=== PATIENT | male | born 1970 | race African-American/Black ===

== ENCOUNTER 2022-06-19 22:17 | Inpatient (IN) ==
[2022-06-19] MEDS ORDERED: LORazepam 1 MG/1 ML SYR ONE (22:18)
[2022-06-19] MEDS ORDERED: ALBUT/IPRATROP 3MG/0.5MG NEB 3 ML VIAL NEB STA (22:19)
[2022-06-19] MEDS ORDERED: ACETAMINOPHEN 500 MG TAB PO STA (22:19)
[2022-06-19] MEDS ORDERED: LORazepam 1 MG/1 ML SYR IV STA (22:19)
[2022-06-19] MEDS ORDERED: dexAMETHasone**PF** 10 MG/ML VIAL IV ONE (22:19)
[2022-06-19] MEDS ORDERED: SODIUM CHLORIDE 0.9% 1000ML 1,000 ML IV SCH (22:30)
[2022-06-19] MEDS ORDERED: PIPERACILLIN/TAZOBACTAM 4.5 GM/120 ML BAG IV ONE (23:23)
[2022-06-19 23:26] LABS: Appearance Urine Clear (Clear); Bacteria Urine Automated Negative (Negative); Bilirubin Urine Negative (Negative); Blood Urine 1+ (Negative); Color Urine Yellow; Glucose Urine UA Negative (Negative); Ketones Urine Negative (Negative); Leukocyte Esterase Urine Negative (Negative); Nitrite Urine Negative (Negative); Protein Urine 2+ (Negative); RBC Urine Automated 0-4 /hpf (0-4); Specific Gravity Urine 1.013 (1.000-1.030); Urobilinogen Urine Negative (Negative)
[2022-06-19 23:40] LABS: Albumin Level 4.7 gm/dl (3.4-5.0); BUN Creatinine Ratio 12.1 (10-20); Bilirubin Direct 0.2 mg/dl (0-0.2); Bilirubin,Total 0.6 mg/dl (0.2-1.0); Calcium 8.7 mg/dl (8.5-10.1); Creatinine Clr Calc Pharmacy 105.8 ml/min; Est GFR (African American) 111.1 ml/min; Est GFR (Non-African American) 95.9 ml/min; Magnesium 1.8 mg/dl (1.7-2.4); Potassium 3.3 mmol/L (3.5-5.1)
[2022-06-19 23:42] LABS: Troponin I High Sensitivity 99.2 pg/ml (0-20)
[2022-06-19] MEDS ORDERED: SODIUM CHLORIDE 0.9% 1000ML 1,000 ML IV ONE (23:42)
[2022-06-19 23:55] LABS: Hematocrit (blood only) 49.9 % (40.1-51.0); Hemoglobin 17.3 g/dl (14.0-18.0); Mean Corpuscular Hemoglobin 32.3 pg (25.0-34.0); Mean Corpuscular Hgb Conc 34.7 g/dL (32.0-36.0); Mean Corpuscular Volume 93.3 fL (80.0-100.0); Mean Platelet Volume 11.7 fL (9.4-12.4); Platelet Count 122 K/uL (130-400); RDW Coefficient of Variation 13.6 % (11.5-14.5); RDW Standard Deviation 46.6 fL (36.4-46.3); Red Blood Count 5.35 M/uL (4.63-6.08); White Blood Count 8.09 K/ul (4.8-10.8)
[2022-06-19 23:57] LABS: Basophils # (auto) 0.02 K/uL (0-0.2); Basophils % (auto) 0.2 %; Eosinophils # (auto) 0.06 K/uL (0-0.50); Eosinophils % (auto) 0.7 %; Immature Granulocytes # (auto) 0.04 K/uL (0.00-0.02); Immature Granulocytes % (auto) 0.5 %; Lymphocytes # (auto) 1.66 K/uL (1.2-3.4); Lymphocytes % (auto) 20.5 %; Monocytes # (auto) 0.83 K/uL (0.24-0.82); Monocytes % (auto) 10.3 %; Neutrophils # (auto) 5.48 K/uL (1.4-6.5); Neutrophils % (auto) 67.8 %; Platelet Estimate Normal (Normal)
[2022-06-20 00:01] LABS: Adenovirus PCR Not Detected (NotDetected); Bordetella parapertussis PCR Not Detected (NotDetected); Bordetella pertussis PCR Not Detected (NotDetected); Chlamydia pneumoniae PCR Not Detected (NotDetected); Coronavirus 229E PCR Not Detected (NotDetected); Coronavirus CoV-2 (COVID19)PCR Not Detected (NotDetected); Coronavirus HKU1 PCR Not Detected (NotDetected); Coronavirus NL63 PCR Not Detected (NotDetected); Coronavirus OC43PCR Not Detected (NotDetected); Human Metapneumovirus PCR Not Detected (NotDetected); Influenza A PCR Not Detected (NotDetected); Influenza B PCR Not Detected (NotDetected); Mycoplasma pneumoniae PCR Not Detected (NotDetected); Parainfluenza Virus 1 PCR Not Detected (NotDetected); Parainfluenza Virus 2 PCR Not Detected (NotDetected); Parainfluenza Virus 3 PCR Not Detected (NotDetected); Parainfluenza Virus 4 PCR Not Detected (NotDetected); Respiratory Syncytial VirusPCR Not Detected (NotDetected)
[2022-06-20 00:04] LABS: Rhinovirus/Enterovirus PCR DETECTED (NotDetected)
--- NOTE | 2022-06-20 00:19 | Emergency Department Note ---
History of Present Illness General Chief complaint: Respiratory Problems Stated complaint: RESPIRATORY PROBLEMS History of Present Illness This 51-year-old who smokes presents to the ER complaining of fever shortness of breath for the past few days who normally goes to [facility] Location: Generalized Quality: Hard to breathe Severity: Severe Duration: Past few days Timing: Started few days ago Context: Patient was concerned and came in Modifying factors: better with oxygen; worse with coughing Patient comes in yelling and screaming for oxygen from EMS. Patient complains of cough, congestion and shortness of breath with fever and chills. He does smoke. He denies history of COPD heart attack or stroke. There is no prior medical records to review for this patient in our system currently. I did ask for the records from [place] to be sent to our facility for review. Patient is adamant he has no prior cardiac disease despite the fact having a pacemaker. He denies any blood thinners. No COVID or flu vaccine. Home Medications Medication Instructions Recorded Confirmed Type albuterol sulfate 2.5 mg/3 mL 2.5 mg inhalation QID 06/20/22 06/20/22 History (0.083 %) solution for nebulization albuterol sulfate 2.5 mg/3 mL 2.5 mg inhalation QID 06/20/22 06/20/22 History (0.083 %) solution for nebulization alprazolam 2 mg tablet 2 mg PO QID PRN Anxiety 06/20/22 06/20/22 History alprazolam 2 mg tablet (Xanax) 2 mg PO QID PRN Anxiety 06/20/22 06/20/22 History dicyclomine 10 mg PO QID PRN Abdominal Pain 06/20/22 06/20/22 History dicyclomine 10 mg capsule 10 mg PO QID PRN .ABD PAIN 06/20/22 06/20/22 History divalproex 500 mg tablet,delayed 500 mg PO BID 06/20/22 06/20/22 History release divalproex 500 mg tablet,extended 500 mg PO AMHS 06/20/22 06/20/22 History release 24 hr escitalopram oxalate 20 mg tablet 20 mg PO QAM 06/20/22 06/20/22 History escitalopram oxalate 20 mg tablet 20 mg PO DAILY 06/20/22 06/20/22 History (Lexapro) furosemide 40 mg tablet (Lasix) 40 mg PO DAILYBD 06/20/22 06/20/22 History furosemide 80 mg tablet (Lasix) 80 mg PO BID 06/20/22 06/20/22 History furosemide 80 mg tablet (Lasix) 80 mg PO QAM 06/20/22 06/20/22 History gabapentin 600 mg PO HS 06/20/22 06/20/22 History gabapentin 300 mg capsule 600 mg PO HS 06/20/22 06/20/22 History isosorbide mononitrate 30 mg 30 mg PO DAILY 06/20/22 06/20/22 History tablet,extended release 24 hr isosorbide mononitrate 30 mg 30 mg PO QAM 06/20/22 06/20/22 History tablet,extended release 24 hr lisinopril 40 mg tablet 40 mg PO DAILY 06/20/22 06/20/22 History lisinopril 40 mg tablet 40 mg PO DAILY 06/20/22 06/20/22 History ondansetron 4 mg disintegrating 4 mg PO Q8H PRN Nausea 06/20/22 06/20/22 History tablet oxycodone-acetaminophen 10 mg-325 1 tab PO Q4H PRN Pain 06/20/22 06/20/22 History mg tablet (Percocet) oxycodone-acetaminophen 10 mg-325 1 tab PO Q4H PRN Pain, Severe 06/20/22 06/20/22 History mg tablet (Percocet) potassium chloride 20 mEq 40 meq PO BID 06/20/22 06/20/22 History tablet,extended release potassium chloride 20 mEq 40 meq PO BID 06/20/22 06/20/22 History tablet,extended release quetiapine 800 mg PO HS 06/20/22 06/20/22 History quetiapine 400 mg tablet 800 mg PO HS 06/20/22 06/20/22 History Allergies Allergy/AdvReac Type Severity Reaction Status Date / Time tramadol Allergy Hives Verified 06/20/22 02:12 amoxicillin AdvReac SOB Verified 06/20/22 02:12 Past Med/Surg History Medical History (Updated 06/20/22 @ 00:25 by Meron Vasques PA-C) Pacemaker Surgical History (Updated 06/20/22 @ 00:18 by Meron M Layo, PA-C) No pertinent past surgical history Social History Smoking Status: Current every day smoker Preferred Language: Irish Feels Safe at Home: Yes Review of Systems A total of 10 systems reviewed and were otherwise negative Physical Exam Vital Signs Vital Signs - 24 hr 06/19/22 22:22 06/19/22 22:22 06/19/22 23:31 Temperature 39.5 C H Temperature Source Oral Pulse Rate 132 H Pulse Rate [Apical] Respiratory Rate 32 H Respiratory Effort / Characteristics Accessory Muscle Use Labored Short of Breath Accessory Muscle Use Grunting Labored Short of Breath Respiratory Depth Shallow Respiratory Pattern Tachypnea Tachypnea Blood Pressure 191/121 H Blood Pressure [Right Arm] Blood Pressure Mean 144 Blood Pressure Mean [Right Arm] Pulse Oximetry 88 L 92 Oxygen Delivery Method Nasal Cannula Nasal Cannula Nasal Cannula Oxygen Flow Rate 5 5 6 Sepsis Recent Fever Within 48 Hours Yes Sepsis New/Unexplained Change in Mental Status No Sepsis Action Taken by Nursing Adv Provider Notified 06/19/22 23:31 06/19/22 23:45 06/20/22 00:00 Temperature Temperature Source Pulse Rate Pulse Rate [Apical] 102 H 97 H 97 H Respiratory Rate 26 H 26 H 26 H Respiratory Effort / Characteristics Spontaneous Short of Breath Non-Labored Spontaneous Non-Labored Respiratory Depth Normal Respiratory Pattern Blood Pressure Blood Pressure [Right Arm] 133/89 154/91 H Blood Pressure Mean Blood Pressure Mean [Right Arm] 103 112 Pulse Oximetry 92 96 94 Oxygen Delivery Method Nasal Cannula Nasal Cannula Nasal Cannula Oxygen Flow Rate 6 6 6 Sepsis Recent Fever Within 48 Hours Sepsis New/Unexplained Change in Mental Status Sepsis Action Taken by Nursing 06/20/22 00:30 06/20/22 01:00 06/20/22 01:15 Temperature Temperature Source Pulse Rate Pulse Rate [Apical] 98 H 103 H 95 H Respiratory Rate 24 28 H 24 Respiratory Effort / Characteristics Respiratory Depth Respiratory Pattern Blood Pressure Blood Pressure [Right Arm] 131/77 170/108 H 143/123 H Blood Pressure Mean Blood Pressure Mean [Right Arm] 95 128 129 Pulse Oximetry 94 92 95 Oxygen Delivery Method Nasal Cannula Nasal Cannula Oxymask Oxygen Flow Rate 6 6 10 Sepsis Recent Fever Within 48 Hours Sepsis New/Unexplained Change in Mental Status Sepsis Action Taken by Nursing 06/20/22 01:30 06/20/22 01:45 06/20/22 02:00 Temperature Temperature Source Pulse Rate Pulse Rate [Apical] 95 H 88 93 H Respiratory Rate 28 H 28 H 26 H Respiratory Effort / Characteristics Respiratory Depth Respiratory Pattern Blood Pressure Blood Pressure [Right Arm] 134/101 H 170/98 H 142/87 H Blood Pressure Mean Blood Pressure Mean [Right Arm] 112 122 105 Pulse Oximetry 93 93 95 Oxygen Delivery Method Oxymask Oxymask Oxymask Oxygen Flow Rate 10 10 10 Sepsis Recent Fever Within 48 Hours Sepsis New/Unexplained Change in Mental Status Sepsis Action Taken by Nursing 06/20/22 02:30 Temperature Temperature Source Pulse Rate Pulse Rate [Apical] 91 H Respiratory Rate 24 Respiratory Effort / Characteristics Respiratory Depth Respiratory Pattern Blood Pressure Blood Pressure [Right Arm] 144/100 H Blood Pressure Mean Blood Pressure Mean [Right Arm] 114 Pulse Oximetry 92 Oxygen Delivery Method Oxymask Oxygen Flow Rate 10 Sepsis Recent Fever Within 48 Hours Sepsis New/Unexplained Change in Mental Status Sepsis Action Taken by Nursing VITALS: Vitals are noted on the nurse's note and reviewed by myself. Vital signs febrile. GENERAL: Black male yelling and screaming at staff wanting a fan and oxygen, SKIN: The skin was without rashes, erythema, edema, or bruising. There is no tenting of the skin. Capillary reflex less than 2 seconds. HEAD: Normocephalic atraumatic. EARS: External auditory canals clear, tympanic membranes pearly rdz without erythema or effusion bilaterally. EYES: Pupils equal round and reactive to light and accommodation. Conjunctivae without injection, sclerae without icterus. Extraocular movements intact. NOSE: Patent, turbinates without inflammation or discharge. No sinus tenderness. MOUTH: Mucous membranes moist. Pharynx without erythema or exudate. Uvula midline. Airway patent. Tongue does not deviate. NECK: Supple without nuchal rigidity. No lymphadenopathy. No thyromegaly. Cervical spine is nontender. No JVD. HEART: Regular rate and rhythm LUNGS: Mild diffuse inspiratory and end expiratory wheezes, No retractions or accessory muscle use. ABDOMEN: Positive bowel sounds x 4. Normal tympanic percussion. Soft, nontender, without masses or organomegaly. Colindres sign negative. No guarding or rebound tenderness. No CVA tenderness MUSCULOSKELETAL: No muscle atrophy, erythema, or edema noted. NEURO: Patient was alert and oriented to person place and time. Normal sensation to light and sharp touch. No focal neurological deficits. Course Administered Medications Discontinued Medications Acetaminophen (Acetaminophen 500 Mg Tab) 1,000 mg PO NOW STA Stop: 06/19/22 22:20 Last Admin: 06/19/22 22:59 Dose: 1,000 mg Documented By: AN Albuterol (Albut/Ipratrop 3mg/0.5mg Neb 3 Ml Vial) 3 ml NEB NOW STA; Protocol Stop: 06/19/22 22:20 Last Admin: 06/19/22 22:59 Dose: 3 ml Documented By: AN Dexamethasone Sodium Phosphate (DexamethasonePf 10 Mg/Ml Vial) 10 mg IV NOW ONE Stop: 06/19/22 22:20 Last Admin: 06/19/22 22:59 Dose: 10 mg Documented By: AN Sodium Chloride (Nss 1000ml) 1,000 mls @ 999 mls/hr IV .Q1H1M ILIA Stop: 06/19/22 23:30 Last Infusion: 06/20/22 00:11 Dose: 0 mls/hr Documented By: Admin: 06/19/22 22:47 Dose: 999 mls/hr Documented By: AN Piperacillin Sod/Tazobactam Sod (Zosyn) 4.5 gm in 120 mls @ 240 mls/hr IV NOW ONE Stop: 06/19/22 23:52 Last Infusion: 06/20/22 00:30 Dose: 0 mls/hr Documented By: Admin: 06/19/22 23:43 Dose: 240 mls/hr Documented By: AN Sodium Chloride (Nss 1000ml) 1,000 mls @ 999 mls/hr IV .Q1H1M ONE Stop: 06/20/22 00:42 Last Admin: 06/20/22 01:08 Dose: Not Given Documented By: AN Ioversol (Optiray 320 500ml) 117 ml IV ONCE ONE Stop: 06/20/22 00:23 Last Admin: 06/20/22 00:22 Dose: 117 ml Documented By: MAURIZIO Lorazepam (Lorazepam 1 Mg/1 Ml Syr) Confirm Administered Dose 1 mg .ROUTE .STK- MED ONE Stop: 06/19/22 22:19 Last Admin: 06/19/22 22:47 Dose: Not Given Documented By: AN Lorazepam (Lorazepam 1 Mg/1 Ml Syr) 1 mg IV NOW STA; Protocol Stop: 06/19/22 22:20 Last Admin: 06/19/22 22:19 Dose: 1 mg Documented By: AN Medical Decision Making Medical Records Attestation: I reviewed the patient's medical records. Home Medications Current Medication List: was personally reviewed by me Laboratory Data Attestation: I reviewed the patient's lab results. Result diagrams: 06/19/22 22:45 06/19/22 22:45 Lab Results 06/19/22 06/19/22 06/19/22 Range/Units 22:45 22:45 22:45 WBC 8.09 (4.8-10.8) K/ul RBC 5.35 (4.63-6.08) M/uL Hgb 17.3 (14.0-18.0) g/dl Hct 49.9 (40.1-51.0) % MCV 93.3 (80.0-100.0) fL MCH 32.3 (25.0-34.0) pg MCHC 34.7 (32.0-36.0) g/dL RDW Std Deviation 46.6 H (36.4-46.3) fL RDW Coeff of Seven 13.6 (11.5-14.5) % Plt Count 122 L (130-400) K/uL MPV 11.7 (9.4-12.4) fL Immature Gran % (Auto) 0.5 % Neut % (Auto) 67.8 % Lymph % (Auto) 20.5 % [place] % (Auto) 10.3 % Eos % (Auto) 0.7 % Baso % (Auto) 0.2 % Neut # (Auto) 5.48 (1.4-6.5) K/uL Lymph # (Auto) 1.66 (1.2-3.4) K/uL [place] # (Auto) 0.83 H (0.24-0.82) K/uL Eos # (Auto) 0.06 (0-0.50) K/uL Baso # (Auto) 0.02 (0-0.2) K/uL Immature Gran # (Auto) 0.04 H (0.00-0.02) K/uL Platelet Estimate Normal (Normal) Sodium 139 (136-145) mmol/L Potassium 3.3 L (3.5-5.1) mmol/L Chloride 103 (98-107) mmol/L Carbon Dioxide 25 (21-32) mmol/L Anion Gap 11 (3-11) BUN 11 (6-23) mg/dl Creatinine 0.91 (0.6-1.4) mg/dl Est Cr Clr Drug Dosing 105.8 ml/min Est GFR ( Amer) 111.1 ml/min Est GFR (Non-Af Amer) 95.9 ml/min BUN/Creatinine Ratio 12.1 (10-20) Glucose 71 (70-99(Fasting)) mg/dl Lactate (0.4-2.0) mmol/L Calcium 8.7 (8.5-10.1) mg/dl Magnesium 1.8 (1.7-2.4) mg/dl Total Bilirubin 0.6 (0.2-1.0) mg/dl Direct Bilirubin 0.2 (0-0.2) mg/dl AST 42 H (13-39) U/L ALT 30 (7-52) U/L Alkaline Phosphatase 92 (34-104) U/L Troponin I High Sens 99.2 H* (0-20) pg/ml Total Protein 8.0 (6.0-8.3) gm/dl Albumin 4.7 (3.4-5.0) gm/dl Procalcitonin < 0.05 (0-0.5) ng/ml Urine Color Urine Appearance (Clear) Urine pH (4.5-7.5) Ur Specific [place] (1.000-1.030) Urine Protein (Negative) Urine Glucose (UA) (Negative) Urine Ketones (Negative) Urine Blood (Negative) Urine Nitrite (Negative) Urine Bilirubin (Negative) Urine Urobilinogen (Negative) Ur Leukocyte Esterase (Negative) Urine WBC (Auto) (0-5) /hpf Urine RBC (Auto) (0-4) /hpf U Hyaline Cast (Auto) (0-5) /lpf U Epithel Cells (Auto) (0-5) /lpf Urine Bacteria (Auto) (Negative) Adenovirus (PCR) (NotDetected) B. pertussis DNA (PCR) (NotDetected) B.parapertussis DNA PCR (NotDetected) C. pneumoniae DNA (PCR) (NotDetected) Coronavirus OC43 (PCR) (NotDetected) Coronavirus HKU1 (PCR) (NotDetected) Coronavirus 229E (PCR) (NotDetected) SARS-CoV-2 (PCR) (NotDetected) Coronavirus NL63 (PCR) (NotDetected) Human Metapneumovir PCR (NotDetected) Influenza Type A (PCR) (NotDetected) Influenza Type B (PCR) (NotDetected) M. pneumoniae (PCR) (NotDetected) Parainfluenza 1 (PCR) (NotDetected) Parainfluenza 2 (PCR) (NotDetected) Parainfluenza 3 (PCR) (NotDetected) Parainfluenza 4 (PCR) (NotDetected) RSV (PCR) (NotDetected) Entero/Rhino (PCR) (NotDetected) 06/19/22 06/19/22 06/19/22 Range/Units 22:45 22:59 23:15 WBC (4.8-10.8) K/ul RBC (4.63-6.08) M/uL Hgb (14.0-18.0) g/dl Hct (40.1-51.0) % MCV (80.0-100.0) fL MCH (25.0-34.0) pg MCHC (32.0-36.0) g/dL RDW Std Deviation (36.4-46.3) fL RDW Coeff of Seven (11.5-14.5) % Plt Count (130-400) K/uL MPV (9.4-12.4) fL Immature Gran % (Auto) % Neut % (Auto) % Lymph % (Auto) % [place] % (Auto) % Eos % (Auto) % Baso % (Auto) % Neut # (Auto) (1.4-6.5) K/uL Lymph # (Auto) (1.2-3.4) K/uL [place] # (Auto) (0.24-0.82) K/uL Eos # (Auto) (0-0.50) K/uL Baso # (Auto) (0-0.2) K/uL Immature Gran # (Auto) (0.00-0.02) K/uL Platelet Estimate (Normal) Sodium (136-145) mmol/L Potassium (3.5-5.1) mmol/L Chloride (98-107) mmol/L Carbon Dioxide (21-32) mmol/L Anion Gap (3-11) BUN (6-23) mg/dl Creatinine (0.6-1.4) mg/dl Est Cr Clr Drug Dosing ml/min Est GFR ( Amer) ml/min Est GFR (Non-Af Amer) ml/min BUN/Creatinine Ratio (10-20) Glucose (70-99(Fasting)) mg/dl Lactate 3.3 H* (0.4-2.0) mmol/L Calcium (8.5-10.1) mg/dl Magnesium (1.7-2.4) mg/dl Total Bilirubin (0.2-1.0) mg/dl Direct Bilirubin (0-0.2) mg/dl AST (13-39) U/L ALT (7-52) U/L Alkaline Phosphatase (34-104) U/L Troponin I High Sens (0-20) pg/ml Total Protein (6.0-8.3) gm/dl Albumin (3.4-5.0) gm/dl Procalcitonin (0-0.5) ng/ml Urine Color Yellow Urine Appearance Clear (Clear) Urine pH 6.0 (4.5-7.5) Ur Specific [place] 1.013 (1.000-1.030) Urine Protein 2+ H (Negative) Urine Glucose (UA) Negative (Negative) Urine Ketones Negative (Negative) Urine Blood 1+ H (Negative) Urine Nitrite Negative (Negative) Urine Bilirubin Negative (Negative) Urine Urobilinogen Negative (Negative) Ur Leukocyte Esterase Negative (Negative) Urine WBC (Auto) 1-5 (0-5) /hpf Urine RBC (Auto) 0-4 (0-4) /hpf U Hyaline Cast (Auto) 1-5 (0-5) /lpf U Epithel Cells (Auto) 5-10 H (0-5) /lpf Urine Bacteria (Auto) Negative (Negative) Adenovirus (PCR) Not Detected (NotDetected) B. pertussis DNA (PCR) Not Detected (NotDetected) B.parapertussis DNA PCR Not Detected (NotDetected) C. pneumoniae DNA (PCR) Not Detected (NotDetected) Coronavirus OC43 (PCR) Not Detected (NotDetected) Coronavirus HKU1 (PCR) Not Detected (NotDetected) Coronavirus 229E (PCR) Not Detected (NotDetected) SARS-CoV-2 (PCR) Not Detected (NotDetected) Coronavirus NL63 (PCR) Not Detected (NotDetected) Human Metapneumovir PCR Not Detected (NotDetected) Influenza Type A (PCR) Not Detected (NotDetected) Influenza Type B (PCR) Not Detected (NotDetected) M. pneumoniae (PCR) Not Detected (NotDetected) Parainfluenza 1 (PCR) Not Detected (NotDetected) Parainfluenza 2 (PCR) Not Detected (NotDetected) Parainfluenza 3 (PCR) Not Detected (NotDetected) Parainfluenza 4 (PCR) Not Detected (NotDetected) RSV (PCR) Not Detected (NotDetected) Entero/Rhino (PCR) DETECTED A* (NotDetected) 06/20/22 06/20/22 Range/Units 00:54 02:12 WBC (4.8-10.8) K/ul RBC (4.63-6.08) M/uL Hgb (14.0-18.0) g/dl Hct (40.1-51.0) % MCV (80.0-100.0) fL MCH (25.0-34.0) pg MCHC (32.0-36.0) g/dL RDW Std Deviation (36.4-46.3) fL RDW Coeff of Seven (11.5-14.5) % Plt Count (130-400) K/uL MPV (9.4-12.4) fL Immature Gran % (Auto) % Neut % (Auto) % Lymph % (Auto) % [place] % (Auto) % Eos % (Auto) % Baso % (Auto) % Neut # (Auto) (1.4-6.5) K/uL Lymph # (Auto) (1.2-3.4) K/uL [place] # (Auto) (0.24-0.82) K/uL Eos # (Auto) (0-0.50) K/uL Baso # (Auto) (0-0.2) K/uL Immature Gran # (Auto) (0.00-0.02) K/uL Platelet Estimate (Normal) Sodium (136-145) mmol/L Potassium (3.5-5.1) mmol/L Chloride (98-107) mmol/L Carbon Dioxide (21-32) mmol/L Anion Gap (3-11) BUN (6-23) mg/dl Creatinine (0.6-1.4) mg/dl Est Cr Clr Drug Dosing ml/min Est GFR ( Amer) ml/min Est GFR (Non-Af Amer) ml/min BUN/Creatinine Ratio (10-20) Glucose (70-99(Fasting)) mg/dl Lactate 1.3 (0.4-2.0) mmol/L Calcium (8.5-10.1) mg/dl Magnesium (1.7-2.4) mg/dl Total Bilirubin (0.2-1.0) mg/dl Direct Bilirubin (0-0.2) mg/dl AST (13-39) U/L ALT (7-52) U/L Alkaline Phosphatase (34-104) U/L Troponin I High Sens 114.9 H* (0-20) pg/ml Total Protein (6.0-8.3) gm/dl Albumin (3.4-5.0) gm/dl Procalcitonin (0-0.5) ng/ml Urine Color Urine Appearance (Clear) Urine pH (4.5-7.5) Ur Specific [place] (1.000-1.030) Urine Protein (Negative) Urine Glucose (UA) (Negative) Urine Ketones (Negative) Urine Blood (Negative) Urine Nitrite (Negative) Urine Bilirubin (Negative) Urine Urobilinogen (Negative) Ur Leukocyte Esterase (Negative) Urine WBC (Auto) (0-5) /hpf Urine RBC (Auto) (0-4) /hpf U Hyaline Cast (Auto) (0-5) /lpf U Epithel Cells (Auto) (0-5) /lpf Urine Bacteria (Auto) (Negative) Adenovirus (PCR) (NotDetected) B. pertussis DNA (PCR) (NotDetected) B.parapertussis DNA PCR (NotDetected) C. pneumoniae DNA (PCR) (NotDetected) Coronavirus OC43 (PCR) (NotDetected) Coronavirus HKU1 (PCR) (NotDetected) Coronavirus 229E (PCR) (NotDetected) SARS-CoV-2 (PCR) (NotDetected) Coronavirus NL63 (PCR) (NotDetected) Human Metapneumovir PCR (NotDetected) Influenza Type A (PCR) (NotDetected) Influenza Type B (PCR) (NotDetected) M. pneumoniae (PCR) (NotDetected) Parainfluenza 1 (PCR) (NotDetected) Parainfluenza 2 (PCR) (NotDetected) Parainfluenza 3 (PCR) (NotDetected) Parainfluenza 4 (PCR) (NotDetected) RSV (PCR) (NotDetected) Entero/Rhino (PCR) (NotDetected) Imaging Data Attestation: I personally reviewed and interpreted this imaging study as follows: MDM Narrative Prior records/ancillary studies reviewed. Triage Nursing notes reviewed. Additional history obtained from EMS. The patient's history was concerning for fever shortness of breath. Differential diagnosis: Etiologies such as sepsis, UTI, pneumonia, metabolic, electrolyte abnormalities, cardiac sources, intracerebral event, toxicologic, neurologic, as well as others were entertained. Physical examination: As above. Pertinent findings were shortness of breath. Vital signs reviewed and revealed febrile hypoxic. ER treatment provided: IV fluid resuscitation with Normal saline solution, 2000 mL bolus. Blood and urine cultures Antibiotics: Zosyn Nebulizer steroids Tylenol An order was placed for continuous cardiac monitoring. The monitor shows a rate of 60-1 50 with a sinus rhythm. On reassessment the patient vital signs improved. Diagnostics interpretation by me: ECG: Ordered for shortness of breath EKG: Poor baseline, T wave versions in the anterior lateral leads, occasional PV C, rate of 105. Impression sinus tachycardia with T wave inversions in the anterolateral leads poor baseline occasional PVC interpreted by myself I think arrhythmia is unlikely. EKG shows normal sinus rhythm with no interval abnormalities such as QT prolongation or WPW. There are no findings to suggest Brugada syndrome. Cardiac monitoring in the emergency department reveals no tachycardic or bradycardic dysrhythmia. Hypertrophic cardiomyopathy was considered but there are no clear historical elements pointing toward this. EKG is not suggestive. The QRS voltage is not extremely large and there are no suggestive Q waves. The labs revealed no worrisome leukocytosis, elevated lactic, normal p rocalcitonin, elevated troponin Positive bio fire Blood and urine cultures are pending. Imaging studies: CTA CHEST: There is fair opacification of the pulmonary arterial tree. No pulmonary arterial filling defect is seen. There is patchy multifocal consolidation throughout the lungs, correlate for concern of underlying infection. No effusion or pneumothorax. The heart is enlarged with reflux of contrast into the hepatic IVC suggesting an element of right heart failure. Radiologist: Kristian Vasques MD Chest x-ray concerning for multifocal pneumonia per my interpretation Consultation: A consultation was placed with the hospitalist. The case was discussed and diagnostics were reviewed. The patient was evaluated in the ER for further treatment. Exam and history seem consistent with sepsis from pneumonia. Medicine was consulted. Patient was reassessed multiple times. I did request further records from [place]. Patient no chest pain. Repeat EKG was reviewed. Repeat troponin was ordered. Patient was started on broad-spectrum antibiotics. He was medicated as above. He will be admitted. The chart was completed utilizing [employer] Speech voice recognition software. Grammatical errors, random word insertions, pronoun errors, and incomplete sentences are an occassional consequence of this system due to software limitations, ambient noise, and hardware issues. Any formal questions or concerns about the content, text, or information contained within the body of this dictation should be directly addressed to the physician assistant professor of psychology for clarification. Impression & Plan Sepsis, Pneumonia, Acute non-ST elevation myocardial infarction (NSTEMI) Discharge Plan Visit Data Chief Complaint: Respiratory Problems Stated Complaint: RESPIRATORY PROBLEMS ED Provider: Remington Peterson ED Midlevel Provider: Meron Vasques Discharge Problem: Sepsis, Pneumonia, Acute non-ST elevation myocardial infarction (NSTEMI) Patient Disposition: Being Evaluated by Hospitalist Condition: Fair Discharge Instructions Interventions: ED Discharge Assessment Last Done: 06/20/22 02:58 Forms Stand Alone Forms: My natue Prescriptions Prescriptions: No Action albuterol sulfate 2.5 mg /3 mL (0.083 %) Solution For Nebulization 2.5 mg INHALATION QID isosorbide mononitrate [Imdur] 30 mg Tablet Extended Release 24 Hr 30 mg PO QAM oxycodone-acetaminophen [Percocet] 10-325 mg Tablet 1 tab PO Q4H PRN (Reason: Pain) furosemide [Lasix] 80 mg Tablet 80 mg PO BID Rx Instructions: TAKE 1 TAB IN AM & 1 TAB BEFORE HS divalproex 500 mg Tablet Extended Release 24 Hr 500 mg PO AMHS gabapentin 300 mg Capsule 600 mg PO HS alprazolam [Xanax] 2 mg Tablet 2 mg PO QID PRN (Reason: Anxiety) lisinopril 40 mg Tablet 40 mg PO DAILY ondansetron 4 mg Tablet,Disintegrating 4 mg PO Q8H PRN (Reason: Nausea) dicyclomine [Bentyl] 10 mg Capsule 10 mg PO QID PRN (Reason: .ABD PAIN) escitalopram oxalate 20 mg Tablet 20 mg PO QAM quetiapine 400 mg Tablet 800 mg PO HS potassium chloride 20 mEq Tablet Extended Release 40 meq PO BID furosemide [Lasix] 40 mg Tablet 40 mg PO DAILYBD albuterol sulfate [Proventil] 2.5 mg /3 mL (0.083 %) Solution For Nebulization 2.5 mg INHALATION QID isosorbide mononitrate [Imdur] 30 mg Tablet Extended Release 24 Hr 30 mg PO DAILY divalproex 500 mg Tablet,Delayed Release (Dr/Ec) 500 mg PO BID oxycodone-acetaminophen [Percocet] 10-325 mg Tablet 1 tab PO Q4H PRN (Reason: Pain, Severe) furosemide [Lasix] 80 mg Tablet 80 mg PO QAM alprazolam 2 mg Tablet 2 mg PO QID PRN (Reason: Anxiety) lisinopril 40 mg Tablet 40 mg PO DAILY escitalopram oxalate [Lexapro] 20 mg Tablet 20 mg PO DAILY potassium chloride 20 mEq Tablet Extended Release 40 meq PO BID dicyclomine 10 mg PO QID PRN (Reason: Abdominal Pain) gabapentin 300 mg 600 mg PO HS quetiapine 400 mg 800 mg PO HS Referrals Referrals: PCP,NO [Primary Care Provider] - : Sepsis Qualifiers: Sepsis type: sepsis due to unspecified organism Sepsis acute organ dysfunction status: unspecified Qualified Code(s): A41.9 - Sepsis, unspecified organism
[2022-06-20] MEDS ORDERED: OPTIRAY 320 500ml IV ONE (00:22)
[2022-06-20] MEDS ORDERED: FUROSEMIDE 40 MG/4 ML VIAL IV ONE (02:47)
[2022-06-20] MEDS ORDERED: ACETAMINOPHEN 325 MG TAB PO PRN (03:41)
[2022-06-20] MEDS ORDERED: DICYCLOMINE HCL 10 MG CAP PO PRN (03:41)
[2022-06-20] MEDS ORDERED: ONDANSETRON 4 MG OD TAB PO PRN (03:41)
[2022-06-20] MEDS ORDERED: POLYETHYLENE (MIRALAX) 17 GM PACK PO PRN (03:41)
[2022-06-20] MEDS ORDERED: ALBUT/IPRATROP 3MG/0.5MG NEB 3 ML VIAL NEB PRN (03:41)
[2022-06-20] MEDS ORDERED: NITROGLYCERIN SL 0.4 MG/TAB TAB SL PRN (03:41)
[2022-06-20] MEDS ORDERED: FLUARIX QUADRIVALENT 0.5 ML SYR IM ONE (04:15)
[2022-06-20] MEDS: DOXYCYCLINE HYCLATE 100 MG in DEXTROSE 5% 100 ML IV SCH ×2 (04:47→16:33)
[2022-06-20 06:12] LABS: Hemoglobin 17.8 g/dl (14.0-18.0); Mean Corpuscular Hemoglobin 32.4 pg (25.0-34.0); Mean Corpuscular Hgb Conc 34.9 g/dL (32.0-36.0); Mean Corpuscular Volume 92.7 fL (80.0-100.0); Mean Platelet Volume 11.4 fL (9.4-12.4); Platelet Count 149 K/uL (130-400); RDW Coefficient of Variation 13.2 % (11.5-14.5); RDW Standard Deviation 45.1 fL (36.4-46.3); White Blood Count 11.13 K/ul (4.8-10.8)
--- NOTE | 2022-06-20 06:41 | History and Physical Report ---
DATE OF ADMISSION: 06/20/2022. CHIEF COMPLAINT: Shortness of breath. HISTORY OF PRESENT ILLNESS: A 51-year-old male with past medical history significant for chronic systolic CHF, status post cardiac defibrillator, nonischemic cardiomyopathy, obstructive sleep apnea on CPAP, hyperlipidemia, hypertension, cervicalgia, chronic back pain, schizophrenia, imbalance, ongoing tobacco abuse, anxiety about health, presents with shortness of breath. He was placed on OxyMask and sometimes have difficulty speaking with short of breath, had temp spike in the ER. His BioFire came back positive for entero-rhino virus PCR positive. Chest x-ray shows pneumonia. CTA chest, preliminary report no PE, but shows right heart volume overload. No obvious edema seen. The patient is having cough for the last 3 days and he was feeling short of breath and fever. Denies any chest pain, no headache, no blurred visions, no earache, no runny nose, no sore throat, no nausea, no abdominal pain. Normal bowel and bladder movements as well as pain medications and his anxiety medications. ALLERGIES: TRAMADOL, AMOXICILLIN. PAST MEDICAL HISTORY: As mentioned above. PAST SURGICAL HISTORY: Knee arthroscopy, pacemaker insertion, removal of BASHIR implant, replacement of pulse generator. MEDICATIONS: The patient is on albuterol nebulization q.i.d., alprazolam 2 mg p.o. q.i.d. p.r.n. for anxiety, lisinopril 10 mg p.o. q.i.d. for abdominal pain, divalproex 500 mg p.o. b.i.d., Lexapro 20 mg p.o. a.m., Lasix 80 mg in a.m. and 40 mg in p.m., gabapentin 600 mg p.o. at bedtime, Imdur 30 mg p.o. daily, lisinopril 40 mg p.o. daily, Zofran 4 mg p.o. q. 8 hours p.r.n., Percocet 10/325 mg 1 tablet p.o. q. 4 hours p.r.n., potassium chloride 40 mEq p.o. b.i.d., Seroquel 800 mg p.o. at bedtime. FAMILY HISTORY: Significant for father has alcoholism, daughter has heart disease; mother has heart disease. SOCIAL HISTORY: Currently smoking 4 cigarettes daily. As per records he smoked 1 pack a day. No alcohol use. No drug use. REVIEW OF SYSTEMS: As per HPI. Rest of the review of systems is negative. PHYSICAL EXAMINATION: GENERAL: The patient is of moderate build some moderate respiratory distress. VITAL SIGNS: Temperature T-max 39.5, pulse 91, respiratory rate 24, blood pressure 144/100, oxygen 92% on 10lt OxyMask. HEENT: Pupils equal, round, reactive to light. Oral mucosa moist. NECK: No JVD, no neck masses. CARDIOVASCULAR: S1 and S2 heard. Tachycardia. No murmurs. RESPIRATORY SYSTEM: Normal AP diameter. No accessory muscle use. Mild bibasilar crackles. Diminished breath sounds. ABDOMEN: Soft, bowel sounds present, nontender, no distention. CENTRAL NERVOUS SYSTEM: Alert, awake, and oriented. Speech is clear. No facial droop. Insight is okay. Obeys simple commands. EXTREMITIES: No edema, no erythema. LABORATORY DATA: WBC 8.9, hemoglobin 14.3, hematocrit 49.9, platelets 122. Sodium 139, potassium 3.3, chloride 103, CO2 25, BUN 11, creatinine 0.9, serum glucose 71. Lactate 1.3, calcium 8.7, magnesium 1.8, total bilirubin 0.6, direct bilirubin 0.2, AST 42, ALT 30, alkaline phosphatase 92. Troponin I high sensitivity 99. Procalcitonin less than 0.05. Urinalysis negative. BioFire positive for entero-Rhino PCR. IMAGING DATA: Chest x-ray shows infiltrates in right lower lobe. CTA chest, no PE, but multifocal pneumonia and possible right heart failure. ECG: Sinus tachycardia with frequent PVCs at a rate of 105, left atrial enlargement, poor quality data, QTc of 465. ASSESSMENT AND PLAN: This 51-year-old male with history of chronic systolic congestive heart failure, ongoing tobacco abuse, schizophrenia, sleep apnea, presents with shortness of breath. 1. Acute respiratory distress, most likely multifocal pneumonia, possible viral pneumonia. BioFire positive entero-rhino PCR. The patient is allergic to PENICILLINS and in the ER received steroid and Zosyn. The patient was also having acute congestive heart failure and chronic obstructive pulmonary disease exacerbation,.Will place him on Azactam and Doxycycline for now, iv streoids, nebs, iv lasix and monitor. 2. Acute on chronic systolic congestive heart failure, EF of 25-29% in echo 2019. IV lasix 40mg bid . Cardiac consult in a.m. Closely monitor. 3. Mild elevation of troponin, possible demand ischemia. Follow serial enzymes, echocardiogram, and cardiac consult in a.m. 4. Chronic obstructive pulmonary disease exacerbation, antibiotics as above, steroids, and nebulizers p.r.n. 5. History of obstructive sleep apnea on CPAP at bedtime. 6. History of schizophrenia, anxiety. Continue his home medication of divalproex, Seroquel and on alprazolam p.r.n. 7. Chronic back pain, on Percocet p.r.n. 8. Hypertension, on lisinopril, Imdur and Lasix We will monitor the blood pressure. 9. Mild thrombocytopenia. Platelets 122.Possibly from current illness. Will monitor. 10.. Deep venous thrombosis prophylaxis, Lovenox. Monitor the platelets. DISPOSITION: Closely monitor in tele floor. Level 1 full code. Job ID: [id number] MTDD
[2022-06-20 06:56] LABS: Basophils # (auto) 0.02 K/uL (0-0.2); Basophils % (auto) 0.2 %; Echinocytes 1+; Immature Granulocytes # (auto) 0.05 K/uL (0.00-0.02); Immature Granulocytes % (auto) 0.4 %; Lymphocytes % (auto) 5.4 %; Monocytes % (auto) 3.6 %; Neutrophils # (auto) 10.06 K/uL (1.4-6.5); Neutrophils % (auto) 90.4 %
[2022-06-20] MEDS ORDERED: ALBUT/IPRATROP 3MG/0.5MG NEB 3 ML VIAL NEB SCH (07:00)
[2022-06-20 07:05] LABS: Troponin I High Sensitivity 94.9 pg/ml (0-20)
[2022-06-20 07:27] LABS: Calcium 8.7 mg/dl (8.5-10.1); Creatinine Clr Calc Pharmacy 106.5 ml/min; Est GFR (African American) 114.7 ml/min; Magnesium 1.7 mg/dl (1.7-2.4); Potassium 3.1 mmol/L (3.5-5.1)
[2022-06-20] MEDS: lisinopril 40 MG TAB PO SCH (08:00)
[2022-06-20] MEDS: methylPREDNISolone 40 MG in SYRINGE 0 ML IV SCH ×2 (08:00→20:40)
[2022-06-20] MEDS: ENOXAPARIN INJ 40 MG/0.4 ML SYR SQ SCH (08:00)
[2022-06-20] MEDS: POTASSIUM CHLORIDE CRTAB 20 MEQ TABCR PO SCH ×2 (08:00→20:41)
[2022-06-20] MEDS: ESCITALOPRAM OXALATE 20 MG TAB PO SCH (08:01)
[2022-06-20] MEDS: ISOSORBIDE MONO EXTENDED REL 30 MG TABCR PO SCH (08:01)
[2022-06-20] MEDS: DIVALPROEX DELAY RELEASE 500 MG TAB PO SCH ×2 (08:01→20:42)
[2022-06-20] MEDS: AZTREONAM 2,000 MG in DEXTROSE 5% 100 ML IV SCH ×2 (08:05→16:32)
[2022-06-20] MEDS: MAGNESIUM OXIDE 400 MG TAB PO SCH (08:05)
[2022-06-20] MEDS: oxyCODONE/ACETAMINOPHEN 10-325 TAB PO PRN ×3 (08:05→20:37)
[2022-06-20] MEDS: FUROSEMIDE 40 MG/4 ML VIAL IV SCH ×2 (08:08→17:40)
--- NOTE | 2022-06-20 08:13 | XRay Report ---
XR chest 1V portable CLINICAL HISTORY: Sepsis TECHNIQUE: Single frontal radiograph of the chest was obtained. Comparison: None available at the time of this dictation. FINDINGS: Pacemaker defibrillator is seen. Cardiomegaly is noted. Multifocal airspace opacities are seen. Kerle y B lines are seen. No evidence of pleural effusion or pneumothorax. IMPRESSION: Multifocal airspace opacities may represent atelectasis, pneumonia, and/or aspiration. There is moder ate pulmonary edema. ACT 112: Negative or not required by law. Electronically signed by: Solitario Castro M.D. 06/20/2022 8:10 AM
--- NOTE | 2022-06-20 08:17 | CT Scan Report ---
CT angio chest PE protocol CLINICAL HISTORY: PE TECHNIQUE: Multidetector row helical CT of the chest was performed with angiographic protocol. Estrada l and sagittal reformations were obtained. Coronal and sagittal MIPS were obtained from the axial park a set and were submitted for review. Automated dose lowering techniques and/or adjustment according to patient size were utilized for this exam. CT DOSE: 428.46 mGy.cm Comparison: Comparison is made to chest radiograph 08/19/2021 FINDINGS: Lungs and pleura: Multifocal airspace opacities are seen. There is interlobular septal thickening. Heart and pericardium: There is reflux of contrast into the IVC which can be seen in heart failure. Vessels: No evidence of pulmonary embolism. Mediastinum and nitish: Subcentimeter lymph nodes are seen. Chest wall and lower neck: Unremarkable. Abdomen: Unremarkable. Bones: Degenerative changes in the thoracic spine. IMPRESSION: 1. No evidence of pulmonary embolism. 2. Pneumonia. 3. Pulmonary edema has history of heart failure. ACT 112: Negative or not required by law. Electronically signed by: Solitario Castro M.D. 06/20/2022 8:14 AM
--- NOTE | 2022-06-20 09:03 | Cardiology Consultation ---
Date of Consultation June 20, 2022 Assessment & Plan (1) CHF (congestive heart failure), NYHA class II: (2) HFrEF (heart failure with reduced ejection fraction): (3) COPD exacerbation: (4) Adenoviral bronchiolitis: (5) Schizophrenia: (6) Elevated troponin: Plan This is a patient with longstanding history of a nonischemic cardiomyopathy with chronic systolic heart failure, COPD from cigarette smoking, noncompliance and history of schizophrenia. The patient is feeling better now that he has received diuretics and started on DuoNeb treatments. I would continue current treatment. History of Present Illness Attending Physician: Hasmukh Landeros MD History of Present Illness This is a 51-year-old male patient with history of schizophrenia who lives alone in [facility]. [place] [facility] [place] there are numerous no-shows and cancellations of visits on the chart. He was last seen in the clinic by Dr. Quiroga in January of this year. Did not seem to be having any problems at that time. He has a nonischemic cardiomyopathy and a primary prevention ICD. He is treated for sleep apnea. Questionable as to his comp liance with medications and overall medical care. Last echocardiogram was in 1999 and at that time he had an estimated left ventricular ejection fraction of 25%. He has a long smoking history but states he stopped recently. He was admitted with progressive shortness of breath. He is tested positive for an enterovirus. Since receiving IV Lasix and DuoNeb treatments he is feeling better. Allergies Allergy/AdvReac Type Severity Reaction Status Date / Time tramadol Allergy Hives Verified 06/20/22 02:12 amoxicillin AdvReac SOB Verified 06/20/22 02:12 Home Medications Medication Instructions Recorded Confirmed Type albuterol sulfate 2.5 mg/3 mL 2.5 mg inhalation QID 06/20/22 06/20/22 History (0.083 %) solution for nebulization albuterol sulfate 2.5 mg/3 mL 2.5 mg inhalation QID 06/20/22 06/20/22 History (0.083 %) solution for nebulization alprazolam 2 mg tablet 2 mg PO QID PRN Anxiety 06/20/22 06/20/22 History alprazolam 2 mg tablet (Xanax) 2 mg PO QID PRN Anxiety 06/20/22 06/20/22 History dicyclomine 10 mg PO QID PRN Abdominal Pain 06/20/22 06/20/22 History dicyclomine 10 mg capsule 10 mg PO QID PRN .ABD PAIN 06/20/22 06/20/22 History divalproex 500 mg tablet,delayed 500 mg PO BID 06/20/22 06/20/22 History release divalproex 500 mg tablet,extended 500 mg PO AMHS 06/20/22 06/20/22 History release 24 hr escitalopram oxalate 20 mg tablet 20 mg PO QAM 06/20/22 06/20/22 History escitalopram oxalate 20 mg tablet 20 mg PO DAILY 06/20/22 06/20/22 History (Lexapro) furosemide 40 mg tablet (Lasix) 40 mg PO DAILYBD 06/20/22 06/20/22 History furosemide 80 mg tablet (Lasix) 80 mg PO BID 06/20/22 06/20/22 History furosemide 80 mg tablet (Lasix) 80 mg PO QAM 06/20/22 06/20/22 History gabapentin 600 mg PO HS 06/20/22 06/20/22 History gabapentin 300 mg capsule 600 mg PO HS 06/20/22 06/20/22 History isosorbide mononitrate 30 mg 30 mg PO DAILY 06/20/22 06/20/22 History tablet,extended release 24 hr isosorbide mononitrate 30 mg 30 mg PO QAM 06/20/22 06/20/22 History tablet,extended release 24 hr lisinopril 40 mg tablet 40 mg PO DAILY 06/20/22 06/20/22 History lisinopril 40 mg tablet 40 mg PO DAILY 06/20/22 06/20/22 History ondansetron 4 mg disintegrating 4 mg PO Q8H PRN Nausea 06/20/22 06/20/22 History tablet oxycodone-acetaminophen 10 mg-325 1 tab PO Q4H PRN Pain 06/20/22 06/20/22 History mg tablet (Percocet) oxycodone-acetaminophen 10 mg-325 1 tab PO Q4H PRN Pain, Severe 06/20/22 06/20/22 History mg tablet (Percocet) potassium chloride 20 mEq 40 meq PO BID 06/20/22 06/20/22 History tablet,extended release potassium chloride 20 mEq 40 meq PO BID 06/20/22 06/20/22 History tablet,extended release quetiapine 800 mg PO HS 06/20/22 06/20/22 History quetiapine 400 mg tablet 800 mg PO HS 06/20/22 06/20/22 History Patient History Medical History Pacemaker Surgical History No pertinent past surgical history Social History Smoking Status: Unknown if ever smoked Second Hand Exposure: No; Do You Dip or Chew Tobacco: No; Tobacco Cessation Education Requested by Patient: No Hx Alcohol Use: No Hx Substance Use: No Preferred Language: Gibraltarian Communication Ability: Effective Dx Board Operator Required: No Beliefs That Will Affect Care: None Current Living Situation: Alone Current Living Situation Comment: lives alone in apartment Other Information That Helps Us Care for You: No Feels Safe at Home: Yes Safety Concerns: Feels Safe At This Time Review of Systems Review of Systems: Review of Systems: See HPI for pertinent positives. All other 10 point review of systems are negative. Physical Exam Physical Exam: General: no acute distress and stated age Head: normocephalic, no masses, lesions, tenderness or abnormalities Eyes: conjunctiva are pink and non-injected, sclera clear Neck: supple, no adenopathy, no bruits, normal jugular venous pulse, no hepatojugular reflux Chest: normal shape and normal respiratory effort Lungs: Wheezing and rhonchi bilaterally. Cardiac Exam: - regular rate & rhythm, no murmurs gallops or rubs - normal S1, normal S2 Pulses: 2(+) throughout Abdomen: abdomen soft, non-tender, no abnormal masses and no hepatosplenomegaly Musculoskeletal: no gait disturbance, no joint inflammation, no deforming arthritis Extremities: no edema and no cyanosis Neuro: grossly normal exam Results & Data ([facility]) Vital Signs (Past 12 Hours) Vital Signs Temp Pulse Pulse Resp BP BP Pulse Ox 06/20/22 07:41 85 06/20/22 07:24 94 H 20 92 06/20/22 04:00 06/20/22 03:44 37.3 C 85 22 144/84 H 96 06/20/22 02:30 91 H 24 144/100 H 92 06/20/22 02:00 93 H 26 H 142/87 H 95 06/20/22 01:45 88 28 H 170/98 H 93 06/20/22 01:30 95 H 28 H 134/101 H 93 06/20/22 01:15 95 H 24 143/123 H 95 06/20/22 01:00 103 H 28 H 170/108 H 92 06/20/22 00:30 98 H 24 131/77 94 06/20/22 00:00 97 H 26 H 94 06/19/22 23:45 97 H 26 H 154/91 H 96 06/19/22 23:31 102 H 26 H 133/89 92 06/19/22 23:31 92 06/19/22 22:22 06/19/22 22:22 39.5 C H 132 H 32 H 191/121 H 88 L O2 Del Method O2 Flow Rate 06/20/22 07:41 06/20/22 07:24 Oxymask 10 06/20/22 04:00 Oxymask 10 06/20/22 03:44 Oxymask 10 06/20/22 02:30 Oxymask 10 06/20/22 02:00 Oxymask 10 06/20/22 01:45 Oxymask 10 06/20/22 01:30 Oxymask 10 06/20/22 01:15 Oxymask 10 06/20/22 01:00 Nasal Cannula 6 06/20/22 00:30 Nasal Cannula 6 06/20/22 00:00 Nasal Cannula 6 06/19/22 23:45 Nasal Cannula 6 06/19/22 23:31 Nasal Cannula 6 06/19/22 23:31 Nasal Cannula 6 06/19/22 22:22 Nasal Cannula 5 06/19/22 22:22 Nasal Cannula 5 Laboratory Results Laboratory Results - last 24 hr 06/19/22 06/19/22 06/19/22 22:45 22:45 22:45 WBC 8.09 RBC 5.35 Hgb 17.3 Hct 49.9 MCV 93.3 MCH 32.3 MCHC 34.7 RDW Std Deviation 46.6 H RDW Coeff of Esven 13.6 Plt Count 122 L MPV 11.7 Immature Gran % (Auto) 0.5 Neut % (Auto) 67.8 Lymph % (Auto) 20.5 [place] % (Auto) 10.3 Eos % (Auto) 0.7 Baso % (Auto) 0.2 Neut # (Auto) 5.48 Lymph # (Auto) 1.66 [place] # (Auto) 0.83 H Eos # (Auto) 0.06 Baso # (Auto) 0.02 Immature Gran # (Auto) 0.04 H Platelet Estimate Normal Echinocytes Sodium 139 Potassium 3.3 L Chloride 103 Carbon Dioxide 25 Anion Gap 11 BUN 11 Creatinine 0.91 Est Cr Clr Drug Dosing 105.8 Est GFR ( Amer) 111.1 Est GFR (Non-Af Amer) 95.9 BUN/Creatinine Ratio 12.1 Glucose 71 Lactate Calcium 8.7 Magnesium 1.8 Total Bilirubin 0.6 Direct Bilirubin 0.2 AST 42 H ALT 30 Alkaline Phosphatase 92 Troponin I High Sens 99.2 H* Total Protein 8.0 Albumin 4.7 Procalcitonin < 0.05 Urine Color Urine Appearance Urine pH Ur Specific [place] Urine Protein Urine Glucose (UA) Urine Ketones Urine Blood Urine Nitrite Urine Bilirubin Urine Urobilinogen Ur Leukocyte Esterase Urine WBC (Auto) Urine RBC (Auto) U Hyaline Cast (Auto) U Epithel Cells (Auto) Urine Bacteria (Auto) Adenovirus (PCR) B. pertussis DNA (PCR) B.parapertussis DNA PCR C. pneumoniae DNA (PCR) Coronavirus OC43 (PCR) Coronavirus HKU1 (PCR) Coronavirus 229E (PCR) SARS-CoV-2 (PCR) Coronavirus NL63 (PCR) Human Metapneumovir PCR Influenza Type A (PCR) Influenza Type B (PCR) M. pneumoniae (PCR) Parainfluenza 1 (PCR) Parainfluenza 2 (PCR) Parainfluenza 3 (PCR) Parainfluenza 4 (PCR) RSV (PCR) Entero/Rhino (PCR) 06/19/22 06/19/22 06/19/22 22:45 22:59 23:15 WBC RBC Hgb Hct MCV MCH MCHC RDW Std Deviation RDW Coeff of Seven Plt Count MPV Immature Gran % (Auto) Neut % (Auto) Lymph % (Auto) [place] % (Auto) Eos % (Auto) Baso % (Auto) Neut # (Auto) Lymph # (Auto) [place] # (Auto) Eos # (Auto) Baso # (Auto) Immature Gran # (Auto) Platelet Estimate Echinocytes Sodium Potassium Chloride Carbon Dioxide Anion Gap BUN Creatinine Est Cr Clr Drug Dosing Est GFR ( Amer) Est GFR (Non-Af Amer) BUN/Creatinine Ratio Glucose Lactate 3.3 H* Calcium Magnesium Total Bilirubin Direct Bilirubin AST ALT Alkaline Phosphatase Troponin I High Sens Total Protein Albumin Procalcitonin Urine Color Yellow Urine Appearance Clear Urine pH 6.0 Ur Specific [place] 1.013 Urine Protein 2+ H Urine Glucose (UA) Negative Urine Ketones Negative Urine Blood 1+ H Urine Nitrite Negative Urine Bilirubin Negative Urine Urobilinogen Negative Ur Leukocyte Esterase Negative Urine WBC (Auto) 1-5 Urine RBC (Auto) 0-4 U Hyaline Cast (Auto) 1-5 U Epithel Cells (Auto) 5-10 H Urine Bacteria (Auto) Negative Adenovirus (PCR) Not Detected B. pertussis DNA (PCR) Not Detected B.parapertussis DNA PCR Not Detected C. pneumoniae DNA (PCR) Not Detected Coronavirus OC43 (PCR) Not Detected Coronavirus HKU1 (PCR) Not Detected Coronavirus 229E (PCR) Not Detected SARS-CoV-2 (PCR) Not Detected Coronavirus NL63 (PCR) Not Detected Human Metapneumovir PCR Not Detected Influenza Type A (PCR) Not Detected Influenza Type B (PCR) Not Detected M. pneumoniae (PCR) Not Detected Parainfluenza 1 (PCR) Not Detected Parainfluenza 2 (PCR) Not Detected Parainfluenza 3 (PCR) Not Detected Parainfluenza 4 (PCR) Not Detected RSV (PCR) Not Detected Entero/Rhino (PCR) DETECTED A* 06/20/22 06/20/22 06/20/22 00:54 02:12 05:48 WBC 11.13 H RBC 5.50 Hgb 17.8 Hct 51.0 MCV 92.7 MCH 32.4 MCHC 34.9 RDW Std Deviation 45.1 RDW Coeff of Seven 13.2 Plt Count 149 MPV 11.4 Immature Gran % (Auto) 0.4 Neut % (Auto) 90.4 Lymph % (Auto) 5.4 [place] % (Auto) 3.6 Eos % (Auto) 0.0 Baso % (Auto) 0.2 Neut # (Auto) 10.06 H Lymph # (Auto) 0.60 L [place] # (Auto) 0.40 Eos # (Auto) 0.00 Baso # (Auto) 0.02 Immature Gran # (Auto) 0.05 H Platelet Estimate Echinocytes 1+ Sodium Potassium Chloride Carbon Dioxide Anion Gap BUN Creatinine Est Cr Clr Drug Dosing Est GFR ( Amer) Est GFR (Non-Af Amer) BUN/Creatinine Ratio Glucose Lactate 1.3 Calcium Magnesium Total Bilirubin Direct Bilirubin AST ALT Alkaline Phosphatase Troponin I High Sens 114.9 H* Total Protein Albumin Procalcitonin Urine Color Urine Appearance Urine pH Ur Specific [place] Urine Protein Urine Glucose (UA) Urine Ketones Urine Blood Urine Nitrite Urine Bilirubin Urine Urobilinogen Ur Leukocyte Esterase Urine WBC (Auto) Urine RBC (Auto) U Hyaline Cast (Auto) U Epithel Cells (Auto) Urine Bacteria (Auto) Adenovirus (PCR) B. pertussis DNA (PCR) B.parapertussis DNA PCR C. pneumoniae DNA (PCR) Coronavirus OC43 (PCR) Coronavirus HKU1 (PCR) Coronavirus 229E (PCR) SARS-CoV-2 (PCR) Coronavirus NL63 (PCR) Human Metapneumovir PCR Influenza Type A (PCR) Influenza Type B (PCR) M. pneumoniae (PCR) Parainfluenza 1 (PCR) Parainfluenza 2 (PCR) Parainfluenza 3 (PCR) Parainfluenza 4 (PCR) RSV (PCR) Entero/Rhino (PCR) 06/20/22 05:48 WBC RBC Hgb Hct MCV MCH MCHC RDW Std Deviation RDW Coeff of Seven Plt Count MPV Immature Gran % (Auto) Neut % (Auto) Lymph % (Auto) [place] % (Auto) Eos % (Auto) Baso % (Auto) Neut # (Auto) Lymph # (Auto) [place] # (Auto) Eos # (Auto) Baso # (Auto) Immature Gran # (Auto) Platelet Estimate Echinocytes Sodium 136 Potassium 3.1 L Chloride 98 Carbon Dioxide 23 Anion Gap 15 H BUN 12 Creatinine 0.86 Est Cr Clr Drug Dosing 106.5 Est GFR ( Amer) 114.7 Est GFR (Non-Af Amer) 99.0 BUN/Creatinine Ratio 14.0 Glucose 113 H Lactate Calcium 8.7 Magnesium 1.7 Total Bilirubin Direct Bilirubin AST ALT Alkaline Phosphatase Troponin I High Sens 94.9 H* D Total Protein Albumin Procalcitonin Urine Color Urine Appearance Urine pH Ur Specific [place] Urine Protein Urine Glucose (UA) Urine Ketones Urine Blood Urine Nitrite Urine Bilirubin Urine Urobilinogen Ur Leukocyte Esterase Urine WBC (Auto) Urine RBC (Auto) U Hyaline Cast (Auto) U Epithel Cells (Auto) Urine Bacteria (Auto) Adenovirus (PCR) B. pertussis DNA (PCR) B.parapertussis DNA PCR C. pneumoniae DNA (PCR) Coronavirus OC43 (PCR) Coronavirus HKU1 (PCR) Coronavirus 229E (PCR) SARS-CoV-2 (PCR) Coronavirus NL63 (PCR) Human Metapneumovir PCR Influenza Type A (PCR) Influenza Type B (PCR) M. pneumoniae (PCR) Parainfluenza 1 (PCR) Parainfluenza 2 (PCR) Parainfluenza 3 (PCR) Parainfluenza 4 (PCR) RSV (PCR) Entero/Rhino (PCR) Medications Administered Current Inpatient Medications Acetaminophen (Acetaminophen 325 Mg Tab) 650 mg PO Q4H PRN PRN Reason: Pain or Fever Stop: 07/20/22 03:40 Albuterol (Albut/Ipratrop 3mg/0.5mg Neb 3 Ml Vial) 3 ml NEB QIDR [facility]; Protocol Stop: 07/20/22 06:59 Last Admin: 06/20/22 07:22 Dose: 3 ml Albuterol (Albut/Ipratrop 3mg/0.5mg Neb 3 Ml Vial) 3 ml NEB Q4R PRN; Protocol PRN Reason: Shortness Of Breath Or Wheezing Stop: 07/20/22 03:40 Alprazolam (Alprazolam 0.5 Mg Tablet) 2 mg PO QID PRN PRN Reason: Anxiety Stop: 07/20/22 03:40 Last Admin: 06/20/22 09:46 Dose: 2 mg Dicyclomine HCl (Dicyclomine Hcl 10 Mg Cap) 10 mg PO QID PRN PRN Reason: ABDOMINAL PAIN Stop: 07/20/22 03:40 Divalproex Sodium (Divalproex Delay Release 500 Mg Tab) 500 mg PO BID [facility] Stop: 07/20/22 08:59 Last Admin: 06/20/22 08:01 Dose: 500 mg Enoxaparin Sodium (Enoxaparin Inj 40 Mg/0.4 Ml Syr) 40 mg SQ Q24H [facility] Stop: 07/20/22 08:59 Last Admin: 06/20/22 08:00 Dose: 40 mg Escitalopram Oxalate (Escitalopram Oxalate 20 Mg Tab) 20 mg PO QAM [facility] Stop: 07/20/22 08:59 Last Admin: 06/20/22 08:01 Dose: 20 mg Furosemide (Furosemide 40 Mg/4 Ml Vial) 40 mg IV [id number] [facility] Stop: 07/20/22 08:59 Last Admin: 06/20/22 08:08 Dose: 40 mg Gabapentin (Gabapentin 600 Mg Tab) 600 mg PO HS [facility] Stop: 07/20/22 20:59 Doxycycline Hyclate 100 mg/ (Dextrose) 110 mls @ 50 mls/hr IV Q12H [facility] Stop: 06/27/22 03:59 Last Infusion: 06/20/22 07:39 Dose: Infused Aztreonam 2,000 mg/ Dextrose 110 mls @ 100 mls/hr IV Q8H [facility]; Protocol Stop: 06/27/22 07:59 Last Infusion: 06/20/22 09:45 Dose: Infused Methylprednisolone 40 mg/ (Syringe) 0.64 mls @ 1.5 mls/min IV Q12H [facility] Stop: 07/20/22 08:59 Last Admin: 06/20/22 08:00 Dose: 1.5 mls/min Isosorbide Mononitrate (Isosorbide [place] Extended Rel 30 Mg Tabcr) 30 mg PO DAILY [facility] Stop: 07/20/22 08:59 Last Admin: 06/20/22 08:01 Dose: 30 mg Lisinopril (Lisinopril 40 Mg Tab) 40 mg PO DAILY [facility] Stop: 07/20/22 08:59 Last Admin: 06/20/22 08:00 Dose: 40 mg Magnesium Oxide (Magnesium Oxide 400 Mg Tab) 400 mg PO QAM [facility] Stop: 07/20/22 08:59 Last Admin: 06/20/22 08:05 Dose: 400 mg Nitroglycerin (Nitroglycerin Sl 0.4 Mg/Tab Tab) 0.4 mg SL UD PRN PRN Reason: Chest Pain Stop: 07/20/22 03:40 Ondansetron HCl (Ondansetron 4 Mg Od Tab) 4 mg PO Q8H PRN PRN Reason: Nausea Stop: 07/20/22 03:40 Oxycodone/Acetaminophen (Oxycodone/Acetaminophen 10-325 Tab) 1 tab PO Q4H PRN PRN Reason: Pain Stop: 07/04/22 03:40 Last Admin: 06/20/22 08:05 Dose: 1 tab Polyethylene Glycol (Polyethylene (Miralax) 17 Gm Pack) 17 gm PO DAILY PRN PRN Reason: Constipation Stop: 07/20/22 03:40 Potassium Chloride (Potassium Chloride Crtab 20 Meq Tabcr) 40 meq PO BID [facility] Stop: 07/20/22 08:59 Last Admin: 06/20/22 08:00 Dose: 40 meq Quetiapine Fumarate (Quetiapine Fumarate 200 Mg Tab) 800 mg PO HS [facility] Stop: 07/20/22 20:59
[2022-06-20] MEDS: ALPRAZolam 0.5 MG TABLET PO PRN ×2 (09:46→17:38)
--- NOTE | 2022-06-20 10:06 | Critical Care Consultation ---
Date of Consultation June 20, 2022 Assessment & Plan (1) Acute bronchiolitis due to other infectious organisms: Secondary to enterovirus. Percussive vest, hypertonic nebs BID, flutter and IS. Albuterol q6h prn. Breo and Incruse ordered. PFTs as outpatient when recovered. Transition to PO prednisone tomorrow and taper over 2 weeks. D/c home on Breo 200 when ready in the next 1-2 days and albuterol q6h prn. (2) Acute systolic CHF (congestive heart failure): Agree with lasix BID. Follow UOP. (3) Pneumonia: Procal negative. Empiric 5 day course of abx reasonable. (4) Hypoxia: Wean 02 to maintain sats 88-92%. Plan No further recs. Please call with questions. Thank you. History of Present Illness Reason for Consultation: COPD Attending Physician: Hasmukh Landeros MD History of Present Illness 51-year-old male with a past medical history of schizophrenia and CHF with an EF of 25 to 29% presenting to the hospital due to shortness of breath. He was started on Lasix 40 mg twice daily by the hospitalist service and also put on antibiotics and steroids for possible COPD. Pulmonary is consulted to help manage COPD. He had a CT of his chest yesterday which revealed mild emphysematous changes wi th patchy multifocal airspace opacities predominantly in the right upper lobe and right lower lobe. There is also interlobular septal thickening consistent with CHF. No pulmonary embolism was seen. Respiratory bio fire was positive for enterovirus. Lactate was elevated on hospital admission and now decreased to 1.3. CBC with no significant leukocytosis. No significant eosinophilia. Lymphopenia noted. Procalcitonin unremarkable. 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 Coughing and producing mucous. No blood. Denies fever. Former smoker. Allergies Allergy/AdvReac Type Severity Reaction Status Date / Time tramadol Allergy Hives Verified 06/20/22 02:12 amoxicillin AdvReac SOB Verified 06/20/22 02:12 Home Medications Medication Instructions Recorded Confirmed Type albuterol sulfate 2.5 mg/3 mL 2.5 mg inhalation QID 06/20/22 06/20/22 History (0.083 %) solution for nebulization albuterol sulfate 2.5 mg/3 mL 2.5 mg inhalation QID 06/20/22 06/20/22 History (0.083 %) solution for nebulization alprazolam 2 mg tablet 2 mg PO QID PRN Anxiety 06/20/22 06/20/22 History alprazolam 2 mg tablet (Xanax) 2 mg PO QID PRN Anxiety 06/20/22 06/20/22 History dicyclomine 10 mg PO QID PRN Abdominal Pain 06/20/22 06/20/22 History dicyclomine 10 mg capsule 10 mg PO QID PRN .ABD PAIN 06/20/22 06/20/22 History divalproex 500 mg tablet,delayed 500 mg PO BID 06/20/22 06/20/22 History release divalproex 500 mg tablet,extended 500 mg PO AMHS 06/20/22 06/20/22 History release 24 hr escitalopram oxalate 20 mg tablet 20 mg PO QAM 06/20/22 06/20/22 History escitalopram oxalate 20 mg tablet 20 mg PO DAILY 06/20/22 06/20/22 History (Lexapro) furosemide 40 mg tablet (Lasix) 40 mg PO DAILYBD 06/20/22 06/20/22 History furosemide 80 mg tablet (Lasix) 80 mg PO BID 06/20/22 06/20/22 History furosemide 80 mg tablet (Lasix) 80 mg PO QAM 06/20/22 06/20/22 History gabapentin 600 mg PO HS 06/20/22 06/20/22 History gabapentin 300 mg capsule 600 mg PO HS 06/20/22 06/20/22 History isosorbide mononitrate 30 mg 30 mg PO DAILY 06/20/22 06/20/22 History tablet,extended release 24 hr isosorbide mononitrate 30 mg 30 mg PO QAM 06/20/22 06/20/22 History tablet,extended release 24 hr lisinopril 40 mg tablet 40 mg PO DAILY 06/20/22 06/20/22 History lisinopril 40 mg tablet 40 mg PO DAILY 06/20/22 06/20/22 History ondansetron 4 mg disintegrating 4 mg PO Q8H PRN Nausea 06/20/22 06/20/22 History tablet oxycodone-acetaminophen 10 mg-325 1 tab PO Q4H PRN Pain 06/20/22 06/20/22 History mg tablet (Percocet) oxycodone-acetaminophen 10 mg-325 1 tab PO Q4H PRN Pain, Severe 06/20/22 06/20/22 History mg tablet (Percocet) potassium chloride 20 mEq 40 meq PO BID 06/20/22 06/20/22 History tablet,extended release potassium chloride 20 mEq 40 meq PO BID 06/20/22 06/20/22 History tablet,extended release quetiapine 800 mg PO HS 06/20/22 06/20/22 History quetiapine 400 mg tablet 800 mg PO HS 06/20/22 06/20/22 History Patient History Medical History (Updated 06/20/22 @ 10:29 by Jayce Cornelius MD) Acute bronchiolitis due to other infectious organisms Acute systolic CHF (congestive heart failure) Hypoxia Pacemaker Surgical History (Updated 06/20/22 @ 00:18 by Meron Vasques PA-C) No pertinent past surgical history Social History Smoking Status: Unknown if ever smoked Second Hand Exposure: No; Do You Dip or Chew Tobacco: No; Tobacco Cessation Education Requested by Patient: No Hx Alcohol Use: No Hx Substance Use: No Preferred Language: Yi Communication Ability: Effective Guardian Family Member Required: No Beliefs That Will Affect Care: None Current Living Situation: Alone Current Living Situation Comment: lives alone in apartment Other Information That Helps Us Care for You: No Feels Safe at Home: Yes Safety Concerns: Feels Safe At This Time Review of Systems Review of Systems: All systems reviewed & are unremarkable except as noted in HPI & below Physical Exam Constitutional: WD/WN, vitals as above ENMT: external ear and nose normal, oropharynx normal Respiratory: Prolonged phase of exhalation. Mild wheezing. No tachypnea. Cardiovascular: RRR, no murmur, no edema Skin: no rashes, warm and dry Neurologic: PERRL, EOMI, accommodation nl, no face palsy, no dysarthria Psychiatric: A+Ox3, euthymic affect Results & Data Results & Data ([facility]) Vital Signs (Past 12 Hours) Vital Signs Temp Pulse Pulse Resp BP BP Pulse Ox 06/20/22 07:41 85 06/20/22 07:24 94 H 20 92 06/20/22 04:00 06/20/22 03:44 37.3 C 85 22 144/84 H 96 06/20/22 02:30 91 H 24 144/100 H 92 06/20/22 02:00 93 H 26 H 142/87 H 95 06/20/22 01:45 88 28 H 170/98 H 93 06/20/22 01:30 95 H 28 H 134/101 H 93 06/20/22 01:15 95 H 24 143/123 H 95 06/20/22 01:00 103 H 28 H 170/108 H 92 06/20/22 00:30 98 H 24 131/77 94 06/20/22 00:00 97 H 26 H 94 06/19/22 23:45 97 H 26 H 154/91 H 96 06/19/22 23:31 102 H 26 H 133/89 92 06/19/22 23:31 92 06/19/22 22:22 06/19/22 22:22 39.5 C H 132 H 32 H 191/121 H 88 L O2 Del Method O2 Flow Rate 06/20/22 07:41 06/20/22 07:24 Oxymask 10 06/20/22 04:00 Oxymask 10 06/20/22 03:44 Oxymask 10 06/20/22 02:30 Oxymask 10 06/20/22 02:00 Oxymask 10 06/20/22 01:45 Oxymask 10 06/20/22 01:30 Oxymask 10 06/20/22 01:15 Oxymask 10 06/20/22 01:00 Nasal Cannula 6 06/20/22 00:30 Nasal Cannula 6 06/20/22 00:00 Nasal Cannula 6 06/19/22 23:45 Nasal Cannula 6 06/19/22 23:31 Nasal Cannula 6 06/19/22 23:31 Nasal Cannula 6 06/19/22 22:22 Nasal Cannula 5 06/19/22 22:22 Nasal Cannula 5 Coding Level of Care Code 88071 Inpt Consult Level 5 Diagnoses Acute bronchiolitis due to other infectious organisms J21.8 Acute systolic CHF (congestive heart failure) I50.21 Pneumonia J18.9 Hypoxia R09.02
[2022-06-20] MEDS ORDERED: POTASSIUM CHLORIDE CRTAB 20 MEQ TABCR PO STA (10:09)
--- NOTE | 2022-06-20 11:19 | Electrocardiogram Report ---
Test Reason : Blood Pressure : / mmHG Vent. Rate : 105 BPM Atrial Rate : 105 BPM P-R Int : 144 ms QRS Dur : 104 ms QT Int : 352 ms P-R-T Axes : 064 -06 085 degrees QTc Int : 465 ms Poor data quality, interpretation may be adversely affected Sinus tachycardia with frequent Premature ventricular complexes Left atrial enlargement Left ventricular hypertrophy with QRS widening and repolarization abnormality Abnormal ECG No previous ECGs available Confirmed by Isacc Caro ([id number]) on 06/20/2022 11:19:28 AM Referred By: REFERRED SELF Confirmed By:Isacc Caro
--- NOTE | 2022-06-20 11:20 | Electrocardiogram Report ---
Test Reason : Blood Pressure : / mmHG Vent. Rate : 096 BPM Atrial Rate : 096 BPM P-R Int : 138 ms QRS Dur : 108 ms QT Int : 364 ms P-R-T Axes : 022 -21 128 degrees QTc Int : 459 ms Normal sinus rhythm Left ventricular hypertrophy with QRS widening and repolarization abnormality Abnormal ECG When compared with ECG of 19-JUN-2022 22:29, Premature ventricular complexes are no longer Present Confirmed by Isacc Caro ([id number]) on 06/20/2022 11:20:12 AM Referred By: REFERRED SELF Confirmed By:Isacc Caro
[2022-06-20] MEDS: UMECLIDINIUM BROMIDE 62.5MCG/BLISTER 7 PUFFS/INHALER INH SCH (11:52)
[2022-06-20] MEDS: FLUTICASONE/VILANTEROL 200/25MCG 14 PUFFS/INHALER INH SCH (11:52)
[2022-06-20] MEDS: SODIUM CHLOR 7% 4 ML NEB NEB SCH (19:26)
[2022-06-20] MEDS: ALBUTEROL HFA 8 GM INHALER INH PRN (19:26)
--- NOTE | 2022-06-20 20:31 | XRay Report ---
XR chest 1V portable CLINICAL HISTORY: follow up, sepsis TECHNIQUE: Single frontal radiograph of the chest was obtained. Comparison: Comparison is made to chest radiograph 06/19/2022 FINDINGS: Pacemaker defibrillator is seen. Cardiomegaly is noted. Mild vascular prominence is seen. Previously noted airspace opacities have resolved. No evidence of pleural effusion or pneumothorax. IMPRESSION: Previously noted airspace opacities have essentially resolved and likely represented pulmonary alveol ar edema. Only mild edema is now seen. Stable cardiomegaly. ACT 112: Negative or not required by law. Electronically signed by: Solitario Castro M.D. 06/20/2022 8:30 PM
[2022-06-20] MEDS: QUEtiapine FUMARATE 200 MG TAB PO SCH (20:40)
[2022-06-20] MEDS: GABAPENTIN 600 MG TAB PO SCH (20:40)
[2022-06-20] MEDS: NICOTINE 21 MG/24 HR TDSY TD SCH (20:42)
[2022-06-20 23:24] LABS: A calco-baum cmplx NotReported Not Detected (NotDetected); Bact fragilis Not Reported Not Detected (NotDetected); C auris Not Reported Not Detected (NotDetected); Calbicans Not Reported Not Detected (NotDetected); Candida glabrata Not Reported Not Detected (NotDetected); Candida krusei Not Reported Not Detected (NotDetected); Cneoformans/gatti Not Reported Not Detected (NotDetected); Cparapsilosis Not Reported Not Detected (NotDetected); Ctropicalis Not Reported Not Detected (NotDetected); E cloacae compx Not Reported Not Detected (NotDetected); Efaecalis Not Reported Not Detected (NotDetected); Efaecium Not Reported Not Detected (NotDetected); Enterobacterales Not Reported Not Detected (NotDetected); Escherichia coli Not Reported Not Detected (NotDetected); H influenzae Not Reported Not Detected (NotDetected); K aerogenes Not Reported Not Detected (NotDetected); Koxytoca Not Reported Not Detected (NotDetected); Kpneumoniae grp Not Reported Not Detected (NotDetected); Lmonocyt Not Reported Not Detected (NotDetected); N meningitidis Not Reported Not Detected (NotDetected); P aeruginosa Not Reported Not Detected (NotDetected); Proteus spp Not Reported Not Detected (NotDetected); Salmonella spp Not Reported Not Detected (NotDetected); Smarcescens Not Reported Not Detected (NotDetected); Staph lugdunensis Not Reported Not Detected (NotDetected); Staph spp. Not Reported DETECTED (NotDetected); Staphaureus Not Reported Not Detected (NotDetected); Staphepi Not Reported DETECTED (NotDetected); Staphylococcus spp. DETECTED (NotDetected); Stenmaltophilia Not Reported Not Detected (NotDetected); Strep agal(GrpB) Not Reported Not Detected (NotDetected); Strep pneum Not Reported Not Detected (NotDetected); Strep pyog (GrpA) Not Reported Not Detected (NotDetected); Strep spp Not Reported Not Detected (NotDetected); mecAC Resistant Gene DETECTED (NotDetected)
[2022-06-21] LABS: Staphylococcus epidermidis DETECTED (NotDetected)
[2022-06-21] MEDS ORDERED: VANCOMYCIN CONSULT ACTIVE PRN (00:06)
[2022-06-21] MEDS: AZTREONAM 2,000 MG in DEXTROSE 5% 100 ML IV SCH ×4 (00:13→23:42)
[2022-06-21] MEDS ORDERED: VANCOMYCIN HCL 1,750 MG in SODIUM CHLORIDE 0.9% 500 ML IV ONE (00:30)
--- NOTE | 2022-06-21 02:06 | Pharmacy Report ---
Pharmacy PK ABX Note - Date of Service June 21, 2022 - Assessment and Plan Assessment 51 year old M receiving Vancomycin/Doxy/Azactam for treatment of GPC bacteremia. Pertinent microbiologic data includes: blood culture 1/2 growing GPC. Plan Vancomycin * Loading dose: 1750 mg IV x 1 * Maintenance dose: 1250 mg IV every 12 hours * Regimen is predicted to achieve target AUC/SAMI of 400-600 mg/L.hr Pharmacy will continue to follow and will adjust dose/frequency as necessary. Thank you. Pharmacy has transitioned to AUC monitoring for vancomycin. AUC/SAMI is the preferred PK/PD target and is associated with decreased risk of nephrotoxicity compared to traditional trough targets.
[2022-06-21] MEDS: oxyCODONE/ACETAMINOPHEN 10-325 TAB PO PRN ×4 (02:22→20:07)
[2022-06-21] MEDS: DOXYCYCLINE HYCLATE 100 MG in DEXTROSE 5% 100 ML IV SCH ×2 (03:51→17:00)
[2022-06-21] MEDS: ALBUTEROL HFA 8 GM INHALER INH PRN ×2 (05:31→11:48)
[2022-06-21] MEDS: SODIUM CHLOR 7% 4 ML NEB NEB SCH ×2 (07:27→19:35)
--- NOTE | 2022-06-21 07:39 | Hospitalist Progress Note ---
Date of Service June 21, 2022 Assessment & Plan (1) Acute respiratory failure: Plan: 51-year-old male with history of chronic systolic congestive heart failure, ongoing tobacco abuse, schizophrenia, sleep apnea, presents with shortness of breath. 1. Acute respiratory distress w/ hypoxia - most likely multifocal pneumonia, possible viral pneumonia. BioFire positive entero-rhino PCR. and acute on chronic CHF (systolic) The patient is allergic to PENICILLINS and in the ER received steroid and Zosyn. The patient was also having acute congestive heart failure and chronic obstructive pulmonary disease exacerbation On admission started on Azactam and Doxycycline, iv steroids, nebs, iv lasix and monitor. 06/20 pt was on 10 L suppl. O2 -> 6L 06/11 pt currently on RA vs 2L (oxygen requirement significantly improved from yesterday) 2. Acute on chronic systolic congestive heart failure, EF of 25-29% in echo 2019. Current echo - LV is moderately dilated. There is moderate concentric LVH. LV systolic function is severely reduced. EF 20-25%. RV size is normal. Aortic valve sclerosis moderate, without significant aortic valvular stenosis. There is mild to moderate mitral regurg. Significant tricuspid regurg is absent. Mild pulmonary hypertension. IV lasix 40mg bid . Cardiology consulted Continue to closely monitor 3. Mild elevation of troponin, possible demand ischemia. Follow serial enzymes, echocardiogram, and cardiac consult, as above. 4. Chronic obstructive pulmonary disease exacerbation, antibiotics as above, steroids, and nebulizers p.r.n. Pulmonary medicine consulted - we will switch from IV methylprednisolone to p.o. prednisone Started on Breo + Incruse, plan to Dc on Breo 200 and albuterol q6h prn. ? bacteremia gram posit., likely contaminant - vanco emp. started. repeat blood cultx 5. History of obstructive sleep apnea on CPAP at bedtime. 6. History of schizophrenia, anxiety. Continue his home medication of divalproex, Seroquel and on alprazolam p.r.n. 7. Chronic back pain, on Percocet p.r.n. 8. Hypertension, on lisinopril, Imdur and Lasix We will monitor the blood pressure. 9. Mild thrombocytopenia. Platelets 122.Possibly from current illness. Now improved to 159. DVT prophylaxis, Lovenox. Monitor the platelets. DISPOSITION: Closely monitor in tele floor. Code: full code. Admission and Anticipated Discharge Date Admission Date: June 20, 2022 Subjective Pt seen in follow up of acute resp. failure. Yesterday pt was on 10L of O2 decreased to 6L. At home pt does not use any suppl. O2. He also says that sometimes he does not take Lasix for several days so he does not have to go to the bathroom. Patient is currently sitting up in bed, in no acute distress, on room air. Pt is talking on his phone, significant other on the phone updated at the bedside (over the phone). Patient overall feels better. He is mainly concerned about his moving to [facility]. No fevers chills chest pains, palpitations, abdominal pain, nausea or vomiting. Cardiology and pulm. medicine consulted. Review of Systems Review of Systems: All systems reviewed & are unremarkable except as noted in Subjective Physical Exam Physical Exam: GENERAL: WD/WN in NAD, on RA HEENT: Pupils equal, round, reactive to light. Oral mucosa moist. NECK: No JVD, no neck masses. CARDIOVASCULAR: S1 and S2 heard. RRR. No murmurs. RESPIRATORY: Normal AP diameter. No accessory muscle use. +bibasilar crackles. +Diminished breath sounds. ABDOMEN: Soft, bowel sounds present, nontender, no distention. NEURO: Alert, awake, and oriented. Speech is clear. No facial droop. Moves extremities. EXTREMITIES: No edema, no erythema. Results & Data Results & Data ([facility]) Vital Signs (Past 12 Hours) Vital Signs Temp Pulse Pulse Resp BP Pulse Ox O2 Del Method 06/21/22 07:27 18 100 Nasal Cannula 06/21/22 05:31 81 18 100 Nasal Cannula 06/21/22 00:00 97 H 06/21/22 02:23 37.1 C 90 148/74 H 94 Nasal Cannula 06/20/22 23:04 36.9 C 84 18 126/67 94 High Flow Nasal Cannula 06/20/22 20:50 87 19 94 06/20/22 20:00 Nasal Cannula O2 Flow Rate 06/21/22 07:27 2 06/21/22 05:31 4 06/21/22 00:00 06/21/22 02:23 5 06/20/22 23:04 4 06/20/22 20:50 2 06/20/22 20:00 4 Laboratory Results 06/21/22 06/21/22 06/21/22 Range/Units 10:10 07:59 07:59 WBC 16.96 H (4.8-10.8) K/ul RBC 5.64 (4.63-6.08) M/uL Hgb 18.0 (14.0-18.0) g/dl Hct 50.7 (40.1-51.0) % MCV 89.9 (80.0-100.0) fL MCH 31.9 (25.0-34.0) pg MCHC 35.5 (32.0-36.0) g/dL RDW Std Deviation 45.1 (36.4-46.3) fL RDW Coeff of Seven 13.5 (11.5-14.5) % Plt Count 159 (130-400) K/uL MPV 11.8 (9.4-12.4) fL Sodium 138 (136-145) mmol/L Potassium 4.2 D (3.5-5.1) mmol/L Chloride 105 (98-107) mmol/L Carbon Dioxide 26 (21-32) mmol/L Anion Gap 7 (3-11) BUN 30 H (6-23) mg/dl Creatinine 0.93 (0.6-1.4) mg/dl Est Cr Clr Drug Dosing 97.9 ml/min Est GFR ( Amer) 108.2 ml/min Est GFR (Non-Af Amer) 93.4 ml/min BUN/Creatinine Ratio 32.3 H (10-20) Glucose 132 H (70-99(Fasting)) mg/dl Calcium 8.8 (8.5-10.1) mg/dl Phosphorus 2.6 (2.5-4.9) mg/dl Magnesium 2.1 (1.7-2.4) mg/dl Troponin I High Sens (0-20) pg/ml Procalcitonin Pending Staphylococcus sp PCR (NotDetected) mecA/C-Methicil Resis Gene (NotDetected) Staph epidermidis (PCR) (NotDetected) Bld Cult ID Panel PCR (NotDetected) 06/20/22 06/20/22 06/19/22 Range/Units 17:23 11:17 22:45 WBC (4.8-10.8) K/ul RBC (4.63-6.08) M/uL Hgb (14.0-18.0) g/dl Hct (40.1-51.0) % MCV (80.0-100.0) fL MCH (25.0-34.0) pg MCHC (32.0-36.0) g/dL RDW Std Deviation (36.4-46.3) fL RDW Coeff of Seven (11.5-14.5) % Plt Count (130-400) K/uL MPV (9.4-12.4) fL Sodium (136-145) mmol/L Potassium (3.5-5.1) mmol/L Chloride (98-107) mmol/L Carbon Dioxide (21-32) mmol/L Anion Gap (3-11) BUN (6-23) mg/dl Creatinine (0.6-1.4) mg/dl Est Cr Clr Drug Dosing ml/min Est GFR ( Amer) ml/min Est GFR (Non-Af Amer) ml/min BUN/Creatinine Ratio (10-20) Glucose (70-99(Fasting)) mg/dl Calcium (8.5-10.1) mg/dl Phosphorus (2.5-4.9) mg/dl Magnesium (1.7-2.4) mg/dl Troponin I High Sens 73.4 H* D 89.6 H* (0-20) pg/ml Procalcitonin Staphylococcus sp PCR DETECTED A (NotDetected) mecA/C-Methicil Resis Gene DETECTED A (NotDetected) Staph epidermidis (PCR) DETECTED A (NotDetected) Bld Cult ID Panel PCR See PCR Comment (NotDetected) Medications Administered Current Inpatient Medications Acetaminophen (Acetaminophen 325 Mg Tab) 650 mg PO Q4H PRN PRN Reason: Pain or Fever Stop: 07/20/22 03:40 Albuterol (Albuterol Hfa 8 Gm Inhaler) 2 puffs INH Q6H PRN; Protocol PRN Reason: Wheezing Stop: 07/20/22 10:29 Last Admin: 06/21/22 05:31 Dose: 2 puffs Alprazolam (Alprazolam 0.5 Mg Tablet) 2 mg PO QID PRN PRN Reason: Anxiety Stop: 07/20/22 03:40 Last Admin: 06/20/22 17:38 Dose: 0.5 mg Dicyclomine HCl (Dicyclomine Hcl 10 Mg Cap) 10 mg PO QID PRN PRN Reason: ABDOMINAL PAIN Stop: 07/20/22 03:40 Divalproex Sodium (Divalproex Delay Release 500 Mg Tab) 500 mg PO BID [facility] Stop: 07/20/22 08:59 Last Admin: 06/20/22 20:42 Dose: 500 mg Enoxaparin Sodium (Enoxaparin Inj 40 Mg/0.4 Ml Syr) 40 mg SQ Q24H [facility] Stop: 07/20/22 08:59 Last Admin: 06/20/22 08:00 Dose: 40 mg Escitalopram Oxalate (Escitalopram Oxalate 20 Mg Tab) 20 mg PO QAM [facility] Stop: 07/20/22 08:59 Last Admin: 06/20/22 08:01 Dose: 20 mg Fluticasone/Vilanterol (Fluticasone/Vilanterol 200/25mcg 14 Puffs/Inhaler) 1 puffs INH DAILY [facility] Stop: 07/20/22 10:29 Last Admin: 06/20/22 11:52 Dose: 1 puffs Furosemide (Furosemide 40 Mg/4 Ml Vial) 40 mg IV [id number] [facility] Stop: 07/20/22 08:59 Last Admin: 06/20/22 17:40 Dose: 40 mg Gabapentin (Gabapentin 600 Mg Tab) 600 mg PO HS [facility] Stop: 07/20/22 20:59 Last Admin: 06/20/22 20:40 Dose: 600 mg Doxycycline Hyclate 100 mg/ (Dextrose) 110 mls @ 50 mls/hr IV Q12H [facility] Stop: 06/27/22 03:59 Last Infusion: 06/21/22 06:07 Dose: Infused Aztreonam 2,000 mg/ Dextrose 110 mls @ 100 mls/hr IV Q8H [facility]; Protocol Stop: 06/27/22 07:59 Last Infusion: 06/21/22 02:23 Dose: Infused Methylprednisolone 40 mg/ (Syringe) 0.64 mls @ 1.5 mls/min IV Q12H [facility] Stop: 07/20/22 08:59 Last Admin: 06/20/22 20:40 Dose: 1.5 mls/min Vancomycin HCl 1,250 mg/ (Sodium Chloride) 275 mls @ 200 mls/hr IV Q12H [facility]; Protocol Stop: 07/05/22 09:59 Isosorbide Mononitrate (Isosorbide [place] Extended Rel 30 Mg Tabcr) 30 mg PO DAILY [facility] Stop: 07/20/22 08:59 Last Admin: 06/20/22 08:01 Dose: 30 mg Lisinopril (Lisinopril 40 Mg Tab) 40 mg PO DAILY [facility] Stop: 07/20/22 08:59 Last Admin: 06/20/22 08:00 Dose: 40 mg Magnesium Oxide (Magnesium Oxide 400 Mg Tab) 400 mg PO QAM [facility] Stop: 07/20/22 08:59 Last Admin: 06/20/22 08:05 Dose: 400 mg Miscellaneous (Remove Nicoderm Patch) 1 each N/A DAILY@0859 [facility] Stop: 07/21/22 08:58 Miscellaneous Information (Vancomycin Consult Active) 1 each N/A UD PRN PRN Reason: Consult Stop: 07/21/22 00:05 Nicotine (Nicotine 21 Mg/24 Hr Tdsy) 21 mg TD DAILY [facility] Stop: 07/20/22 19:29 Last Admin: 06/20/22 20:42 Dose: 21 mg Nitroglycerin (Nitroglycerin Sl 0.4 Mg/Tab Tab) 0.4 mg SL UD PRN PRN Reason: Chest Pain Stop: 07/20/22 03:40 Ondansetron HCl (Ondansetron 4 Mg Od Tab) 4 mg PO Q8H PRN PRN Reason: Nausea Stop: 07/20/22 03:40 Oxycodone/Acetaminophen (Oxycodone/Acetaminophen 10-325 Tab) 1 tab PO Q4H PRN PRN Reason: Pain Stop: 07/04/22 03:40 Last Admin: 06/21/22 07:14 Dose: 1 tab Polyethylene Glycol (Polyethylene (Miralax) 17 Gm Pack) 17 gm PO DAILY PRN PRN Reason: Constipation Stop: 07/20/22 03:40 Potassium Chloride (Potassium Chloride Crtab 20 Meq Tabcr) 40 meq PO BID [facility] Stop: 07/20/22 08:59 Last Admin: 06/20/22 20:41 Dose: 40 meq Quetiapine Fumarate (Quetiapine Fumarate 200 Mg Tab) 800 mg PO HS [facility] Stop: 07/20/22 20:59 Last Admin: 06/20/22 20:40 Dose: 200 mg Sodium Chloride (Sodium Chlor 7% 4 Ml Neb) 4 ml NEB BIDR [facility] Stop: 07/20/22 18:59 Last Admin: 06/21/22 07:27 Dose: 4 ml Umeclidinium Boyd (Umeclidinium Boyd 62.5mcg/Blister 7 Puffs/Inhaler) 1 puffs INH DAILY [facility] Stop: 07/20/22 10:29 Last Admin: 06/20/22 11:52 Dose: 1 puffs
[2022-06-21] MEDS: ISOSORBIDE MONO EXTENDED REL 30 MG TABCR PO SCH (08:29)
[2022-06-21] MEDS: UMECLIDINIUM BROMIDE 62.5MCG/BLISTER 7 PUFFS/INHALER INH SCH (08:29)
[2022-06-21] MEDS: FLUTICASONE/VILANTEROL 200/25MCG 14 PUFFS/INHALER INH SCH (08:29)
[2022-06-21] MEDS: lisinopril 40 MG TAB PO SCH (08:29)
[2022-06-21] MEDS: methylPREDNISolone 40 MG in SYRINGE 0 ML IV SCH (08:30)
[2022-06-21] MEDS: DIVALPROEX DELAY RELEASE 500 MG TAB PO SCH ×2 (08:30→21:58)
[2022-06-21] MEDS: MAGNESIUM OXIDE 400 MG TAB PO SCH (08:30)
[2022-06-21] MEDS: POTASSIUM CHLORIDE CRTAB 20 MEQ TABCR PO SCH ×2 (08:30→21:58)
[2022-06-21] MEDS: ESCITALOPRAM OXALATE 20 MG TAB PO SCH (08:30)
[2022-06-21] MEDS: FUROSEMIDE 40 MG/4 ML VIAL IV SCH ×2 (08:31→17:28)
[2022-06-21] MEDS: ENOXAPARIN INJ 40 MG/0.4 ML SYR SQ SCH (08:31)
[2022-06-21 08:32] LABS: Hematocrit (blood only) 50.7 % (40.1-51.0); Mean Corpuscular Hemoglobin 31.9 pg (25.0-34.0); Mean Corpuscular Hgb Conc 35.5 g/dL (32.0-36.0); Mean Corpuscular Volume 89.9 fL (80.0-100.0); Mean Platelet Volume 11.8 fL (9.4-12.4); Platelet Count 159 K/uL (130-400); RDW Coefficient of Variation 13.5 % (11.5-14.5); RDW Standard Deviation 45.1 fL (36.4-46.3); Red Blood Count 5.64 M/uL (4.63-6.08); White Blood Count 16.96 K/ul (4.8-10.8)
[2022-06-21] MEDS: NICOTINE 21 MG/24 HR TDSY TD SCH (08:39)
[2022-06-21 09:01] LABS: BUN Creatinine Ratio 32.3 (10-20); Calcium 8.8 mg/dl (8.5-10.1); Creatinine Clr Calc Pharmacy 97.9 ml/min; Est GFR (African American) 108.2 ml/min; Est GFR (Non-African American) 93.4 ml/min; Magnesium 2.1 mg/dl (1.7-2.4); Phosphorus 2.6 mg/dl (2.5-4.9); Potassium 4.2 mmol/L (3.5-5.1)
[2022-06-21] MEDS: VANCOMYCIN HCL 1,250 MG in SODIUM CHLORIDE 0.9% 250 ML IV SCH ×2 (09:51→22:04)
--- NOTE | 2022-06-21 10:24 | Cardiology Progress Note ---
Date of Service June 21, 2022 Assessment & Plan (1) HFrEF (heart failure with reduced ejection fraction): (2) Frequent PVCs: (3) Cardiac defibrillator in place: (4) Schizophrenia: Plan Patient describes himself as having bipolar disorder and schizophrenia. Per his request, I spoke to his significant other's mother on the phone and updated her with regards to the patient's progress. It appears that in addition to her presentation with acute heart failure with reduced ejection fraction, he has been found to have a viral respiratory illness. 1 / 2 blood cultures has yielded gram-positive cocci in clusters. Per review of chart patient has a longstanding history of nonischemic cardiomyopathy. He had initially established with Dr. Quiroga at [facility] in 2013 and per that initial note then had already been evaluated at [place] with cardiac catheterization , yielding diagnosis of non-ischemic CM. Patient has a history of biventricular pacemaker AICD ([employer]), most recent generator change in 2019. Per review of most recent interrogation, the coronary sinus (left ventricular) lead is deactivated, and patient rarely paces from the atrium or ventricle. Patient has a longstanding history of frequent PVCs. Zio patch monitor performed in 2019 revealed PVC burden of 40% at that time. Patient has an apparent history of nonadherence. Per most recent outpatient cardiology note is to be on metoprolol, but this had fallen off his medication list over the last few months. In an effort to avoid risks of potential wheezing, we will reinitiate metoprolol at a low dose. Agree with ongoing diuretic therapy, furosemide 40 mg twice daily. Agree with Lovenox 40 mg subcutaneously for DVT prophylaxis. Admission and Anticipated Discharge Date Admission Date: June 20, 2022 Subjective The patient is seen in cardiology follow-up. Currently he is on room air, and is in no acute distress. He remains on droplet Precautions due to diagnosis of adenovirus. Telemetry reveals sinus rhythm in the 90s with frequent PVCs including frequent PVCs in a pattern of ventricular trigeminy. The patient's chest x-ray has improved significantly compared to presentation, with initial presentation consistent with pulmonary edema, much improved clinically and radiographically. Physical Exam Constitutional: no acute distress Respiratory: no respiratory distress Auscultation: + crackles and + rales (Minimal rales bilaterally at the bases); no wheezes Gastrointestinal (Abdomen): normal bowel sounds, soft, nontender, no hepatosplenomegaly Neurologic: PERRL, EOMI, accommodation nl, no face palsy, no dysarthria Results & Data ([facility]) Vital Signs (Past 12 Hours) Vital Signs Temp Pulse Pulse Resp BP Pulse Ox O2 Del Method 06/21/22 08:00 Nasal Cannula 06/21/22 08:10 37.1 C 93 H 20 150/71 H 92 Nasal Cannula 06/21/22 07:00 87 06/21/22 07:27 18 100 Nasal Cannula 06/21/22 05:31 81 18 100 Nasal Cannula 06/21/22 00:00 97 H 06/21/22 02:23 37.1 C 90 148/74 H 94 Nasal Cannula 06/20/22 23:04 36.9 C 84 18 126/67 94 High Flow Nasal Cannula O2 Flow Rate 06/21/22 08:00 2 06/21/22 08:10 06/21/22 07:00 06/21/22 07:27 2 06/21/22 05:31 4 06/21/22 00:00 06/21/22 02:23 5 06/20/22 23:04 4 Laboratory Results Cardiac Enzymes 06/20/22 06/20/22 Range/Units 11:17 17:23 Troponin I High Sens 89.6 H* 73.4 H* D (0-20) pg/ml CBC 06/21/22 Range/Units 07:59 WBC 16.96 H (4.8-10.8) K/ul RBC 5.64 (4.63-6.08) M/uL Hgb 18.0 (14.0-18.0) g/dl Hct 50.7 (40.1-51.0) % Plt Count 159 (130-400) K/uL Comprehensive Metabolic Panel 06/21/22 Range/Units 07:59 Sodium 138 (136-145) mmol/L Potassium 4.2 D (3.5-5.1) mmol/L Chloride 105 (98-107) mmol/L Carbon Dioxide 26 (21-32) mmol/L BUN 30 H (6-23) mg/dl Creatinine 0.93 (0.6-1.4) mg/dl Glucose 132 H (70-99(Fasting)) mg/dl Calcium 8.8 (8.5-10.1) mg/dl Intake and Output 06/20/22 06/21/22 06/21/22 22:59 06:59 14:59 Intake Total 670 / 2095 1205 / 2095 110 / 110 Output Total 400 / 700 300 / 700 200 / 200 Balance 270 / 1395 905 / 1395 -90 / -90 Intake: IV 220 / 1195 755 / 1195 110 / 110 Aztreonam 2,000 mg In Dextrose 110 / 330 110 / 330 110 / 110 5% 100 ml @ 100 mls/hr IV Q8H [facility] Rx#:[id number] Doxycycline Hyclate 100 mg In 110 / 330 110 / 330 Dextrose 5% 100 ml @ 50 mls/hr IV Q12H [facility] Rx#:[id number] Vancomycin HCl 1,750 mg In 535 / 535 Sodium Chloride 0.9% 500 ml @ 200 mls/hr IV 0030 [facility] Rx#: [id number] Oral 450 / 900 450 / 900 Output: Urine 400 / 700 300 / 700 200 / 200 Other: Weight 85.7 kg Weight Measurement Method Built in [facility] Diagnostic Findings EKG performed 06/19/2022 interpreted independently: Sinus rhythm at 96 bpm with LVH.
[2022-06-21] MEDS: METOPROLOL SUCC 25MG EXT REL TAB PO SCH (12:11)
[2022-06-21] MEDS: ALPRAZolam 0.5 MG TABLET PO PRN ×2 (12:11→21:57)
[2022-06-21] MEDS: guaiFENesin 600 MG TABCR PO SCH ×2 (15:40→22:04)
[2022-06-21] MEDS: GABAPENTIN 600 MG TAB PO SCH (21:58)
[2022-06-21] MEDS: QUEtiapine FUMARATE 200 MG TAB PO SCH (21:59)
[2022-06-22] MEDS: DOXYCYCLINE HYCLATE 100 MG in DEXTROSE 5% 100 ML IV SCH ×2 (04:33→14:57)
[2022-06-22] MEDS: SODIUM CHLOR 7% 4 ML NEB NEB SCH ×2 (07:07→19:36)
[2022-06-22] MEDS: POTASSIUM CHLORIDE CRTAB 20 MEQ TABCR PO SCH ×2 (08:15→20:45)
[2022-06-22] MEDS: oxyCODONE/ACETAMINOPHEN 10-325 TAB PO PRN ×4 (08:15→20:43)
[2022-06-22] MEDS: ISOSORBIDE MONO EXTENDED REL 30 MG TABCR PO SCH (08:16)
[2022-06-22] MEDS: DIVALPROEX DELAY RELEASE 500 MG TAB PO SCH ×2 (08:16→20:46)
[2022-06-22] MEDS: METOPROLOL SUCC 25MG EXT REL TAB PO SCH (08:16)
[2022-06-22] MEDS: guaiFENesin 600 MG TABCR PO SCH ×2 (08:16→20:46)
[2022-06-22] MEDS: MAGNESIUM OXIDE 400 MG TAB PO SCH (08:17)
[2022-06-22] MEDS: FUROSEMIDE 40 MG/4 ML VIAL IV SCH ×2 (08:17→16:11)
[2022-06-22] MEDS: UMECLIDINIUM BROMIDE 62.5MCG/BLISTER 7 PUFFS/INHALER INH SCH (08:17)
[2022-06-22] MEDS: lisinopril 40 MG TAB PO SCH (08:18)
[2022-06-22] MEDS: ESCITALOPRAM OXALATE 20 MG TAB PO SCH (08:18)
[2022-06-22] MEDS: ENOXAPARIN INJ 40 MG/0.4 ML SYR SQ SCH (08:18)
[2022-06-22] MEDS: FLUTICASONE/VILANTEROL 200/25MCG 14 PUFFS/INHALER INH SCH (08:18)
[2022-06-22] MEDS: NICOTINE 21 MG/24 HR TDSY TD SCH (08:19)
[2022-06-22] MEDS: AZTREONAM 2,000 MG in DEXTROSE 5% 100 ML IV SCH ×2 (08:19→14:57)
[2022-06-22 08:50] LABS: Hematocrit (blood only) 49.5 % (40.1-51.0); Hemoglobin 17.2 g/dl (14.0-18.0); Mean Corpuscular Hemoglobin 32.1 pg (25.0-34.0); Mean Corpuscular Hgb Conc 34.7 g/dL (32.0-36.0); Mean Corpuscular Volume 92.4 fL (80.0-100.0); Mean Platelet Volume 11.1 fL (9.4-12.4); Platelet Count 172 K/uL (130-400); RDW Coefficient of Variation 13.7 % (11.5-14.5); RDW Standard Deviation 46.7 fL (36.4-46.3); Red Blood Count 5.36 M/uL (4.63-6.08); White Blood Count 17.61 K/ul (4.8-10.8)
[2022-06-22 09:22] LABS: BUN Creatinine Ratio 33.3 (10-20); Calcium 8.4 mg/dl (8.5-10.1); Creatinine Clr Calc Pharmacy 96.2 ml/min; Est GFR (African American) 104.2 ml/min; Est GFR (Non-African American) 89.9 ml/min; Magnesium 1.9 mg/dl (1.7-2.4); Potassium 4.1 mmol/L (3.5-5.1)
[2022-06-22] MEDS: predniSONE 20 MG TAB PO SCH (09:42)
[2022-06-22] MEDS: VANCOMYCIN HCL 1,250 MG in SODIUM CHLORIDE 0.9% 250 ML IV SCH (09:42)
--- NOTE | 2022-06-22 10:26 | Cardiology Progress Note ---
Date of Service June 22, 2022 Assessment & Plan (1) HFrEF (heart failure with reduced ejection fraction): (2) Frequent PVCs: (3) Cardiac defibrillator in place: (4) Schizophrenia: Plan Patient describes himself as having bipolar disorder and schizophrenia. Per his request, I spoke to his significant other's mother on the phone and updated her with regards to the patient's progress. It appears that in addition to her presentation with acute heart failure with reduced ejection fraction, he has been found to have a viral respiratory illness, panel positive for rhinovirus / enterovirus. 1 / 2 blood cultures with coag negative staph. Per review of chart patient has a longstanding history of nonischemic cardiomyopathy. He had initially established with Dr. Quiroga at [facility] [place] in 2013 and per that initial note then had already been evaluated at [facility] with cardiac catheterization , yielding diagnosis of non-ischemic CM. Patient has a history of biventricular pacemaker AICD ([employer]), most recent generator change in 2019. Per review of most recent interrogation, the coronary sinus (left ventricular) lead is deactivated, and patient rarely paces from the atrium or ventricle. Patient has a longstanding history of frequent PVCs. Zio patch monitor p erformed in 2020 revealed PVC burden of 40% at that time. Patient has an apparent history of nonadherence. Continue metoprolol succinate 25 mg daily, Imdur 30 mg daily, lisinopril 40 mg daily, furosemide 40 mg IV BID. De-escalate anabiotics. Differ to hospitalist team. Report of AICD remote interrogation reviewed in outpatient chart dated 04/22/22. Normal function at that time. A paced < 1%, V paced < 1%. Battery longevity 6-6.6 years. Agree with Lovenox 40 mg subcutaneously for DVT prophylaxis. Admission and Anticipated Discharge Date Admission Date: June 20, 2022 Subjective Patient seen in cardiology follow up. Pulse oximetry 100% on room air. Pt complains of SOB when he coughs. Review of Systems Review of Systems: All systems reviewed & are unremarkable except as noted in HPI & below Physical Exam Constitutional: no acute distress Respiratory: no respiratory distress Auscultation: + crackles and + rales (Minimal rales bilaterally at the bases); no wheezes Cardiovascular: Rate/Rhythm: regular rate Heart Sounds: normal S1 and normal S2; no murmur Extremities: no edema Gastrointestinal (Abdomen): normal bowel sounds, soft, nontender, no hepatosplenomegaly Neurologic: PERRL, EOMI, accommodation nl, no face palsy, no dysarthria Results & Data ([facility]) Vital Signs (Past 12 Hours) Vital Signs Temp Pulse Pulse Resp BP BP Pulse Ox 06/22/22 07:34 37.0 C 63 19 119/62 100 06/22/22 07:07 80 18 98 06/22/22 04:00 74 16 06/21/22 22:55 85 21 93 06/21/22 22:53 36.7 C 84 20 123/48 L 93 O2 Del Method FiO2 06/22/22 07:34 Room Air 06/22/22 07:07 Room Air 06/22/22 04:00 Room Air 06/21/22 22:55 21 06/21/22 22:53 CPAP Laboratory Results CBC 06/22/22 Range/Units 08:35 WBC 17.61 H (4.8-10.8) K/ul RBC 5.36 (4.63-6.08) M/uL Hgb 17.2 (14.0-18.0) g/dl Hct 49.5 (40.1-51.0) % Plt Count 172 (130-400) K/uL Comprehensive Metabolic Panel 06/22/22 Range/Units 08:35 Sodium 142 (136-145) mmol/L Potassium 4.1 (3.5-5.1) mmol/L Chloride 109 H (98-107) mmol/L Carbon Dioxide 27 (21-32) mmol/L BUN 32 H (6-23) mg/dl Creatinine 0.96 (0.6-1.4) mg/dl Glucose 115 H (70-99(Fasting)) mg/dl Calcium 8.4 L (8.5-10.1) mg/dl Intake and Output 06/21/22 06/22/22 06/22/22 22:59 06:59 14:59 Intake Total 700 / 1470 385 / 1470 220 / 220 Output Total 775 / 975 Balance -75 / 495 385 / 495 220 / 220 Intake: IV 220 / 990 385 / 990 220 / 220 Aztreonam 2,000 mg In Dextrose 110 / 330 110 / 330 110 / 110 5% 100 ml @ 100 mls/hr IV Q8H [facility] Rx#:[id number] Doxycycline Hyclate 100 mg In 110 / 110 110 / 110 Dextrose 5% 100 ml @ 50 mls/hr IV Q12H [facility] Rx#:[id number] Vancomycin HCl 1,250 mg In 275 / 550 Sodium Chloride 0.9% 250 ml @ 200 mls/hr IV Q12H [facility] Rx#: [id number] Oral 480 / 480 Output: Urine 775 / 975 Other: Weight 88.5 kg Weight Measurement Method Built in [facility]
[2022-06-22] MEDS: ALPRAZolam 0.5 MG TABLET PO PRN ×2 (10:57→20:43)
--- NOTE | 2022-06-22 11:54 | Communication Note ---
Date of Service: June 22, 2022 Per pt's request, I called his spouse, Berenice, . Updated provided.
--- NOTE | 2022-06-22 14:20 | XRay Report ---
XR chest 1V portable CLINICAL HISTORY: follow up COMPARISON STUDY: Chest CT and chest radiograph June 20, 2022. FINDINGS: Left subclavian pacer/AICD is in place. Cardiomegaly is unchanged. No pneumothorax or pleur al effusion is identified. There is no consolidation to suggest pneumonia. Interstitial thickening putnam s slightly improved. IMPRESSION: Cardiomegaly. Mild improvement in pulmonary edema. ACT 112: Negative or not required by law. Electronically signed by: Brain Garcia M.D. 06/22/2022 2:18 PM
[2022-06-22] MEDS: ALBUTEROL HFA 8 GM INHALER INH PRN (15:28)
[2022-06-22] MEDS ORDERED: COUGH DROP (SUGAR FREE) LOZ 24 LOZ/1 BOX BUCCAL ONE (16:17)
--- NOTE | 2022-06-22 17:04 | Hospitalist Progress Note ---
Date of Service June 22, 2022 Assessment & Plan (1) Acute respiratory failure: Plan: 51-year-old male with history of chronic systolic congestive heart failure, ongoing tobacco abuse, schizophrenia, sleep apnea, presents with shortness of breath. 1. Acute respiratory distress w/ hypoxia - most likely multifocal pneumonia, possible viral pneumonia. BioFire positive entero-rhino PCR. and acute on chronic CHF (systolic) The patient is allergic to PENICILLINS and in the ER received steroid and Zosyn. The patient was also having acute congestive heart failure and chronic obstructive pulmonary disease exacerbation On admission started on Azactam and Doxycycline, iv steroids, nebs, iv lasix and monitor. 06/20 pt was on 10 L suppl. O2 -> 6L 06/21 pt currently on RA vs 2L (oxygen requirement significantly improved from yesterday) 06/22 remains on RA 2. Acute on chronic systolic congestive heart failure, EF of 25-29% in echo 2019. Current echo - LV is moderately dilated. There is moderate concentric LVH. LV systolic function is severely reduced. EF 20-25%. RV size is normal. Aortic valve sclerosis moderate, without significant aortic valvular stenosis. There is mild to moderate mitral regurg. Significant tricuspid regurg is absent. Mild pulmonary hypertension. IV lasix 40mg bid . Cardiology consulted Continue to closely monitor 3. Mild elevation of troponin, possible demand ischemia. Follow serial enzymes, echocardiogram, and cardiac consult, as above. 4. Chronic obstructive pulmonary disease exacerbation, antibiotics as above, steroids, and nebulizers p.r.n. Pulmonary medicine consulted - switched from IV methylprednisolone to p.o. prednisone- continue and taper down on DC Started on Breo + Incruse, plan to Dc on Breo 200 and albuterol q6h prn. ? bacteremia gram posit., likely contaminant - vanco emp. started. repeat blood cultx repeated and so far nega, - DC vanco and follow up final cultx 5. History of obstructive sleep apnea on CPAP at bedtime. 6. History of schizophrenia, anxiety. Continue his home medication of divalproex, Seroquel and on alprazolam p.r.n. 7. Chronic back pain, on Percocet p.r.n. 8. Hypertension, on lisinopril, Imdur and Lasix We will monitor the blood pressure. 9. Mild thrombocytopenia. Platelets 122.Possibly from current illness. Now improved to 159. DVT prophylaxis, Lovenox. Monitor the platelets. DISPOSITION: Closely monitor in tele floor. Code: full code. Admission and Anticipated Discharge Date Admission Date: June 20, 2022 Subjective Pt seen in follow up of acute resp. failure. Currently on RA Pt reports he does not take Lasix for several days so he does not have to go to the bathroom. Patient is currently sitting up in bed, in no acute distress, on room air. Patient overall feels better but feels short of breath when coughing. No fevers chills chest pains, palpitations, abdominal pain, nausea or vomiting. Cardiology and pulm. medicine consulted. Review of Systems Review of Systems: All systems reviewed & are unremarkable except as noted in Subjective Physical Exam Physical Exam: GENERAL: WD/WN in NAD, on RA HEENT: Pupils equal, round, reactive to light. Oral mucosa moist. NECK: No JVD, no neck masses. CARDIOVASCULAR: S1 and S2 heard. RRR. No murmurs. RESPIRATORY: Normal AP diameter. No accessory muscle use. +bibasilar crackles. +Diminished breath sounds. ABDOMEN: Soft, bowel sounds present, nontender, no distention. NEURO: Alert, awake, and oriented. Speech is clear. No facial droop. Moves extremities. EXTREMITIES: No edema, no erythema. Results & Data Results & Data ([facility]) Vital Signs (Past 12 Hours) Vital Signs Temp Pulse Pulse Resp BP BP Pulse Ox 06/22/22 15:28 80 16 98 06/22/22 15:21 37.1 C 94 H 22 122/80 96 06/22/22 11:35 36.7 C 72 19 123/71 06/22/22 11:30 06/22/22 10:31 82 06/22/22 07:34 37.0 C 63 19 119/62 100 06/22/22 07:07 80 18 98 O2 Del Method 06/22/22 15:28 Room Air 06/22/22 15:21 Room Air 06/22/22 11:35 Room Air 06/22/22 11:30 Room Air 06/22/22 10:31 06/22/22 07:34 Room Air 06/22/22 07:07 Room Air Laboratory Results 06/22/22 06/22/22 Range/Units 08:35 08:35 WBC 17.61 H (4.8-10.8) K/ul RBC 5.36 (4.63-6.08) M/uL Hgb 17.2 (14.0-18.0) g/dl Hct 49.5 (40.1-51.0) % MCV 92.4 (80.0-100.0) fL MCH 32.1 (25.0-34.0) pg MCHC 34.7 (32.0-36.0) g/dL RDW Std Deviation 46.7 H (36.4-46.3) fL RDW Coeff of Seven 13.7 (11.5-14.5) % Plt Count 172 (130-400) K/uL MPV 11.1 (9.4-12.4) fL Sodium 142 (136-145) mmol/L Potassium 4.1 (3.5-5.1) mmol/L Chloride 109 H (98-107) mmol/L Carbon Dioxide 27 (21-32) mmol/L Anion Gap 6 (3-11) BUN 32 H (6-23) mg/dl Creatinine 0.96 (0.6-1.4) mg/dl Est Cr Clr Drug Dosing 96.2 ml/min Est GFR ( Amer) 104.2 ml/min Est GFR (Non-Af Amer) 89.9 ml/min BUN/Creatinine Ratio 33.3 H (10-20) Glucose 115 H (70-99(Fasting)) mg/dl Calcium 8.4 L (8.5-10.1) mg/dl Phosphorus 3.0 (2.5-4.9) mg/dl Magnesium 1.9 (1.7-2.4) mg/dl Medications Administered Current Inpatient Medications Acetaminophen (Acetaminophen 325 Mg Tab) 650 mg PO Q4H PRN PRN Reason: Pain or Fever Stop: 07/20/22 03:40 Albuterol (Albuterol Hfa 8 Gm Inhaler) 2 puffs INH Q6H PRN; Protocol PRN Reason: Wheezing Stop: 07/20/22 10:29 Last Admin: 06/22/22 15:28 Dose: 2 puffs Alprazolam (Alprazolam 0.5 Mg Tablet) 2 mg PO QID PRN PRN Reason: Anxiety Stop: 07/20/22 03:40 Last Admin: 06/22/22 10:57 Dose: 2 mg Dicyclomine HCl (Dicyclomine Hcl 10 Mg Cap) 10 mg PO QID PRN PRN Reason: ABDOMINAL PAIN Stop: 07/20/22 03:40 Divalproex Sodium (Divalproex Delay Release 500 Mg Tab) 500 mg PO BID [facility] Stop: 07/20/22 08:59 Last Admin: 06/22/22 08:16 Dose: 500 mg Enoxaparin Sodium (Enoxaparin Inj 40 Mg/0.4 Ml Syr) 40 mg SQ Q24H [facility] Stop: 07/20/22 08:59 Last Admin: 06/22/22 08:18 Dose: 40 mg Escitalopram Oxalate (Escitalopram Oxalate 20 Mg Tab) 20 mg PO QAM [facility] Stop: 07/20/22 08:59 Last Admin: 06/22/22 08:18 Dose: 20 mg Fluticasone/Vilanterol (Fluticasone/Vilanterol 200/25mcg 14 Puffs/Inhaler) 1 puffs INH DAILY [facility] Stop: 07/20/22 10:29 Last Admin: 06/22/22 08:18 Dose: 1 puffs Furosemide (Furosemide 40 Mg/4 Ml Vial) 40 mg IV BID17 [facility] Stop: 07/20/22 08:59 Last Admin: 06/22/22 16:11 Dose: 40 mg Gabapentin (Gabapentin 600 Mg Tab) 600 mg PO HS [facility] Stop: 07/20/22 20:59 Last Admin: 06/21/22 21:58 Dose: 600 mg Guaifenesin (Guaifenesin 600 Mg Tabcr) 600 mg PO Q12 [facility] Stop: 07/21/22 13:59 Last Admin: 06/22/22 08:16 Dose: 600 mg Doxycycline Hyclate 100 mg/ (Dextrose) 110 mls @ 50 mls/hr IV Q12H [facility] Stop: 06/27/22 03:59 Last Admin: 06/22/22 14:57 Dose: 50 mls/hr Aztreonam 2,000 mg/ Dextrose 110 mls @ 100 mls/hr IV Q8H [facility]; Protocol Stop: 06/27/22 07:59 Last Infusion: 06/22/22 16:07 Dose: Infused Vancomycin HCl 1,250 mg/ (Sodium Chloride) 275 mls @ 200 mls/hr IV Q12H [facility]; Protocol Stop: 07/05/22 09:59 Last Infusion: 06/22/22 11:08 Dose: Infused Isosorbide Mononitrate (Isosorbide [place]assen Extended Rel 30 Mg Tabcr) 30 mg PO DAILY [facility] Stop: 07/20/22 08:59 Last Admin: 06/22/22 08:16 Dose: 30 mg Lisinopril (Lisinopril 40 Mg Tab) 40 mg PO DAILY [facility] Stop: 07/20/22 08:59 Last Admin: 06/22/22 08:18 Dose: 40 mg Magnesium Oxide (Magnesium Oxide 400 Mg Tab) 400 mg PO QAM [facility] Stop: 07/20/22 08:59 Last Admin: 06/22/22 08:17 Dose: 400 mg Metoprolol Succinate (Metoprolol Succ 25mg Ext Rel Tab) 25 mg PO QAM [facility] Stop: 07/21/22 10:44 Last Admin: 06/22/22 08:16 Dose: 25 mg Miscellaneous (Remove Nicoderm Patch) 1 each N/A DAILY@0859 [facility] Stop: 07/21/22 08:58 Last Admin: 06/22/22 08:19 Dose: 1 each Miscellaneous Information (Vancomycin Consult Active) 1 each N/A UD PRN PRN Reason: Consult Stop: 07/21/22 00:05 Nicotine (Nicotine 21 Mg/24 Hr Tdsy) 21 mg TD DAILY [facility] Stop: 07/20/22 19:29 Last Admin: 06/22/22 08:19 Dose: 21 mg Nitroglycerin (Nitroglycerin Sl 0.4 Mg/Tab Tab) 0.4 mg SL UD PRN PRN Reason: Chest Pain Stop: 07/20/22 03:40 Ondansetron HCl (Ondansetron 4 Mg Od Tab) 4 mg PO Q8H PRN PRN Reason: Nausea Stop: 07/20/22 03:40 Oxycodone/Acetaminophen (Oxycodone/Acetaminophen 10-325 Tab) 1 tab PO Q4H PRN PRN Reason: Pain Stop: 07/04/22 03:40 Last Admin: 06/22/22 16:46 Dose: 1 tab Polyethylene Glycol (Polyethylene (Miralax) 17 Gm Pack) 17 gm PO DAILY PRN PRN Reason: Constipation Stop: 07/20/22 03:40 Potassium Chloride (Potassium Chloride Crtab 20 Meq Tabcr) 40 meq PO BID [facility] Stop: 07/20/22 08:59 Last Admin: 06/22/22 08:15 Dose: 40 meq Prednisone (Prednisone 20 Mg Tab) 40 mg PO DAILY [facility] Stop: 07/22/22 08:59 Last Admin: 06/22/22 09:42 Dose: 40 mg Quetiapine Fumarate (Quetiapine Fumarate 200 Mg Tab) 800 mg PO HS [facility] Stop: 07/20/22 20:59 Last Admin: 06/21/22 21:59 Dose: 200 mg Sodium Chloride (Sodium Chlor 7% 4 Ml Neb) 4 ml NEB BIDR [facility] Stop: 07/20/22 18:59 Last Admin: 06/22/22 07:07 Dose: 4 ml Umeclidinium Freer (Umeclidinium Freer 62.5mcg/Blister 7 Puffs/Inhaler) 1 puffs INH DAILY [facility] Stop: 07/20/22 10:29 Last Admin: 06/22/22 08:17 Dose: 1 puffs
[2022-06-22] MEDS: GABAPENTIN 600 MG TAB PO SCH (20:46)
[2022-06-22] MEDS: QUEtiapine FUMARATE 200 MG TAB PO SCH (20:46)
[2022-06-22] MEDS ORDERED: VANCOMYCIN LEVEL ONE (21:30)
[2022-06-23] MEDS: AZTREONAM 2,000 MG in DEXTROSE 5% 100 ML IV SCH ×3 (00:40→16:01)
[2022-06-23] MEDS: DOXYCYCLINE HYCLATE 100 MG in DEXTROSE 5% 100 ML IV SCH ×2 (04:13→16:01)
[2022-06-23] MEDS: oxyCODONE/ACETAMINOPHEN 10-325 TAB PO PRN ×4 (04:22→19:55)
[2022-06-23] MEDS: SODIUM CHLOR 7% 4 ML NEB NEB SCH ×2 (08:37→19:19)
[2022-06-23] MEDS: FLUTICASONE/VILANTEROL 200/25MCG 14 PUFFS/INHALER INH SCH (08:56)
[2022-06-23] MEDS: DIVALPROEX DELAY RELEASE 500 MG TAB PO SCH ×2 (08:57→19:57)
[2022-06-23] MEDS: POTASSIUM CHLORIDE CRTAB 20 MEQ TABCR PO SCH ×2 (08:57→19:58)
[2022-06-23] MEDS: UMECLIDINIUM BROMIDE 62.5MCG/BLISTER 7 PUFFS/INHALER INH SCH (08:57)
[2022-06-23] MEDS: lisinopril 40 MG TAB PO SCH (08:58)
[2022-06-23] MEDS: guaiFENesin 600 MG TABCR PO SCH (08:58)
[2022-06-23] MEDS: MAGNESIUM OXIDE 400 MG TAB PO SCH (08:58)
[2022-06-23] MEDS: ESCITALOPRAM OXALATE 20 MG TAB PO SCH (08:58)
[2022-06-23] MEDS: predniSONE 20 MG TAB PO SCH (08:58)
[2022-06-23] MEDS: ISOSORBIDE MONO EXTENDED REL 30 MG TABCR PO SCH (08:58)
[2022-06-23] MEDS: METOPROLOL SUCC 25MG EXT REL TAB PO SCH (08:58)
[2022-06-23] MEDS: ENOXAPARIN INJ 40 MG/0.4 ML SYR SQ SCH (08:59)
[2022-06-23] MEDS: FUROSEMIDE 40 MG/4 ML VIAL IV SCH ×2 (08:59→16:02)
[2022-06-23] MEDS: NICOTINE 21 MG/24 HR TDSY TD SCH (08:59)
--- NOTE | 2022-06-23 10:09 | Cardiology Progress Note ---
Date of Service June 23, 2022 Assessment & Plan (1) HFrEF (heart failure with reduced ejection fraction): (2) Frequent PVCs: (3) Cardiac defibrillator in place: (4) Schizophrenia: Plan It appears that in addition to her presentation with acute heart failure with reduced ejection fraction, he has been found to have a viral respiratory illness, panel positive for rhinovirus / enterovirus, with suspected superimposed bacterial pneumonia 1 / 2 blood cultures with coag negative staph. Additional cultures drawn 06/21/2022 while on antibiotics negative thus far, vancomycin discontinued 06/22/2022. Continue metoprolol succinate 25 mg daily, Imdur 30 mg daily, lisinopril 40 mg daily, furosemide 40 mg IV BID, potassium". At time of my assessment the patient has 12 fluid vesicles on his table including multiple unopened juice cups. I counseled the patient and his nurse, the need to work on educating the patient with regards to food intake. Agree with Lovenox 40 mg subcutaneously for DVT prophylaxis. Admission and Anticipated Discharge Date Admission Date: June 20, 2022 Subjective Patient seen in cardiology follow-up. Cough seems little bit worse today. Patient afebrile. Urine output of 3 L noted in the last 24 hours, balance -1.7 L. Review of Systems Review of Systems: Review of Systems: See HPI for pertinent positives. All other 10 point review of systems are negative. Physical Exam Constitutional: no acute distress Respiratory: no respiratory distress Auscultation: + crackles and + rales (Minimal rales bilaterally at the bases); no wheezes Cardiovascular: Rate/Rhythm: regular rate Heart Sounds: normal S1 and normal S2; no murmur Extremities: no edema Gastrointestinal (Abdomen): normal bowel sounds, soft, nontender, no hepatosplenomegaly Neurologic: PERRL, EOMI, accommodation nl, no face palsy, no dysarthria Results & Data ([facility]) Vital Signs (Past 12 Hours) Vital Signs Temp Pulse Pulse Resp BP BP Pulse Ox 06/23/22 08:37 90 16 96 06/23/22 02:58 76 19 97 06/23/22 03:02 35.7 C L 72 18 102/59 L 96 06/22/22 22:50 87 20 94 06/22/22 22:57 82 06/22/22 22:21 36.7 C 79 20 128/61 91 O2 Del Method O2 Flow Rate FiO2 06/23/22 08:37 Room Air 06/23/22 02:58 0 21 06/23/22 03:02 CPAP 8 06/22/22 22:50 0 21 06/22/22 22:57 06/22/22 22:21 Room Air
--- NOTE | 2022-06-23 10:11 | Communication Note ---
Date of Service: June 23, 2022 Attempted to reach pt's significant other , Berenice, by phone to provider her an update. Received a message that "the mail box is full" unable to leave a voicemail message.
[2022-06-23] MEDS: DEXTROMETHORPHAN POLYMR COMPLX 30 MG/5 ML UDP PO PRN (14:07)
--- NOTE | 2022-06-23 16:08 | Hospitalist Progress Note ---
Date of Service June 23, 2022 Assessment & Plan (1) Acute respiratory failure: Plan: Patient is a 51 yr old male with H/O chronic systolic congestive heart failure, ongoing tobacco abuse, schizophrenia, sleep apnea, presents with shortness of breath. Acute respiratory failure with Hypoxia: Secondary to pneumonia, pulmonary edema Multifocal pneumonia secondary to enterovirus --Chest CTA:No evidence of pulmonary embolism. Pneumonia. Pulmonary edema has history of heart failure. --Blood Cx: 08/11: Coagulase-negative staph not Lugdunensis --Biofire positive for Enterovirus Normal procalcitonin Appreciate pulmonary input Empirically received Azactam and doxycycline Weaned off of supplemental oxygen Taper down prednisone over 2 week period Acute on chronic systolic congestive heart failure -ECHO: Left ventricle is moderately dilated. There is moderate concentric LVH. Left ventricle systolic function is severely reduced. EF 20 to 25%. Right ventricle systolic pressure is normal. Left atrium size is normal. Right atrial size is normal. Aortic valve stenosis moderate, without significant aortic valvular stenosis. Mild to moderate mitral regurgitation. Significant tricuspid regurgitation is absent. Mild pulmonary hypertension. -Continue IV Lasix 40 mg bid -Continue fluid restriction Appreciate cardiology input Continue metoprolol, Imdur, lisinopril Monitor renal function, electrolytes Mild elevation of troponin Possible demand ischemia ECHO showed no wall motion abnormality COPD exacerbation Continue home inhalers Prednisone taper course Suspected Bacteremia likely contaminant Follow up cultures HAFSA on CPAP HS Schizophrenia, anxiety disorder On divalproex, Seroquel and on alprazolam p.r.n. Chronic back pain on Percocet p.r.n Hypertension on lisinopril, Metoprolol, Imdur . Mild thrombocytopenia Likely due to viral infection Resolved Monitor DVT Px: Lovenox SQ Code Status Full Code Admission and Anticipated Discharge Date Admission Date: June 20, 2022 Subjective Patient is seen and examined at bedside States having cough with expectoration Reports chronic back pain Also reports dyspnea on exertion Denies any chest pain, dizziness, abdominal pain Saturating well on room air No other complaints Review of Systems Review of Systems: All systems reviewed & are unremarkable except as noted in Subjective Physical Exam Physical Exam: Physical Exam: Vitals signs as noted above General Appearance:Moderately built and nourished, no apparent distress, Chronic ill appearing Head: normocephalic, Atraumatic Eyes: normal inspection, EOMI Neck: supple, Trachea midline Respiratory/Chest: Decreased breath sounds, +Basal Crackles, +Pacemaker. No accessory muscle use Cardiovascular: S1, S2, No murmur Abdomen/GI:Soft, Non tender, Bowel sounds present Extremities/Musculoskeletal:normal inspection, no edema Neurologic/Psych:AAOX3, grossly no focal neurological deficits Skin: normal color, warm Results & Data Results & Data ([facility]) Vital Signs (Past 12 Hours) Vital Signs Temp Pulse Resp BP Pulse Ox O2 Del Method 06/23/22 12:36 36.6 C 41 L 18 142/73 H 96 Room Air 06/23/22 08:00 Room Air 06/23/22 08:37 90 16 96 Room Air
[2022-06-23] MEDS: ALPRAZolam 0.5 MG TABLET PO PRN (19:56)
[2022-06-23] MEDS: QUEtiapine FUMARATE 200 MG TAB PO SCH (19:56)
[2022-06-23] MEDS: GABAPENTIN 600 MG TAB PO SCH (19:57)
[2022-06-24] MEDS: AZTREONAM 2,000 MG in DEXTROSE 5% 100 ML IV SCH ×3 (00:16→16:20)
[2022-06-24] MEDS: DOXYCYCLINE HYCLATE 100 MG in DEXTROSE 5% 100 ML IV SCH ×2 (04:13→16:21)
[2022-06-24] MEDS: oxyCODONE/ACETAMINOPHEN 10-325 TAB PO PRN ×4 (04:18→18:22)
[2022-06-24] MEDS: SODIUM CHLOR 7% 4 ML NEB NEB SCH ×4 (07:14→20:06)
[2022-06-24 07:20] LABS: BUN Creatinine Ratio 33.3 (10-20); Calcium 8.5 mg/dl (8.5-10.1); Creatinine Clr Calc Pharmacy 94.5 ml/min; Est GFR (African American) 104.2 ml/min; Est GFR (Non-African American) 89.9 ml/min; Potassium 4.1 mmol/L (3.5-5.1)
[2022-06-24] MEDS: METOPROLOL SUCC 25MG EXT REL TAB PO SCH (08:53)
[2022-06-24] MEDS: predniSONE 20 MG TAB PO SCH (08:53)
[2022-06-24] MEDS: MAGNESIUM OXIDE 400 MG TAB PO SCH (08:53)
[2022-06-24] MEDS: ISOSORBIDE MONO EXTENDED REL 30 MG TABCR PO SCH (08:53)
[2022-06-24] MEDS: POTASSIUM CHLORIDE CRTAB 20 MEQ TABCR PO SCH ×2 (08:53→20:37)
[2022-06-24] MEDS: DIVALPROEX DELAY RELEASE 500 MG TAB PO SCH ×2 (08:53→20:37)
[2022-06-24] MEDS: ESCITALOPRAM OXALATE 20 MG TAB PO SCH (08:53)
[2022-06-24] MEDS: FUROSEMIDE 40 MG/4 ML VIAL IV SCH ×2 (08:54→17:24)
[2022-06-24] MEDS: lisinopril 40 MG TAB PO SCH (08:54)
[2022-06-24] MEDS: UMECLIDINIUM BROMIDE 62.5MCG/BLISTER 7 PUFFS/INHALER INH SCH (08:54)
[2022-06-24] MEDS: FLUTICASONE/VILANTEROL 200/25MCG 14 PUFFS/INHALER INH SCH (08:54)
[2022-06-24] MEDS: ENOXAPARIN INJ 40 MG/0.4 ML SYR SQ SCH (08:55)
[2022-06-24] MEDS: NICOTINE 21 MG/24 HR TDSY TD SCH (08:55)
[2022-06-24] MEDS: DEXTROMETHORPHAN POLYMR COMPLX 30 MG/5 ML UDP PO PRN (08:56)
--- NOTE | 2022-06-24 10:25 | Cardiology Progress Note ---
Date of Service June 24, 2022 Assessment & Plan (1) HFrEF (heart failure with reduced ejection fraction): (2) Frequent PVCs: (3) Cardiac defibrillator in place: (4) Schizophrenia: Plan It appears that in addition to her presentation with acute heart failure with reduced ejection fraction, he has been found to have a viral respiratory illness, panel positive for rhinovirus / enterovirus, with suspected superimposed bacterial pneumonia 1/2 blood cultures with coag negative staph. Additional cultures drawn 06/21/2022 while on antibiotics negative thus far, vancomycin discontinued 06/22/2022. Continue metoprolol succinate 25 mg daily, Imdur 30 mg daily, lisinopril 40 mg daily, furosemide 40 mg IV BID, potassium. Agree with Lovenox 40 mg subcutaneously for DVT prophylaxis. Admission and Anticipated Discharge Date Admission Date: June 20, 2022 Subjective Patient seen in cardiology follow up of shortness of breath. Cough perhaps a little improved this am. Telemetry reveals sinus rhythm in the 70s to 80s with frequent PVCs. Physical Exam Constitutional: no acute distress Respiratory: no respiratory distress Auscultation: + crackles and + rales (Minimal rales bilaterally at the bases); no wheezes Cardiovascular: Rate/Rhythm: regular rate Heart Sounds: normal S1 and normal S2; no murmur Extremities: no edema Gastrointestinal (Abdomen): normal bowel sounds, soft, nontender, no hepatosplenomegaly Neurologic: PERRL, EOMI, accommodation nl, no face palsy, no dysarthria Results & Data ([facility]) Vital Signs (Past 12 Hours) Vital Signs Temp Pulse Pulse Resp BP BP Pulse Ox 06/24/22 10:03 77 06/24/22 10:03 06/24/22 07:56 36.8 C 78 16 122/65 95 06/24/22 03:02 36.6 C 80 22 145/78 H 96 06/24/22 02:36 89 20 06/23/22 23:07 86 06/23/22 23:06 36.4 C L 84 22 117/54 L 93 O2 Del Method FiO2 06/24/22 10:03 06/24/22 10:03 Room Air 06/24/22 07:56 Room Air 06/24/22 03:02 CPAP 06/24/22 02:36 21 06/23/22 23:07 06/23/22 23:06 CPAP Diagnostic Findings Comprehensive Metabolic Panel 06/24/22 Range/Units 06:13 Sodium 142 (136-145) mmol/L Potassium 4.1 (3.5-5.1) mmol/L Chloride 111 H (98-107) mmol/L Carbon Dioxide 26 (21-32) mmol/L BUN 32 H (6-23) mg/dl Creatinine 0.96 (0.6-1.4) mg/dl Glucose 114 H (70-99(Fasting)) mg/dl Calcium 8.5 (8.5-10.1) mg/dl
[2022-06-24] MEDS: ALBUTEROL HFA 8 GM INHALER INH PRN ×2 (15:30→20:06)
--- NOTE | 2022-06-24 16:23 | Hospitalist Progress Note ---
Date of Service June 24, 2022 Assessment & Plan (1) Acute respiratory failure: Plan: Patient is a 51 yr old male with H/O chronic systolic congestive heart failure, ongoing tobacco abuse, schizophrenia, sleep apnea, presents with shortness of breath. Acute respiratory failure with Hypoxia: Secondary to pneumonia, pulmonary edema Multifocal pneumonia secondary to enterovirus --Chest CTA:No evidence of pulmonary embolism. Pneumonia. Pulmonary edema has history of heart failure. --Blood Cx: 08/11: Coagulase-negative staph not Lugdunensis --Biofire positive for Enterovirus Normal procalcitonin Appreciate pulmonary input Empirically received Azactam and doxycycline Weaned off of supplemental oxygen Taper down prednisone over 2 week period Will complete antibiotic course today Acute on chronic systolic congestive heart failure -ECHO: Left ventricle is moderately dilated. There is moderate concentric LVH. Left ventricle systolic function is severely reduced. EF 20 to 25%. Right ventricle systolic pressure is normal. Left atrium size is normal. Right atrial size is normal. Aortic valve stenosis moderate, without significant aortic valvular stenosis. Mild to moderate mitral regurgitation. Significant tricuspid regurgitation is absent. Mild pulmonary hypertension. -Continue IV Lasix 40 mg bid -Continue fluid restriction Appreciate cardiology input Continue metoprolol, Imdur, lisinopril Monitor renal function, electrolytes Monitor volume status closely Mild elevation of troponin Possible demand ischemia ECHO showed no wall motion abnormality COPD exacerbation Continue home inhalers On Prednisone taper course Suspected Bacteremia 08/11 blood cultures growing coagulase-negative staph not Lugdunensis likely contaminant Follow up cultures HAFSA on CPAP HS Schizophrenia, anxiety disorder On divalproex, Seroquel and on alprazolam p.r.n. Chronic back pain on Percocet p.r.n Hypertension on lisinopril, Metoprolol, Imdur . Mild thrombocytopenia Likely due to viral infection Resolved Monitor DVT Px: Lovenox SQ Code Status Full Code Admission and Anticipated Discharge Date Admission Date: June 20, 2022 Subjective Patient is seen and examined at bedside No significant change from yesterday Reports cough, dyspnea on exertion Has Chronic back pain Denies any chest pain, dizziness, abdominal pain Review of Systems Review of Systems: All systems reviewed & are unremarkable except as noted in Subjective Physical Exam Physical Exam: Physical Exam: Vitals signs as noted above General Appearance:Moderately built and nourished, no apparent distress, Chronic ill appearing Head: normocephalic, Atraumatic Eyes: normal inspection, EOMI Neck: supple, Trachea midline Respiratory/Chest: Decreased breath sounds, +Basal Crackles, +Pacemaker. No accessory muscle use Cardiovascular: S1, S2, No murmur Abdomen/GI:Soft, Non tender, Bowel sounds present Extremities/Musculoskeletal:normal inspection, no edema Neurologic/Psych:AAOX3, grossly no focal neurological deficits Skin: normal color, warm Results & Data Results & Data ([facility]) Vital Signs (Past 12 Hours) Vital Signs Temp Pulse Pulse Pulse Resp BP BP 06/24/22 15:34 16 06/24/22 11:00 36.8 C 82 16 116/96 06/24/22 11:38 78 16 06/24/22 10:03 77 06/24/22 10:03 06/24/22 07:56 36.8 C 78 16 122/65 Pulse Ox O2 Del Method 06/24/22 15:34 96 Room Air 06/24/22 11:00 93 Room Air 06/24/22 11:38 95 Room Air 06/24/22 10:03 06/24/22 10:03 Room Air 06/24/22 07:56 95 Room Air Laboratory Results BMP 06/24/22 06:13 Sodium 142 Potassium 4.1 Chloride 111 H Carbon Dioxide 26 BUN 32 H Creatinine 0.96 Glucose 114 H Calcium 8.5
[2022-06-24] MEDS: GABAPENTIN 600 MG TAB PO SCH (20:37)
[2022-06-24] MEDS: QUEtiapine FUMARATE 200 MG TAB PO SCH (20:38)
[2022-06-25] MEDS: AZTREONAM 2,000 MG in DEXTROSE 5% 100 ML IV SCH (00:58)
[2022-06-25] MEDS: oxyCODONE/ACETAMINOPHEN 10-325 TAB PO PRN ×5 (06:01→21:39)
[2022-06-25] MEDS: SODIUM CHLOR 7% 4 ML NEB NEB SCH ×2 (06:53→19:38)
[2022-06-25 07:06] LABS: Hematocrit (blood only) 50.6 % (40.1-51.0); Hemoglobin 17.5 g/dl (14.0-18.0); Mean Corpuscular Hemoglobin 32.4 pg (25.0-34.0); Mean Corpuscular Hgb Conc 34.6 g/dL (32.0-36.0); Mean Corpuscular Volume 93.7 fL (80.0-100.0); Mean Platelet Volume 10.3 fL (9.4-12.4); Platelet Count 213 K/uL (130-400); RDW Standard Deviation 48.5 fL (36.4-46.3); White Blood Count 16.21 K/ul (4.8-10.8)
[2022-06-25] MEDS: ALBUTEROL HFA 8 GM INHALER INH PRN (07:20)
[2022-06-25 07:30] LABS: BUN Creatinine Ratio 31.6 (10-20); Calcium 8.3 mg/dl (8.5-10.1); Creatinine Clr Calc Pharmacy 92.6 ml/min; Est GFR (African American) 101.6 ml/min; Est GFR (Non-African American) 87.7 ml/min; Potassium 4.3 mmol/L (3.5-5.1)
--- NOTE | 2022-06-25 09:21 | Cardiology Progress Note ---
Date of Service June 25, 2022 Assessment & Plan (1) HFrEF (heart failure with reduced ejection fraction): (2) Frequent PVCs: (3) Cardiac defibrillator in place: (4) Schizophrenia: Plan It appears that in addition to her presentation with acute heart failure with reduced ejection fraction, he has been found to have a viral respiratory illness, panel positive for rhinovirus / enterovirus, with suspected superimposed bacterial pneumonia 1/2 blood cultures with coag negative staph. Additional cultures drawn 06/21/2022 while on antibiotics negative thus far, vancomycin discontinued 06/22/2022. Doxycycline and aztreonam now discontinued and prednisone reduced to 30 mg daily. Patient with longstanding history of frequent PVCs. PVCs noted on telemetry again today, with long episodes of ventricular bigeminy. Titrate metoprolol succinate to 25 mg twice daily. 3.5 L of urine output noted. We will likely be able to make more of an impact with regards to negative fluid balance now that his IV diuretics have been discontinued, patient was again counseled with regards to the importance of fluid restriction status. Continue isosorbide mononitrate 30 mg daily, lisinopril 40 mg daily, furosemide 40 mg IV twice daily, potassium chloride 40 mEq twice daily. Admission and Anticipated Discharge Date Admission Date: June 20, 2022 Subjective Patient seen in cardiology follow-up of chief complaint of shortness of breath. Ongoing cough noted, energy level however suddenly improved compared to 2 days ago. Pulse oximetry stable, 95% on room air, patient afebrile. Physical Exam Constitutional: no acute distress Respiratory: no respiratory distress Auscultation: + crackles and + rales (Minimal rales bilaterally at the bases); no wheezes Cardiovascular: Rate/Rhythm: regular rate Heart Sounds: normal S1 and normal S2; no murmur Extremities: no edema Gastrointestinal (Abdomen): normal bowel sounds, soft, nontender, no hepatosplenomegaly Neurologic: PERRL, EOMI, accommodation nl, no face palsy, no dysarthria Results & Data ([facility]) Vital Signs (Past 12 Hours) Vital Signs Temp Pulse Pulse Resp BP Pulse Ox O2 Del Method 06/25/22 07:49 37.0 C 77 19 136/68 95 Room Air 06/25/22 06:55 77 19 95 Room Air 06/24/22 23:47 86 06/24/22 22:08 36.7 C 85 20 110/62 94 Room Air Laboratory Results CBC 06/25/22 Range/Units 06:43 WBC 16.21 H (4.8-10.8) K/ul RBC 5.40 (4.63-6.08) M/uL Hgb 17.5 (14.0-18.0) g/dl Hct 50.6 (40.1-51.0) % Plt Count 213 (130-400) K/uL Comprehensive Metabolic Panel 06/25/22 Range/Units 06:43 Sodium 143 (136-145) mmol/L Potassium 4.3 (3.5-5.1) mmol/L Chloride 110 H (98-107) mmol/L Carbon Dioxide 27 (21-32) mmol/L BUN 31 H (6-23) mg/dl Creatinine 0.98 (0.6-1.4) mg/dl Glucose 88 (70-99(Fasting)) mg/dl Calcium 8.3 L (8.5-10.1) mg/dl Intake and Output 06/24/22 06/25/22 06/25/22 22:59 06:59 14:59 Intake Total 920 / 2390 360 / 2390 Balance 920 / -1110 360 / -1110 Intake: IV 220 / 440 110 / 440 Aztreonam 2,000 mg In Dextrose 110 / 330 110 / 330 5% 100 ml @ 100 mls/hr IV Q8H [facility] Rx#:[id number] Doxycycline Hyclate 100 mg In 110 / 110 Dextrose 5% 100 ml @ 50 mls/hr IV Q12H [facility] Rx#:[id number] Oral 700 / 1950 250 / 1950 Other: Weight 85.1 kg Weight Measurement Method Built in [facility]
[2022-06-25] MEDS: POTASSIUM CHLORIDE CRTAB 20 MEQ TABCR PO SCH ×2 (09:25→21:38)
[2022-06-25] MEDS: lisinopril 40 MG TAB PO SCH (09:25)
[2022-06-25] MEDS: DIVALPROEX DELAY RELEASE 500 MG TAB PO SCH ×2 (09:25→21:37)
[2022-06-25] MEDS: ESCITALOPRAM OXALATE 20 MG TAB PO SCH (09:25)
[2022-06-25] MEDS: predniSONE 10 MG TABLET PO SCH (09:25)
[2022-06-25] MEDS: ISOSORBIDE MONO EXTENDED REL 30 MG TABCR PO SCH (09:26)
[2022-06-25] MEDS: NICOTINE 21 MG/24 HR TDSY TD SCH (09:26)
[2022-06-25] MEDS: ENOXAPARIN INJ 40 MG/0.4 ML SYR SQ SCH (09:26)
[2022-06-25] MEDS: FLUTICASONE/VILANTEROL 200/25MCG 14 PUFFS/INHALER INH SCH (09:26)
[2022-06-25] MEDS: UMECLIDINIUM BROMIDE 62.5MCG/BLISTER 7 PUFFS/INHALER INH SCH (09:27)
[2022-06-25] MEDS: MAGNESIUM OXIDE 400 MG TAB PO SCH (09:27)
[2022-06-25] MEDS: FUROSEMIDE 40 MG/4 ML VIAL IV SCH ×2 (09:27→17:32)
--- NOTE | 2022-06-25 09:41 | XRay Report ---
XR chest 1V portable CLINICAL HISTORY: chf TECHNIQUE: Single frontal radiograph of the chest was obtained. Comparison: Comparison is made to chest radiograph 06/22/2022 FINDINGS: Pacemaker defibrillator is seen. Cardiomegaly is noted. The lungs are clear. No evidence of pleural e ffusion or pneumothorax. IMPRESSION: Splenomegaly with improvement in previously noted pulmonary edema. ACT 112: Negative or not required by law. Electronically signed by: Solitario Castro M.D. 06/25/2022 9:39 AM
[2022-06-25] MEDS: METOPROLOL SUCC 25MG EXT REL TAB PO SCH ×2 (10:30→21:37)
--- NOTE | 2022-06-25 14:44 | Hospitalist Progress Note ---
Date of Service June 25, 2022 Assessment & Plan (1) Acute respiratory failure: Plan: Patient is a 51 yr old male with H/O chronic systolic congestive heart failure, ongoing tobacco abuse, schizophrenia, sleep apnea, presents with shortness of breath. Acute respiratory failure with Hypoxia: Secondary to pneumonia, pulmonary edema Multifocal pneumonia secondary to enterovirus --Chest CTA:No evidence of pulmonary embolism. Pneumonia. Pulmonary edema has history of heart failure. --Blood Cx: 08/11: Coagulase-negative staph not Lugdunensis --Biofire positive for Enterovirus Normal procalcitonin Appreciate pulmonary input Empirically received Azactam and doxycycline--completed the course e Weaned off of supplemental oxygen Taper down prednisone over 2 week period Decrease prednisone to 30 mg daily Acute on chronic systolic congestive heart failure -ECHO: Left ventricle is moderately dilated. There is moderate concentric LVH. Left ventricle systolic function is severely reduced. EF 20 to 25%. Right ventricle systolic pressure is normal. Left atrium size is normal. Right atrial size is normal. Aortic valve stenosis moderate, without significant aortic valvular stenosis. Mild to moderate mitral regurgitation. Significant tricuspid regurgitation is absent. Mild pulmonary hypertension. -Continue IV Lasix 40 mg bid -Continue fluid restriction Appreciate cardiology input Continue metoprolol, Imdur, lisinopril Monitor renal function, electrolytes Monitor volume status closely Continue IV diuresis Mild elevation of troponin Possible demand ischemia ECHO showed no wall motion abnormality COPD exacerbation Continue home inhalers On Prednisone taper course Suspected Bacteremia 08/11 blood cultures growing coagulase-negative staph not Lugdunensis likely contaminant Follow up cultures HAFSA on CPAP HS Schizophrenia, anxiety disorder On divalproex, Seroquel and on alprazolam p.r.n. Chronic back pain on Percocet p.r.n Hypertension on lisinopril, Metoprolol, Imdur . Mild thrombocytopenia Likely due to viral infection Resolved Monitor DVT Px: Lovenox SQ Code Status Full Code Disposition PT OT prior to discharge Admission and Anticipated Discharge Date Admission Date: June 20, 2022 Subjective Patient is seen and examined at bedside Feels much better today No new complaints Discussed with patient's family over the phone Cough, dyspnea improving Denies any chest pain, dizziness, abdominal pain Review of Systems Review of Systems: All systems reviewed & are unremarkable except as noted in Subjective Physical Exam Physical Exam: Physical Exam: Vitals signs as noted above General Appearance:Moderately built and nourished, no apparent distress, Chronic ill appearing Head: normocephalic, Atraumatic Eyes: normal inspection, EOMI Neck: supple, Trachea midline Respiratory/Chest: Decreased breath sounds, +Basal Crackles, +Pacemaker. No accessory muscle use Cardiovascular: S1, S2, No murmur Abdomen/GI:Soft, Non tender, Bowel sounds present Extremities/Musculoskeletal:normal inspection, no edema Neurologic/Psych:AAOX3, grossly no focal neurological deficits Skin: normal color, warm Results & Data Results & Data ([facility]) Vital Signs (Past 12 Hours) Vital Signs Temp Pulse Pulse Resp BP Pulse Ox O2 Del Method 06/25/22 12:20 36.7 C 80 18 123/56 L 95 Room Air 06/25/22 12:00 Room Air 06/25/22 08:00 76 06/25/22 07:49 37.0 C 77 19 136/68 95 Room Air 06/25/22 06:55 77 19 95 Room Air Laboratory Results Short CBC 06/25/22 Range/Units 06:43 WBC 16.21 H (4.8-10.8) K/ul Hgb 17.5 (14.0-18.0) g/dl Hct 50.6 (40.1-51.0) % Plt Count 213 (130-400) K/uL BMP 06/25/22 06:43 Sodium 143 Potassium 4.3 Chloride 110 H Carbon Dioxide 27 BUN 31 H Creatinine 0.98 Glucose 88 Calcium 8.3 L
[2022-06-25] MEDS: GABAPENTIN 600 MG TAB PO SCH (21:37)
[2022-06-25] MEDS: QUEtiapine FUMARATE 200 MG TAB PO SCH (21:38)
[2022-06-25] MEDS: ALPRAZolam 0.5 MG TABLET PO PRN (21:39)
[2022-06-26] MEDS: oxyCODONE/ACETAMINOPHEN 10-325 TAB PO PRN ×5 (02:57→20:25)
[2022-06-26 07:14] LABS: BUN Creatinine Ratio 31.2 (10-20); Calcium 8.7 mg/dl (8.5-10.1); Creatinine Clr Calc Pharmacy 96.5 ml/min; Est GFR (African American) 107.5 ml/min; Est GFR (Non-African American) 92.7 ml/min; Potassium 4.3 mmol/L (3.5-5.1)
[2022-06-26] MEDS: METOPROLOL SUCC 25MG EXT REL TAB PO SCH ×2 (07:41→20:24)
[2022-06-26] MEDS: ISOSORBIDE MONO EXTENDED REL 30 MG TABCR PO SCH (07:41)
[2022-06-26] MEDS: POTASSIUM CHLORIDE CRTAB 20 MEQ TABCR PO SCH ×2 (07:41→20:24)
[2022-06-26] MEDS: lisinopril 40 MG TAB PO SCH (07:41)
[2022-06-26] MEDS: DIVALPROEX DELAY RELEASE 500 MG TAB PO SCH ×2 (07:42→20:23)
[2022-06-26] MEDS: ESCITALOPRAM OXALATE 20 MG TAB PO SCH (07:42)
[2022-06-26] MEDS: MAGNESIUM OXIDE 400 MG TAB PO SCH (07:42)
[2022-06-26] MEDS: ENOXAPARIN INJ 40 MG/0.4 ML SYR SQ SCH (07:42)
[2022-06-26] MEDS: predniSONE 10 MG TABLET PO SCH (07:42)
[2022-06-26] MEDS: NICOTINE 21 MG/24 HR TDSY TD SCH (07:43)
[2022-06-26] MEDS: FLUTICASONE/VILANTEROL 200/25MCG 14 PUFFS/INHALER INH SCH (07:43)
[2022-06-26] MEDS: UMECLIDINIUM BROMIDE 62.5MCG/BLISTER 7 PUFFS/INHALER INH SCH (07:43)
[2022-06-26] MEDS: FUROSEMIDE 40 MG/4 ML VIAL IV SCH ×2 (09:30→16:10)
[2022-06-26] MEDS: DEXTROMETHORPHAN POLYMR COMPLX 30 MG/5 ML UDP PO PRN (11:52)
--- NOTE | 2022-06-26 16:22 | Hospitalist Progress Note ---
Date of Service June 26, 2022 Assessment & Plan (1) Acute respiratory failure: Plan: Patient is a 51 yr old male with H/O chronic systolic congestive heart failure, ongoing tobacco abuse, schizophrenia, sleep apnea, presents with shortness of breath. Acute respiratory failure with Hypoxia: Secondary to pneumonia, pulmonary edema Multifocal pneumonia secondary to enterovirus --Chest CTA:No evidence of pulmonary embolism. Pneumonia. Pulmonary edema has history of heart failure. --Blood Cx: 08/11: Coagulase-negative staph not Lugdunensis --Biofire positive for Enterovirus Normal procalcitonin Appreciate pulmonary input Empirically received Azactam and doxycycline--completed the course Weaned off of supplemental oxygen Taper down prednisone over 2 week period Decrease prednisone to 30 mg daily Continue current management Saturating well on room Acute on chronic systolic congestive heart failure -ECHO: Left ventricle is moderately dilated. There is moderate concentric LVH. Left ventricle systolic function is severely reduced. EF 20 to 25%. Right ventricle systolic pressure is normal. Left atrium size is normal. Right atrial size is normal. Aortic valve stenosis moderate, without significant aortic valvular stenosis. Mild to moderate mitral regurgitation. Significant tricuspid regurgitation is absent. Mild pulmonary hypertension. -Continue IV Lasix 40 mg bid -Continue fluid restriction Appreciate cardiology input Continue metoprolol, Imdur, lisinopril Monitor renal function, electrolytes Monitor volume status closely Continue IV diuresis Reiterated importance of fluid restriction Mild elevation of troponin Possible demand ischemia ECHO showed no wall motion abnormality COPD exacerbation Continue home inhalers On Prednisone taper course Suspected Bacteremia 08/11 blood cultures growing coagulase-negative staph not Lugdunensis likely contaminant Final cultures negative HAFSA on CPAP HS Schizophrenia, anxiety disorder On divalproex, Seroquel and on alprazolam p.r.n. Chronic back pain on Percocet p.r.n Hypertension on lisinopril, Metoprolol, Imdur . Mild thrombocytopenia Likely due to viral infection Resolved Monitor DVT Px: Lovenox SQ Code Status Full Code Disposition PT OT prior to discharge Admission and Anticipated Discharge Date Admission Date: June 20, 2022 Subjective Patient is seen and examined at bedside States feeling depressed this morning Still has Cough Reports chronic back pain Denies any chest pain, dizziness, abdominal pain No significant dyspnea today Review of Systems Review of Systems: All systems reviewed & are unremarkable except as noted in Subjective Physical Exam Physical Exam: Physical Exam: Vitals signs as noted above General Appearance:Moderately built and nourished, no apparent distress, Chronic ill appearing Head: normocephalic, Atraumatic Eyes: normal inspection, EOMI Neck: supple, Trachea midline Respiratory/Chest: Decreased breath sounds, +Pacemaker. No accessory muscle use Cardiovascular: S1, S2, No murmur Abdomen/GI:Soft, Non tender, Bowel sounds present Extremities/Musculoskeletal:normal inspection, no edema Neurologic/Psych:AAOX3, grossly no focal neurological deficits Skin: normal color, warm Results & Data Results & Data ([facility]) Vital Signs (Past 12 Hours) Vital Signs Temp Pulse Pulse Resp BP BP Pulse Ox 06/26/22 15:20 37.3 C 90 20 127/67 98 06/26/22 13:32 06/26/22 11:34 37.2 C 85 19 109/63 94 06/26/22 11:11 74 06/26/22 11:11 06/26/22 07:16 36.8 C 68 20 119/77 93 Pulse Ox O2 Del Method O2 Flow Rate 06/26/22 15:20 Room Air 06/26/22 13:32 96 0 06/26/22 11:34 Room Air 06/26/22 11:11 06/26/22 11:11 Room Air 06/26/22 07:16 Room Air Laboratory Results [facility] 06/26/22 06:22 Sodium 143 Potassium 4.3 Chloride 109 H Carbon Dioxide 30 BUN 29 H Creatinine 0.93 Glucose 88 Calcium 8.7
--- NOTE | 2022-06-26 17:16 | Cardiology Progress Note ---
Date of Service June 26, 2022 Assessment & Plan (1) HFrEF (heart failure with reduced ejection fraction): (2) Frequent PVCs: (3) Cardiac defibrillator in place: (4) Schizophrenia: Plan Patient with longstanding history of frequent PVCs. Metoprolol succinate titrated to 25 mg twice daily on 06/25/2022. Chemistry panel findings today stable. Overall, he looks markedly improved over the last 48 hours, with more energy, and cough has improved. Continue isosorbide mononitrate 30 mg daily, lisinopril 40 mg daily, furosemide 40 mg IV twice daily, potassium chloride 40 mEq twice daily. Repeat EKG in AM. Admission and Anticipated Discharge Date Admission Date: June 20, 2022 Subjective Patient seen in cardiology follow-up. His spouse and 2 children are at the bedside, as today is his 52th birthday. Prior to my arrival, the patient was sitting in the bedside chair and had a transient "spell" of of feeling warmth, and felt like he may pass out. At the time my assessment, the patient was back to his usual baseline, without any complaints. EKG at that time revealed sinus rhythm at 72 bpm with frequent PVCs in a pattern of ventricular bigeminy ST segments are difficult to interpret because of the frequent PVCs. Physical Exam Constitutional: no acute distress Respiratory: no respiratory distress Auscultation: + crackles and + rales (Minimal rales bilaterally at the bases); no wheezes Cardiovascular: Rate/Rhythm: regular rate Heart Sounds: normal S1 and normal S2; no murmur Extremities: no edema Gastrointestinal (Abdomen): normal bowel sounds, soft, nontender, no hepatosplenomegaly Neurologic: PERRL, EOMI, accommodation nl, no face palsy, no dysarthria Results & Data ([facility]) Vital Signs (Past 12 Hours) Vital Signs Temp Pulse Pulse Resp BP BP Pulse Ox 06/26/22 15:20 37.3 C 90 20 127/67 98 06/26/22 13:32 06/26/22 11:34 37.2 C 85 19 109/63 94 06/26/22 11:11 74 06/26/22 11:11 06/26/22 07:16 36.8 C 68 20 119/77 93 Pulse Ox O2 Del Method O2 Flow Rate 06/26/22 15:20 Room Air 06/26/22 13:32 96 0 11/19/22 11:34 Room Air 06/26/22 11:11 06/26/22 11:11 Room Air 06/26/22 07:16 Room Air Laboratory Results Comprehensive Metabolic Panel 06/26/22 Range/Units 06:22 Sodium 143 (136-145) mmol/L Potassium 4.3 (3.5-5.1) mmol/L Chloride 109 H (98-107) mmol/L Carbon Dioxide 30 (21-32) mmol/L BUN 29 H (6-23) mg/dl Creatinine 0.93 (0.6-1.4) mg/dl Glucose 88 (70-99(Fasting)) mg/dl Calcium 8.7 (8.5-10.1) mg/dl Intake and Output 06/26/22 06/26/22 06/26/22 06:59 14:59 22:59 Intake Total 480 / 480 Output Total 275 / 1900 600 / 600 Balance -275 / -1300 -120 / -120 Intake: Oral 480 / 480 Output: Urine 275 / 1900 600 / 600 Other: Weight 85.3 kg Weight Measurement Method Built in [facility]
[2022-06-26] MEDS: GABAPENTIN 600 MG TAB PO SCH (20:24)
[2022-06-26] MEDS: QUEtiapine FUMARATE 200 MG TAB PO SCH (20:25)
[2022-06-26] MEDS: ALPRAZolam 0.5 MG TABLET PO PRN (20:25)
[2022-06-27] MEDS: oxyCODONE/ACETAMINOPHEN 10-325 TAB PO PRN ×4 (06:28→22:02)
[2022-06-27 06:56] LABS: BUN Creatinine Ratio 29.8 (10-20); Calcium 8.3 mg/dl (8.5-10.1); Creatinine Clr Calc Pharmacy 77.5 ml/min; Est GFR (Non-African American) 72.5 ml/min; Potassium 4.3 mmol/L (3.5-5.1)
[2022-06-27] MEDS: POTASSIUM CHLORIDE CRTAB 20 MEQ TABCR PO SCH ×2 (09:24→22:02)
[2022-06-27] MEDS: DIVALPROEX DELAY RELEASE 500 MG TAB PO SCH ×2 (09:24→22:00)
[2022-06-27] MEDS: lisinopril 40 MG TAB PO SCH (09:24)
[2022-06-27] MEDS: MAGNESIUM OXIDE 400 MG TAB PO SCH (09:24)
[2022-06-27] MEDS: METOPROLOL SUCC 25MG EXT REL TAB PO SCH ×2 (09:24→22:01)
[2022-06-27] MEDS: ENOXAPARIN INJ 40 MG/0.4 ML SYR SQ SCH (09:25)
[2022-06-27] MEDS: predniSONE 10 MG TABLET PO SCH (09:25)
[2022-06-27] MEDS: ISOSORBIDE MONO EXTENDED REL 30 MG TABCR PO SCH (09:25)
[2022-06-27] MEDS: ESCITALOPRAM OXALATE 20 MG TAB PO SCH (09:25)
[2022-06-27] MEDS: NICOTINE 21 MG/24 HR TDSY TD SCH (09:25)
[2022-06-27] MEDS: FLUTICASONE/VILANTEROL 200/25MCG 14 PUFFS/INHALER INH SCH (09:26)
[2022-06-27] MEDS: FUROSEMIDE 40 MG/4 ML VIAL IV SCH ×2 (09:26→17:08)
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
[2022-06-27] MEDS ORDERED: LEVALBUTEROL HCL 0.63 MG/3 ML NEB NEB PRN (11:23)
[2022-06-27] MEDS: UMECLIDINIUM BROMIDE 62.5MCG/BLISTER 7 PUFFS/INHALER INH SCH (12:07)
--- NOTE | 2022-06-27 14:34 | Hospitalist Progress Note ---
Date of Service June 27, 2022 Assessment & Plan (1) Acute respiratory failure: Plan: Patient is a 51 yr old male with H/O chronic systolic congestive heart failure, ongoing tobacco abuse, schizophrenia, sleep apnea, presents with shortness of breath. Acute respiratory failure with Hypoxia: Secondary to pneumonia, pulmonary edema Multifocal pneumonia secondary to enterovirus --Chest CTA:No evidence of pulmonary embolism. Pneumonia. Pulmonary edema has history of heart failure. --Blood Cx: 08/11: Coagulase-negative staph not Lugdunensis --Biofire positive for Enterovirus Normal procalcitonin Appreciate pulmonary input Empirically received Azactam and doxycycline--completed the course Weaned off of supplemental oxygen Taper down prednisone over 2 week period Decrease prednisone to 30 mg daily Nebs as needed Titrate down steroids as able Acute on chronic systolic congestive heart failure -ECHO: Left ventricle is moderately dilated. There is moderate concentric LVH. Left ventricle systolic function is severely reduced. EF 20 to 25%. Right ventricle systolic pressure is normal. Left atrium size is normal. Right atrial size is normal. Aortic valve stenosis moderate, without significant aortic valvular stenosis. Mild to moderate mitral regurgitation. Significant tricuspid regurgitation is absent. Mild pulmonary hypertension. -Continue IV Lasix 40 mg bid -Continue fluid restriction Appreciate cardiology input Continue metoprolol, Imdur, lisinopril Monitor renal function, electrolytes Monitor volume status closely Continue IV diuresis Volume status better Mild elevation of troponin Possible demand ischemia ECHO showed no wall motion abnormality COPD exacerbation Continue home inhalers On Prednisone taper course Suspected Bacteremia 08/11 blood cultures growing coagulase-negative staph not Lugdunensis likely contaminant Final cultures negative HAFSA on CPAP HS Schizophrenia, anxiety disorder On divalproex, Seroquel and on alprazolam p.r.n. Seroquel dose decreased to 600 mg at bedtime due to prolonged QTC Also on escitalopram Needs valproic acid level checked as outpatient Chronic back pain on Percocet p.r.n Hypertension on lisinopril, Metoprolol, Imdur . Mild thrombocytopenia Likely due to viral infection Resolved Monitor DVT Px: Lovenox SQ Code Status Full Code Disposition PT OT prior to discharge Admission and Anticipated Discharge Date Admission Date: June 20, 2022 Subjective Patient is seen and examined at bedside States not feeling well today Reports cough, dyspnea, dizziness Also reports an episode of vomiting earlier today Denies any chest pain, dyspnea, dizziness, abdominal pain Review of Systems Review of Systems: All systems reviewed & are unremarkable except as noted in Subjective Physical Exam Physical Exam: Physical Exam: Vitals signs as noted above General Appearance:Moderately built and nourished, no apparent distress, Chronic ill appearing Head: normocephalic, Atraumatic Eyes: normal inspection, EOMI Neck: supple, Trachea midline Respiratory/Chest: Decreased coarse breath sounds,scattered wheezes, +Pacemaker. No accessory muscle use Cardiovascular: S1, S2, No murmur Abdomen/GI:Soft, Non tender, Bowel sounds present Extremities/Musculoskeletal:normal inspection, no edema Neurologic/Psych:AAOX3, grossly no focal neurological deficits Skin: normal color, warm Results & Data Results & Data ([facility]) Vital Signs (Past 12 Hours) Vital Signs Temp Pulse Pulse Pulse Resp BP BP 06/27/22 12:30 19 06/27/22 11:31 37.1 C 70 19 06/27/22 11:07 71 18 106/47 L 06/27/22 09:10 75 06/27/22 09:10 06/27/22 07:26 36.5 C 70 18 117/56 L 06/27/22 02:55 37.0 C 72 18 110/66 Pulse Ox O2 Del Method FiO2 06/27/22 12:30 97 21 06/27/22 11:31 95 Room Air 06/27/22 11:07 94 Room Air 06/27/22 09:10 06/27/22 09:10 Room Air 06/27/22 07:26 95 Room Air 06/27/22 02:55 94 Room Air
[2022-06-27] MEDS ORDERED: methylPREDNISolone 20 MG in SYRINGE 0 ML IV ONE (15:00)
--- NOTE | 2022-06-27 15:01 | Cardiology Progress Note ---
Date of Service June 27, 2022 Assessment & Plan (1) HFrEF (heart failure with reduced ejection fraction): (2) Frequent PVCs: (3) Cardiac defibrillator in place: (4) Schizophrenia: Plan Patient with longstanding history of frequent PVCs. Metoprolol succinate titrated to 25 mg twice daily on 06/25/2022. Patient's symptoms are atypical in character for angina, and his longstanding history of a nonischemic cardiomyopathy. Continue diuretic dose. Case discussed with Dr. Stout, may need additional bronchodilators, corticosteroids, for COPD component of wheezing. Admission and Anticipated Discharge Date Admission Date: June 20, 2022 Subjective Patient seen in cardiology follow-up. First thing this morning he noted feeling relatively well just generalized tiredness. He certainly was less upbeat than what he was yesterday when his family was visiting. Shortly thereafter, nursing asked me to reassess the patient in the setting of chest discomfort. When I discussed things with the patient he described a fleeting sharp chest discomfort that had already resolved. EKG was unchanged with sinus rhythm, frequent PVCs, chronic T wave inversions in the lateral leads unchanged compared to previous. Physical Exam Constitutional: no acute distress Respiratory: + respiratory distress and + cough Auscultation: + wheezes; no crackles and no rales (Minimal rales bilaterally at the bases) Cardiovascular: Rate/Rhythm: regular rate Heart Sounds: normal S1 and normal S2; no murmur Extremities: no edema Gastrointestinal (Abdomen): normal bowel sounds, soft, nontender, no hepatosplenomegaly Neurologic: PERRL, EOMI, accommodation nl, no face palsy, no dysarthria Results & Data ([facility]) Vital Signs (Past 12 Hours) Vital Signs Temp Pulse Pulse Pulse Resp BP Pulse Ox 06/27/22 14:25 17 96 06/27/22 12:30 19 97 06/27/22 11:31 37.1 C 70 19 95 06/27/22 11:07 71 18 106/47 L 94 06/27/22 09:10 75 06/27/22 09:10 06/27/22 07:26 36.5 C 70 18 117/56 L 95 O2 Del Method FiO2 06/27/22 14:25 21 06/27/22 12:30 21 06/27/22 11:31 Room Air 06/27/22 11:07 Room Air 06/27/22 09:10 06/27/22 09:10 Room Air 06/27/22 07:26 Room Air Laboratory Results Comprehensive Metabolic Panel 06/27/22 Range/Units 06:20 Sodium 142 (136-145) mmol/L Potassium 4.3 (3.5-5.1) mmol/L Chloride 106 (98-107) mmol/L Carbon Dioxide 32 (21-32) mmol/L BUN 34 H (6-23) mg/dl Creatinine 1.14 (0.6-1.4) mg/dl Glucose 92 (70-99(Fasting)) mg/dl Calcium 8.3 L (8.5-10.1) mg/dl Intake and Output 06/27/22 06/27/22 06/27/22 06:59 14:59 22:59 Intake Total 720 / 720 Output Total 1575 / 1575 Balance -855 / -855 Intake: Oral 720 / 720 Output: Urine 1575 / 1575 Other: Weight 82.3 kg Weight Measurement Method Built in [facility]
[2022-06-27] MEDS ORDERED: QUEtiapine FUMARATE 300 MG TABLET PO SCH (21:00)
[2022-06-27] MEDS: GABAPENTIN 600 MG TAB PO SCH (22:01)
[2022-06-28] MEDS: ALPRAZolam 0.5 MG TABLET PO PRN (00:33)
[2022-06-28] MEDS: oxyCODONE/ACETAMINOPHEN 10-325 TAB PO PRN ×4 (02:11→15:49)
--- NOTE | 2022-06-28 05:01 | Electrocardiogram Report ---
Test Reason : Blood Pressure : / mmHG Vent. Rate : 072 BPM Atrial Rate : 072 BPM P-R Int : 146 ms QRS Dur : 118 ms QT Int : 446 ms P-R-T Axes : 052 115 -58 degrees QTc Int : 488 ms Sinus rhythm with frequent Premature ventricular complexes in a pattern of bigeminy Left posterior fascicular block Left ventricular hypertrophy with QRS widening and repolarization abnormality Nonspecific ST abnormality Prolonged QT Abnormal ECG When compared with ECG of 16-DEC-2015 18:04, Left posterior fascicular block is now Present ST now depressed in Inferior leads T wave inversion more evident in Inferior leads Confirmed by Jose Sher ([id number]) on 06/28/2022 5:01:11 AM Referred By: REFERRED SELF Confirmed By:Jose Sher
--- NOTE | 2022-06-28 05:31 | Electrocardiogram Report ---
Test Reason : Blood Pressure : / mmHG Vent. Rate : 073 BPM Atrial Rate : 073 BPM P-R Int : 150 ms QRS Dur : 098 ms QT Int : 444 ms P-R-T Axes : 056 -21 -62 degrees QTc Int : 489 ms Sinus rhythm with frequent Premature ventricular complexes T wave abnormality, consider inferolateral ischemia Prolonged QT Abnormal ECG When compared with ECG of 26-JUN-2022 15:50, Left posterior fascicular block is no longer Present T wave inversion less evident in Inferior leads Confirmed by Jose Sher ([id number]) on 06/28/2022 5:31:24 AM Referred By: REFERRED SELF Confirmed By:Jose Sher
[2022-06-28 06:58] LABS: Hematocrit (blood only) 48.3 % (40.1-51.0); Hemoglobin 16.3 g/dl (14.0-18.0); Mean Corpuscular Hemoglobin 32.1 pg (25.0-34.0); Mean Corpuscular Hgb Conc 33.7 g/dL (32.0-36.0); Mean Corpuscular Volume 95.1 fL (80.0-100.0); Mean Platelet Volume 10.2 fL (9.4-12.4); Platelet Count 240 K/uL (130-400); RDW Coefficient of Variation 13.2 % (11.5-14.5); RDW Standard Deviation 46.9 fL (36.4-46.3); Red Blood Count 5.08 M/uL (4.63-6.08); White Blood Count 23.13 K/ul (4.8-10.8)
[2022-06-28 07:33] LABS: BUN Creatinine Ratio 31.6 (10-20); Calcium 8.8 mg/dl (8.5-10.1); Creatinine Clr Calc Pharmacy 93.6 ml/min; Est GFR (African American) 100.9 ml/min; Est GFR (Non-African American) 87.1 ml/min; Magnesium 2.2 mg/dl (1.7-2.4); Potassium 4.7 mmol/L (3.5-5.1)
[2022-06-28] MEDS: DIVALPROEX DELAY RELEASE 500 MG TAB PO SCH (08:15)
[2022-06-28] MEDS: ENOXAPARIN INJ 40 MG/0.4 ML SYR SQ SCH ×2 (08:15→08:30)
[2022-06-28] MEDS: FUROSEMIDE 40 MG/4 ML VIAL IV SCH (08:16)
[2022-06-28] MEDS: FLUTICASONE/VILANTEROL 200/25MCG 14 PUFFS/INHALER INH SCH (08:16)
[2022-06-28] MEDS: ESCITALOPRAM OXALATE 20 MG TAB PO SCH (08:16)
[2022-06-28] MEDS: NICOTINE 21 MG/24 HR TDSY TD SCH (08:17)
[2022-06-28] MEDS: METOPROLOL SUCC 25MG EXT REL TAB PO SCH (08:17)
[2022-06-28] MEDS: POTASSIUM CHLORIDE CRTAB 20 MEQ TABCR PO SCH (08:17)
[2022-06-28] MEDS: ISOSORBIDE MONO EXTENDED REL 30 MG TABCR PO SCH (08:17)
[2022-06-28] MEDS: predniSONE 10 MG TABLET PO SCH (08:17)
[2022-06-28] MEDS: MAGNESIUM OXIDE 400 MG TAB PO SCH (08:17)
[2022-06-28] MEDS: lisinopril 40 MG TAB PO SCH (08:17)
[2022-06-28] MEDS: UMECLIDINIUM BROMIDE 62.5MCG/BLISTER 7 PUFFS/INHALER INH SCH (08:18)
--- NOTE | 2022-06-28 08:58 | XRay Report ---
SINGLE VIEW CHEST CLINICAL HISTORY: Congestive heart failure. FINDINGS: An AP, portable, upright chest radiograph is compared to study dated 06/25/2022 and correla angel with chest CT dated 06/20/2022. A 3-lead cardiac AICD is unchanged in position and largely obscur es the left lung base. The heart is enlarged. There is pulmonary vascular congestion. Emphysema and c hronic interstitial thickening is similar to previous. Bibasilar airspace opacities are noted. No lar ge pleural effusion or pneumothorax is seen. The bony thorax is grossly intact. IMPRESSION: 1. Cardiomegaly and AICD with pulmonary vascular congestion. 2. Bibasilar airspace opacities on nonspecific. This could represent atelectasis, mild edema, and/or an infectious/inflammatory pneumonitis. Clinical correlation will be required. ACT 112: Negative or not required by law. Electronically signed by: Anthony Batse M.D. 06/28/2022 8:56 AM
--- NOTE | 2022-06-28 11:09 | Cardiology Progress Note ---
Date of Service June 28, 2022 Assessment & Plan (1) HFrEF (heart failure with reduced ejection fraction): Plan: - Hospital day 8 -Presented with multifactorial respiratory failure including acute on chronic heart failure with reduced ejection fraction with longstanding history of nonischemic cardiomyopathy, acute bronchitis, tested positive for rhinovirus. -Has home contact with young children. -As noted, he had initially established care with Dr. Casitllo Quiroga of the advanced heart failure clinic at [facility] in 2013. At that time, he already carried the diagnosis of a nonischemic cardiomyopathy with previous work-up in [place] including cardiac catheterization and history of biventricular pacemaker AICD ([employer]). -Had undergone generator change at [facility] [place], in 2019. -Most recent device interrogation took place in April,, report describes that the left ventricular (coronary sinus) lead is deactivated at the patient rarely paces from the right atrial or right ventricular leads, general longevity stable at that time, estimated to be over 6 years. -Patient stable for discharge today on the following medications: Metoprolol succinate 50 mg daily Lisinopril 40 mg daily Isosorbide mononitrate extended release 30 mg daily Furosemide 80 mg daily in a.m., 40 mg at 2 PM daily Potassium chloride 20 mill equivalents twice daily -Per review of his outpatient heart failure clinic follow-up visit on 02/04/2022 at that time he was not taking previously prescribed spironolactone 25 mg daily. He was not taking amiodarone 200 mg daily. He was not taking metoprolol succinate. At present I think the most reasonable approach would be to focus on having him get back on the metoprolol, with dose increased to 50 mg which she has tolerated this hospital stay. As noted at the time of his outpatient cardiology visit, patient's medication routine has been somewhat unreliable. Patient has a known history of frequent PVCs, and in the past, it has been felt that perhaps this was the etiology of his cardiomyopathy and that PVC suppression would therefore be important. With patient's nonadherence (further complicating issues as outlined below) I think it is most prudent for him to remain off of amiodarone as this medication would require close follow-up with his liver function tests, thyroid function test, and given his underlying lung disease (longstanding history of cigarette smoking) would once again require close follow-up which we cannot guarantee at present. As noted, we will therefore focus on getting him back on the metoprolol for PVC suppression. The patient reportedly resides in [place]. Yesterday when I asked the patient about outpatient cardiology follow-up, he expressed his wish to go back and be followed by the heart failure clinic at [facility]. Today the patient tells me that he plans to move to [place] with his fiance and 2 young children as soon as possible. He states that he would have left a week ago had not been for his hospital stay and he is eager to "get on the road ". The patient's history of schizophrenia is of course a barrier to the patient's optimization of his complex cardiac issues. The patient asked for a letter describing that he should avoid " stressful situations" because of his heart, so that he could show to his landlord. (2) Frequent PVCs: Plan: - As noted above resume metoprolol, discharged on Toprol succinate 50 mg daily. -Had previously been on amiodarone, but I am hesitant to resume this due to the patient's nonadherence, and lack of clear follow-up plan with him moving to [place]. (3) Cardiac defibrillator in place: Plan: -[employer] [facility]. -Details as noted above (4) Abnormal EKG: Plan: - In addition to frequent PVCs, has chronic lateral T wave inversions, unchanged compared to previous EKG tracings. (5) Schizophrenia: Plan: - As noted. Admission and Anticipated Discharge Date Admission Date: June 20, 2022 Subjective Patient seen in follow-up of shortness of breath. He notes feeling subjectively improved today. Denies any subjective palpitations. Cough is trended toward improvement in the last 24 hours, having received a dose of IV Solu-Medrol yesterday in addition to his recent oral prednisone. He remains on furosemide 40 mg twice daily, with 3 L of urine output noted in the last 24 hours, fluid balance -1.5 L. Chest x-ray image obtained earlier today reviewed, mild interstitial edema noted, but markedly improved compared to the initial chest x-ray performed on admission. Physical Exam Physical Exam: Temp Pulse Resp BP Pulse Ox O2 Del Method O2 Flow Rate 37.3 C 83 20 104/51 L 96 0 06/28/22 10:51 06/28/22 10:51 06/28/22 10:51 06/28/22 10:51 06/28/22 10:51 06/28/22 10:51 06/26/22 13:32 FiO2 21 06/28/22 04:05 Constitutional: no acute distress Respiratory: + respiratory distress and + cough Auscultation: no crackles, no rales (Minimal rales bilaterally at the bases) and no wheezes Cardiovascular: Rate/Rhythm: regular rate Heart Sounds: normal S1 and normal S2; no murmur Extremities: no edema Gastrointestinal (Abdomen): normal bowel sounds, soft, nontender, no hepatosplenomegaly Neurologic: PERRL, EOMI, accommodation nl, no face palsy, no dysarthria Results & Data ([facility]) Vital Signs (Past 12 Hours) Vital Signs Temp Pulse Pulse Resp BP Pulse Ox O2 Del Method 06/28/22 10:51 37.3 C 83 20 104/51 L 96 Room Air 06/28/22 08:00 Room Air 06/28/22 07:27 36.7 C 82 20 104/51 L 96 Room Air 06/28/22 04:05 25 H 06/28/22 03:25 36.5 C 88 18 109/60 95 Room Air 06/27/22 23:43 83 FiO2 06/28/22 10:51 06/28/22 08:00 06/28/22 07:27 06/28/22 04:05 21 06/28/22 03:25 06/27/22 23:43 Laboratory Results CBC 06/28/22 Range/Units 06:43 WBC 23.13 H (4.8-10.8) K/ul RBC 5.08 (4.63-6.08) M/uL Hgb 16.3 (14.0-18.0) g/dl Hct 48.3 (40.1-51.0) % Plt Count 240 (130-400) K/uL Comprehensive Metabolic Panel 06/28/22 Range/Units 06:43 Sodium 139 (136-145) mmol/L Potassium 4.7 (3.5-5.1) mmol/L Chloride 106 (98-107) mmol/L Carbon Dioxide 31 (21-32) mmol/L BUN 31 H (6-23) mg/dl Creatinine 0.98 (0.6-1.4) mg/dl Glucose 108 H (70-99(Fasting)) mg/dl Calcium 8.8 (8.5-10.1) mg/dl Intake and Output 06/27/22 06/28/22 06/28/22 22:59 06:59 14:59 Intake Total 240 / 1160 200 / 1160 250 / 250 Output Total 750 / 2750 425 / 2750 250 / 250 Balance -510 / -1590 -225 / -1590 0 / 0 Intake: Oral 240 / 1160 200 / 1160 250 / 250 Output: Urine 750 / 2750 425 / 2750 250 / 250 Other: Weight 89.3 kg Weight Measurement Method Built in [facility]
--- NOTE | 2022-06-28 11:15 | Communication Note ---
Date of Service: June 28, 2022 patient's main complaints seem respiratory at this time. EKG reviewed given hx QTc. Seroquel was decreased by Dr. Coffey. Patient has not been forthcoming re: current prescribers/surescripts. He has declined assistance with aftercare and there is no reported indication for inpatient hospitalization or involuntary commitment. diastolic bp in 50s, monitor given overall dose of Seroquel to minimize fall risk. Patient is now on droplet precautions (RSV). Depakote level does not appear to have been ordered so will add for this pm (trough). appears to be using Xanax prn 2 mg last 2-3 days, no documentation in PDMP that prescribed and benzos can cause respiratory depression. Would recommend decrease in either frequency or total dose as 2 mg QID is higher end (?1 mg TID prn). I agree would not provide at discharge.
--- NOTE | 2022-06-28 12:20 | Hospitalist Progress Note ---
Date of Service June 28, 2022 Assessment & Plan (1) Acute respiratory failure: Plan: Patient is a 51 yr old male with H/O chronic systolic congestive heart failure, ongoing tobacco abuse, schizophrenia, sleep apnea, presents with shortness of breath. Acute respiratory failure with Hypoxia: Secondary to pneumonia, pulmonary edema Multifocal pneumonia secondary to enterovirus --Chest CTA:No evidence of pulmonary embolism. Pneumonia. Pulmonary edema has history of heart failure. --Blood Cx: 08/11: Coagulase-negative staph not Lugdunensis --Biofire positive for Enterovirus Normal procalcitonin Appreciate pulmonary input Empirically received Azactam and doxycycline--completed the course Weaned off of supplemental oxygen Taper down prednisone over 2 week period Decrease prednisone to 30 mg daily Nebs as needed Continue to Titrate down prednisone Acute on chronic systolic congestive heart failure -ECHO: Left ventricle is moderately dilated. There is moderate concentric LVH. Left ventricle systolic function is severely reduced. EF 20 to 25%. Right ventricle systolic pressure is normal. Left atrium size is normal. Right atrial size is normal. Aortic valve stenosis moderate, without significant aortic valvular stenosis. Mild to moderate mitral regurgitation. Significant tricuspid regurgitation is absent. Mild pulmonary hypertension. -Continue fluid restriction Appreciate cardiology input Continue metoprolol, Imdur, lisinopril Monitor renal function, electrolytes Monitor volume status closely Continue IV diuresis>> transition to p.o. diuretics Volume status better Advised to follow-up with cardiology upon discharge Mild elevation of troponin Possible demand ischemia ECHO showed no wall motion abnormality COPD exacerbation Continue home inhalers On Prednisone taper course Suspected Bacteremia 08/11 blood cultures growing coagulase-negative staph not Lugdunensis likely contaminant Final cultures negative HAFSA on CPAP HS Schizophrenia, anxiety disorder On divalproex, Seroquel and on alprazolam p.r.n. Seroquel dose decreased to 600 mg at bedtime due to prolonged QTC Also on escitalopram Needs valproic acid level checked as outpatient Titrate down alprazolam as able Needs follow up with Psychiatry upon discharge Chronic back pain on Percocet p.r.n Hypertension on lisinopril, Metoprolol, Imdur . Mild thrombocytopenia Likely due to viral infection Resolved Monitor DVT Px: Lovenox SQ Code Status Full Code Disposition Home Admission and Anticipated Discharge Date Admission Date: June 20, 2022 Subjective Patient is seen and examined at bedside States feeling well today Minimal cough but otherwise no complaints Dyspnea much improved Discussed with cardiology today Eager to get discharged Denies any chest pain, dizziness, nausea, abdominal pain Review of Systems Review of Systems: All systems reviewed & are unremarkable except as noted in Subjective Physical Exam Physical Exam: Physical Exam: Vitals signs as noted above General Appearance:Moderately built and nourished, no apparent distress, Chronic ill appearing Head: normocephalic, Atraumatic Eyes: normal inspection, EOMI Neck: supple, Trachea midline Respiratory/Chest: Decreased breath sounds, CTA, +Pacemaker. No accessory muscle use Cardiovascular: S1, S2, No murmur Abdomen/GI:Soft, Non tender, Bowel sounds present Extremities/Musculoskeletal:normal inspection, no edema Neurologic/Psych:AAOX3, grossly no focal neurological deficits Skin: normal color, warm Results & Data Results & Data ([facility]) Vital Signs (Past 12 Hours) Vital Signs Temp Pulse Resp BP Pulse Ox O2 Del Method FiO2 06/28/22 10:51 37.3 C 83 20 104/51 L 96 Room Air 06/28/22 08:00 Room Air 06/28/22 07:27 36.7 C 82 20 104/51 L 96 Room Air 06/28/22 04:05 25 H 21 06/28/22 03:25 36.5 C 88 18 109/60 95 Room Air Laboratory Results Short CBC 06/28/22 Range/Units 06:43 WBC 23.13 H (4.8-10.8) K/ul Hgb 16.3 (14.0-18.0) g/dl Hct 48.3 (40.1-51.0) % Plt Count 240 (130-400) K/uL BMP 06/28/22 06:43 Sodium 139 Potassium 4.7 Chloride 106 Carbon Dioxide 31 BUN 31 H Creatinine 0.98 Glucose 108 H Calcium 8.8
--- NOTE | 2022-06-28 12:52 | Discharge Summary ---
Date of Service June 28, 2022 Admission HPI Per Admitting Provider CHIEF COMPLAINT: Shortness of breath. HISTORY OF PRESENT ILLNESS: A 51-year-old male with past medical history significant for chronic systolic CHF, status post cardiac defibrillator, nonischemic cardiomyopathy, obstructive sleep apnea on CPAP, hyperlipidemia, hypertension, cervicalgia, chronic back pain, schizophrenia, imbalance, ongoing tobacco abuse, anxiety about health, presents with shortness of breath. He was placed on OxyMask and sometimes have difficulty speaking with short of breath, had temp spike in the ER. His BioFire came back positive for entero-rhino virus PCR positive. Chest x-ray shows pneumonia. CTA chest, preliminary report no PE, but shows right heart volume overload. No obvious edema seen. The patient is having cough for the last 3 days and he was feeling short of breath and f ever. Denies any chest pain, no headache, no blurred visions, no earache, no runny nose, no sore throat, no nausea, no abdominal pain. Normal bowel and bladder movements as well as pain medications and his anxiety medications. Admission Exam Per Admitting Provider PHYSICAL EXAMINATION: GENERAL: The patient is of moderate build some moderate respiratory distress. VITAL SIGNS: Temperature T-max 39.5, pulse 91, respiratory rate 24, blood pressure 144/100, oxygen 92% on 10lt OxyMask. HEENT: Pupils equal, round, reactive to light. Oral mucosa moist. NECK: No JVD, no neck masses. CARDIOVASCULAR: S1 and S2 heard. Tachycardia. No murmurs. RESPIRATORY SYSTEM: Normal AP diameter. No accessory muscle use. Mild bi basilar crackles. Diminished breath sounds. ABDOMEN: Soft, bowel sounds present, nontender, no distention. CENTRAL NERVOUS SYSTEM: Alert, awake, and oriented. Speech is clear. No facial droop. Insight is okay. Obeys simple commands. EXTREMITIES: No edema, no erythema. Principal Diagnosis Acute respiratory failure with Hypoxia Multifocal pneumonia secondary to enterovirus Acute on chronic systolic congestive heart failure Acute COPD exacerbation Schizoaffective disorder Discharge Data Allergies Allergy/AdvReac Type Severity Reaction Status Date / Time hydrocodone Allergy Unknown PT ABLE TO Unverified 06/21/22 09:28 TAKE TYLENOL tramadol Allergy Hives Verified 06/21/22 09:28 amoxicillin AdvReac SOB Verified 06/21/22 09:28 Consultations 06/20/22 01:47 ED Decision to Admit Stat 06/20/22 08:00 Consult Cardiology Routine Consult Pulmonology Routine 06/26/22 13:38 Consult Psychiatry Routine Procedures Performed Laboratory Results WBC 23.13 K/ul (4.8-10.8) H 06/28/22 06:43 RBC 5.08 M/uL (4.63-6.08) 06/28/22 06:43 Hgb 16.3 g/dl (14.0-18.0) 06/28/22 06:43 Hct 48.3 % (40.1-51.0) 06/28/22 06:43 MCV 95.1 fL (80.0-100.0) 06/28/22 06:43 MCH 32.1 pg (25.0-34.0) 06/28/22 06:43 MCHC 33.7 g/dL (32.0-36.0) 06/28/22 06:43 RDW Std Deviation 46.9 fL (36.4-46.3) H 06/28/22 06:43 RDW Coeff of Seven 13.2 % (11.5-14.5) 06/28/22 06:43 Plt Count 240 K/uL (130-400) 06/28/22 06:43 MPV 10.2 fL (9.4-12.4) 06/28/22 06:43 Immature Gran % (Auto) 0.4 % 06/20/22 05:48 Neut % (Auto) 90.4 % 06/20/22 05:48 Lymph % (Auto) 5.4 % 06/20/22 05:48 Fleming % (Auto) 3.6 % 06/20/22 05:48 Eos % (Auto) 0.0 % 06/20/22 05:48 Baso % (Auto) 0.2 % 06/20/22 05:48 Neut # (Auto) 10.06 K/uL (1.4-6.5) H 06/20/22 05:48 Lymph # (Auto) 0.60 K/uL (1.2-3.4) L 06/20/22 05:48 Fleming # (Auto) 0.40 K/uL (0.24-0.82) 06/20/22 05:48 Eos # (Auto) 0.00 K/uL (0-0.50) 06/20/22 05:48 Baso # (Auto) 0.02 K/uL (0-0.2) 06/20/22 05:48 Immature Gran # (Auto) 0.05 K/uL (0.00-0.02) H 06/20/22 05:48 Platelet Estimate Normal (Normal) 06/19/22 22:45 Echinocytes 1+ 06/20/22 05:48 Sodium 139 mmol/L (136-145) 06/28/22 06:43 Potassium 4.7 mmol/L (3.5-5.1) 06/28/22 06:43 Chloride 106 mmol/L (98-107) 06/28/22 06:43 Carbon Dioxide 31 mmol/L (21-32) 06/28/22 06:43 Anion Gap 2 (3-11) L 06/28/22 06:43 BUN 31 mg/dl (6-23) H 06/28/22 06:43 Creatinine 0.98 mg/dl (0.6-1.4) 06/28/22 06:43 Est Cr Clr Drug Dosing 93.6 ml/min 06/28/22 06:43 Est GFR ( Amer) 100.9 ml/min 06/28/22 06:43 Est GFR (Non-Af Amer) 87.1 ml/min 06/28/22 06:43 BUN/Creatinine Ratio 31.6 (10-20) H 06/28/22 06:43 Glucose 108 mg/dl (70-99(Fasting)) H 06/28/22 06:43 Lactate 1.3 mmol/L (0.4-2.0) 06/20/22 00:54 Calcium 8.8 mg/dl (8.5-10.1) 06/28/22 06:43 Phosphorus 3.0 mg/dl (2.5-4.9) 06/22/22 08:35 Magnesium 2.2 mg/dl (1.7-2.4) 06/28/22 06:43 Total Bilirubin 0.6 mg/dl (0.2-1.0) 06/19/22 22:45 Direct Bilirubin 0.2 mg/dl (0-0.2) 06/19/22 22:45 AST 42 U/L (13-39) H 06/19/22 22:45 ALT 30 U/L (7-52) 06/19/22 22:45 Alkaline Phosphatase 92 U/L (34-104) 06/19/22 22:45 Troponin I High Sens 73.4 pg/ml (0-20) H* D 06/20/22 17:23 Total Protein 8.0 gm/dl (6.0-8.3) 06/19/22 22:45 Albumin 4.7 gm/dl (3.4-5.0) 06/19/22 22:45 Procalcitonin 0.17 ng/ml (0-0.5) 06/21/22 10:10 Urine Color Yellow 06/19/22 23:15 Urine Appearance Clear (Clear) 06/19/22 23:15 Urine pH 6.0 (4.5-7.5) 06/19/22 23:15 Ur Specific [place] 1.013 (1.000-1.030) 06/19/22 23:15 Urine Protein 2+ (Negative) H 06/19/22 23:15 Urine Glucose (UA) Negative (Negative) 06/19/22 23:15 Urine Ketones Negative (Negative) 06/19/22 23:15 Urine Blood 1+ (Negative) H 06/19/22 23:15 Urine Nitrite Negative (Negative) 06/19/22 23:15 Urine Bilirubin Negative (Negative) 06/19/22 23:15 Urine Urobilinogen Negative (Negative) 06/19/22 23:15 Ur Leukocyte Esterase Negative (Negative) 06/19/22 23:15 Urine WBC (Auto) 1-5 /hpf (0-5) 06/19/22 23:15 Urine RBC (Auto) 0-4 /hpf (0-4) 06/19/22 23:15 U Hyaline Cast (Auto) 1-5 /lpf (0-5) 06/19/22 23:15 U Epithel Cells (Auto) 5-10 /lpf (0-5) H 06/19/22 23:15 Urine Bacteria (Auto) Negative (Negative) 06/19/22 23:15 Adenovirus (PCR) Not Detected (NotDetected) 06/19/22 22:45 B. pertussis DNA (PCR) Not Detected (NotDetected) 06/19/22 22:45 B.parapertussis DNA PCR Not Detected (NotDetected) 06/19/22 22:45 C. pneumoniae DNA (PCR) Not Detected (NotDetected) 06/19/22 22:45 Coronavirus OC43 (PCR) Not Detected (NotDetected) 06/19/22 22:45 Coronavirus HKU1 (PCR) Not Detected (NotDetected) 06/19/22 22:45 Coronavirus 229E (PCR) Not Detected (NotDetected) 06/19/22 22:45 SARS-CoV-2 (PCR) Not Detected (NotDetected) 06/19/22 22:45 Coronavirus NL63 (PCR) Not Detected (NotDetected) 06/19/22 22:45 Human Metapneumovir PCR Not Detected (NotDetected) 06/19/22 22:45 Influenza Type A (PCR) Not Detected (NotDetected) 06/19/22 22:45 Influenza Type B (PCR) Not Detected (NotDetected) 06/19/22 22:45 M. pneumoniae (PCR) Not Detected (NotDetected) 06/19/22 22:45 Parainfluenza 1 (PCR) Not Detected (NotDetected) 06/19/22 22:45 Parainfluenza 2 (PCR) Not Detected (NotDetected) 06/19/22 22:45 Parainfluenza 3 (PCR) Not Detected (NotDetected) 06/19/22 22:45 Parainfluenza 4 (PCR) Not Detected (NotDetected) 06/19/22 22:45 RSV (PCR) Not Detected (NotDetected) 06/19/22 22:45 Entero/Rhino (PCR) DETECTED (NotDetected) A* 06/19/22 22:45 Staphylococcus sp PCR DETECTED (NotDetected) A 06/19/22 22:45 mecA/C-Methicil Resis Gene DETECTED (NotDetected) A 06/19/22 22:45 Staph epidermidis (PCR) DETECTED (NotDetected) A 06/19/22 22:45 Bld Cult ID Panel PCR See PCR Comment (NotDetected) 06/19/22 22:45 Impressions Chest CTA 06/19/22 23:23 CT angio chest PE protocol CLINICAL HISTORY: PE TECHNIQUE: Multidetector row helical CT of the chest was performed with angiographic protocol. Coronal and sagittal reformations were obtained. Coronal and sagittal MIPS were obtained from the axial data set and were submitted for review. Automated dose lowering techniques and/or adjustment according to patient size were utilized for this exam. CT DOSE: 428.46 mGy.cm Comparison: Comparison is made to chest radiograph 08/19/2021 FINDINGS: Lungs and pleura: Multifocal airspace opacities are seen. There is interlobular septal thickening. Heart and pericardium: There is reflux of contrast into the IVC which can be seen in heart failure. Vessels: No evidence of pulmonary embolism. Mediastinum and nitish: Subcentimeter lymph nodes are seen. Chest wall and lower neck: Unremarkable. Abdomen: Unremarkable. Bones: Degenerative changes in the thoracic spine. IMPRESSION: 1. No evidence of pulmonary embolism. 2. Pneumonia. 3. Pulmonary edema has history of heart failure. ACT 112: Negative or not required by law. Electronically signed by: Solitario Castro M.D. 06/20/2022 8:14 AM Chest X-Ray 06/28/22 08:17 SINGLE VIEW CHEST CLINICAL HISTORY: Congestive heart failure. FINDINGS: An AP, portable, upright chest radiograph is compared to study dated 06/25/2022 and correlated with chest CT dated 06/20/2022. A 3-lead cardiac AICD is unchanged in position and largely obscures the left lung base. The heart is enlarged. There is pulmonary vascular congestion. Emphysema and chronic interstitial thickening is similar to previous. Bibasilar airspace opacities are noted. No large pleural effusion or pneumothorax is seen. The bony thorax is grossly intact. IMPRESSION: 1. Cardiomegaly and AICD with pulmonary vascular congestion. 2. Bibasilar airspace opacities on nonspecific. This could represent atelectasis, mild edema, and/or an infectious/inflammatory pneumonitis. Clinical correlation will be required. ACT 112: Negative or not required by law. Electronically signed by: Anthony Bates M.D. 06/28/2022 8:56 AM Ordered Studies 06/19/22 23:23 CT angio chest PE protocol Urgent Hospital Course (1) Acute respiratory failure: Patient is a 51 yr old male with H/O chronic systolic congestive heart failure, ongoing tobacco abuse, schizophrenia, sleep apnea, presents with shortness of breath. Acute respiratory failure with Hypoxia: Secondary to pneumonia, pulmonary edema Multifocal pneumonia secondary to enterovirus --Chest CTA:No evidence of pulmonary embolism. Pneumonia. Pulmonary edema has history of heart failure. --Blood Cx: 08/11: Coagulase-negative staph not Lugdunensis --Biofire positive for Enterovirus Normal procalcitonin Appreciate pulmonary input Empirically received Azactam and doxycycline--completed the course Weaned off of supplemental oxygen Taper down prednisone over 2 week period Decrease prednisone to 30 mg daily Nebs as needed Continue to Titrate down prednisone Acute on chronic systolic congestive heart failure -ECHO: Left ventricle is moderately dilated. There is moderate concentric LVH. Left ventricle systolic function is severely reduced. EF 20 to 25%. Right ventricle systolic pressure is normal. Left atrium size is normal. Right atrial size is normal. Aortic valve stenosis moderate, without significant aortic valvular stenosis. Mild to moderate mitral regurgitation. Significant tricuspid regurgitation is absent. Mild pulmonary hypertension. -Continue fluid restriction Appreciate cardiology input Continue metoprolol, Imdur, lisinopril Monitor renal function, electrolytes Monitor volume status closely Continue IV diuresis>> transition to p.o. diuretics Volume status better Advised to follow-up with cardiology upon discharge Mild elevation of troponin Possible demand ischemia ECHO showed no wall motion abnormality COPD exacerbation Continue home inhalers On Prednisone taper course Suspected Bacteremia 08/11 blood cultures growing coagulase-negative staph not Lugdunensis likely contaminant Final cultures negative HAFSA on CPAP HS Schizophrenia, anxiety disorder On divalproex, Seroquel and on alprazolam p.r.n. Seroquel dose decreased to 600 mg at bedtime due to prolonged QTC Also on escitalopram Needs valproic acid level checked as outpatient Titrate down alprazolam as able Needs follow up with Psychiatry upon discharge Chronic back pain on Percocet p.r.n Hypertension on lisinopril, Metoprolol, Imdur . Mild thrombocytopenia Likely due to viral infection Resolved Monitor DVT Px: Lovenox SQ Code Status Full Code Disposition Home Total Time Total Time Spent Total Time Spent (In Minutes): 55 minutes Discharge Plan Discharge Items Patient Disposition: Home - Self-Care Reason For Visit: SOB Discharge Diagnosis: Acute respiratory failure with Hypoxia Multifocal pneumonia secondary to enterovirus Acute on chronic systolic congestive heart failure Acute COPD exacerbation Schizoaffective disorder Condition on Discharge: Fair Activity: Per Instructions section Exercise/Sports: Wait until after follow-up appointment Non-emergency contact: Primary Care Provider, [place] Department Supervisor and Psychiatrist Call non-emergency contact if: you have any medication questions, your symptoms worsen, your pain is concerning for you and you have a fever Follow-up/Referrals: PCP,NO [Primary Care Provider] - Diet: Heart Healthy Fluids: 1800ml (7 cups) Diet Texture: Easy to Chew Addtl Attending Provider Instructions: Follow up with your Primary Care physician in 1 week Follow up with your oil house attendant at [facility] in 2 weeks Follow-up with your psychiatrist for further adjustment of your medications as needed. --- Complete the prednisone tapering course as prescribed. Take prednisone 20 mg daily for 4 days and then take 10 mg daily for 4 days and stop. Seek immediate medical attention if your symptoms reoccur or worsen Please take all medications as instructed on discharge list below. Please call if you have any questions or problems. You can reach a [facility] hospitalist on duty at [facility] 24 hours a day by calling [phone] Call your Primary Care doctor if any of the following symptoms or problems start or get worse: * Shortness of breath or difficulty breathing * Wake up at night short of breath * Chest pain * Cough * Swelling of your hands, feet, or legs * More fatigued or tired with your normal activity * Palpitations - sudden fast heart beats WEIGHT * Weigh yourself every morning after using the bathroom. * Use the same scale. * Wear the same amount of clothing. * Write your weight down on a chart. * Call your Primary Care doctor if you gain more than 2-3 pounds in 1-2 days. MEDICATIONS * Use this discharge instruction sheet for medication instructions. * Take your medications at the time your doctor ordered. * Do not skip a dose of your medicines. * If you miss a dose of medicine, take it as soon as possible, but DO NOT DOUBLE A DOSE. * Read your medicine information when you get home. * Know all of the side effects of your medicine. If in doubt, ask your pharmacist * Call your Primary Care doctor's office if you have any side effects. * Be sure all of your doctors know what medicine and herbs you take (including cold, flu, and herbal medicine). Take the following with you to your follow-up doctor appointments: * Weight Chart * Medication List * List of questions Do not drink excessive alcohol, beer or wine. Pending Studies at Discharge: No Stand-Alone Forms: My [facility], Smoking Cessation Medications and DC Order Prescriptions: New Incruse Ellipta 62.5 mcg/actuation Blister With Device 1 inh inhalation DAILY Qty: 30 0RF metoprolol succinate 50 mg Tablet Extended Release 24 Hr 50 mg PO QAM Qty: 30 0RF fluticasone furoate-vilanterol [Breo Ellipta] 200-25 mcg/dose Blister With Device 1 ea inhalation DAILY Qty: 60 0RF prednisone 10 mg tablet 10 mg PO UD Qty: 12 0RF Rx Instructions: Start taking prednisone 20mg daily for 4 days and ten 10mg daily for 4 days. Continued ATORVASTATIN (LIPITOR) 20 MG tablet 20 mg PO DAILY Qty: 0 Lisinopril (Zestril) 40 MG tablet 40 mg PO DAILY Qty: 0 Fluticasone Propionate (Nasal) (Flonase Allergy Relief) 50 MCG/ACT SPR 2 spry ADAM DAILY PRN (Reason: Allergy Symptoms) Qty: 0 Lurasidone HCl (Latuda) 40 MG tablet 40 mg PO DAILY@1745 Qty: 30 0RF oxycodone-acetaminophen [Percocet] 10-325 mg Tablet 1 tab PO Q4H PRN (Reason: Pain) gabapentin 300 mg Capsule 600 mg PO HS ondansetron 4 mg Tablet,Disintegrating 4 mg PO Q8H PRN (Reason: Nausea) dicyclomine [Bentyl] 10 mg Capsule 10 mg PO QID PRN (Reason: .ABD PAIN) escitalopram oxalate 20 mg Tablet 20 mg PO QAM potassium chloride 20 mEq Tablet Extended Release 40 meq PO BID isosorbide mononitrate [Imdur] 30 mg Tablet Extended Release 24 Hr 30 mg PO DAILY divalproex 500 mg Tablet,Delayed Release (Dr/Ec) 500 mg PO BID dicyclomine 10 mg PO QID PRN (Reason: Abdominal Pain) furosemide [Lasix] 40 mg Tablet 40 mg PO DAILYBD Qty: 30 0RF furosemide [Lasix] 80 mg Tablet 80 mg PO QAM Qty: 30 0RF Changed albuterol sulfate 2.5 mg /3 mL (0.083 %) Solution For Nebulization 2.5 mg INHALATION QID PRN (Reason: shortness of breath or wheezing) Qty: 90 0RF quetiapine 400 mg Tablet 600 mg PO HS Qty: 1 0RF alprazolam 2 mg Tablet 1 mg PO QID PRN (Reason: Anxiety) Qty: 1 0RF Discontinued FUROSEMIDE (Lasix) 80 MG tablet 80 mg PO DAILY Qty: 0 Divalproex Sodium (Divalproex Sodium ER) 500 MG [id number] 500 mg PO BID Qty: 0 Metoprolol Succinate (Metoprolol Succinate ER) 100 MG [id number] 100 mg PO BID Qty: 0 Quetiapine Fumarate (Seroquel) 300 MG tablet 150 mg PO HS Qty: 1 0RF Rx Instructions: TAKE HALF OF YOUR 300 MG PILL furosemide [Lasix] 80 mg Tablet 80 mg PO BID Rx Instructions: TAKE 1 TAB IN AM & 1 TAB BEFORE HS oxycodone-acetaminophen [Percocet] 10-325 mg Tablet 1 tab PO Q4H PRN (Reason: Pain, Severe) escitalopram oxalate [Lexapro] 20 mg Tablet 20 mg PO DAILY potassium chloride 20 mEq Tablet Extended Release 40 meq PO BID gabapentin 300 mg 600 mg PO HS quetiapine 400 mg 800 mg PO HS Discharge Orders: Discharge Order (Routine); Ordered 06/28/22 Ordered By: Joe Stout Admission Data Admit Date/Time: 06/20/22 02:29 Attending Provider: Joe Stout Admit Provider: Reji Melara Primary Care Provider: PCP,NO Other Providers: Remington Hugo ; Wesley Resendez ; Danny Chong ; Jimenez Wells ; Martin Dupree ; Antonio Malin ; Lizzy Galvan ; Charlotte Chan ; Mady Walker ; Ganga Curry ; Jayce Cornelius ; Reji Melara ; Denia Coffey ; Ai Cosby ; Carol Pop
--- NOTE | 2022-06-29 06:02 | Electrocardiogram Report ---
Test Reason : Blood Pressure : / mmHG Vent. Rate : 074 BPM Atrial Rate : 074 BPM P-R Int : 146 ms QRS Dur : 094 ms QT Int : 416 ms P-R-T Axes : 067 011 -48 degrees QTc Int : 461 ms Poor data quality, interpretation may be adversely affected Sinus rhythm with frequent Premature ventricular complexes Minimal voltage criteria for LVH, may be normal variant T wave abnormality, consider inferolateral ischemia Abnormal ECG When compared with ECG of 27-JUN-2022 07:20, T wave inversion more evident in Inferior leads Confirmed by Jose Sher ([id number]) on 06/29/2022 6:01:41 AM Referred By: REFERRED SELF Confirmed By:Jose Sher
[2022-06-29] MEDS ORDERED: METOPROLOL SUCC 50MG EXT REL TAB PO SCH (09:00)
== END 2022-06-28 17:30 | disposition home or self-care (01) | DRG 193 ==
LOC: EDBD → ED 22:17 → SUATTDRO 06-20 02:29 → MERGE 06-20 02:29 → 2E 06-20 02:29

== ENCOUNTER 2022-07-24 22:26 | Inpatient (IN) ==
[2022-07-24] MEDS ORDERED: ALBUT/IPRATROP 3MG/0.5MG NEB 3 ML VIAL NEB ONE (23:37)
--- NOTE | 2022-07-24 23:38 | Emergency Department Note ---
Impression & Plan Acute CHF (congestive heart failure), Medical non-compliance, Left-sided chest pain, Suicide ideation, Depression ED Provider Note Name: ADENIKE STOUT Age: 52 Sex: M Arrives Via: Walk-In Informant: Patient, case management ED Provider: Zac Jones MD Chief Complaint: Mental health evaluation Impression: As per impressions above Medical Decision Makin-year-old gentleman with a history of schizophrenia along with extensive cardiac history, CHF, NSTEMI's who arrives for evaluation of suicidal ideation. Patient was seen in the ER earlier in the day for left-sided chest pain or shortness of breath and just discharged shortly prior to rechecking in. He notes that he is at the point where he just wants to kill himself. He admits he has not been taking any of his medications. He is been having left-sided chest pain which she still states he has. EKG does not show any evidence of ischemia and he just had his pacemaker interrogated which reported no abnormal findings. A repeat troponin did do so but stable from the earlier one but I will note he has diffuse wheezing as well as some crackles on examination. I suspect this is a combination COPD and CHF. On discussion with him he admits that he has been taking his medications. I do feel that he is moderately fluid overloaded. Given the multiple lab abnormalities and his medical status I do not feel that he would be able to be medically cleared for placement in a psychiatric facility at this time. Patient is suicidal with plan and there is a 302 warrant on the chart, however I did not sign off on the warrant yet as he is not yet medically clear. Hospitalist was consulted for further management. Patient was given some of his evening medications along with 40 mg of IV Lasix. He declined any Seroquel or Xanax at this time. Prior Medical Record and Triage/Nursing Notes reviewed by Me Additional history obtained from chart Differentials:Mood disorder, infection, hypoglycemia, electrolyte abnormalities, cardiac sources, intracerebral event, toxicologic, trauma, neurologic, as well as other pathologies. Vital Signs: reviewed and remarkable for no significant abnormalities Interventions: lasix 40mg po, evening medications Labs:Reviewed and remarkable for elevated trop Imaging:X ray results are stated below per my interpretation: Chest: 1 view: Moderate congestive failure consistent with earlier chest x-ray EKG:Earlier EKG reveals bigeminy without ischemia Consults:Dr Doe Garcia Hospitalist Plan: Disposition:Hospitalization. Condition: Good History of Present Illness:52-year-old male arrives for evaluation of mental health issue as well as chest pain and shortness of breath. Patient states for the last 2 days increasing shortness of breath. States this is consistent with his previous pneumonia but also states he sometimes gets fluid on his lungs. Patient states that he was seen earlier tonight because he started getting left- sided chest pain. This is been going on throughout the afternoon. Is worse with exertion better with rest. He states he started having increasing wheezing throughout the day as well. He notes he was discharged earlier but symptoms have continued to get worse. He is now thinking of killing himself. He notes 20 years ago admitted to a psych facility though he does not think he has been admitted anywhere since. He has been admitted for medical issues since including a hospitalization last week for pneumonia. He states that hospitalization is at this facility. Notes that initially he was feeling better but now he is much worse. Denies any falls, trauma, injuries. He notes chronic back pain that radiates throughout his abdomen. He is on Percocet which he has not had in the last 2 days. He admits he has not taken any of his medicines in the last few days as well. He notes his hands and feet seem to be swelling. He denies any fevers, chills, headache, neck pain, syncope, vomiting, urinary/bowel symptoms, calf pain or other concerning signs or symptoms. He did not take any medications prior to arrival. He did feel like his ICD had gone off earlier in the day but this was reportedly checked and did not. ROS: See above HPI for pertinent positives & negatives. A total of 10 systems reviewed and were otherwise negative. Past Medical History:See Below Past Surgical History:See Below Family History:See Below Social History:See Below Home Medications:See Below Allergies:See Below Vitals:Blood Pressure: 155/87, Pulse 56, RR 20, T 36.8C, O2 98% on RA Physical Exam: GENERAL: Patient is chronically unwell appearing and in mild distress but upset EYES: No scleral icterus, unremarkable pupils. ENT: Mucous membranes moist, no nasal congestion. NECK: No masses appreciated, nomeningismus, trachea is midline. RESPIRATORY: Moderate dyspnea with diffuse wheezing and crackles at bases. CARDIOVASCULAR: Regular rate and rhythm.No murmurs, rubs, gallops appreciated. GASTROINTESTINAL: Abdomen soft, non-tender, no peritonitis.Bowel sounds positive.No masses appreciated. BACK: No midline tenderness, no CVA tenderness EXTREMITIES: Normal motion all extremities, no cyanosis, no edema. NEUROLOGIC: Alert and oriented, no acute motor or sensory deficits, no focal weakness, cranial nerves grossly intact. SKIN: No rash, no jaundice, no diaphoresis. PSYCH: Patient is tangential, he is upset, he appears depressed, he admits suicidal ideation but it is unclear whether he is actively suicidal or whether this was from 20 years ago when he was admitted previously. GCS: 15 ED Course: Times/Reassessments: Patient is calm down significantly he is no longer is upset feeling that his complaints are being heard however he clearly is still acutely psychotic, tangential and admitting he is suicidal though time is difficult to quite ironed out when talking to him. Zac Jones MD Past Med/Surg History Medical History Acute bronchiolitis due to other infectious organisms Acute systolic CHF (congestive heart failure) Hypoxia Pacemaker Surgical History No pertinent past surgical history Social History Smoking Status: Current every day smoker Second Hand Exposure: No; Do You Dip or Chew Tobacco: No; Tobacco Cessation Education Requested by Patient: No Hx Alcohol Use: No Hx Substance Use: No Preferred Language: Portuguese Communication Ability: Effective Duct Maker Required: No Beliefs That Will Affect Care: None marital status: Unknown Current Living Situation: Alone Current Living Situation Comment: lives alone in apartment Other Information That Helps Us Care for You: No Feels Safe at Home: Yes Safety Concerns: Feels Safe At This Time Assistive Devices: None Allergies Allergies Allergy/AdvReac Type Severity Reaction Status Date / Time hydrocodone Allergy Unknown PT ABLE TO Unverified 06/21/22 09:28 TAKE TYLENOL tramadol Allergy Hives Verified 06/21/22 09:28 amoxicillin AdvReac SOB Verified 06/21/22 09:28 Home Meds Home Medications Medication Instructions Recorded Confirmed ATORVASTATIN (LIPITOR) 20 mg PO DAILY ##0 10/25/11 07/25/22 Fluticasone Propionate (Nasal) 2 spry ADAM DAILY PRN Allergy 09/06/15 07/25/22 (Flonase Allergy Relief) Symptoms ##0 Lisinopril (Zestril) 40 mg PO DAILY #0 tabs 09/06/15 07/25/22 dicyclomine 10 mg capsule 10 mg PO QID PRN .ABD PAIN 06/20/22 07/24/22 divalproex 500 mg tablet,delayed 500 mg PO BID 06/20/22 07/24/22 release escitalopram oxalate 20 mg tablet 20 mg PO QAM 06/20/22 07/24/22 isosorbide mononitrate 30 mg 30 mg PO DAILY 06/20/22 07/24/22 tablet,extended release 24 hr ondansetron 4 mg disintegrating 4 mg PO Q8H PRN Nausea 06/20/22 07/24/22 tablet oxycodone-acetaminophen 10 mg-325 1 tab PO Q4H PRN Pain 06/20/22 07/24/22 mg tablet (Percocet) quetiapine 400 mg tablet 800 mg PO HS 07/24/22 07/24/22 Previous Rx's Medication Instructions Recorded albuterol sulfate 2.5 mg/3 mL 2.5 mg (3 mL) inhalation QID PRN 06/28/22 (0.083 %) solution for nebulization shortness of breath or wheezing #90 mL alprazolam 2 mg tablet 1 mg PO QID PRN Anxiety #1 tab 06/28/22 fluticasone furoate 200 1 ea inhalation DAILY #60 ea 06/28/22 mcg-vilanterol 25 mcg/dose inhalation powder (Breo Ellipta) furosemide 40 mg tablet (Lasix) 40 mg PO DAILYBD #30 tabs 06/28/22 metoprolol succinate 50 mg 50 mg PO QAM #30 tabs 06/28/22 tablet,extended release 24 hr potassium chloride 20 mEq 20 meq PO BID #1 tab 06/28/22 tablet,extended release prednisone 10 mg tablet 10 mg PO UD #12 tabs 06/28/22 umeclidinium 62.5 mcg/actuation 1 inh inhalation DAILY #30 ea 06/28/22 blister powder for inhalation (Incruse Ellipta) Results & Data (ED) Vital Signs Vital Signs - 24 hr 07/24/22 22:29 07/25/22 00:17 Temperature 36.8 C Temperature Source Temporal Artery Scan Pulse Rate 56 L Pulse Rate [Finger] 49 L Pulse Rhythm Regular Pulse Strength Normal Respiratory Rate 20 16 Respiratory Effort / Characteristics Non-Labored Spontaneous Non-Labored Spontaneous Respiratory Depth Normal Respiratory Pattern Regular Blood Pressure 155/87 H Blood Pressure Mean 109 Blood Pressure Position Sitting Pulse Oximetry 98 99 Oxygen Delivery Method Room Air Room Air Sepsis Recent Fever Within 48 Hours No Sepsis New/Unexplained Change in Mental Status N/A Sepsis Action Taken by Nursing No Action Required Laboratory Data Lab Results 07/24/22 07/24/22 07/24/22 Range/Units 23:19 23:46 23:46 APTT (21.0-31.0) Seconds PTT Ratio Magnesium (1.7-2.4) mg/dl Troponin I High Sens (0-20) pg/ml TSH (0.300-4.500) uIu/ml Urine Color Urine Appearance (Clear) Urine pH (4.5-7.5) Ur Specific [place] (1.000-1.030) Urine Protein (Negative) Urine Glucose (UA) (Negative) Urine Ketones (Negative) Urine Blood (Negative) Urine Nitrite (Negative) Urine Bilirubin (Negative) Urine Urobilinogen (Negative) Ur Leukocyte Esterase (Negative) Salicylates < 3.0 L (3.0-30) mg/dl Urine Opiates Screen (Neg) Ur Methadone, Qual (Neg) Acetaminophen < 3 L (10-30) ug/ml Urine Barbiturates (Neg) Valproic Acid (50-100) mcg/ml Ur Phencyclidine (PCP) (Neg) U Amphetamin/Meth Scrn (Neg) MDMA (Ecstasy) Screen (Neg) U Benzodiazepines Scrn (Neg) Ur Cocaine Metabolite (Neg) U Marijuana (THC) Screen (Neg) Ethyl Alcohol mg/dL < 10.0 (<10.0) mg/dl Lyme Disease IgG Ab (Negative) Lyme Disease IgM Ab (Negative) SARS-CoV-2, RNA, NAAT NEGATIVE (NEGATIVE) 07/24/22 07/24/22 07/24/22 Range/Units 23:48 23:48 23:49 APTT (21.0-31.0) Seconds PTT Ratio Magnesium 1.9 (1.7-2.4) mg/dl Troponin I High Sens 42.1 H 39.2 H (0-20) pg/ml TSH (0.300-4.500) uIu/ml Urine Color Urine Appearance (Clear) Urine pH (4.5-7.5) Ur Specific [place] (1.000-1.030) Urine Protein (Negative) Urine Glucose (UA) (Negative) Urine Ketones (Negative) Urine Blood (Negative) Urine Nitrite (Negative) Urine Bilirubin (Negative) Urine Urobilinogen (Negative) Ur Leukocyte Esterase (Negative) Salicylates (3.0-30) mg/dl Urine Opiates Screen (Neg) Ur Methadone, Qual (Neg) Acetaminophen (10-30) ug/ml Urine Barbiturates (Neg) Valproic Acid 48 L (50-100) mcg/ml Ur Phencyclidine (PCP) (Neg) U Amphetamin/Meth Scrn (Neg) MDMA (Ecstasy) Screen (Neg) U Benzodiazepines Scrn (Neg) Ur Cocaine Metabolite (Neg) U Marijuana (THC) Screen (Neg) Ethyl Alcohol mg/dL (<10.0) mg/dl Lyme Disease IgG Ab (Negative) Lyme Disease IgM Ab (Negative) SARS-CoV-2, RNA, NAAT (NEGATIVE) 07/24/22 07/24/22 07/24/22 Range/Units 23:49 23:49 23:49 APTT 28.1 (21.0-31.0) Seconds PTT Ratio 1.0 Magnesium (1.7-2.4) mg/dl Troponin I High Sens (0-20) pg/ml TSH 0.645 (0.300-4.500) uIu/ml Urine Color Urine Appearance (Clear) Urine pH (4.5-7.5) Ur Specific [place] (1.000-1.030) Urine Protein (Negative) Urine Glucose (UA) (Negative) Urine Ketones (Negative) Urine Blood (Negative) Urine Nitrite (Negative) Urine Bilirubin (Negative) Urine Urobilinogen (Negative) Ur Leukocyte Esterase (Negative) Salicylates (3.0-30) mg/dl Urine Opiates Screen (Neg) Ur Methadone, Qual (Neg) Acetaminophen (10-30) ug/ml Urine Barbiturates (Neg) Valproic Acid (50-100) mcg/ml Ur Phencyclidine (PCP) (Neg) U Amphetamin/Meth Scrn (Neg) MDMA (Ecstasy) Screen (Neg) U Benzodiazepines Scrn (Neg) Ur Cocaine Metabolite (Neg) U Marijuana (THC) Screen (Neg) Ethyl Alcohol mg/dL (<10.0) mg/dl Lyme Disease IgG Ab Negative (Negative) Lyme Disease IgM Ab Negative (Negative) SARS-CoV-2, RNA, NAAT (NEGATIVE) 07/25/22 07/25/22 Range/Units 01:25 01:25 APTT (21.0-31.0) Seconds PTT Ratio Magnesium (1.7-2.4) mg/dl Troponin I High Sens (0-20) pg/ml TSH (0.300-4.500) uIu/ml Urine Color Yellow Urine Appearance Clear (Clear) Urine pH 7.0 (4.5-7.5) Ur Specific [place] 1.006 (1.000-1.030) Urine Protein Negative (Negative) Urine Glucose (UA) Negative (Negative) Urine Ketones Negative (Negative) Urine Blood Negative (Negative) Urine Nitrite Negative (Negative) Urine Bilirubin Negative (Negative) Urine Urobilinogen Negative (Negative) Ur Leukocyte Esterase Negative (Negative) Salicylates (3.0-30) mg/dl Urine Opiates Screen Neg (Neg) Ur Methadone, Qual Neg (Neg) Acetaminophen (10-30) ug/ml Urine Barbiturates Neg (Neg) Valproic Acid (50-100) mcg/ml Ur Phencyclidine (PCP) Neg (Neg) U Amphetamin/Meth Scrn Neg (Neg) MDMA (Ecstasy) Screen Neg (Neg) U Benzodiazepines Scrn Neg (Neg) Ur Cocaine Metabolite Neg (Neg) U Marijuana (THC) Screen Neg (Neg) Ethyl Alcohol mg/dL (<10.0) mg/dl Lyme Disease IgG Ab (Negative) Lyme Disease IgM Ab (Negative) SARS-CoV-2, RNA, NAAT (NEGATIVE) Administered Medications Alprazolam (Alprazolam 0.5 Mg Tablet) 1 mg PO QID PRN PRN Reason: Anxiety Stop: 08/24/22 03:24 Last Admin: 07/25/22 05:00 Dose: 1 mg Documented By: RANDY Nicotine (Nicotine 14 Mg/24 Hr Patch) 14 mg TD QAM ILIA Stop: 08/24/22 02:14 Last Admin: 07/25/22 04:59 Dose: 14 mg Documented By: RANDY Oxycodone HCl (Oxycodone Hcl Ir 5 Mg Tab (Immediate Release)) 5 - 10 mg PO QID PRN PRN Reason: Pain Stop: 08/08/22 02:10 Last Admin: 07/25/22 05:00 Dose: 10 mg Documented By: RANDY Discontinued Medications Albuterol (Albut/Ipratrop 3mg/0.5mg Neb 3 Ml Vial) 12 ml NEB ONE ONE; Protocol Stop: 07/24/22 23:38 Last Admin: 07/25/22 00:09 Dose: 12 ml Documented By: ANGEL Alprazolam (Alprazolam 0.5 Mg Tablet) 1 mg PO NOW STA Stop: 07/24/22 23:41 Last Admin: 07/25/22 00:11 Dose: Not Given Documented By: ANGEL Divalproex Sodium (Divalproex Extended Release 500 Mg Tab) 500 mg PO NOW ONE Stop: 07/24/22 23:41 Last Admin: 07/25/22 00:12 Dose: Not Given Documented By: ANGEL Furosemide (Furosemide 40 Mg Tab) 40 mg PO NOW ONE Stop: 07/24/22 23:41 Last Admin: 07/25/22 00:13 Dose: Not Given Documented By: ANGEL Furosemide (Furosemide 40 Mg/4 Ml Vial) 40 mg IV ONE ONE Stop: 07/25/22 00:54 Last Admin: 07/25/22 00:59 Dose: 40 mg Documented By: ANEGL Magnesium Sulfate/Dextrose (Magnesium Sulfate / D5w) 1 gm in 100 mls @ 50 mls/hr IV ONE ONE Stop: 07/25/22 05:49 Last Admin: 07/25/22 04:23 Dose: Not Given Documented By: RANDY Ioversol (Optiray 320 500ml) 110 ml IV ONCE ONE Stop: 07/25/22 02:50 Last Admin: 07/25/22 02:49 Dose: 110 ml Documented By: YESY Isosorbide Mononitrate (Isosorbide [place] Extended Rel 30 Mg Tabcr) 30 mg PO NOW ONE Stop: 07/24/22 23:41 Last Admin: 07/25/22 00:02 Dose: 30 mg Documented By: ANGEL Lorazepam (Lorazepam 0.5 Mg Tab) 0.5 mg PO NOW STA Stop: 07/25/22 01:58 Last Admin: 07/25/22 02:13 Dose: 0.5 mg Documented By: ANGEL Metoprolol Succinate (Metoprolol Succ 25mg Ext Rel Tab) 25 mg PO QAM ILIA Stop: 08/24/22 03:54 Last Admin: 07/25/22 04:23 Dose: Not Given Documented By: RANDY Morphine Sulfate (Morphine Sulfate 2 Mg/Ml Carp) 2 mg IV NOW STA Stop: 07/25/22 01:58 Last Admin: 07/25/22 02:13 Dose: 2 mg Documented By: ANGEL Oxycodone/Acetaminophen (Oxycodone/Acetaminophen 10-325 Tab) 1 tab PO NOW STA Stop: 07/24/22 23:41 Last Admin: 07/25/22 00:02 Dose: 1 tab Documented By: ANGEL Quetiapine Fumarate (Quetiapine Fumarate 200 Mg Tab) 400 mg PO NOW STA Stop: 07/24/22 23:41 Last Admin: 07/25/22 00:13 Dose: Not Given Documented By: ANGEL Imaging Data Radiologist's Impression: Chest X-Ray 07/25/22 00:06 SINGLE VIEW CHEST CLINICAL HISTORY: Dyspnea. FINDINGS: An AP, portable, upright chest radiograph is compared to study dated 07/24/2022 and correlated with chest CT dated 06/20/2022. A 3-lead cardiac AICD is unchanged in position and partially obscures left lower chest. The heart is enlarged. Mild pulmonary vascular congestion persists. Emphysema and chronic interstitial thickening is similar to previous. There is mild bibasilar atelectasis. No large pleural effusion or pneumothorax is seen. The bony thorax is grossly intact. IMPRESSION: 1. Cardiomegaly and AICD with mild pulmonary vascular congestion. This is similar to previous. 2. No large pleural effusion is identified. ACT 112: Negative or not required by law. Electronically signed by: Anthony Bates M.D. 07/25/2022 12:25 AM Discharge Plan Visit Data Chief Complaint: Mental Health Evaluation Stated Complaint: MENTAL HEALTH EVAL ED Provider: Zac Jones Discharge Problem: Acute CHF (congestive heart failure), Medical non-compliance, Left-sided chest pain, Suicide ideation, Depression Patient Disposition: Admitted As Inpatient Discharge Instructions Interventions: ED Discharge Assessment Last Done: 07/25/22 02:47 : Acute CHF (congestive heart failure) Qualifiers: Heart failure type: unspecified Qualified Code(s): I50.9 - Heart failure, unspecified Depression Qualifiers: Depression Type: major depressive disorder Major depression recurrence: recurrent Active/Remission status: currently active Major depression episode severity: severe Psychotic features: without psychotic features Qualified Code(s): F33.2 - Major depressive disorder, recurrent severe without psychotic features
[2022-07-24] MEDS ORDERED: oxyCODONE/ACETAMINOPHEN 10-325 TAB PO STA (23:40)
[2022-07-24] MEDS ORDERED: ISOSORBIDE MONO EXTENDED REL 30 MG TABCR PO ONE (23:40)
[2022-07-25] MEDS: FUROSEMIDE 40 MG TAB PO ONE ×2 (00:01→00:13)
[2022-07-25] MEDS: ALPRAZolam 0.5 MG TABLET PO STA ×2 (00:01→00:11)
[2022-07-25] MEDS: QUEtiapine FUMARATE 200 MG TAB PO STA ×2 (00:02→00:13)
[2022-07-25] MEDS: DIVALPROEX EXTENDED RELEASE 500 MG TAB PO ONE ×2 (00:02→00:12)
--- NOTE | 2022-07-25 00:27 | XRay Report ---
SINGLE VIEW CHEST CLINICAL HISTORY: Dyspnea. FINDINGS: An AP, portable, upright chest radiograph is compared to study dated 07/24/2022 and correla angel with chest CT dated 06/20/2022. A 3-lead cardiac AICD is unchanged in position and partially obsc ures left lower chest. The heart is enlarged. Mild pulmonary vascular congestion persists. Emphysema and chronic interstitial thickening is similar to previous. There is mild bibasilar atelectasis. No l arge pleural effusion or pneumothorax is seen. The bony thorax is grossly intact. IMPRESSION: 1. Cardiomegaly and AICD with mild pulmonary vascular congestion. This is similar to previous. 2. No large pleural effusion is identified. ACT 112: Negative or not required by law. Electronically signed by: Anthony Bates M.D. 07/25/2022 12:25 AM
[2022-07-25 00:28] LABS: Acetaminophen < 3 ug/ml (10-30); Salicylate < 3.0 mg/dl (3.0-30)
[2022-07-25] MEDS ORDERED: FUROSEMIDE 40 MG/4 ML VIAL IV ONE (00:53)
[2022-07-25 01:40] LABS: Appearance Urine Clear (Clear); Bilirubin Urine Negative (Negative); Blood Urine Negative (Negative); Color Urine Yellow; Glucose Urine UA Negative (Negative); Ketones Urine Negative (Negative); Leukocyte Esterase Urine Negative (Negative); Nitrite Urine Negative (Negative); Protein Urine Negative (Negative); Specific Gravity Urine 1.006 (1.000-1.030); Urobilinogen Urine Negative (Negative)
[2022-07-25] MEDS ORDERED: LORazepam 0.5 MG TAB PO STA (01:57)
[2022-07-25] MEDS ORDERED: MoRPHine SULFATE 2 MG/ML CARP IV STA (01:57)
--- NOTE | 2022-07-25 01:59 | History & Physical Report ---
Date of Service July 25, 2022 Assessment & Plan (1) Decompensated heart failure: Plan: hx chronic systolic heart failure secondary to nonischemic cardiomyopathy (20 to 25%, TTE 2021) status post ICD Underlying pulmonary HTN, history HAFSA CPAP Likely secondary to medication noncompliance Troponin elevation secondary to illness Rule out ICD shock, patient noncompliant with beta-yuri as per records hx mild to moderate TR hyperlipidemia on statin Rx Possible suicidality, currently denied by patient hx anxiety/mood disorder/schizoaffective disorder chronic pain ongoing tobacco abuse PCU Continue current patient's home diuretic regimen Strict I/Os, daily weights, CHF education, fluid restriction Follow troponin Follow formal ICD interrogation report Cardiology consult Re: Decompensated heart failure Psych consult re: possible suicidality Suicide precautions until patient seen by psychiatry Nicotine patch DVT prophylaxis. Lovenox subcu Full code Text document was generated using [employer] recognition software. It may contain grammatical or spelling errors. Kindly contact undersigned for clarification of any documentation item in question. History of Present Illness Chief Complaint: Chest shock as per patient Primary Care Provider: Dr. Springer History obtained from patient, ED staff, and records. Patient is a fair historian. Medical history significant for chronic systolic heart failure secondary to nonischemic cardiomyopathy (20 to 25%, TTE 2021) status post ICD, mild to moderate TR, HAFSA on CPAP, pulmonary hypertension, hyperlipidemia, anxiety/mood disorder, schizoaffective disorder, chronic pain, ongoing tobacco abuse. Last [facility] confinement last month for respiratory failure secondary to CHF and COPD exacerbation. Patient patient claims to still be short of breath upon discharge from hospital. 2 weeks ago, patient confined at [facility] for pneumonia. Discharge 5 days ago on antibiotics. Cough not worse. Patient complaining of pleuritic right-sided chest pain with shortness of breath. Patient stressed out with some financial issues. Patient thinks his weight is a little up after discharge from [facility]. Claims to be compliant with home medications although this is disputed by patient's partner as per ED staff. Patient was sleeping face down yesterday afternoon when he got jolted by left- sided chest pain. Patient not sure if his device shocked him again or he had a bad dream. Patient seen at the ER last night but subsequently discharged. Patient returned to the ER on his girlfriend's prodding since patient does not feel well. Suicidal thoughts as per ED staff's account which patient currently denies. Medical History as above Surgical History : ICD/PPM placement, knee surgery Family History : Alcoholism, heart disease Personal/Social history : Half pack daily, no EtOH intake, disabled Allergies Allergy/AdvReac Type Severity Reaction Status Date / Time hydrocodone Allergy Unknown PT ABLE TO Unverified 06/21/22 09:28 TAKE TYLENOL tramadol Allergy Hives Verified 06/21/22 09:28 amoxicillin AdvReac SOB Verified 06/21/22 09:28 Home Medications Medication Instructions Recorded Confirmed Type ATORVASTATIN (LIPITOR) 20 mg PO DAILY ##0 10/25/11 07/25/22 History Fluticasone Propionate (Nasal) 2 spry ADAM DAILY PRN Allergy 09/06/15 07/25/22 History (Flonase Allergy Relief) Symptoms ##0 Lisinopril (Zestril) 40 mg PO DAILY #0 tabs 09/06/15 07/25/22 History dicyclomine 10 mg capsule 10 mg PO QID PRN .ABD PAIN 06/20/22 07/24/22 History divalproex 500 mg tablet,delayed 500 mg PO BID 06/20/22 07/24/22 History release escitalopram oxalate 20 mg tablet 20 mg PO QAM 06/20/22 07/24/22 History isosorbide mononitrate 30 mg 30 mg PO DAILY 06/20/22 07/24/22 History tablet,extended release 24 hr ondansetron 4 mg disintegrating 4 mg PO Q8H PRN Nausea 06/20/22 07/24/22 History tablet oxycodone-acetaminophen 10 mg-325 1 tab PO Q4H PRN Pain 06/20/22 07/24/22 History mg tablet (Percocet) albuterol sulfate 2.5 mg/3 mL 2.5 mg (3 mL) inhalation QID PRN 06/28/22 07/24/22 Rx (0.083 %) solution for nebulization shortness of breath or wheezing #90 mL alprazolam 2 mg tablet 1 mg PO QID PRN Anxiety #1 tab 06/28/22 07/24/22 Rx fluticasone furoate 200 1 ea inhalation DAILY #60 ea 06/28/22 07/25/22 Rx mcg-vilanterol 25 mcg/dose inhalation powder (Breo Ellipta) furosemide 40 mg tablet (Lasix) 40 mg PO DAILYBD #30 tabs 06/28/22 07/24/22 Rx metoprolol succinate 50 mg 50 mg PO QAM #30 tabs 06/28/22 07/24/22 Rx tablet,extended release 24 hr potassium chloride 20 mEq 20 meq PO BID #1 tab 06/28/22 07/24/22 Rx tablet,extended release prednisone 10 mg tablet 10 mg PO UD #12 tabs 06/28/22 07/24/22 Rx umeclidinium 62.5 mcg/actuation 1 inh inhalation DAILY #30 ea 06/28/22 07/24/22 Rx blister powder for inhalation (Incruse Ellipta) quetiapine 400 mg tablet 800 mg PO HS 07/24/22 07/24/22 History Past Med/Surg History Medical History Acute bronchiolitis due to other infectious organisms Acute systolic CHF (congestive heart failure) Hypoxia Pacemaker Surgical History No pertinent past surgical history Social History Smoking Status: Current every day smoker Second Hand Exposure: No; Do You Dip or Chew Tobacco: No; Tobacco Cessation Education Requested by Patient: No Hx Alcohol Use: No Hx Substance Use: No Preferred Language: Macanese Communication Ability: Effective [employer] Required: No Beliefs That Will Affect Care: None marital status: Unknown Current Living Situation: Alone Current Living Situation Comment: lives alone in apartment Other Information That Helps Us Care for You: No Feels Safe at Home: Yes Safety Concerns: Feels Safe At This Time Assistive Devices: None Review of Systems Review of Systems: As per HPI, all other systems reviewed and negative Physical Exam Physical Exam: GENERAL: Slightly uncomfortable, anxious, obese, no respiratory distress SKIN: Normal color, warm HEENT: [place] palpebral conjunctivae, no ptosis, dry buccal mucosa NECK : Supple, no tenderness CHEST : CTA, right lateral chest wall tenderness HEART : Bradycardic, no obvious murmurs ABDOMEN: Some distention, nontender EXTREMITIES : Minimal LE swelling, no LE tenderness, no other conspicuous deformities noted NEUROLOGIC : Coherent, no facial asymmetry, no other gross focality Results & Data Results & Data ([facility]) Vital Signs (Past 12 Hours) Vital Signs Temp Pulse Pulse Resp BP Pulse Ox O2 Del Method 07/25/22 00:17 49 L 16 99 Room Air 07/24/22 22:29 36.8 C 56 L 20 155/87 H 98 Room Air Laboratory Results Laboratory Results Troponin I High Sens 42.1 pg/ml (0-20) H 07/24/22 23:48 Urine Color Yellow 07/25/22 01:25 Urine Appearance Clear (Clear) 07/25/22 01:25 Urine pH 7.0 (4.5-7.5) 07/25/22 01:25 Ur Specific [place] 1.006 (1.000-1.030) 07/25/22 01:25 Urine Protein Negative (Negative) 07/25/22 01:25 Urine Glucose (UA) Negative (Negative) 07/25/22 01:25 Urine Ketones Negative (Negative) 07/25/22 01:25 Urine Blood Negative (Negative) 07/25/22 01:25 Urine Nitrite Negative (Negative) 07/25/22 01:25 Urine Bilirubin Negative (Negative) 07/25/22 01:25 Urine Urobilinogen Negative (Negative) 07/25/22 01:25 Ur Leukocyte Esterase Negative (Negative) 07/25/22 01:25 Salicylates < 3.0 mg/dl (3.0-30) L 07/24/22 23:46 Acetaminophen < 3 ug/ml (10-30) L 07/24/22 23:46 Valproic Acid 48 mcg/ml (50-100) L 07/24/22 23:48 Ethyl Alcohol mg/dL < 10.0 mg/dl (<10.0) 07/24/22 23:46 SARS-CoV-2, RNA, NAAT NEGATIVE (NEGATIVE) 07/24/22 23:19 Impressions Chest X-Ray 07/25/22 00:06 SINGLE VIEW CHEST CLINICAL HISTORY: Dyspnea. FINDINGS: An AP, portable, upright chest radiograph is compared to study dated 07/24/2022 and correlated with chest CT dated 06/20/2022. A 3-lead cardiac AICD is unchanged in position and partially obscures left lower chest. The heart is enlarged. Mild pulmonary vascular congestion persists. Emphysema and chronic interstitial thickening is similar to previous. There is mild bibasilar atelec tasis. No large pleural effusion or pneumothorax is seen. The bony thorax is grossly intact. IMPRESSION: 1. Cardiomegaly and AICD with mild pulmonary vascular congestion. This is similar to previous. 2. No large pleural effusion is identified. ACT 112: Negative or not required by law. Electronically signed by: Anthony Bates M.D. 07/25/2022 12:[address] chest initial read: Mild motion artifact limits evaluation. No visualized pulmonaryembolism. No evidence of aortic dilatation. Right middle lobe airspace disease which mayrelate to sequelae of chronic infection. Cardiomegaly. EKG as per my interpretation : Rate 75, NSR, LAD, LAFB, LVH, T wave abnormalities inferior leads, PVCs
[2022-07-25] MEDS ORDERED: oxyCODONE HCL IR 5 MG TAB (IMMEDIATE RELEASE) PO PRN (02:11)
[2022-07-25] MEDS ORDERED: MoRPHine SULFATE 2 MG/ML CARP IV PRN (02:11)
[2022-07-25] MEDS ORDERED: PROMETHAZINE HCL 12.5 MG in SODIUM CHLORIDE 0.9% 50 ML IV PRN (02:12)
[2022-07-25 02:18] LABS: Amphetamines+Metham, Urine Neg (Neg); Barbiturates, Urine Neg (Neg); Benzodiazepine, Urine Neg (Neg); Cocaine, Urine Neg (Neg); MDMA (Ecstacy), Urine Neg (Neg); Methadone, Urine Neg (Neg); Opiate, Urine Neg (Neg); Phencyclidine, Urine Neg (Neg)
[2022-07-25] MEDS ORDERED: OPTIRAY 320 500ml IV ONE (02:49)
[2022-07-25 02:52] LABS: Partial Thromboplastin Time 28.1 Seconds (21.0-31.0)
[2022-07-25 02:55] LABS: Magnesium 1.9 mg/dl (1.7-2.4)
[2022-07-25 02:59] LABS: Troponin I High Sensitivity 39.2 pg/ml (0-20)
[2022-07-25 03:07] LABS: Lyme Ab IgG w/WB Rflx Negative (Negative); Lyme Ab IgM w/WB Rflx Negative (Negative)
[2022-07-25] MEDS ORDERED: MAGNESIUM SULFATE / D5W 1 GM/100 ML BAG IV ONE (03:50)
[2022-07-25] MEDS ORDERED: FLUTICASONE PROPIONATE NA SPR 16 GM BTL NAE PRN (03:55)
[2022-07-25] MEDS ORDERED: METOPROLOL SUCC 25MG EXT REL TAB PO SCH ×2 (03:55→09:00)
[2022-07-25] MEDS ORDERED: OLANZapine 10 MG/2.1 ML SDV IM PRN (03:56)
[2022-07-25] MEDS: NICOTINE 14 MG/24 HR PATCH TD SCH (04:59)
[2022-07-25] MEDS: ALPRAZolam 0.5 MG TABLET PO PRN ×2 (05:00→12:58)
[2022-07-25] MEDS: METOPROLOL SUCC 25MG EXT REL TAB PO SCH (07:06)
[2022-07-25] MEDS: ATORVASTATIN 20 MG TAB PO SCH (08:20)
[2022-07-25] MEDS: ESCITALOPRAM OXALATE 20 MG TAB PO SCH (08:20)
[2022-07-25] MEDS: DIVALPROEX DELAY RELEASE 500 MG TAB PO SCH ×2 (08:20→20:28)
[2022-07-25] MEDS: UMECLIDINIUM BROMIDE 62.5MCG/BLISTER 7 PUFFS/INHALER INH SCH (08:20)
[2022-07-25] MEDS: FLUTICASONE/VILANTEROL 200/25MCG 14 PUFFS/INHALER INH SCH (08:20)
[2022-07-25] MEDS: ISOSORBIDE MONO EXTENDED REL 30 MG TABCR PO SCH (08:21)
[2022-07-25] MEDS: oxyCODONE/ACETAMINOPHEN 10-325 TAB PO PRN ×3 (08:21→18:00)
[2022-07-25] MEDS: lisinopril 40 MG TAB PO SCH (08:21)
[2022-07-25] MEDS: POTASSIUM CHLORIDE CRTAB 20 MEQ TABCR PO SCH ×2 (08:21→15:51)
--- NOTE | 2022-07-25 08:26 | CT Scan Report ---
CT angio chest PE protocol CLINICAL HISTORY: r cp TECHNIQUE: Multidetector row helical CT of the chest was performed with angiographic protocol. Estrada l and sagittal reformations were obtained. Coronal and sagittal MIPS were obtained from the axial park a set and were submitted for review. Automated dose lowering techniques and/or adjustment according to patient size were utilized for this exam. CT DOSE: 565.73 mGy.cm Comparison: Comparison is made to CT chest 06/10/2022 FINDINGS: Lungs and pleura: Previously noted opacities is amorphous entirely resolved. Trace atelectasis versus airspace disease is noted in the right middle lobe. Heart and pericardium: Cardiomegaly is seen with biatrial enlargement. Vessels: No evidence of pulmonary embolism. Mediastinum and nitish: Subcentimeter lymph nodes are seen. Chest wall and lower neck: Subcentimeter axillary lymph nodes noted. Abdomen: Unremarkable. Bones: Mild degenerative changes are seen. IMPRESSION: 1. Interval resolution of pneumonia. No evidence of pulmonary embolus is seen. 2. Subcentimeter lymph nodes are seen which are likely reactive. ACT 112: Negative or not required by law. Electronically signed by: Solitario Castro M.D. 07/25/2022 8:25 AM
[2022-07-25 08:45] LABS: Basophils # (auto) 0.02 K/uL (0-0.2); Basophils % (auto) 0.2 %; Eosinophils # (auto) 0.13 K/uL (0-0.50); Eosinophils % (auto) 1.4 %; Hemoglobin 15.3 g/dl (14.0-18.0); Immature Granulocytes # (auto) 0.05 K/uL (0.00-0.02); Immature Granulocytes % (auto) 0.6 %; Lymphocytes # (auto) 2.53 K/uL (1.2-3.4); Lymphocytes % (auto) 27.9 %; Mean Corpuscular Hemoglobin 32.1 pg (25.0-34.0); Mean Corpuscular Volume 94.5 fL (80.0-100.0); Monocytes # (auto) 0.94 K/uL (0.24-0.82); Monocytes % (auto) 10.4 %; Neutrophils % (auto) 59.5 %; Platelet Count 187 K/uL (130-400); RDW Standard Deviation 48.7 fL (36.4-46.3); Red Blood Count 4.76 M/uL (4.63-6.08); White Blood Count 9.07 K/ul (4.8-10.8)
[2022-07-25] MEDS ORDERED: predniSONE 5 MG TAB PO SCH (09:00)
[2022-07-25 09:11] LABS: BUN Creatinine Ratio 16.8 (10-20); Calcium 8.4 mg/dl (8.5-10.1); Creatinine Clr Calc Pharmacy 97.8 ml/min; Est GFR (African American) 104.8 ml/min; Est GFR (Non-African American) 90.4 ml/min; Potassium 3.6 mmol/L (3.5-5.1)
--- NOTE | 2022-07-25 10:32 | XRay Report ---
XR ribs RT min 2V CLINICAL HISTORY: rib fractures? pna TECHNIQUE: 3 views of the right ribs were obtained. Single frontal view of the chest was obtained. Comparison: Comparison is made to chest radiograph 07/25/2022 FINDINGS: No fractures are seen. The chest wall and soft tissues are normal. Pacemaker defibrillator is seen. The lungs are clear. No evidence of pleural effusion or pneumothorax . IMPRESSION: No evidence of acute fracture or other acute abnormalities in the visualized portions of the chest. ACT 112: Negative or not required by law. Electronically signed by: Solitario Castro M.D. 07/25/2022 10:31 AM
[2022-07-25] MEDS: ALBUT/IPRATROP 3MG/0.5MG NEB 3 ML VIAL NEB SCH ×3 (11:10→20:42)
--- NOTE | 2022-07-25 11:25 | Cardiology Consultation ---
Date of Consultation July 25, 2022 Assessment & Plan (1) Decompensated heart failure: (2) Medical non-compliance: (3) Left-sided chest pain: (4) Schizoaffective disorder: Plan The patient needs to be placed back on his cardiac meds as well as his antipsychotics. Once he is tuned up, he may benefit from an in-hospital admission to the mental health unit and there after consider some sort of long- term placement. History of Present Illness Attending Physician: Joe Stout MD History of Present Illness This is a 52-year-old male patient with a history of schizophrenia and medical noncompliance. He has had multiple hospital admissions recently due to heart failure. He has a nonischemic cardiomyopathy with severe LV dysfunction and estimated left ventricular ejection fraction around 25%. He does have a primary prevention ICD. The patient presented to the emergency department. He had not been taking his medications including his psychiatric medications. His presentation was with chest pain where he was evaluated and was subsequently discharged only according to nursing making it to the waiting area and then developed more chest pain after which she was evaluated admitted to the hospital. Currently has no ongoing cardiac complaints but admits that he is scared and anxious. Allergies Allergy/AdvReac Type Severity Reaction Status Date / Time hydrocodone Allergy Unknown PT ABLE TO Unverified 06/21/22 09:28 TAKE TYLENOL tramadol Allergy Hives Verified 06/21/22 09:28 amoxicillin AdvReac SOB Verified 06/21/22 09:28 Home Medications Medication Instructions Recorded Confirmed Type ATORVASTATIN (LIPITOR) 20 mg PO DAILY ##0 10/25/11 07/25/22 History Fluticasone Propionate (Nasal) 2 spry ADAM DAILY PRN Allergy 09/06/15 07/25/22 History (Flonase Allergy Relief) Symptoms ##0 Lisinopril (Zestril) 40 mg PO DAILY #0 tabs 09/06/15 07/25/22 History dicyclomine 10 mg capsule 10 mg PO QID PRN .ABD PAIN 06/20/22 07/24/22 History divalproex 500 mg tablet,delayed 500 mg PO BID 06/20/22 07/24/22 History release escitalopram oxalate 20 mg tablet 20 mg PO QAM 06/20/22 07/24/22 History isosorbide mononitrate 30 mg 30 mg PO DAILY 06/20/22 07/24/22 History tablet,extended release 24 hr ondansetron 4 mg disintegrating 4 mg PO Q8H PRN Nausea 06/20/22 07/24/22 History tablet oxycodone-acetaminophen 10 mg-325 1 tab PO Q4H PRN Pain 06/20/22 07/24/22 H istory mg tablet (Percocet) albuterol sulfate 2.5 mg/3 mL 2.5 mg (3 mL) inhalation QID PRN 06/28/22 07/24/22 Rx (0.083 %) solution for nebulization shortness of breath or wheezing #90 mL alprazolam 2 mg tablet 1 mg PO QID PRN Anxiety #1 tab 06/28/22 07/24/22 Rx fluticasone furoate 200 1 ea inhalation DAILY #60 ea 06/28/22 07/25/22 Rx mcg-vilanterol 25 mcg/dose inhalation powder (Breo Ellipta) furosemide 40 mg tablet (Lasix) 40 mg PO DAILYBD #30 tabs 06/28/22 07/24/22 Rx metoprolol succinate 50 mg 50 mg PO QAM #30 tabs 06/28/22 07/24/22 Rx tablet,extended release 24 hr potassium chloride 20 mEq 20 meq PO BID #1 tab 06/28/22 07/24/22 Rx tablet,extended release prednisone 10 mg tablet 10 mg PO UD #12 tabs 06/28/22 07/24/22 Rx umeclidinium 62.5 mcg/actuation 1 inh inhalation DAILY #30 ea 06/28/22 07/24/22 Rx blister powder for inhalation (Incruse Ellipta) quetiapine 400 mg tablet 800 mg PO HS 07/24/22 07/24/22 History Patient History Medical History Acute bronchiolitis due to other infectious organisms Acute systolic CHF (congestive heart failure) Hypoxia Pacemaker Surgical History No pertinent past surgical history Social History Smoking Status: Current every day smoker Second Hand Exposure: No; Do You Dip or Chew Tobacco: No; Tobacco Cessation Education Requested by Patient: No Hx Alcohol Use: No Hx Substance Use: No Preferred Language: [place] Communication Ability: Effective [employer] Worker Required: No Beliefs That Will Affect Care: None marital status: Unknown Current Living Situation: Alone Current Living Situation Comment: lives alone in apartment Other Information That Helps Us Care for You: No Feels Safe at Home: Yes Safety Concerns: Feels Safe At This Time Assistive Devices: None Review of Systems Review of Systems: Review of Systems: See HPI for pertinent positives. All other 10 point review of systems are negative. Physical Exam Physical Exam: General: no acute distress and stated age Head: normocephalic, no masses, lesions, tenderness or abnormalities Eyes: conjunctiva are pink and non-injected, sclera clear Neck: supple, no adenopathy, no bruits, normal jugular venous pulse, no hepatojugular reflux Chest: normal shape and normal respiratory effort Lungs: clear to auscultation and percussion Cardiac Exam: - regular rate & rhythm, no murmurs gallops or rubs - normal S1, normal S2 Pulses: 2(+) throughout Abdomen: abdomen soft, non-tender, no abnormal masses and no hepatosplenomegaly Musculoskeletal: no gait disturbance, no joint inflammation, no deforming arthritis Extremities: no edema and no cyanosis Neuro: grossly normal exam Results & Data ([facility]) Vital Signs (Past 12 Hours) Vital Signs Temp Pulse Pulse Resp BP BP Pulse Ox 07/25/22 11:11 67 16 98 07/25/22 11:00 36.8 C 72 18 122/68 97 07/25/22 08:00 64 07/25/22 08:00 07/25/22 08:35 64 22 07/25/22 07:03 37.0 C 68 17 114/62 93 07/25/22 03:30 70 07/25/22 03:00 07/25/22 03:00 37.0 C 70 18 150/87 H 95 07/25/22 02:19 54 L 18 144/77 H 97 07/25/22 00:17 49 L 16 99 O2 Del Method FiO2 07/25/22 11:11 Room Air 07/25/22 11:00 Room Air 07/25/22 08:00 07/25/22 08:00 Room Air 07/25/22 08:35 21 07/25/22 07:03 Room Air 07/25/22 03:30 07/25/22 03:00 Room Air 07/25/22 03:00 Room Air 07/25/22 02:19 Room Air 07/25/22 00:17 Room Air Laboratory Results Laboratory Results - last 24 hr 07/24/22 07/24/22 07/24/22 23:19 23:46 23:46 WBC RBC Hgb Hct MCV MCH MCHC RDW Std Deviation RDW Coeff of Seven Plt Count MPV Immature Gran % (Auto) Neut % (Auto) Lymph % (Auto) [place] % (Auto) Eos % (Auto) Baso % (Auto) Neut # (Auto) Lymph # (Auto) [place] # (Auto) Eos # (Auto) Baso # (Auto) Immature Gran # (Auto) APTT PTT Ratio Sodium Potassium Chloride Carbon Dioxide Anion Gap BUN Creatinine Est Cr Clr Drug Dosing Est GFR ( Amer) Est GFR (Non-Af Amer) BUN/Creatinine Ratio Glucose Calcium Magnesium Troponin I High Sens B-Natriuretic Peptide TSH Urine Color Urine Appearance Urine pH Ur Specific [place] Urine Protein Urine Glucose (UA) Urine Ketones Urine Blood Urine Nitrite Urine Bilirubin Urine Urobilinogen Ur Leukocyte Esterase Salicylates < 3.0 L Urine Opiates Screen Ur Methadone, Qual Acetaminophen < 3 L Urine Barbiturates Valproic Acid Ur Phencyclidine (PCP) U Amphetamin/Meth Scrn MDMA (Ecstasy) Screen U Benzodiazepines Scrn Ur Cocaine Metabolite U Marijuana (THC) Screen Ethyl Alcohol mg/dL < 10.0 Lyme Disease IgG Ab Lyme Disease IgM Ab SARS-CoV-2, RNA, NAAT NEGATIVE 07/24/22 07/24/22 07/24/22 23:48 23:48 23:49 WBC RBC Hgb Hct MCV MCH MCHC RDW Std Deviation RDW Coeff of Seven Plt Count MPV Immature Gran % (Auto) Neut % (Auto) Lymph % (Auto) [place] % (Auto) Eos % (Auto) Baso % (Auto) Neut # (Auto) Lymph # (Auto) [place] # (Auto) Eos # (Auto) Baso # (Auto) Immature Gran # (Auto) APTT PTT Ratio Sodium Potassium Chloride Carbon Dioxide Anion Gap BUN Creatinine Est Cr Clr Drug Dosing Est GFR ( Amer) Est GFR (Non-Af Amer) BUN/Creatinine Ratio Glucose Calcium Magnesium 1.9 Troponin I High Sens 42.1 H 39.2 H B-Natriuretic Peptide TSH Urine Color Urine Appearance Urine pH Ur Specific [place] Urine Protein Urine Glucose (UA) Urine Ketones Urine Blood Urine Nitrite Urine Bilirubin Urine Urobilinogen Ur Leukocyte Esterase Salicylates Urine Opiates Screen Ur Methadone, Qual Acetaminophen Urine Barbiturates Valproic Acid 48 L Ur Phencyclidine (PCP) U Amphetamin/Meth Scrn MDMA (Ecstasy) Screen U Benzodiazepines Scrn Ur Cocaine Metabolite U Marijuana (THC) Screen Ethyl Alcohol mg/dL Lyme Disease IgG Ab Lyme Disease IgM Ab SARS-CoV-2, RNA, NAAT 07/24/22 07/24/22 07/24/22 23:49 23:49 23:49 WBC RBC Hgb Hct MCV MCH MCHC RDW Std Deviation RDW Coeff of Seven Plt Count MPV Immature Gran % (Auto) Neut % (Auto) Lymph % (Auto) [place] % (Auto) Eos % (Auto) Baso % (Auto) Neut # (Auto) Lymph # (Auto) [place] # (Auto) Eos # (Auto) Baso # (Auto) Immature Gran # (Auto) APTT 28.1 PTT Ratio 1.0 Sodium Potassium Chloride Carbon Dioxide Anion Gap BUN Creatinine Est Cr Clr Drug Dosing Est GFR ( Amer) Est GFR (Non-Af Amer) BUN/Creatinine Ratio Glucose Calcium Magnesium Troponin I High Sens B-Natriuretic Peptide TSH 0.645 Urine Color Urine Appearance Urine pH Ur Specific [place] Urine Protein Urine Glucose (UA) Urine Ketones Urine Blood Urine Nitrite Urine Bilirubin Urine Urobilinogen Ur Leukocyte Esterase Salicylates Urine Opiates Screen Ur Methadone, Qual Acetaminophen Urine Barbiturates Valproic Acid Ur Phencyclidine (PCP) U Amphetamin/Meth Scrn MDMA (Ecstasy) Screen U Benzodiazepines Scrn Ur Cocaine Metabolite U Marijuana (THC) Screen Ethyl Alcohol mg/dL Lyme Disease IgG Ab Negative Lyme Disease IgM Ab Negative SARS-CoV-2, RNA, NAAT 07/25/22 07/25/22 07/25/22 01:25 01:25 08:16 WBC RBC Hgb Hct MCV MCH MCHC RDW Std Deviation RDW Coeff of Seven Plt Count MPV Immature Gran % (Auto) Neut % (Auto) Lymph % (Auto) [place] % (Auto) Eos % (Auto) Baso % (Auto) Neut # (Auto) Lymph # (Auto) [place] # (Auto) Eos # (Auto) Baso # (Auto) Immature Gran # (Auto) APTT PTT Ratio Sodium Potassium Chloride Carbon Dioxide Anion Gap BUN Creatinine Est Cr Clr Drug Dosing Est GFR ( Amer) Est GFR (Non-Af Amer) BUN/Creatinine Ratio Glucose Calcium Magnesium Troponin I High Sens B-Natriuretic Peptide TSH Urine Color Yellow Urine Appearance Clear Urine pH 7.0 Ur Specific [place] 1.006 Urine Protein Negative Urine Glucose (UA) Negative Urine Ketones Negative Urine Blood Negative Urine Nitrite Negative Urine Bilirubin Negative Urine Urobilinogen Negative Ur Leukocyte Esterase Negative Salicylates Urine Opiates Screen Neg Ur Methadone, Qual Neg Acetaminophen Urine Barbiturates Neg Valproic Acid Pending Ur Phencyclidine (PCP) Neg U Amphetamin/Meth Scrn Neg MDMA (Ecstasy) Screen Neg U Benzodiazepines Scrn Neg Ur Cocaine Metabolite Neg U Marijuana (THC) Screen Neg Ethyl Alcohol mg/dL Lyme Disease IgG Ab Lyme Disease IgM Ab SARS-CoV-2, RNA, NAAT 07/25/22 07/25/22 07/25/22 08:16 08:16 08:16 WBC 9.07 RBC 4.76 Hgb 15.3 Hct 45.0 MCV 94.5 MCH 32.1 MCHC 34.0 RDW Std Deviation 48.7 H RDW Coeff of Seven 14.0 Plt Count 187 MPV 11.0 Immature Gran % (Auto) 0.6 Neut % (Auto) 59.5 Lymph % (Auto) 27.9 [place] % (Auto) 10.4 Eos % (Auto) 1.4 Baso % (Auto) 0.2 Neut # (Auto) 5.40 Lymph # (Auto) 2.53 [place] # (Auto) 0.94 H Eos # (Auto) 0.13 Baso # (Auto) 0.02 Immature Gran # (Auto) 0.05 H APTT PTT Ratio Sodium 143 Potassium 3.6 Chloride 107 Carbon Dioxide 31 Anion Gap 5 BUN 16 Creatinine 0.95 Est Cr Clr Drug Dosing 97.8 Est GFR ( Amer) 104.8 Est GFR (Non-Af Amer) 90.4 BUN/Creatinine Ratio 16.8 Glucose 80 Calcium 8.4 L Magnesium Troponin I High Sens B-Natriuretic Peptide 839 H TSH Urine Color Urine Appearance Urine pH Ur Specific [place] Urine Protein Urine Glucose (UA) Urine Ketones Urine Blood Urine Nitrite Urine Bilirubin Urine Urobilinogen Ur Leukocyte Esterase Salicylates Urine Opiates Screen Ur Methadone, Qual Acetaminophen Urine Barbiturates Valproic Acid Ur Phencyclidine (PCP) U Amphetamin/Meth Scrn MDMA (Ecstasy) Screen U Benzodiazepines Scrn Ur Cocaine Metabolite U Marijuana (THC) Screen Ethyl Alcohol mg/dL Lyme Disease IgG Ab Lyme Disease IgM Ab SARS-CoV-2, RNA, NAAT Medications Administered Current Inpatient Medications Acetaminophen (Acetaminophen 325 Mg Tab) 650 mg PO Q4H PRN PRN Reason: Pain or Fever Stop: 08/24/22 03:24 Albuterol (Albut/Ipratrop 3mg/0.5mg Neb 3 Ml Vial) 3 ml NEB QIDR ILIA; Protocol Stop: 08/24/22 10:59 Last Admin: 07/25/22 11:10 Dose: 3 ml Alprazolam (Alprazolam 0.5 Mg Tablet) 1 mg PO QID PRN PRN Reason: Anxiety Stop: 08/24/22 03:24 Last Admin: 07/25/22 05:00 Dose: 1 mg Atorvastatin Calcium (Atorvastatin 20 Mg Tab) 20 mg PO DAILY ILIA Stop: 08/24/22 08:59 Last Admin: 07/25/22 08:20 Dose: 20 mg Divalproex Sodium (Divalproex Delay Release 500 Mg Tab) 500 mg PO BID [facility] Stop: 08/24/22 08:59 Last Admin: 07/25/22 08:20 Dose: 500 mg Escitalopram Oxalate (Escitalopram Oxalate 20 Mg Tab) 20 mg PO QAM [facility] Stop: 08/24/22 08:59 Last Admin: 07/25/22 08:20 Dose: 20 mg Fluticasone Propionate (Fluticasone Propionate Na Spr 16 Gm Btl) 2 sprays ADAM DAILY PRN PRN Reason: Allergy Symptoms Stop: 08/24/22 03:54 Fluticasone/Vilanterol (Fluticasone/Vilanterol 200/25mcg 14 Puffs/Inhaler) 1 puffs INH DAILY [facility] Stop: 08/24/22 08:59 Last Admin: 07/25/22 08:20 Dose: 1 puffs Furosemide (Furosemide 40 Mg Tab) 40 mg PO DAILYBD [facility] Stop: 08/24/22 15:29 Promethazine HCl 12.5 mg/ (Sodium Chloride) 50.5 mls @ 202 mls/hr IV Q6H PRN PRN Reason: Nausea And Vomiting Stop: 08/24/22 02:11 Isosorbide Mononitrate (Isosorbide [place] Extended Rel 30 Mg Tabcr) 30 mg PO DAILY [facility] Stop: 08/24/22 08:59 Last Admin: 07/25/22 08:21 Dose: 30 mg Lisinopril (Lisinopril 40 Mg Tab) 40 mg PO DAILY [facility] Stop: 08/24/22 08:59 Last Admin: 07/25/22 08:21 Dose: 40 mg Metoprolol Succinate (Metoprolol Succ 25mg Ext Rel Tab) 25 mg PO QAM [facility] Stop: 08/24/22 06:59 Last Admin: 07/25/22 07:06 Dose: 25 mg Miscellaneous (Remove Nicoderm Patch) 1 each N/A DAILY@0859 [facility] Stop: 08/24/22 08:58 Last Admin: 07/25/22 08:22 Dose: 1 each Nicotine (Nicotine 14 Mg/24 Hr Patch) 14 mg TD QAM [facility] Stop: 08/24/22 02:14 Last Admin: 07/25/22 04:59 Dose: 14 mg Olanzapine (Olanzapine 10 Mg/2.1 Ml Sdv) 2.5 mg IM Q4H PRN PRN Reason: Anxiety/Agitation Stop: 08/24/22 03:55 Oxycodone/Acetaminophen (Oxycodone/Acetaminophen 10-325 Tab) 1 tab PO Q4H PRN PRN Reason: Pain Stop: 08/08/22 08:00 Last Admin: 07/25/22 08:21 Dose: 1 tab Potassium Chloride (Potassium Chloride Crtab 20 Meq Tabcr) 20 meq PO BID17 [facility] Stop: 08/24/22 08:59 Last Admin: 07/25/22 08:21 Dose: 20 meq Quetiapine Fumarate (Quetiapine Fumarate 200 Mg Tab) 800 mg PO HS [facility] Stop: 08/24/22 20:59 Umeclidinium [place] (Umeclidinium [place] 62.5mcg/Blister 7 Puffs/Inhaler) 1 puffs INH DAILY [facility] Stop: 08/24/22 08:59 Last Admin: 07/25/22 08:20 Dose: 1 puffs
[2022-07-25] MEDS ORDERED: DEXTROMETHORPHAN POLYMR COMPLX 30 MG/5 ML UDP PO PRN (12:25)
--- NOTE | 2022-07-25 12:28 | Hospitalist Progress Note ---
Date of Service July 25, 2022 Assessment & Plan (1) Decompensated heart failure: Plan: Pleuritic pain Likely due to recent resolving pneumonia Recently completed antibiotic course for pneumonia --CTA:Interval resolution of pneumonia. No evidence of pulmonary embolus is seen. Subcentimeter lymph nodes are seen which are likely reactive. --Rib X ray:No evidence of acute fracture or other acute abnormalities in the visualized portions of the chest. 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 Nicotine Patch HAFSA Continue CPAP HS Chronic Troponin elevation Less likely ACS Levels better when compared to prior Hyperlipidemia on statin Possible suicidality H/O Anxiety/mood disorder Schizoaffective disorder Valproic acid levels pending Continue home medication Psychiatry consulted Suicidal precautions Chronic Back pain Minimize narcotic use as able DVT Px: Lovenox SQ Code Status Full code Admission and Anticipated Discharge Date Admission Date: July 25, 2022 Subjective Patient is seen and examined at bedside Patient states having pleuritic right-sided chest discomfort Also reports dyspnea Has chronic back pain Agrees to having suicidal thoughts but denies any plan No other complaints Sitter at bedside Review of Systems Review of Systems: All systems reviewed & are unremarkable except as noted in Subjective Physical Exam Physical Exam: Physical Exam: Vitals signs as noted above General Appearance:Moderately built and nourished, no apparent distress Head: normocephalic, Atraumatic Eyes: normal inspection, EOMI Neck: supple, Trachea midline Respiratory/Chest: Decreased breath sounds, B/L wheezes, +Pacemaker, No accessory muscle use Cardiovascular: S1, S2, No murmur Abdomen/GI:Soft, Non tender, Bowel sounds present Extremities/Musculoskeletal:normal inspection, no edema Neurologic/Psych:AAOX3, grossly no focal neurological deficits Skin: normal color, warm Results & Data Results & Data ([facility]) Vital Signs (Past 12 Hours) Vital Signs Temp Pulse Pulse Resp BP BP Pulse Ox 07/25/22 11:11 67 16 98 07/25/22 11:00 36.8 C 72 18 122/68 97 12/18/22 08:00 64 07/25/22 08:00 07/25/22 08:35 64 22 07/25/22 07:03 37.0 C 68 17 114/62 93 07/25/22 03:30 70 07/25/22 03:00 07/25/22 03:00 37.0 C 70 18 150/87 H 95 07/25/22 02:19 54 L 18 144/77 H 97 O2 Del Method FiO2 07/25/22 11:11 Room Air 07/25/22 11:00 Room Air 07/25/22 08:00 07/25/22 08:00 Room Air 07/25/22 08:35 21 07/25/22 07:03 Room Air 07/25/22 03:30 07/25/22 03:00 Room Air 07/25/22 03:00 Room Air 07/25/22 02:19 Room Air Laboratory Results Short CBC 07/25/22 Range/Units 08:16 WBC 9.07 (4.8-10.8) K/ul Hgb 15.3 (14.0-18.0) g/dl Hct 45.0 (40.1-51.0) % Plt Count 187 (130-400) K/uL BMP 07/25/22 08:16 Sodium 143 Potassium 3.6 Chloride 107 Carbon Dioxide 31 BUN 16 Creatinine 0.95 Glucose 80 Calcium 8.4 L Urine 07/25/22 Range/Units 01:25 Urine Color Yellow Urine Appearance Clear (Clear) Urine pH 7.0 (4.5-7.5) Ur Specific [place] 1.006 (1.000-1.030) Urine Protein Negative (Negative) Urine Glucose (UA) Negative (Negative)
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
[2022-07-25] MEDS: FUROSEMIDE 40 MG TAB PO SCH (15:51)
[2022-07-25] MEDS ORDERED: QUEtiapine FUMARATE 200 MG TAB PO SCH (21:00)
--- NOTE | 2022-07-26 05:52 | Electrocardiogram Report ---
Test Reason : Blood Pressure : / mmHG Vent. Rate : 076 BPM Atrial Rate : 070 BPM P-R Int : 142 ms QRS Dur : 102 ms QT Int : 412 ms P-R-T Axes : 036 -22 -62 degrees QTc Int : 463 ms Sinus rhythm with frequent Premature ventricular complexes Minimal voltage criteria for LVH, may be normal variant T wave abnormality, consider lateral ischemia Abnormal ECG When compared with ECG of 24-JUL-2022 20:29, (unconfirmed) No significant change was found Confirmed by Abel Hernandez ([id number]) on 07/26/2022 5:51:54 AM Referred By: REFERRED SELF Confirmed By:Abel Hernandez
[2022-07-26] MEDS: ALBUT/IPRATROP 3MG/0.5MG NEB 3 ML VIAL NEB SCH ×4 (07:21→19:36)
[2022-07-26 07:36] LABS: BUN Creatinine Ratio 24.7 (10-20); Calcium 7.9 mg/dl (8.5-10.1); Creatinine Clr Calc Pharmacy 121.6 ml/min; Est GFR (African American) 119.2 ml/min; Est GFR (Non-African American) 102.9 ml/min; Magnesium 1.9 mg/dl (1.7-2.4)
[2022-07-26] MEDS ORDERED: METOPROLOL SUCC 50MG EXT REL TAB PO SCH (09:00)
[2022-07-26] MEDS ORDERED: ONDANSETRON INJ 2 MG/ML 2 ML VIAL IV ONE (09:49)
[2022-07-26] MEDS: ATORVASTATIN 20 MG TAB PO SCH (10:09)
[2022-07-26] MEDS: DIVALPROEX DELAY RELEASE 500 MG TAB PO SCH ×2 (10:09→20:09)
[2022-07-26] MEDS: ESCITALOPRAM OXALATE 20 MG TAB PO SCH (10:09)
[2022-07-26] MEDS: FLUTICASONE/VILANTEROL 200/25MCG 14 PUFFS/INHALER INH SCH (10:09)
[2022-07-26] MEDS: ISOSORBIDE MONO EXTENDED REL 30 MG TABCR PO SCH (10:10)
[2022-07-26] MEDS: lisinopril 40 MG TAB PO SCH (10:10)
[2022-07-26] MEDS: NICOTINE 14 MG/24 HR PATCH TD SCH (10:10)
[2022-07-26] MEDS: POTASSIUM CHLORIDE CRTAB 20 MEQ TABCR PO SCH ×2 (10:10→15:57)
[2022-07-26] MEDS: METOPROLOL SUCC 25MG EXT REL TAB PO SCH (10:10)
--- NOTE | 2022-07-26 10:35 | XRay Report ---
KUB CLINICAL HISTORY: Nausea and vomiting. FINDINGS: 2 AP, portable, supine abdominal radiographs are compared to study dated 11/25/2015 and shun elated with abdominal CT dated 10/16/2015. There is a nonobstructed abdominal bowel gas pattern. No ev idence of intraperitoneal free air is seen on these supine images. There are no abnormal abdominal ca lcifications. The bony structures appear intact. IMPRESSION: No acute abnormality is identified. Electronically signed by: Anthony Bates M.D. 07/26/2022 10:34 AM
--- NOTE | 2022-07-26 11:08 | Cardiology Progress Note ---
Date of Service July 26, 2022 Assessment & Plan (1) Decompensated heart failure: (2) Medical non-compliance: (3) Left-sided chest pain: (4) Schizoaffective disorder: Plan The patient is back on his home medications. Is heavily sedated Seroquel and is currently sleeping. Provided he is able to take his medications and he remains clinically stable, he can be transferred to the mental health unit for further care. Admission and Anticipated Discharge Date Admission Date: July 25, 2022 Subjective The patient is heavily sedated today. Review of Systems Review of Systems: Not obtainable Physical Exam 2 Physical Exam: General: no acute distress and stated age Head: normocephalic, no masses, lesions, tenderness or abnormalities Eyes: conjunctiva are pink and non-injected, sclera clear Neck: supple, no adenopathy, no bruits, normal jugular venous pulse, no hepatojugular reflux Chest: normal shape and normal respiratory effort Lungs: clear to auscultation and percussion Cardiac Exam: - regular rate & rhythm, no murmurs gallops or rubs - normal S1, normal S2 Pulses: 2(+) throughout Abdomen: abdomen soft, non-tender, no abnormal masses and no hepatosplenomegaly Musculoskeletal: no gait disturbance, no joint inflammation, no deforming arthritis Extremities: no edema and no cyanosis Neuro: grossly normal exam Results & Data ([facility]) Vital Signs (Past 12 Hours) Vital Signs Temp Pulse Resp BP BP Pulse Ox Pulse Ox 07/26/22 10:35 70 20 92 07/26/22 09:29 75 20 144/71 H 92 07/26/22 08:00 07/26/22 03:25 91 07/26/22 02:27 36.3 C L 68 19 129/75 91 07/26/22 00:00 95 07/25/22 23:25 36.6 C 79 20 146/75 H 95 O2 Del Method O2 Del Method 07/26/22 10:35 Room Air 07/26/22 09:29 Room Air 07/26/22 08:00 Room Air 07/26/22 03:25 Room Air 07/26/22 02:27 Room Air 07/26/22 00:00 Room Air 07/25/22 23:25 Room Air Laboratory Results Laboratory Results - last 24 hr 12/18/22 12/19/22 08:16 06:45 Sodium 138 Potassium 4.0 Chloride 107 Carbon Dioxide 28 Anion Gap 3 BUN 19 Creatinine 0.77 Est Cr Clr Drug Dosing 121.6 Est GFR ( Amer) 119.2 Est GFR (Non-Af Amer) 102.9 BUN/Creatinine Ratio 24.7 H Glucose 90 Calcium 7.9 L Magnesium 1.9 Valproic Acid 46 L Medications Administered Current Inpatient Medications Acetaminophen (Acetaminophen 325 Mg Tab) 650 mg PO Q4H PRN PRN Reason: Pain or Fever Stop: 08/24/22 03:24 Albuterol (Albut/Ipratrop 3mg/0.5mg Neb 3 Ml Vial) 3 ml NEB QIDR [facility]; Protocol Stop: 08/24/22 10:59 Last Admin: 07/26/22 10:34 Dose: 3 ml Alprazolam (Alprazolam 0.5 Mg Tablet) 1 mg PO QID PRN PRN Reason: Anxiety Stop: 08/24/22 03:24 Last Admin: 07/25/22 12:58 Dose: 1 mg Atorvastatin Calcium (Atorvastatin 20 Mg Tab) 20 mg PO DAILY [facility] Stop: 08/24/22 08:59 Last Admin: 07/26/22 10:09 Dose: Not Given Dextromethorphan Polymer Complex (Dextromethorphan Polymr Complx 30 Mg/5 Ml Udp) 30 mg PO Q8H PRN PRN Reason: Cough Stop: 08/24/22 12:24 Divalproex Sodium (Divalproex Delay Release 500 Mg Tab) 500 mg PO BID [facility] Stop: 08/24/22 08:59 Last Admin: 07/26/22 10:09 Dose: Not Given Escitalopram Oxalate (Escitalopram Oxalate 20 Mg Tab) 20 mg PO QAM [facility] Stop: 08/24/22 08:59 Last Admin: 07/26/22 10:09 Dose: Not Given Fluticasone Propionate (Fluticasone Propionate Na Spr 16 Gm Btl) 2 sprays ADAM DAILY PRN PRN Reason: Allergy Symptoms Stop: 08/24/22 03:54 Fluticasone/Vilanterol (Fluticasone/Vilanterol 200/25mcg 14 Puffs/Inhaler) 1 puffs INH DAILY [facility] Stop: 08/24/22 08:59 Last Admin: 07/26/22 10:09 Dose: Not Given Furosemide (Furosemide 40 Mg Tab) 40 mg PO DAILYBD [facility] Stop: 08/24/22 15:29 Last Admin: 07/25/22 15:51 Dose: 40 mg Promethazine HCl 12.5 mg/ (Sodium Chloride) 50.5 mls @ 202 mls/hr IV Q6H PRN PRN Reason: Nausea And Vomiting Stop: 08/24/22 02:11 Last Infusion: 07/26/22 08:19 Dose: Infused Isosorbide Mononitrate (Isosorbide [place] Extended Rel 30 Mg Tabcr) 30 mg PO DAILY [facility] Stop: 08/24/22 08:59 Last Admin: 07/26/22 10:10 Dose: Not Given Lactobacillus Acidophilus (Advanced Probiotic 1250 Mg Capsule) 2 cap PO DAILY [facility] Stop: 08/25/22 10:59 Lisinopril (Lisinopril 40 Mg Tab) 40 mg PO DAILY [facility] Stop: 08/24/22 08:59 Last Admin: 07/26/22 10:10 Dose: Not Given Metoprolol Succinate (Metoprolol Succ 25mg Ext Rel Tab) 25 mg PO QAM [facility] Stop: 08/24/22 06:59 Last Admin: 07/26/22 10:10 Dose: Not Given Miscellaneous (Remove Nicoderm Patch) 1 each N/A DAILY@0859 [facility] Stop: 08/24/22 08:58 Last Admin: 07/26/22 07:39 Dose: Not Given Nicotine (Nicotine 14 Mg/24 Hr Patch) 14 mg TD QAM [facility] Stop: 08/24/22 02:14 Last Admin: 07/26/22 10:10 Dose: Not Given Olanzapine (Olanzapine 10 Mg/2.1 Ml Sdv) 2.5 mg IM Q4H PRN PRN Reason: Anxiety/Agitation Stop: 08/24/22 03:55 Oxycodone/Acetaminophen (Oxycodone/Acetaminophen 10-325 Tab) 1 tab PO Q4H PRN PRN Reason: Pain Stop: 08/08/22 08:00 Last Admin: 07/25/22 18:00 Dose: 1 tab Potassium Chloride (Potassium Chloride Crtab 20 Meq Tabcr) 20 meq PO BID17 [facility] Stop: 08/24/22 08:59 Last Admin: 07/26/22 10:10 Dose: Not Given Quetiapine Fumarate (Quetiapine Fumarate 200 Mg Tab) 800 mg PO HS [facility] Stop: 08/24/22 20:59 Last Admin: 07/25/22 20:28 Dose: 800 mg Umeclidinium [place] (Umeclidinium [place] 62.5mcg/Blister 7 Puffs/Inhaler) 1 puffs INH DAILY [facility] Stop: 08/24/22 08:59 Last Admin: 07/25/22 08:20 Dose: 1 puffs
[2022-07-26] MEDS: ADVANCED PROBIOTIC 1250 MG CAPSULE PO SCH (11:55)
--- NOTE | 2022-07-26 13:03 | Communication Note ---
Date of Service: July 26, 2022 Interim progress reviewed. Patient had several episodes of emesis and was more lethargic this am, had received Seroquel 800 mg last hs per hospitalist, dose decreased per hospitalist to 600 mg for tonight. Clarification of 302 warrant status.
[2022-07-26] MEDS: oxyCODONE/ACETAMINOPHEN 5mg/325mg TAB PO PRN ×2 (14:44→20:12)
[2022-07-26] MEDS: FUROSEMIDE 40 MG TAB PO SCH (14:45)
--- NOTE | 2022-07-26 16:05 | Hospitalist Progress Note ---
Date of Service July 26, 2022 Assessment & Plan (1) Decompensated heart failure: Plan: Pleuritic pain Likely due to recent resolving pneumonia Recently completed antibiotic course for pneumonia --CTA:Interval resolution of pneumonia. No evidence of pulmonary embolus is seen. Subcentimeter lymph nodes are seen which are likely reactive. --Rib X ray:No evidence of acute fracture or other acute abnormalities in the visualized portions of the chest. 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 Secondary to medications KUB:No acute abnormality is identified. Monitor volume status Chronic Back pain Minimize narcotic use as able Avoid IV Narcotics as able to minimize excess sedation DVT Px: Lovenox SQ Code Status Full code Admission and Anticipated Discharge Date Admission Date: July 25, 2022 Subjective Patient is seen and examined at bedside Has nausea, vomiting and very drowsy this morning Also had diarrhea per RN Unable to provide much history Review of Systems Review of Systems: All systems reviewed & are unremarkable except as noted in Subjective Physical Exam Physical Exam: Physical Exam: Vitals signs as noted above General Appearance:Moderately built and nourished, no apparent distress Head: normocephalic, Atraumatic Eyes: normal inspection, EOMI Neck: supple, Trachea midline Respiratory/Chest: Decreased breath sounds, B/L wheezes, +Pacemaker, No accessory muscle use Cardiovascular: S1, S2, No murmur Abdomen/GI:Soft, Non tender, Bowel sounds present Extremities/Musculoskeletal:normal inspection, no edema Neurologic/Psych:AAOX3, grossly no focal neurological deficits Skin: normal color, warm Results & Data Results & Data ([facility]) Vital Signs (Past 12 Hours) Vital Signs Pulse Resp BP Pulse Ox O2 Del Method 07/26/22 10:35 70 20 92 Room Air 07/26/22 09:29 75 20 144/71 H 92 Room Air 07/26/22 08:00 Room Air Laboratory Results [facility] 07/26/22 06:45 Sodium 138 Potassium 4.0 Chloride 107 Carbon Dioxide 28 BUN 19 Creatinine 0.77 Glucose 90 Calcium 7.9 L
[2022-07-26] MEDS: QUEtiapine FUMARATE 300 MG TABLET PO SCH ×2 (20:12→20:36)
[2022-07-27] MEDS: oxyCODONE/ACETAMINOPHEN 5mg/325mg TAB PO PRN ×5 (00:13→22:47)
[2022-07-27] MEDS: ALPRAZolam 0.5 MG TABLET PO PRN ×3 (00:14→19:14)
[2022-07-27 07:08] LABS: Hematocrit (blood only) 44.1 % (40.1-51.0); Hemoglobin 15.1 g/dl (14.0-18.0); Mean Corpuscular Hemoglobin 31.9 pg (25.0-34.0); Mean Corpuscular Hgb Conc 34.2 g/dL (32.0-36.0); Mean Corpuscular Volume 93.2 fL (80.0-100.0); Mean Platelet Volume 11.3 fL (9.4-12.4); Platelet Count 158 K/uL (130-400); RDW Coefficient of Variation 13.7 % (11.5-14.5); RDW Standard Deviation 47.7 fL (36.4-46.3); Red Blood Count 4.73 M/uL (4.63-6.08); White Blood Count 12.18 K/ul (4.8-10.8)
[2022-07-27 07:44] LABS: BUN Creatinine Ratio 22.4 (10-20); Calcium 7.9 mg/dl (8.5-10.1); Creatinine Clr Calc Pharmacy 110.5 ml/min; Est GFR (African American) 114.5 ml/min; Est GFR (Non-African American) 98.8 ml/min; Potassium 4.1 mmol/L (3.5-5.1)
[2022-07-27] MEDS: ATORVASTATIN 20 MG TAB PO SCH (08:25)
[2022-07-27] MEDS: FLUTICASONE/VILANTEROL 200/25MCG 14 PUFFS/INHALER INH SCH (08:25)
[2022-07-27] MEDS: NICOTINE 14 MG/24 HR PATCH TD SCH (08:25)
[2022-07-27] MEDS: DIVALPROEX DELAY RELEASE 500 MG TAB PO SCH ×2 (08:26→20:08)
[2022-07-27] MEDS: ESCITALOPRAM OXALATE 20 MG TAB PO SCH (08:26)
[2022-07-27] MEDS: POTASSIUM CHLORIDE CRTAB 20 MEQ TABCR PO SCH ×2 (08:26→15:32)
[2022-07-27] MEDS: METOPROLOL SUCC 25MG EXT REL TAB PO SCH (08:26)
[2022-07-27] MEDS: lisinopril 40 MG TAB PO SCH (08:26)
[2022-07-27] MEDS: ADVANCED PROBIOTIC 1250 MG CAPSULE PO SCH (08:27)
[2022-07-27] MEDS: ISOSORBIDE MONO EXTENDED REL 30 MG TABCR PO SCH (08:27)
[2022-07-27] MEDS: ALBUT/IPRATROP 3MG/0.5MG NEB 3 ML VIAL NEB PRN (09:00)
[2022-07-27] MEDS: UMECLIDINIUM BROMIDE 62.5MCG/BLISTER 7 PUFFS/INHALER INH SCH (10:37)
--- NOTE | 2022-07-27 11:28 | Cardiology Progress Note ---
Date of Service July 27, 2022 Assessment & Plan (1) Decompensated heart failure: (2) Medical non-compliance: (3) Left-sided chest pain: (4) Schizoaffective disorder: Plan The patient is clinically stable and can be transferred to the mental health floor. Continue his current cardiac medications. Of note is that he had a device interrogation in the emergency department and appears to be functioning appropriately. Adequate battery life. His lower rate cut off is 40 bpm. Admission and Anticipated Discharge Date Admission Date: July 25, 2022 Subjective The patient remains agitated today. There is a one-on-one with him but he will not let her in the room so she sits outside the room and observes him. Review of Systems Review of Systems: Not obtainable Physical Exam Physical Exam: General: no acute distress and stated age Head: normocephalic, no masses, lesions, tenderness or abnormalities Eyes: conjunctiva are pink and non-injected, sclera clear Neck: supple, no adenopathy, no bruits, normal jugular venous pulse, no hepatojugular reflux Chest: normal shape and normal respiratory effort Lungs: clear to auscultation and percussion Cardiac Exam: - regular rate & rhythm, no murmurs gallops or rubs - normal S1, normal S2 Pulses: 2(+) throughout Abdomen: abdomen soft, non-tender, no abnormal masses and no hepatosplenomegaly Musculoskeletal: no gait disturbance, no joint inflammation, no deforming arthritis Extremities: no edema and no cyanosis Neuro: grossly normal exam Results & Data ([facility]) Vital Signs (Past 12 Hours) Vital Signs Temp Pulse Pulse Resp BP BP Pulse Ox 07/27/22 11:03 37.2 C 71 18 158/90 H 97 07/27/22 09:00 84 18 99 07/27/22 07:57 77 07/27/22 07:57 07/27/22 07:25 36.6 C 61 18 134/78 94 07/27/22 04:21 37.1 C 74 15 133/86 97 07/26/22 23:30 93 H O2 Del Method 07/27/22 11:03 Room Air 07/27/22 09:00 Room Air 07/27/22 07:57 07/27/22 07:57 Room Air 07/27/22 07:25 Room Air 07/27/22 04:21 Room Air 07/26/22 23:30 Laboratory Results Laboratory Results - last 24 hr 07/27/22 07/27/22 06:42 06:42 WBC 12.18 H RBC 4.73 Hgb 15.1 Hct 44.1 MCV 93.2 MCH 31.9 MCHC 34.2 RDW Std Deviation 47.7 H RDW Coeff of Seven 13.7 Plt Count 158 MPV 11.3 Sodium 141 Potassium 4.1 Chloride 109 H Carbon Dioxide 27 Anion Gap 5 BUN 19 Creatinine 0.85 Est Cr Clr Drug Dosing 110.5 Est GFR ( Amer) 114.5 Est GFR (Non-Af Amer) 98.8 BUN/Creatinine Ratio 22.4 H Glucose 87 Calcium 7.9 L Medications Administered Current Inpatient Medications Acetaminophen (Acetaminophen 325 Mg Tab) 650 mg PO Q4H PRN PRN Reason: Pain or Fever Stop: 08/24/22 03:24 Albuterol (Albut/Ipratrop 3mg/0.5mg Neb 3 Ml Vial) 3 ml NEB QIDR [facility]; Protocol Stop: 08/24/22 10:59 Last Admin: 07/26/22 19:36 Dose: Not Given Albuterol (Albut/Ipratrop 3mg/0.5mg Neb 3 Ml Vial) 3 ml NEB Q2H PRN; Protocol PRN Reason: Wheezing Stop: 08/25/22 21:37 Last Admin: 07/27/22 09:00 Dose: 3 ml Alprazolam (Alprazolam 0.5 Mg Tablet) 0.5 mg PO QID PRN PRN Reason: Anxiety Stop: 08/24/22 03:24 Last Admin: 07/27/22 09:28 Dose: 0.5 mg Atorvastatin Calcium (Atorvastatin 20 Mg Tab) 20 mg PO DAILY [facility] Stop: 08/24/22 08:59 Last Admin: 07/27/22 08:25 Dose: Not Given Dextromethorphan Polymer Complex (Dextromethorphan Polymr Complx 30 Mg/5 Ml Udp) 30 mg PO Q8H PRN PRN Reason: Cough Stop: 08/24/22 12:24 Divalproex Sodium (Divalproex Delay Release 500 Mg Tab) 500 mg PO BID [facility] Stop: 08/24/22 08:59 Last Admin: 07/27/22 08:26 Dose: 500 mg Escitalopram Oxalate (Escitalopram Oxalate 20 Mg Tab) 20 mg PO QAM [facility] Stop: 08/24/22 08:59 Last Admin: 07/27/22 08:26 Dose: 20 mg Fluticasone Propionate (Fluticasone Propionate Na Spr 16 Gm Btl) 2 sprays ADAM DAILY PRN PRN Reason: Allergy Symptoms Stop: 08/24/22 03:54 Fluticasone/Vilanterol (Fluticasone/Vilanterol 200/25mcg 14 Puffs/Inhaler) 1 puffs INH DAILY [facility] Stop: 08/24/22 08:59 Last Admin: 07/27/22 08:25 Dose: Not Given Furosemide (Furosemide 40 Mg Tab) 40 mg PO DAILYBD [facility] Stop: 08/24/22 15:29 Last Admin: 07/26/22 14:45 Dose: 40 mg Promethazine HCl 12.5 mg/ (Sodium Chloride) 50.5 mls @ 202 mls/hr IV Q6H PRN PRN Reason: Nausea And Vomiting Stop: 08/24/22 02:11 Last Infusion: 07/26/22 08:19 Dose: Infused Isosorbide Mononitrate (Isosorbide [place] Extended Rel 30 Mg Tabcr) 30 mg PO DAILY [facility] Stop: 08/24/22 08:59 Last Admin: 07/27/22 08:27 Dose: 30 mg Lactobacillus Acidophilus (Advanced Probiotic 1250 Mg Capsule) 2 cap PO DAILY [facility] Stop: 08/25/22 10:59 Last Admin: 07/27/22 08:27 Dose: 2 cap Lisinopril (Lisinopril 40 Mg Tab) 40 mg PO DAILY [facility] Stop: 08/24/22 08:59 Last Admin: 07/27/22 08:26 Dose: 40 mg Metoprolol Succinate (Metoprolol Succ 25mg Ext Rel Tab) 25 mg PO QAM [facility] Stop: 08/24/22 06:59 Last Admin: 07/27/22 08:26 Dose: 25 mg Miscellaneous (Remove Nicoderm Patch) 1 each N/A DAILY@0859 [facility] Stop: 08/24/22 08:58 Last Admin: 07/27/22 08:24 Dose: Not Given Nicotine (Nicotine 14 Mg/24 Hr Patch) 14 mg TD QAM [facility] Stop: 08/24/22 02:14 Last Admin: 07/27/22 08:25 Dose: Not Given Olanzapine (Olanzapine 10 Mg/2.1 Ml Sdv) 2.5 mg IM Q4H PRN PRN Reason: Anxiety/Agitation Stop: 08/24/22 03:55 Oxycodone/Acetaminophen (Oxycodone/Acetaminophen 5mg/325mg Tab) 1 tab PO Q4H PRN PRN Reason: Pain Stop: 08/09/22 12:42 Last Admin: 07/27/22 08:26 Dose: 1 tab Potassium Chloride (Potassium Chloride Crtab 20 Meq Tabcr) 20 meq PO BID17 [facility] Stop: 08/24/22 08:59 Last Admin: 07/27/22 08:26 Dose: 20 meq Quetiapine Fumarate (Quetiapine Fumarate 300 Mg Tablet) 600 mg PO HS [facility] Stop: 08/25/22 20:59 Last Admin: 07/26/22 20:36 Dose: 300 mg Umeclidinium [place] (Umeclidinium [place] 62.5mcg/Blister 7 Puffs/Inhaler) 1 puffs INH DAILY [facility] Stop: 08/24/22 08:59 Last Admin: 07/27/22 10:37 Dose: 1 puffs
[2022-07-27] MEDS: FUROSEMIDE 40 MG TAB PO SCH (15:32)
--- NOTE | 2022-07-27 16:13 | Hospitalist Progress Note ---
Date of Service July 27, 2022 Assessment & Plan (1) Decompensated heart failure: Plan: Pleuritic pain Likely due to recent resolving pneumonia Recently completed antibiotic course for pneumonia --CTA:Interval resolution of pneumonia. No evidence of pulmonary embolus is seen. Subcentimeter lymph nodes are seen which are likely reactive. --Rib X ray:No evidence of acute fracture or other acute abnormalities in the visualized portions of the chest. 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 Secondary to medications KUB:No acute abnormality is identified. Monitor volume status Stool studies if has recurrence of diarrhea Chronic Back pain Minimize narcotic use as able Avoid IV Narcotics as able to minimize excess sedation DVT Px: Lovenox SQ Code Status Full code Admission and Anticipated Discharge Date Admission Date: July 25, 2022 Subjective Patient is seen and examined at bedside More alert, awake today Tearful during my encounter Admits to having suicidal thoughts Discussed with Cardiology today Reports chronic dyspnea, cough Also reports nausea, diarrhea Review of Systems Review of Systems: All systems reviewed & are unremarkable except as noted in Subjective Physical Exam Physical Exam: Physical Exam: Vitals signs as noted above General Appearance:Moderately built and nourished, no apparent distress Head: normocephalic, Atraumatic Eyes: normal inspection, EOMI Neck: supple, Trachea midline Respiratory/Chest: Decreased breath sounds, B/L wheezes, +Pacemaker, No accessory muscle use Cardiovascular: S1, S2, No murmur Abdomen/GI:Soft, Non tender, Bowel sounds present Extremities/Musculoskeletal:normal inspection, no edema Neurologic/Psych:AAOX3, grossly no focal neurological deficits Skin: normal color, warm Results & Data Results & Data ([facility]) Vital Signs (Past 12 Hours) Vital Signs Temp Pulse Pulse Resp BP BP Pulse Ox 07/27/22 15:00 80 07/27/22 15:00 36.9 C 45 L 19 143/73 H 96 07/27/22 11:03 37.2 C 71 18 158/90 H 97 07/27/22 09:00 84 18 99 07/27/22 07:57 77 07/27/22 07:57 07/27/22 07:25 36.6 C 61 18 134/78 94 07/27/22 04:21 37.1 C 74 15 133/86 97 O2 Del Method 07/27/22 15:00 07/27/22 15:00 Room Air 07/27/22 11:03 Room Air 07/27/22 09:00 Room Air 07/27/22 07:57 07/27/22 07:57 Room Air 07/27/22 07:25 Room Air 07/27/22 04:21 Room Air Laboratory Results Short CBC 07/27/22 Range/Units 06:42 WBC 12.18 H (4.8-10.8) K/ul Hgb 15.1 (14.0-18.0) g/dl Hct 44.1 (40.1-51.0) % Plt Count 158 (130-400) K/uL BMP 07/27/22 06:42 Sodium 141 Potassium 4.1 Chloride 109 H Carbon Dioxide 27 BUN 19 Creatinine 0.85 Glucose 87 Calcium 7.9 L
[2022-07-27] MEDS ORDERED: Nursing to Pharmacy Communication SCH (16:15)
[2022-07-27] MEDS: QUEtiapine FUMARATE 300 MG TABLET PO SCH (20:07)
[2022-07-28] MEDS ORDERED: oxyCODONE/ACETAMINOPHEN 5mg/325mg TAB PO PRN (03:39)
[2022-07-28] MEDS: ATORVASTATIN 20 MG TAB PO SCH (09:41)
[2022-07-28] MEDS: ADVANCED PROBIOTIC 1250 MG CAPSULE PO SCH ×2 (09:42→09:44)
[2022-07-28] MEDS: ESCITALOPRAM OXALATE 20 MG TAB PO SCH (09:43)
[2022-07-28] MEDS: DIVALPROEX DELAY RELEASE 500 MG TAB PO SCH ×2 (09:43→21:22)
[2022-07-28] MEDS: lisinopril 40 MG TAB PO SCH (09:43)
[2022-07-28] MEDS: FUROSEMIDE 40 MG TAB PO SCH (09:43)
[2022-07-28] MEDS: METOPROLOL SUCC 25MG EXT REL TAB PO SCH (09:43)
[2022-07-28] MEDS: UMECLIDINIUM BROMIDE 62.5MCG/BLISTER 7 PUFFS/INHALER INH SCH (09:43)
[2022-07-28] MEDS: FLUTICASONE/VILANTEROL 200/25MCG 14 PUFFS/INHALER INH SCH (09:43)
[2022-07-28] MEDS: ISOSORBIDE MONO EXTENDED REL 30 MG TABCR PO SCH (09:44)
[2022-07-28] MEDS: POTASSIUM CHLORIDE CRTAB 20 MEQ TABCR PO SCH ×2 (09:44→15:45)
[2022-07-28] MEDS: NICOTINE 14 MG/24 HR PATCH TD SCH (09:45)
--- NOTE | 2022-07-28 11:52 | Communication Note ---
Date of Service: July 28, 2022 interim progress reviewed. liaison rounded on patient yesterday and remains evasive re: history or collateral, continues to voice SI [facility] Active [facility] warrant pending medical clearance but would be voluntary. Requires bipap and resolving pneumonia. Has been receiving prn Xanax but lower dose to essentially taper. Patient resistant to taper.
[2022-07-28] MEDS: ALPRAZolam 0.5 MG TABLET PO PRN ×2 (11:57→21:22)
[2022-07-28] MEDS: oxyCODONE/ACETAMINOPHEN 5mg/325mg TAB PO PRN ×2 (13:11→19:30)
--- NOTE | 2022-07-28 14:55 | Hospitalist Progress Note ---
Date of Service July 28, 2022 Assessment & Plan (1) Decompensated heart failure: Plan: Pleuritic pain Likely due to recent resolving pneumonia Recently completed antibiotic course for pneumonia --CTA:Interval resolution of pneumonia. No evidence of pulmonary embolus is seen. Subcentimeter lymph nodes are seen which are likely reactive. --Rib X ray:No evidence of acute fracture or other acute abnormalities in the visualized portions of the chest. -- Incentive spirometry Pain control Antitussives as needed Minimize narcotics as able, seemed to have tendency to overuse Pain is controlled Continue current medications Chronic systolic heart failure H/O Nonischemic cardiomyopathy Last ECHO:EF 20 to 25% S/P ICD Valvular heart disease Medication noncompliance No signs of volume overload currently Continue Lasix, isosorbide, lisinopril, metoprolol Monitor volume status Cardiology on board Pacemaker interrogation--appropriately functioning as per cardiology NSVT Continue current medications Monitor and replete electrolytes as needed COPD Pulmonary Hypertension Ongoing tobacco use Continue nebs, home inhalers 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 Secondary to medications KUB:No acute abnormality is identified. Monitor volume status Stool studies if has recurrence of diarrhea Chronic Back pain Minimize narcotic use as able Avoid IV Narcotics as able to minimize excess sedation DVT Px: Lovenox SQ Code Status Full code Admission and Anticipated Discharge Date Admission Date: July 25, 2022 Subjective Patient is seen and examined at bedside Had 15 beats of NSVT overnight Patient states feeling better today Discussed with cardiology today Less dyspnea today Denies any diarrhea Has chronic cough Denies any chest pain, dizziness, nausea, abdominal pain Review of Systems Review of Systems: All systems reviewed & are unremarkable except as noted in Subjective Physical Exam Physical Exam: Physical Exam: Vitals signs as noted above General Appearance:Moderately built and nourished, no apparent distress Head: normocephalic, Atraumatic Eyes: normal inspection, EOMI Neck: supple, Trachea midline Respiratory/Chest: Decreased breath sounds, B/L wheezes, +Pacemaker, No ac cessory muscle use Cardiovascular: S1, S2, No murmur Abdomen/GI:Soft, Non tender, Bowel sounds present Extremities/Musculoskeletal:normal inspection, no edema Neurologic/Psych:AAOX3, grossly no focal neurological deficits Skin: normal color, warm Results & Data Results & Data ([facility]) Vital Signs (Past 12 Hours) Vital Signs Temp Pulse Pulse Resp BP BP Pulse Ox 07/28/22 08:32 71 07/28/22 08:32 07/28/22 08:14 36.7 C 78 20 151/88 H 95 07/28/22 04:30 36.7 C 73 14 134/74 98 O2 Del Method 07/28/22 08:32 07/28/22 08:32 CPAP 07/28/22 08:14 Room Air 07/28/22 04:30 Room Air
[2022-07-28 15:02] LABS: BUN Creatinine Ratio 15.7 (10-20); Calcium 8.2 mg/dl (8.5-10.1); Creatinine Clr Calc Pharmacy 91.8 ml/min; Est GFR (African American) 96.1 ml/min; Est GFR (Non-African American) 82.9 ml/min; Magnesium 1.7 mg/dl (1.7-2.4)
[2022-07-28] MEDS: MAGNESIUM SULFATE / D5W 1 GM/100 ML BAG IV SCH ×2 (15:44→17:35)
[2022-07-28] MEDS: QUEtiapine FUMARATE 300 MG TABLET PO SCH (21:23)
[2022-07-29] MEDS: oxyCODONE/ACETAMINOPHEN 5mg/325mg TAB PO PRN ×4 (03:17→22:10)
[2022-07-29] MEDS: ACETAMINOPHEN 325 MG TAB PO PRN ×2 (05:59→22:10)
[2022-07-29 08:48] LABS: BUN Creatinine Ratio 21.7 (10-20); Calcium 8.1 mg/dl (8.5-10.1); Creatinine Clr Calc Pharmacy 112.8 ml/min; Est GFR (African American) 115.6 ml/min; Est GFR (Non-African American) 99.8 ml/min; Magnesium 1.9 mg/dl (1.7-2.4); Potassium 3.8 mmol/L (3.5-5.1)
[2022-07-29] MEDS: UMECLIDINIUM BROMIDE 62.5MCG/BLISTER 7 PUFFS/INHALER INH SCH (08:50)
[2022-07-29] MEDS: FLUTICASONE/VILANTEROL 200/25MCG 14 PUFFS/INHALER INH SCH (08:50)
[2022-07-29] MEDS: DIVALPROEX DELAY RELEASE 500 MG TAB PO SCH ×2 (08:51→22:06)
[2022-07-29] MEDS: ATORVASTATIN 20 MG TAB PO SCH (08:51)
[2022-07-29] MEDS: ESCITALOPRAM OXALATE 20 MG TAB PO SCH (08:52)
[2022-07-29] MEDS: FUROSEMIDE 40 MG TAB PO SCH (08:52)
[2022-07-29] MEDS: ISOSORBIDE MONO EXTENDED REL 30 MG TABCR PO SCH (08:53)
[2022-07-29] MEDS: lisinopril 40 MG TAB PO SCH (08:53)
[2022-07-29] MEDS: METOPROLOL SUCC 25MG EXT REL TAB PO SCH (08:53)
[2022-07-29] MEDS: NICOTINE 14 MG/24 HR PATCH TD SCH (08:54)
[2022-07-29] MEDS: POTASSIUM CHLORIDE CRTAB 20 MEQ TABCR PO SCH ×2 (08:55→16:13)
[2022-07-29] MEDS: ALPRAZolam 0.5 MG TABLET PO PRN ×2 (09:49→22:10)
[2022-07-29] MEDS: ALBUT/IPRATROP 3MG/0.5MG NEB 3 ML VIAL NEB PRN (12:01)
--- NOTE | 2022-07-29 12:47 | Hospitalist Progress Note ---
Date of Service July 29, 2022 Assessment & Plan (1) Decompensated heart failure: Plan: Pleuritic pain Likely due to recent resolving pneumonia Recently completed antibiotic course for pneumonia --CTA:Interval resolution of pneumonia. No evidence of pulmonary embolus is seen. Subcentimeter lymph nodes are seen which are likely reactive. --Rib X ray:No evidence of acute fracture or other acute abnormalities in the visualized portions of the chest. Pain control Antitussives as needed Minimize narcotics as able, has tendency to overuse Pain is controlled Continue incentive spirometry Chronic systolic heart failure H/O Nonischemic cardiomyopathy Last ECHO:EF 20 to 25% S/P ICD Valvular heart disease Medication noncompliance No signs of volume overload currently Continue Lasix, isosorbide, lisinopril, metoprolol Monitor volume status Cardiology on board Pacemaker interrogation--appropriately functioning as per cardiology Volume status stable NSVT Continue current medications Monitor and replete electrolytes as needed COPD Pulmonary Hypertension Ongoing tobacco use Continue nebs, home inhalers [employer] to quit smoking Nicotine Patch Nebs PRN Respiratory status stable continue current medications HAFSA Continue CPAP HS Chronic Troponin elevation Less likely ACS Troponin Levels better when compared to prior Hyperlipidemia on statin Possible suicidality H/O Anxiety/mood disorder Schizoaffective disorder Continue home medications Suicidal precautions Seroquel decreased to 600 mg to minimize excess sedation Ativan decreased to 0.5 mg as needed to minimize excess sedation Psychiatry following Nausea, vomiting, diarrhea ? Secondary to medications KUB:No acute abnormality is identified. Monitor volume status Stool studies if has recurrence of diarrhea Chronic Back pain Minimize narcotic use as able Avoid IV Narcotics as able to minimize excess sedation DVT Px: Lovenox SQ Code Status Full code Admission and Anticipated Discharge Date Admission Date: July 25, 2022 Subjective Patient is seen and examined at bedside Reports intermittent dyspnea Discussed with Psychiatry today No significant cough today Denies any chest pain, dizziness, nausea, abdominal pain Review of Systems Review of Systems: All systems reviewed & are unremarkable except as noted in Subjective Physical Exam Physical Exam: Physical Exam: Vitals signs as noted above General Appearance:Moderately built and nourished, no apparent distress Head: normocephalic, Atraumatic Eyes: normal inspection, EOMI Neck: supple, Trachea midline Respiratory/Chest: Decreased breath sounds, scant wheezes, +Pacemaker, No accessory muscle use Cardiovascular: S1, S2, No murmur Abdomen/GI:Soft, Non tender, Bowel sounds present Extremities/Musculoskeletal:normal inspection, no edema Neurologic/Psych:AAOX3, grossly no focal neurological deficits Skin: normal color, warm Results & Data Results & Data ([facility]) Vital Signs (Past 12 Hours) Vital Signs Temp Pulse Pulse Resp BP Pulse Ox O2 Del Method 07/29/22 12:01 72 18 98 Room Air 07/29/22 07:31 84 07/29/22 04:00 37 C 82 18 132/74 89 L Room Air, BiPAP 07/29/22 02:34 61 19 95 FiO2 07/29/22 12:01 07/29/22 07:31 07/29/22 04:00 07/29/22 02:34 21 Laboratory Results BMP 07/28/22 07/29/22 14:18 08:07 Sodium 141 139 Potassium 4.0 3.8 Chloride 108 H 107 Carbon Dioxide 30 29 BUN 16 18 Creatinine 1.02 0.83 Glucose 97 90 Calcium 8.2 L 8.1 L
--- NOTE | 2022-07-29 14:44 | Communication Note ---
Date of Service: July 29, 2022 patient is willing for voluntary inpatient admission when medically cleared if indicated. 302 warrant has been on chart up to this point in the hospital stay and will be dispositioned as he is not in need of involuntary treatment.
[2022-07-29] MEDS: QUEtiapine FUMARATE 300 MG TABLET PO SCH (22:07)
[2022-07-30] MEDS: oxyCODONE/ACETAMINOPHEN 5mg/325mg TAB PO PRN ×4 (04:13→22:54)
[2022-07-30 08:37] LABS: BUN Creatinine Ratio 17.4 (10-20); Calcium 8.3 mg/dl (8.5-10.1); Creatinine Clr Calc Pharmacy 108.9 ml/min; Est GFR (African American) 113.9 ml/min; Est GFR (Non-African American) 98.3 ml/min; Magnesium 1.8 mg/dl (1.7-2.4); Potassium 3.8 mmol/L (3.5-5.1)
[2022-07-30 09:29] LABS: Hematocrit (blood only) 44.7 % (40.1-51.0); Hemoglobin 15.1 g/dl (14.0-18.0); Mean Corpuscular Hemoglobin 31.9 pg (25.0-34.0); Mean Corpuscular Hgb Conc 33.8 g/dL (32.0-36.0); Mean Corpuscular Volume 94.3 fL (80.0-100.0); Mean Platelet Volume 11.6 fL (9.4-12.4); Platelet Count 165 K/uL (130-400); RDW Coefficient of Variation 13.5 % (11.5-14.5); RDW Standard Deviation 46.9 fL (36.4-46.3); Red Blood Count 4.74 M/uL (4.63-6.08); White Blood Count 14.85 K/ul (4.8-10.8)
--- NOTE | 2022-07-30 09:57 | XRay Report ---
XR chest 1V portable CLINICAL HISTORY: Dyspnea COMPARISON STUDY: Chest CT July 25, 2022. FINDINGS: Left subclavian biventricular pacer/AICD is in place. Cardiomegaly is unchanged. No evidenc e for pulmonary edema. No pneumothorax or pleural effusion. There is no consolidation. There is been no significant change in appearance of the chest. IMPRESSION: No acute cardiopulmonary findings. Cardiomegaly. ACT 112: Negative or not required by law. Electronically signed by: Brain Garcia M.D. 07/30/2022 9:56 AM
[2022-07-30] MEDS: FLUTICASONE/VILANTEROL 200/25MCG 14 PUFFS/INHALER INH SCH (10:25)
[2022-07-30] MEDS: UMECLIDINIUM BROMIDE 62.5MCG/BLISTER 7 PUFFS/INHALER INH SCH (10:27)
[2022-07-30] MEDS: ATORVASTATIN 20 MG TAB PO SCH (10:29)
[2022-07-30] MEDS: ISOSORBIDE MONO EXTENDED REL 30 MG TABCR PO SCH (10:30)
[2022-07-30] MEDS: FUROSEMIDE 40 MG TAB PO SCH (10:30)
[2022-07-30] MEDS: ADVANCED PROBIOTIC 1250 MG CAPSULE PO SCH (10:30)
[2022-07-30] MEDS: DIVALPROEX DELAY RELEASE 500 MG TAB PO SCH ×2 (10:30→21:29)
[2022-07-30] MEDS: NICOTINE 14 MG/24 HR PATCH TD SCH (10:30)
[2022-07-30] MEDS: POTASSIUM CHLORIDE CRTAB 20 MEQ TABCR PO SCH ×2 (10:30→16:53)
[2022-07-30] MEDS: METOPROLOL SUCC 25MG EXT REL TAB PO SCH (10:30)
[2022-07-30] MEDS: lisinopril 40 MG TAB PO SCH (10:30)
[2022-07-30] MEDS: ESCITALOPRAM OXALATE 20 MG TAB PO SCH (10:30)
[2022-07-30] MEDS ORDERED: ERTAPENEM SODIUM 1,000 MG in SYRINGE 0 ML IV SCH (11:00)
[2022-07-30] MEDS ORDERED: MoRPHine SULFATE 4 MG/ML 1 ML CARP\\VIAL IV STA (11:32)
[2022-07-30] MEDS ORDERED: OPTIRAY 350 100ml IV ONE (11:38)
--- NOTE | 2022-07-30 11:50 | Surgery Consultation ---
Date of Consultation July 30, 2022 Assessment & Plan (1) Perineal abscess: Antibiotics were just changed to cefepime and Flagyl. CT scan is pending. Although he has had a small amount of drainage, no prior required additional I&D. Patient had breakfast and would like to try this at the bedside however I do not think you will tolerate it very well. We will follow-up on CT and may consider drainage in the OR under sedation tomorrow versus I&D at the bedside. Supervising Physician Co-Signing Physician Notes As per Merly tobar CT scans showed 5 cm x 3 cm left perineal abscess We will plan incision and drainage tomorrow in the operating room History of Present Illness Attending Physician: Joe Stout MD History of Present Illness 52-year-old male admitted last week for heart failure complaining of perineal pain and cyst that comes and goes. He was able to express some pus from this t his morning. He has been on Bactrim in the past for this. He has never had drainage. He is on one-to-one care has history including schizoaffective disorder suicidal ideation. History of respiratory failure and pneumonia and cardiomyopathy. Allergies Allergy/AdvReac Type Severity Reaction Status Date / Time hydrocodone Allergy Unknown PT ABLE TO Unverified 06/21/22 09:28 TAKE TYLENOL tramadol Allergy Hives Verified 06/21/22 09:28 amoxicillin AdvReac SOB Verified 06/21/22 09:28 Home Medications Medication Instructions Recorded Confirmed Type ATORVASTATIN (LIPITOR) 20 mg PO DAILY ##0 10/25/11 07/25/22 History Fluticasone Propionate (Nasal) 2 spry ADAM DAILY PRN Allergy 09/06/15 07/25/22 History (Flonase Allergy Relief) Symptoms ##0 Lisinopril (Zestril) 40 mg PO DAILY #0 tabs 09/06/15 07/25/22 History dicyclomine 10 mg capsule 10 mg PO QID PRN .ABD PAIN 06/20/22 07/24/22 History divalproex 500 mg tablet,delayed 500 mg PO BID 06/20/22 07/24/22 History release escitalopram oxalate 20 mg tablet 20 mg PO QAM 06/20/22 07/24/22 History isosorbide mononitrate 30 mg 30 mg PO DAILY 06/20/22 07/24/22 History tablet,extended release 24 hr ondansetron 4 mg disintegrating 4 mg PO Q8H PRN Nausea 06/20/22 07/24/22 History tablet oxycodone-acetaminophen 10 mg-325 1 tab PO Q4H PRN Pain 06/20/22 07/24/22 History mg tablet (Percocet) albuterol sulfate 2.5 mg/3 mL 2.5 mg (3 mL) inhalation QID PRN 06/28/22 07/24/22 Rx (0.083 %) solution for nebulization shortness of breath or wheezing #90 mL alprazolam 2 mg tablet 1 mg PO QID PRN Anxiety #1 tab 06/28/22 07/24/22 Rx fluticasone furoate 200 1 ea inhalation DAILY #60 ea 06/28/22 07/25/22 Rx mcg-vilanterol 25 mcg/dose inhalation powder (Breo Ellipta) furosemide 40 mg tablet (Lasix) 40 mg PO DAILYBD #30 tabs 06/28/22 07/24/22 Rx metoprolol succinate 50 mg 50 mg PO QAM #30 tabs 06/28/22 07/24/22 Rx tablet,extended release 24 hr potassium chloride 20 mEq 20 meq PO BID #1 tab 06/28/22 07/24/22 Rx tablet,extended release prednisone 10 mg tablet 10 mg PO UD #12 tabs 06/28/22 07/24/22 Rx umeclidinium 62.5 mcg/actuation 1 inh inhalation DAILY #30 ea 06/28/22 07/24/22 Rx blister powder for inhalation (Incruse Ellipta) quetiapine 400 mg tablet 600 mg PO HS 07/24/22 07/26/22 History Patient History Medical History (Updated 07/31/22 @ 07:19 by Maynor Esqueda MD) Acute bronchiolitis due to other infectious organisms Acute systolic CHF (congestive heart failure) Hypoxia Medical non-compliance Pacemaker Schizoaffective disorder Suicide ideation Surgical History (Updated 07/31/22 @ 07:12 by Maynor Esqueda MD) History of cardiac defibrillator placement History of permanent cardiac pacemaker placement Social History Smoking Status: Current every day smoker Second Hand Exposure: No; Hx Alcohol Use: No Hx Substance Use: No Preferred Language: Tajik Communication Ability: Effective Senior Pensions Administrator Required: No Beliefs That Will Affect Care: None marital status: Unknown Current Living Situation: Alone Current Living Situation Comment: lives alone in apartment Feels Safe at Home: Yes Assistive Devices: None Review of Systems Constitutional: no fever and no chills Physical Exam Constitutional: no acute distress Gastrointestinal (Abdomen): 4 cm collection between scrotum and anus, tender, fluctuant Results & Data ([facility]) Vital Signs (Past 12 Hours) Vital Signs Temp Pulse Pulse Resp BP Pulse Ox O2 Del Method 07/30/22 08:00 79 07/30/22 10:37 37.5 C 95 H 18 154/97 H 94 Room Air 07/30/22 07:04 37.1 C 88 18 143/78 H 97 Room Air 07/30/22 02:24 37.3 C 90 18 148/77 H 93 BiPAP PG Care Time/CCT Total # of Minutes Spent Total Time Spent with Patient: Total time spent is greater than 50% in coordination of care (as documented) at patient's floor/unit and/or counseling patient: Coding Level of Care Code 02169 Office/OBS Consult Lvl 2 Diagnoses Perineal abscess L02.215
[2022-07-30] MEDS: CEFEPIME 2,000 MG in SYRINGE 0 ML IV SCH ×2 (12:15→22:55)
[2022-07-30] MEDS: metroNIDAZOLE 500 MG/100 ML BAG IV SCH ×2 (12:15→19:35)
--- NOTE | 2022-07-30 12:22 | CT Scan Report ---
ABDOMEN AND PELVIS CT WITH IV CONTRAST CT DOSE: 923.16 mGy.cm HISTORY: Patient presents with palpable abnormality of the inguinal tissues. groin abscess TECHNIQUE: Multiaxial CT images of the abdomen and pelvis were performed following the IV administrat ion of 91 cc of Optiray, A dose lowering technique was utilized adhering to the principles of ALARA. COMPARISON STUDY: CT abdomen and pelvis 10/16/2015 FINDINGS: Cardiomegaly with partially imaged pacer/AICD leads. Trace pleural effusions. Mild dependen t subsegmental bibasilar atelectasis. There is no pneumatosis or pneumoperitoneum. Unremarkable splee n, pancreas and adrenal glands. Contracted gallbladder. The liver is mildly enlarged. Patency of the hepatic and portal veins. 1.7 cm cyst of the superior pole left kidney. There is no hydronephrosis. M ild prostamegaly. Circumferential urinary bladder wall thickening with partial distention. Retroaorti c left renal vein. No abdominal aortic aneurysm. Enlarged iliac and inguinal chain lymph nodes are no angel bilaterally measuring up to 1.3 and 1.5 cm respectively. No bowel obstruction or bowel wall thickening. There is moderate colonic fecal retention. Normal appe ndix. There is cellulitis of the perineal tissues and inferior gluteal folds. There is a peripherally enhancing 5.2 x 3.0 x 3.6 cm fluid collection within the left peroneal tissues. Subcutaneous edema e xtends into the scrotum. No subcutaneous or deep tissue emphysema identified. No supralevator extensi on. Degenerative changes of the spine, pelvis and hips. IMPRESSION: 1. Cellulitis of the perineal/inferior gluteal tissues with 5.2 cm left perineal abscess. 2. Iliac and inguinal chain lymphadenopathy is likely reactive. 3. Trace pleural effusions with mild bibasilar atelectasis. 4. No bowel obstruction or bowel wall thickening. Normal appendix. 5. Additional findings as above. ACT 112: Negative or not required by law. The above report was generated using voice recognition software. It may contain grammatical, syntax o r spelling errors. Electronically signed by: Kevin Alonso M.D. 07/30/2022 12:21 PM
--- NOTE | 2022-07-30 15:28 | Hospitalist Progress Note ---
Date of Service July 30, 2022 Assessment & Plan (1) Decompensated heart failure: Plan: Perineal Abscess/Cellulitis --CT ABD:Cellulitis of the perineal/inferior gluteal tissues with 5.2 cm left perineal abscess. Iliac and inguinal chain lymphadenopathy is likely reactive. No bowel obstruction or bowel wall thickening. Normal appendix. --Blood Cultures:pending -- Started on cefepime, Flagyl Day #1 -- Pain control Appreciate surgery input NPO after midnight for possible procedure Pleuritic pain Likely due to recent resolving pneumonia Recently completed antibiotic course for pneumonia --CTA:Interval resolution of pneumonia. No evidence of pulmonary embolus is seen. Subcentimeter lymph nodes are seen which are likely reactive. --Rib X ray:No evidence of acute fracture or other acute abnormalities in the visualized portions of the chest. Pain control Antitussives as needed Minimize narcotics as able, has tendency to overuse Pain is controlled Continue incentive spirometry Chronic systolic heart failure H/O Nonischemic cardiomyopathy Last ECHO:EF 20 to 25% S/P ICD Valvular heart disease Medication noncompliance No signs of volume overload currently Continue Lasix, isosorbide, lisinopril, metoprolol Monitor volume status Cardiology on board Pacemaker interrogation--appropriately functioning as per cardiology Volume status stable NSVT Continue current medications Monitor and replete electrolytes as needed COPD Pulmonary Hypertension Ongoing tobacco use Continue nebs, home inhalers [employer] Helper to quit smoking Nicotine Patch Nebs PRN Respiratory status stable continue current medications HAFSA Continue CPAP HS Chronic Troponin elevation Less likely ACS Troponin Levels better when compared to prior Hyperlipidemia on statin Possible suicidality H/O Anxiety/mood disorder Schizoaffective disorder Continue home medications Suicidal precautions Seroquel decreased to 600 mg to minimize excess sedation Ativan decreased to 0.5 mg as needed to minimize excess sedation Psychiatry following Will need inpatient psychiatry admission once medically cleared Nausea, vomiting, diarrhea ? Secondary to medications KUB:No acute abnormality is identified. Monitor volume status Stool studies if has recurrence of diarrhea Chronic Back pain Minimize narcotic use as able Avoid IV Narcotics as able to minimize excess sedation DVT Px: SCDs for now Re: Plan for I &D Code Status Full code Admission and Anticipated Discharge Date Admission Date: July 25, 2022 Subjective Patient is seen and examined at bedside Reports chronic dyspnea Also states having perineal pain Denies any chest pain, dizziness, nausea, abdominal pain No other complaints Febrile overnight Review of Systems Review of Systems: All systems reviewed & are unremarkable except as noted in Subjective Physical Exam Physical Exam: Physical Exam: Vitals signs as noted above General Appearance:Moderately built and nourished, no apparent distress Head: normocephalic, Atraumatic Eyes: normal inspection, EOMI Neck: supple, Trachea midline Respiratory/Chest: Decreased breath sounds, scant wheezes, +Pacemaker, No accessory muscle use Cardiovascular: S1, S2, No murmur Abdomen/GI:Soft, Non tender, Bowel sounds present : Perineal swelling Extremities/Musculoskeletal:normal inspection, no edema Neurologic/Psych:AAOX3, grossly no focal neurological deficits Skin: normal color, warm Results & Data Results & Data ([facility]) Vital Signs (Past 12 Hours) Vital Signs Temp Pulse Pulse Resp BP Pulse Ox O2 Del Method 07/30/22 08:00 79 07/30/22 10:37 37.5 C 95 H 18 154/97 H 94 Room Air 07/30/22 07:04 37.1 C 88 18 143/78 H 97 Room Air Laboratory Results Short CBC 07/30/22 Range/Units 07:37 WBC 14.85 H (4.8-10.8) K/ul Hgb 15.1 (14.0-18.0) g/dl Hct 44.7 (40.1-51.0) % Plt Count 165 (130-400) K/uL BMP 07/30/22 07:33 Sodium 141 Potassium 3.8 Chloride 108 H Carbon Dioxide 28 BUN 15 Creatinine 0.86 Glucose 84 Calcium 8.3 L
[2022-07-30] MEDS: ACETAMINOPHEN 325 MG TAB PO PRN (15:54)
[2022-07-30] MEDS: ALPRAZolam 0.5 MG TABLET PO PRN (16:53)
[2022-07-30] MEDS ORDERED: ACETAMINOPHEN 1,000 MG/100 ML VIAL IV STA (17:03)
[2022-07-30] MEDS: QUEtiapine FUMARATE 300 MG TABLET PO SCH (21:28)
[2022-07-31] MEDS: metroNIDAZOLE 500 MG/100 ML BAG IV SCH ×3 (03:17→19:14)
[2022-07-31] MEDS: oxyCODONE/ACETAMINOPHEN 5mg/325mg TAB PO PRN ×3 (06:01→21:41)
[2022-07-31 07:03] LABS: Hematocrit (blood only) 45.2 % (40.1-51.0); Hemoglobin 15.5 g/dl (14.0-18.0); Mean Corpuscular Hgb Conc 34.3 g/dL (32.0-36.0); Mean Corpuscular Volume 93.4 fL (80.0-100.0); Mean Platelet Volume 10.8 fL (9.4-12.4); Platelet Count 164 K/uL (130-400); RDW Coefficient of Variation 13.5 % (11.5-14.5); RDW Standard Deviation 46.5 fL (36.4-46.3); Red Blood Count 4.84 M/uL (4.63-6.08); White Blood Count 13.47 K/ul (4.8-10.8)
--- NOTE | 2022-07-31 07:13 | Anesthesiology Consultation ---
Date of Service July 31, 2022 Assessment & Plan (1) Encounter for pre-operative examination: Chart Review Chart Review: Acceptable Risk for Surgery History Surgery Operation Date: 07/31/22 11:35 Proposed Procedures p Incision and Drainage Perineal Abscess - Caden Ervin MD, FACS Height/Weight Height: 5 ft 8 in Weight: 92.5 kg Allergies Allergy/AdvReac Type Severity Reaction Status Date / Time hydrocodone Allergy Unknown PT ABLE TO Unverified 06/21/22 09:28 TAKE TYLENOL tramadol Allergy Hives Verified 06/21/22 09:28 amoxicillin AdvReac SOB Verified 06/21/22 09:28 Medications Home Medications Medication Instructions Recorded Confirmed Last Taken ATORVASTATIN (LIPITOR) 20 mg PO DAILY ##0 10/25/11 07/25/22 Unknown Fluticasone Propionate (Nasal) 2 spry ADAM DAILY PRN Allergy 09/06/15 07/25/22 Unknown (Flonase Allergy Relief) Symptoms ##0 Lisinopril (Zestril) 40 mg PO DAILY #0 tabs 09/06/15 07/25/22 Unknown dicyclomine 10 mg capsule 10 mg PO QID PRN .ABD PAIN 06/20/22 07/24/22 1 Day Ago ~07/23/22 divalproex 500 mg tablet,delayed 500 mg PO BID 06/20/22 07/24/22 1 Day Ago release ~07/23/22 escitalopram oxalate 20 mg tablet 20 mg PO QAM 06/20/22 07/24/22 1 Day Ago ~07/23/22 isosorbide mononitrate 30 mg 30 mg PO DAILY 06/20/22 07/24/22 Unknown tablet,extended release 24 hr ondansetron 4 mg disintegrating 4 mg PO Q8H PRN Nausea 06/20/22 07/24/22 Unknown tablet oxycodone-acetaminophen 10 mg-325 1 tab PO Q4H PRN Pain 06/20/22 07/24/22 1 Day Ago mg tablet (Percocet) ~07/23/22 albuterol sulfate 2.5 mg/3 mL 2.5 mg (3 mL) inhalation QID PRN 06/28/22 07/24/22 2 Days Ago (0.083 %) solution for nebulization shortness of breath or wheezing ~07/22/22 #90 mL alprazolam 2 mg tablet 1 mg PO QID PRN Anxiety #1 tab 06/28/22 07/24/22 1 Day Ago ~07/23/22 fluticasone furoate 200 1 ea inhalation DAILY #60 ea 06/28/22 07/25/22 1 Day Ago mcg-vilanterol 25 mcg/dose ~07/23/22 inhalation powder (Breo Ellipta) furosemide 40 mg tablet (Lasix) 40 mg PO DAILYBD #30 tabs 06/28/22 07/24/22 1 Day Ago ~07/23/22 metoprolol succinate 50 mg 50 mg PO QAM #30 tabs 06/28/22 07/24/22 Unknown tablet,extended release 24 hr potassium chloride 20 mEq 20 meq PO BID #1 tab 06/28/22 07/24/22 Unknown tablet,extended release prednisone 10 mg tablet 10 mg PO UD #12 tabs 06/28/22 07/24/22 Unknown umeclidinium 62.5 mcg/actuation 1 inh inhalation DAILY #30 ea 06/28/22 07/24/22 Unknown blister powder for inhalation (Incruse Ellipta) quetiapine 400 mg tablet 600 mg PO HS 07/24/22 07/26/22 Unknown Active Medications Generic Name Dose Route Start Last Admin Trade Name Freq PRN Reason Stop Dose Admin Acetaminophen 650 mg 07/25/22 03:25 07/30/22 15:54 Acetaminophen 325 Mg Tab PO 08/24/22 03:24 650 mg Q4H PRN Administration Pain or Fever Albuterol 3 ml 07/26/22 21:38 07/29/22 12:01 Albut/Ipratrop 3mg/0.5mg Neb 3 Ml Vial NEB 08/25/22 21:37 3 ml Q2H PRN Administration Wheezing Protocol Alprazolam 0.5 mg 07/26/22 11:10 07/30/22 16:53 Alprazolam 0.5 Mg Tablet PO 08/24/22 03:24 0.5 mg QID PRN Administration Anxiety Atorvastatin Calcium 20 mg 07/25/22 09:00 07/30/22 10:29 Atorvastatin 20 Mg Tab PO 08/24/22 08:59 20 mg DAILY ILIA Administration Divalproex Sodium 500 mg 07/25/22 09:00 07/30/22 21:29 Divalproex Delay Release 500 Mg Tab PO 08/24/22 08:59 500 mg BID ILIA Administration Escitalopram Oxalate 20 mg 07/25/22 09:00 07/30/22 10:30 Escitalopram Oxalate 20 Mg Tab PO 08/24/22 08:59 20 mg QAM ILIA Administration Fluticasone/Vilanterol 1 puffs 07/25/22 09:00 07/30/22 10:25 Fluticasone/Vilanterol 200/25mcg 14 Puffs/Inhaler INH 08/24/22 08:59 1 puffs DAILY ILIA Administration Furosemide 40 mg 07/28/22 09:00 07/30/22 10:30 Furosemide 40 Mg Tab PO 08/27/22 08:59 40 mg DAILY ILIA Administration Promethazine HCl 12.5 mg/ 50.5 mls @ 202 mls/hr 07/25/22 02:12 07/26/22 08:19 Sodium Chloride IV 08/24/22 02:11 Infused Q6H PRN Infusion Nausea And Vomiting Cefepime HCl 2,000 mg/ Syringe 20 mls @ 5 mls/min 07/30/22 11:00 07/30/22 2 2:55 IV 08/09/22 10:59 5 mls/min Q12H ILIA Administration Protocol Metronidazole 500 mg in 100 mls @ 100 mls/hr 07/30/22 11:00 07/31/22 04:24 Flagyl IV 08/09/22 10:59 Infused Q8H ILIA Infusion Isosorbide Mononitrate 30 mg 07/25/22 09:00 07/30/22 10:30 Isosorbide [place] Extended Rel 30 Mg Tabcr PO 08/24/22 08:59 30 mg DAILY ILIA Administration Lactobacillus Acidophilus 2 cap 07/26/22 11:00 07/30/22 10:30 Advanced Probiotic 1250 Mg Capsule PO 08/25/22 10:59 2 cap DAILY ILIA Administration Lisinopril 40 mg 07/25/22 09:00 07/30/22 10:30 Lisinopril 40 Mg Tab PO 08/24/22 08:59 40 mg DAILY ILIA Administration Metoprolol Succinate 25 mg 07/25/22 07:00 07/30/22 10:30 Metoprolol Succ 25mg Ext Rel Tab PO 08/24/22 06:59 25 mg QAM ILIA Administration Miscellaneous 1 each 07/25/22 08:59 07/30/22 10:29 Remove Nicoderm Patch N/A 08/24/22 08:58 1 each DAILY@0859 ILIA Administration Nicotine 14 mg 07/25/22 02:15 07/30/22 10:30 Nicotine 14 Mg/24 Hr Patch TD 08/24/22 02:14 14 mg QAM ILIA Administration Oxycodone/Acetaminophen 1 tab 07/28/22 11:12 07/31/22 06:01 Oxycodone/Acetaminophen 5mg/325mg Tab PO 08/11/22 03:38 1 tab Q6H PRN Administration Pain Potassium Chloride 20 meq 07/25/22 09:00 07/30/22 16:53 Potassium Chloride Crtab 20 Meq Tabcr PO 08/24/22 08:59 20 meq BID17 ILIA Administration Quetiapine Fumarate 600 mg 07/26/22 21:00 07/30/22 21:28 Quetiapine Fumarate 300 Mg Tablet PO 08/25/22 20:59 600 mg HS ILIA Administration Umeclidinium [place] 1 puffs 07/25/22 09:00 07/30/22 10:27 Umeclidinium [place] 62.5mcg/Blister 7 Puffs/Inhaler INH 08/24/22 08:59 1 puffs DAILY ILIA Administration Past Medical History Medical History (Updated 07/31/22 @ 07:19 by Maynor Esqueda MD) Acute bronchiolitis due to other infectious organisms Acute systolic CHF (congestive heart failure) Hypoxia Medical non-compliance Pacemaker Schizoaffective disorder Suicide ideation Past Surgical History Surgical History (Updated 07/31/22 @ 07:12 by Maynor Esqueda MD) History of cardiac defibrillator placement History of permanent cardiac pacemaker placement Social History Smoking Status: Current every day smoker tobacco type: cigarettes Do You Dip or Chew Tobacco: No Hx Alcohol Use: No Hx Substance Use: No substance use type: does not use Physical Exam Vital Signs Last Vital Signs Temp 36.8 C 07/30/22 22:49 Pulse 98 H 07/31/22 02:22 Resp 18 07/31/22 02:22 BP 153/79 H 07/30/22 22:49 Pulse Ox 96 07/31/22 02:22 O2 Del Method BiPAP 07/30/22 22:49 FiO2 21 07/31/22 02:22 Testing Laboratory Results 07/31/22 06:49 APTT 28.1 Seconds (21.0-31.0) 07/24/22 23:49 Urine Color Yellow 07/25/22 01:25 Urine Appearance Clear (Clear) 07/25/22 01:25 Urine pH 7.0 (4.5-7.5) 07/25/22 01:25 Ur Specific [place] 1.006 (1.000-1.030) 07/25/22 01:25 Urine Protein Negative (Negative) 07/25/22 01:25 Urine Glucose (UA) Negative (Negative) 07/25/22 01:25 Urine Ketones Negative (Negative) 07/25/22 01:25 Urine Nitrite Negative (Negative) 07/25/22 01:25 Ur Leukocyte Esterase Negative (Negative) 07/25/22 01:25 Laboratory Tests 07/30/22 07:33 Potassium 3.8 Creatinine 0.86 Electrocardiogram Date: 07/24/22 Findings: + NSR @ (78 - frequent PVC's) consider lateral ischemia - no change from prior Echocardiogram Date: 06/20/21 EF: 20-25% Valvular Disease: + MR (mild to moderate) mild pulmonary htn
[2022-07-31 07:26] LABS: BUN Creatinine Ratio 17.2 (10-20); Calcium 8.2 mg/dl (8.5-10.1); Creatinine Clr Calc Pharmacy 107.1 ml/min; Est GFR (African American) 113.4 ml/min; Est GFR (Non-African American) 97.8 ml/min
[2022-07-31] MEDS: UMECLIDINIUM BROMIDE 62.5MCG/BLISTER 7 PUFFS/INHALER INH SCH (09:17)
[2022-07-31] MEDS: NICOTINE 14 MG/24 HR PATCH TD SCH (09:18)
[2022-07-31] MEDS: FLUTICASONE/VILANTEROL 200/25MCG 14 PUFFS/INHALER INH SCH (09:18)
[2022-07-31] MEDS: DIVALPROEX DELAY RELEASE 500 MG TAB PO SCH ×2 (09:23→21:42)
[2022-07-31] MEDS: ISOSORBIDE MONO EXTENDED REL 30 MG TABCR PO SCH (09:24)
[2022-07-31] MEDS: ADVANCED PROBIOTIC 1250 MG CAPSULE PO SCH (09:24)
[2022-07-31] MEDS: FUROSEMIDE 40 MG TAB PO SCH (09:24)
[2022-07-31] MEDS: lisinopril 40 MG TAB PO SCH (09:24)
[2022-07-31] MEDS: ESCITALOPRAM OXALATE 20 MG TAB PO SCH (09:24)
[2022-07-31] MEDS: METOPROLOL SUCC 25MG EXT REL TAB PO SCH (09:26)
[2022-07-31] MEDS: ATORVASTATIN 20 MG TAB PO SCH (09:26)
[2022-07-31] MEDS: POTASSIUM CHLORIDE CRTAB 20 MEQ TABCR PO SCH ×2 (09:26→16:21)
--- NOTE | 2022-07-31 09:53 | Surgery Progress Note ---
Date of Service July 31, 2022 Assessment & Plan (1) Perineal abscess: Plan: Patient seen and examined with Dr. Ervin. Plan is to take patient to OR for Incision and Drainage of Perineal Abscess. Patient is agreeable. Admission and Anticipated Discharge Date Admission Date: July 25, 2022 Supervising Physician Co-Signing Physician Notes Results of the CAT scan discussed with the patient The area of interest is very tender no obvious cellulitis noticed We will proceed with incision and drainage in the operating room this morning Procedure explained to the patient We will have the patient signed a permit in the preop area Subjective Patient resting on his stomach in bed- He reports that he experienced a lot of drainage late last night/early this morning. He does report that he continues to have pain. Physical Exam Constitutional: no acute distress Gastrointestinal (Abdomen): 4 cm collection between scrotum and anus, tender, fluctuant Tender with examination. Dr. Ervin performed physical examination. Results & Data ([facility]) Vital Signs (Past 12 Hours) Vital Signs Temp Pulse Pulse Resp BP Pulse Ox O2 Del Method 07/31/22 07:25 78 07/31/22 02:22 98 H 18 96 07/30/22 22:05 78 07/30/22 22:49 36.8 C 57 L 18 153/79 H 96 Room Air, BiPAP 07/30/22 22:34 98 H 19 93 FiO2 07/31/22 07:25 07/31/22 02:22 21 07/30/22 22:05 07/30/22 22:49 07/30/22 22:34 21 PG Care Time/CCT Total # of Minutes Spent Total Time Spent with Patient: Total time spent is greater than 50% in coordination of care (as documented) at patient's floor/unit and/or counseling patient: Coding Level of Care Code None Diagnoses Perineal abscess L02.215
[2022-07-31] MEDS: CEFEPIME 2,000 MG in SYRINGE 0 ML IV SCH ×2 (10:20→23:48)
[2022-07-31] MEDS ORDERED: KETOROLAC TROMETHAMINE 15 MG/ML VIAL IV PRN (10:38)
[2022-07-31] MEDS ORDERED: ONDANSETRON INJ 2 MG/ML 2 ML VIAL ONE (10:43)
[2022-07-31] MEDS ORDERED: PROPOFOL IV EMULSION 10 MG/ML 20 ML VIAL IV ONE (10:43)
[2022-07-31] MEDS ORDERED: LIDOCAINE 2% MPF LOCAL 5 ML VIAL INFIL ONE (10:43)
[2022-07-31] MEDS ORDERED: MIDAZOLAM HCL 1 MG/ML 2ML VIAL ONE (10:44)
[2022-07-31] MEDS ORDERED: IBUPROFEN 600 MG TAB PO PRN (10:44)
[2022-07-31] MEDS ORDERED: fentaNYL citrate 100 MCG/2 ML VIAL ONE (10:44)
[2022-07-31] MEDS ORDERED: BUPIVACAINE/EPINEPHRINE 0.5% MPF 1:200,000 30 ML VIAL ONE (10:50)
[2022-07-31] MEDS ORDERED: ATROPINE SULFATE 0.1 MG/ML 10ML SYR IV PRN (11:04)
[2022-07-31] MEDS ORDERED: PROMETHAZINE HCL 12.5 MG in SODIUM CHLORIDE 0.9% 50 ML IV PRN (11:04)
[2022-07-31] MEDS ORDERED: ONDANSETRON INJ 2 MG/ML 2 ML VIAL IV PRN (11:04)
--- NOTE | 2022-07-31 11:28 | Post Operative Brief Note ---
PG Immediate Post Op with CF Date of Surgery July 31, 2022 Pre & Post Diagnosis Operation Date: 07/31/22 11:35 Pre-Op Diagnosis: Perineal abscess Post-Op Diagnosis: Perineal abscess I identified the patient and participated in the time-out.: Yes Procedure Operation Date: 07/31/22 11:35 Actual Procedures p Incision and Drainage Perineal Abscess - Caden Ervin MD, FACS Surgeon Caden Ervin MD, FACS Faculty Head kayleen tobar Estimated Blood Loss 10 Findings Consistent with Post-Op Diagnosis
[2022-07-31] MEDS ORDERED: HYDROmorphone INJ 0.5 MG/0.5 ML SYR IV PRN ×2 (11:31)
--- NOTE | 2022-07-31 11:39 | Operative Report ---
PG Post Operative Report Pre & Post Diagnosis Operation Date: 07/31/22 11:35 Pre-Op Diagnosis: Perineal abscess Post-Op Diagnosis: Perineal abscess I identified the patient and participated in the time-out.: Yes Procedure Operation Date: 07/31/22 11:35 Actual Procedures p Incision and Drainage Perineal Abscess - Caden Ervin MD, FACS Under general LMA anesthesia patient in supine position legs were flexed at the knees and bilateral abducted the perianal area was exposed by elevating the scrotum and penis out of the way patient was identified a timeout was had the area was prepped with Betadine solution and draped appropriately the patient had a draining sinus easily appreciated to the left perineal area the most inferior aspect where the skin was denuded this area was approximately centimeter or so in size using a knife we entered that area and extended it more cephalad to the point that we had some purulent drainage from the abscess cavity using a hemostat we were able then to break any loculations the cavity itself once it had been appropriately circumferentially freed from any loculation extended appr oximately 4 cm cephalad at this point we packed the area what quarter inch plain gauze used with 3-0 silk sutures to approximate the skin and hold the gauze in place 4 x 4 fluffed and ABD pad was positioned the procedure was tolerated well by the patient estimated blood loss approximately 10 cc Addendum Susie Schaeffer physician account assistant was present throughout the case and helped the retraction exposure packing Surgeon Caden Ervin MD, FACS Furnace Operator And Tender kayleen tobar Estimated Blood Loss 10 Findings Consistent with Post-Op Diagnosis Specimens None Description of Procedure merda I attest to the content of the Intraoperative Record and any orders documented therein. Any exceptions are noted below.
[2022-07-31] MEDS ORDERED: ePHEDrine sulfate 50 MG/ML SYR ONE (11:40)
[2022-07-31] MEDS ORDERED: PHENYLEPHRINE 100MCG/ML 5ML SYR ONE (11:40)
[2022-07-31] MEDS: fentaNYL citrate 100 MCG/2 ML VIAL IV PRN ×2 (11:45→11:51)
--- NOTE | 2022-07-31 11:58 | Hospitalist Progress Note ---
Date of Service July 31, 2022 Assessment & Plan (1) Decompensated heart failure: Plan: Perineal Abscess/Cellulitis --CT ABD:Cellulitis of the perineal/inferior gluteal tissues with 5.2 cm left perineal abscess. Iliac and inguinal chain lymphadenopathy is likely reactive. No bowel obstruction or bowel wall thickening. Normal appendix. --Blood Cultures:pending -- Started on cefepime, Flagyl Day #2 -- Pain control Appreciate surgery input - for OR perineal abscess drainage 07/31/2022 - continue abx pending cultures from OR Pleuritic pain Likely due to recent resolving pneumonia Recently completed antibiotic course for pneumonia --CTA:Interval resolution of pneumonia. No evidence of pulmonary embolus is seen. Subcentimeter lymph nodes are seen which are likely reactive. --Rib X ray:No evidence of acute fracture or other acute abnormalities in the visualized portions of the chest. Pain control Antitussives as needed Minimize narcotics as able, has tendency to overuse Pain is controlled Continue incentive spirometry Chronic systolic heart failure H/O Nonischemic cardiomyopathy Last ECHO:EF 20 to 25% S/P ICD Valvular heart disease Medication noncompliance No signs of volume overload currently Continue Lasix, isosorbide, lisinopril, metoprolol Monitor volume status Cardiology on board Pacemaker interrogation--appropriately functioning as per cardiology Volume status stable NSVT Continue current medications Monitor and replete electrolytes as needed COPD Pulmonary Hypertension Ongoing tobacco use Continue nebs, home inhalers Pelt Shearer to quit smoking Nicotine Patch Nebs PRN Respiratory status stable continue current medications HAFSA Continue CPAP HS Chronic Troponin elevation Less likely ACS Troponin Levels better when compared to prior Hyperlipidemia on statin Possible suicidality H/O Anxiety/mood disorder Schizoaffective disorder Continue home medications Suicidal precautions Seroquel decreased to 600 mg to minimize excess sedation Ativan decreased to 0.5 mg as needed to minimize excess sedation Psychiatry following Will need inpatient psychiatry admission once medically cleared - 302 dispositioned as patient agreeable to voluntary commitment Chronic Back pain Minimize narcotic use as able Avoid IV Narcotics as able to minimize excess sedation - ibuprofen prn added DVT Px: SCDs for now Re: Plan for I &D - can restart heparin SC after surgery Code Status Full code Admission and Anticipated Discharge Date Admission Date: July 25, 2022 Subjective Patient with HFpEF (EF 20% 2021) s/p ICD, HAFSA on CPAP, pHTN, HLD, anxiety/mood disorder/schizoaffective disorder, chronic back pain presented with chest pain, ICD interrogated which was unremarkable, ACS ruled out. Expressed SI and psych consulted, intiially 302'd but eventually agreed to voluntary confinement. Issues with placement due to CPAP for HAFSA. Found to have peroneal abscess, s/p OR I/D with surgery 07/31/2022, on abx. Patient complains of pain at abscess site in perineum. Denies fevers or chills, chest pain, shortness of breath (although says gets it occasionally), n/v/d, abdominal pain, dysuria. For OR this morning 07/31/2022. Review of Systems Review of Systems: As per HPI, all other systems reviewed and negative Physical Exam Physical Exam: General Appearance:Moderately built and nourished, no apparent distress Head: normocephalic, Atraumatic Eyes: normal inspection, EOMI Neck: supple, Trachea midline Respiratory/Chest: Decreased breath sounds, no wheezes, +Pacemaker, No accessory muscle use Cardiovascular: S1, S2, No murmur Abdomen/GI:Soft, Non tender, Bowel sounds present : Perineal swelling, no drainage noted Extremities/Musculoskeletal:normal inspection, no edema Neurologic/Psych:AAOX3, grossly no focal neurological deficits Skin: normal color, warm Results & Data Results & Data ([facility]) Vital Signs (Past 12 Hours) Vital Signs Temp Pulse Pulse Resp BP Pulse Ox O2 Del Method 07/31/22 11:40 75 15 126/69 98 Oxymask 07/31/22 11:34 36.3 C L 76 20 114/58 L 98 Oxymask 07/31/22 07:25 78 07/31/22 02:22 98 H 18 96 O2 Flow Rate FiO2 07/31/22 11:40 11 07/31/22 11:34 11 07/31/22 07:25 07/31/22 02:22 21 Diagnostic Findings Laboratory Results WBC 13.47 K/ul (4.8-10.8) H 07/31/22 06:49 RBC 4.84 M/uL (4.63-6.08) 07/31/22 06:49 Hgb 15.5 g/dl (14.0-18.0) 07/31/22 06:49 Hct 45.2 % (40.1-51.0) 07/31/22 06:49 MCV 93.4 fL (80.0-100.0) 07/31/22 06:49 MCH 32.0 pg (25.0-34.0) 07/31/22 06:49 MCHC 34.3 g/dL (32.0-36.0) 07/31/22 06:49 RDW Std Deviation 46.5 fL (36.4-46.3) H 07/31/22 06:49 RDW Coeff of Seven 13.5 % (11.5-14.5) 07/31/22 06:49 Plt Count 164 K/uL (130-400) 07/31/22 06:49 MPV 10.8 fL (9.4-12.4) 07/31/22 06:49 Immature Gran % (Auto) 0.6 % 07/25/22 08:16 Neut % (Auto) 59.5 % 07/25/22 08:16 Lymph % (Auto) 27.9 % 07/25/22 08:16 [place] % (Auto) 10.4 % 07/25/22 08:16 Eos % (Auto) 1.4 % 07/25/22 08:16 Baso % (Auto) 0.2 % 07/25/22 08:16 Neut # (Auto) 5.40 K/uL (1.4-6.5) 07/25/22 08:16 Lymph # (Auto) 2.53 K/uL (1.2-3.4) 07/25/22 08:16 [place] # (Auto) 0.94 K/uL (0.24-0.82) H 07/25/22 08:16 Eos # (Auto) 0.13 K/uL (0-0.50) 07/25/22 08:16 Baso # (Auto) 0.02 K/uL (0-0.2) 07/25/22 08:16 Immature Gran # (Auto) 0.05 K/uL (0.00-0.02) H 07/25/22 08:16 APTT 28.1 Seconds (21.0-31.0) 07/24/22 23:49 PTT Ratio 1.0 07/24/22 23:49 Sodium 141 mmol/L (136-145) 07/31/22 06:49 Potassium 4.0 mmol/L (3.5-5.1) 07/31/22 06:49 Chloride 108 mmol/L (98-107) H 07/31/22 06:49 Carbon Dioxide 26 mmol/L (21-32) 07/31/22 06:49 Anion Gap 7 (3-11) 07/31/22 06:49 BUN 15 mg/dl (6-23) 07/31/22 06:49 Creatinine 0.87 mg/dl (0.6-1.4) 07/31/22 06:49 Est Cr Clr Drug Dosing 107.1 ml/min 07/31/22 06:49 Est GFR ( Amer) 113.4 ml/min 07/31/22 06:49 Est GFR (Non-Af Amer) 97.8 ml/min 07/31/22 06:49 BUN/Creatinine Ratio 17.2 (10-20) 07/31/22 06:49 Glucose 96 mg/dl (70-99(Fasting)) 07/31/22 06:49 Calcium 8.2 mg/dl (8.5-10.1) L 07/31/22 06:49 Magnesium 1.8 mg/dl (1.7-2.4) 07/30/22 07:33 Troponin I High Sens 39.2 pg/ml (0-20) H 07/24/22 23:49 B-Natriuretic Peptide 839 pg/ml (0-100) H 07/25/22 08:16 Procalcitonin 0.07 ng/ml (0-0.5) 07/30/22 10:36 TSH 0.645 uIu/ml (0.300-4.500) 07/24/22 23:49 Urine Color Yellow 07/25/22 01:25 Urine Appearance Clear (Clear) 07/25/22 01:25 Urine pH 7.0 (4.5-7.5) 07/25/22 01:25 Ur Specific [place] 1.006 (1.000-1.030) 07/25/22 01:25 Urine Protein Negative (Negative) 07/25/22 01:25 Urine Glucose (UA) Negative (Negative) 07/25/22 01:25 Urine Ketones Negative (Negative) 07/25/22 01:25 Urine Blood Negative (Negative) 07/25/22 01:25 Urine Nitrite Negative (Negative) 07/25/22 01:25 Urine Bilirubin Negative (Negative) 07/25/22 01:25 Urine Urobilinogen Negative (Negative) 07/25/22 01:25 Ur Leukocyte Esterase Negative (Negative) 07/25/22 01:25 Salicylates < 3.0 mg/dl (3.0-30) L 07/24/22 23:46 Urine Opiates Screen Neg (Neg) 07/25/22 01:25 Ur Methadone, Qual Neg (Neg) 07/25/22 01:25 Acetaminophen < 3 ug/ml (10-30) L 07/24/22 23:46 Urine Barbiturates Neg (Neg) 07/25/22 01:25 Valproic Acid 46 mcg/ml (50-100) L 07/25/22 08:16 Ur Phencyclidine (PCP) Neg (Neg) 07/25/22 01:25 U Amphetamin/Meth Scrn Neg (Neg) 07/25/22 01:25 MDMA (Ecstasy) Screen Neg (Neg) 07/25/22 01:25 U Benzodiazepines Scrn Neg (Neg) 07/25/22 01:25 Ur Cocaine Metabolite Neg (Neg) 07/25/22 01:25 U Marijuana (THC) Screen Neg (Neg) 07/25/22 01:25 Ethyl Alcohol mg/dL < 10.0 mg/dl (<10.0) 07/24/22 23:46 Lyme Disease IgG Ab Negative (Negative) 07/24/22 23:49 Lyme Disease IgM Ab Negative (Negative) 07/24/22 23:49 SARS-CoV-2, RNA, NAAT NEGATIVE (NEGATIVE) 07/24/22 23:19 Impressions Chest CTA 07/25/22 01:56 CT angio chest PE protocol CLINICAL HISTORY: r cp TECHNIQUE: Multidetector row helical CT of the chest was performed with angiographic protocol. Coronal and sagittal reformations were obtained. Coronal and sagittal MIPS were obtained from the axial data set and were submitted for review. Automated dose lowering techniques and/or adjustment according to patient size were utilized for this exam. CT DOSE: 565.73 mGy.cm Comparison: Comparison is made to CT chest 06/10/2022 FINDINGS: Lungs and pleura: Previously noted opacities is amorphous entirely resolved. Trace atelectasis versus airspace disease is noted in the right middle lobe. Heart and pericardium: Cardiomegaly is seen with biatrial enlargement. Vessels: No evidence of pulmonary embolism. Mediastinum and nitish: Subcentimeter lymph nodes are seen. Chest wall and lower neck: Subcentimeter axillary lymph nodes noted. Abdomen: Unremarkable. Bones: Mild degenerative changes are seen. IMPRESSION: 1. Interval resolution of pneumonia. No evidence of pulmonary embolus is seen. 2. Subcentimeter lymph nodes are seen which are likely reactive. ACT 112: Negative or not required by law. Electronically signed by: Solitario Castro M.D. 07/25/2022 8:25 AM Ribs X-Ray 07/25/22 09:36 XR ribs RT min 2V CLINICAL HISTORY: rib fractures? pna TECHNIQUE: 3 views of the right ribs were obtained. Single frontal view of the chest was obtained. Comparison: Comparison is made to chest radiograph 07/25/2022 FINDINGS: No fractures are seen. The chest wall and soft tissues are normal. Pacemaker defibrillator is seen. The lungs are clear. No evidence of pleural effusion or pneumothorax. IMPRESSION: No evidence of acute fracture or other acute abnormalities in the visualized portions of the chest. ACT 112: Negative or not required by law. Electronically signed by: Solitario Castro M.D. 07/25/2022 10:31 AM KUB X-Ray 07/26/22 09:49 KUB CLINICAL HISTORY: Nausea and vomiting. FINDINGS: 2 AP, portable, supine abdominal radiographs are compared to study dated 11/25/2015 and correlated with abdominal CT dated 10/16/2015. There is a nonobstructed abdominal bowel gas pattern. No evidence of intraperitoneal free air is seen on these supine images. There are no abnormal abdominal calcifications. The bony structures appear intact. IMPRESSION: No acute abnormality is identified. Electronically signed by: Anthony Bates M.D. 07/26/2022 10:34 AM Chest X-Ray 07/30/22 08:47 XR chest 1V portable CLINICAL HISTORY: Dyspnea COMPARISON STUDY: Chest CT July 25, 2022. FINDINGS: Left subclavian biventricular pacer/AICD is in place. Cardiomegaly is unchanged. No evidence for pulmonary edema. No pneumothorax or pleural effusion. There is no consolidation. There is been no significant change in appearance of the chest. IMPRESSION: No acute cardiopulmonary findings. Cardiomegaly. ACT 112: Negative or not required by law. Electronically signed by: Brain Garcia M.D. 07/30/2022 9:56 AM Abdomen/Pelvis CT 07/30/22 10:[address] WITH IV CONTRAST CT DOSE: 923.16 mGy.cm HISTORY: Patient presents with palpable abnormality of the inguinal tissues. groin abscess TECHNIQUE: Multiaxial CT images of the abdomen and pelvis were performed following the IV administration of 91 cc of Optiray, A dose lowering technique was utilized adhering to the principles of ALARA. COMPARISON STUDY: CT abdomen and pelvis 10/16/2015 FINDINGS: Cardiomegaly with partially imaged pacer/AICD leads. Trace pleural effusions. Mild dependent subsegmental bibasilar atelectasis. There is no pneumatosis or pneumoperitoneum. Unremarkable spleen, pancreas and adrenal glands. Contracted gallbladder. The liver is mildly enlarged. Patency of the hepatic and portal veins. 1.7 cm cyst of the superior pole left kidney. There is no hydronephrosis. Mild prostamegaly. Circumferential urinary bladder wall thickening with partial distention. Retroaortic left renal vein. No abdominal aortic aneurysm. Enlarged iliac and inguinal chain lymph nodes are noted bilaterally measuring up to 1.3 and 1.5 cm respectively. No bowel obstruction or bowel wall thickening. There is moderate colonic fecal retention. Normal appendix. There is cellulitis of the perineal tissues and inferior gluteal folds. There is a peripherally enhancing 5.2 x 3.0 x 3.6 cm fluid collection within the left peroneal tissues. Subcutaneous edema extends into the scrotum. No subcutaneous or deep tissue emphysema identified. No supralevator extension. Degenerative changes of the spine, pelvis and hips. IMPRESSION: 1. Cellulitis of the perineal/inferior gluteal tissues with 5.2 cm left perineal abscess. 2. Iliac and inguinal chain lymphadenopathy is likely reactive. 3. Trace pleural effusions with mild bibasilar atelectasis. 4. No bowel obstruction or bowel wall thickening. Normal appendix. 5. Additional findings as above. ACT 112: Negative or not required by law. The above report was generated using voice recognition software. It may contain grammatical, syntax or spelling errors. Electronically signed by: Kevin Alonso M.D. 07/30/2022 12:21 PM Medications Administered Current Inpatient Medications Acetaminophen (Acetaminophen 325 Mg Tab) 650 mg PO Q4H PRN PRN Reason: Pain or Fever Stop: 08/24/22 03:24 Last Admin: 07/30/22 15:54 Dose: 650 mg Albuterol (Albut/Ipratrop 3mg/0.5mg Neb 3 Ml Vial) 3 ml NEB Q2H PRN; Protocol PRN Reason: Wheezing Stop: 08/25/22 21:37 Last Admin: 07/29/22 12:01 Dose: 3 ml Alprazolam (Alprazolam 0.5 Mg Tablet) 0.5 mg PO QID PRN PRN Reason: Anxiety Stop: 08/24/22 03:24 Last Admin: 07/30/22 16:53 Dose: 0.5 mg Atorvastatin Calcium (Atorvastatin 20 Mg Tab) 20 mg PO DAILY ILIA Stop: 08/24/22 08:59 Last Admin: 07/31/22 09:26 Dose: 20 mg Atropine Sulfate (Atropine Sulfate 0.1 Mg/Ml 10ml Syr) 0.5 mg IV Q1M PRN PRN Reason: PACU Use-HR<40 &/or Bradycardi Stop: 07/31/22 19:04 Dextromethorphan Polymer Complex (Dextromethorphan Polymr Complx 30 Mg/5 Ml Udp) 30 mg PO Q8H PRN PRN Reason: Cough Stop: 08/24/22 12:24 Divalproex Sodium (Divalproex Delay Release 500 Mg Tab) 500 mg PO BID ILIA Stop: 08/24/22 08:59 Last Admin: 07/31/22 09:23 Dose: 500 mg Escitalopram Oxalate (Escitalopram Oxalate 20 Mg Tab) 20 mg PO QAM ILIA Stop: 08/24/22 08:59 Last Admin: 07/31/22 09:24 Dose: 20 mg Fentanyl Citrate (Fentanyl Citrate 100 Mcg/2 Ml Vial) 25 mcg IV Q5M PRN PRN Reason: PACU Use Only-Pain Stop: 07/31/22 19:04 Last Admin: 07/31/22 11:51 Dose: 25 mcg Fluticasone Propionate (Fluticasone Propionate Na Spr 16 Gm Btl) 2 sprays ADAM DAILY PRN PRN Reason: Allergy Symptoms Stop: 08/24/22 03:54 Fluticasone/Vilanterol (Fluticasone/Vilanterol 200/25mcg 14 Puffs/Inhaler) 1 puffs INH DAILY [facility] Stop: 08/24/22 08:59 Last Admin: 07/31/22 09:18 Dose: 1 puffs Furosemide (Furosemide 40 Mg Tab) 40 mg PO DAILY [facility] Stop: 08/27/22 08:59 Last Admin: 07/31/22 09:24 Dose: 40 mg Hydromorphone HCl (Hydromorphone Inj 0.5 Mg/0.5 Ml Syr) 0.25 mg IV Q1H PRN PRN Reason: Pain 1, 2, 3, 4, 5 Stop: 08/14/22 11:30 Hydromorphone HCl (Hydromorphone Inj 0.5 Mg/0.5 Ml Syr) 0.5 mg IV Q1H PRN PRN Reason: Pain 6, 7, 8, 9, 10 Stop: 08/14/22 11:30 Promethazine HCl 12.5 mg/ (Sodium Chloride) 50.5 mls @ 202 mls/hr IV Q6H PRN PRN Reason: Nausea And Vomiting Stop: 08/24/22 02:11 Last Infusion: 07/26/22 08:19 Dose: Infused Cefepime HCl 2,000 mg/ Syringe 20 mls @ 5 mls/min IV Q12H [facility]; Protocol Stop: 08/09/22 10:59 Last Admin: 07/31/22 10:20 Dose: 5 mls/min Metronidazole (Flagyl) 500 mg in 100 mls @ 100 mls/hr IV Q8H [facility] Stop: 08/09/22 10:59 Last Infusion: 07/31/22 11:28 Dose: Infused Promethazine HCl 12.5 mg/ (Sodium Chloride) 50.5 mls @ 204 mls/hr IV ONCE PRN PRN Reason: PACU Use Only-Nausea/Vomiting Stop: 07/31/22 19:05 Acetaminophen (Ofirmev) 1,000 mg in 100 mls @ 400 mls/hr IV Q8H [facility] Stop: 08/03/22 11:59 Ibuprofen (Ibuprofen 600 Mg Tab) 600 mg PO Q6H PRN PRN Reason: moderate pain Stop: 08/30/22 10:43 Isosorbide Mononitrate (Isosorbide [place] Extended Rel 30 Mg Tabcr) 30 mg PO DAILY [facility] Stop: 08/24/22 08:59 Last Admin: 07/31/22 09:24 Dose: 30 mg Lactobacillus Acidophilus (Advanced Probiotic 1250 Mg Capsule) 2 cap PO DAILY [facility] Stop: 08/25/22 10:59 Last Admin: 07/31/22 09:24 Dose: 2 cap Lisinopril (Lisinopril 40 Mg Tab) 40 mg PO DAILY [facility] Stop: 08/24/22 08:59 Last Admin: 07/31/22 09:24 Dose: 40 mg Metoprolol Succinate (Metoprolol Succ 25mg Ext Rel Tab) 25 mg PO QAM [facility] Stop: 08/24/22 06:59 Last Admin: 07/31/22 09:26 Dose: 25 mg Miscellaneous (Remove Nicoderm Patch) 1 each N/A DAILY@0859 [facility] Stop: 08/24/22 08:58 Last Admin: 07/31/22 09:20 Dose: 1 each Nicotine (Nicotine 14 Mg/24 Hr Patch) [facility] [place]: 08/24/22 02:14 Last Admin: 07/31/22 09:18 Dose: 14 mg Olanzapine (Olanzapine 10 Mg/2.1 Ml Sdv) 2.5 mg IM Q4H PRN PRN Reason: Anxiety/Agitation Stop: 08/24/22 03:55 Ondansetron HCl (Ondansetron Inj 2 Mg/Ml 2 Ml Vial) 4 mg IV ONCE PRN PRN Reason: PACU Use Only-Nausea/Vomiting Stop: 07/31/22 19:05 Oxycodone/Acetaminophen (Oxycodone/Acetaminophen 5mg/325mg Tab) 1 tab PO Q6H PRN PRN Reason: Pain Stop: 08/11/22 03:38 Last Admin: 07/31/22 06:01 Dose: 1 tab Potassium Chloride (Potassium Chloride Crtab 20 Meq Tabcr) 20 meq PO BID17 [facility] Stop: 08/24/22 08:59 Last Admin: 07/31/22 09:26 Dose: 20 meq Quetiapine Fumarate (Quetiapine Fumarate 300 Mg Tablet) 600 mg PO HS [facility] Stop: 08/25/22 20:59 Last Admin: 07/30/22 21:28 Dose: 600 mg Umeclidinium [place] (Umeclidinium [place] 62.5mcg/Blister 7 Puffs/Inhaler) 1 puffs INH DAILY [facility] Stop: 08/24/22 08:59 Last Admin: 07/31/22 09:17 Dose: 1 puffs
--- NOTE | 2022-07-31 12:13 | Anesthesiology Progress Note ---
Date of Service July 31, 2022 Anesthesia Post Procedure Vital Signs Vital Signs: Temp Pulse Pulse Pulse Resp BP BP 07/31/22 12:10 81 14 122/60 07/31/22 12:00 36.3 C L 83 12 149/85 H 07/31/22 11:50 80 18 134/89 07/31/22 11:40 75 15 126/69 07/31/22 11:34 36.3 C L 76 20 114/58 L 07/31/22 07:25 78 07/31/22 02:22 98 H 18 07/30/22 22:05 78 07/30/22 22:49 36.8 C 57 L 18 153/79 H 07/30/22 22:34 98 H 19 07/30/22 18:22 37.8 C H 74 18 111/65 07/30/22 16:52 38.4 C H 07/30/22 16:23 77 07/30/22 15:46 37.9 C H 105 H 18 158/83 H Pulse Ox O2 Del Method O2 Flow Rate FiO2 07/31/22 12:10 95 Room Air 07/31/22 12:00 96 Room Air 07/31/22 11:50 100 Oxymask 11 07/31/22 11:40 98 Oxymask 11 07/31/22 11:34 98 Oxymask 11 07/31/22 07:25 07/31/22 02:22 96 21 07/30/22 22:05 07/30/22 22:49 96 Room Air, BiPAP 07/30/22 22:34 93 21 07/30/22 18:22 97 Room Air 07/30/22 16:52 07/30/22 16:23 07/30/22 15:46 95 Room Air Pain Intensity Rectal: Pain Intensity: 9 Transfer of Care Handoff Completed per policy Notes Mental Status: alert / awake / arousable Patient Amnestic to Procedure: Yes Nausea / Vomiting: adequately controlled Pain: adequately controlled Airway Patency, RR, SpO2: stable & adequate BP & HR: stable & adequate Hydration State: stable & adequate Anesthetic Complications: no major complications apparent
[2022-07-31] MEDS: ACETAMINOPHEN 1,000 MG/100 ML VIAL IV SCH ×2 (12:41→20:17)
[2022-07-31] MEDS ORDERED: KETOROLAC 30 MG/ML VIAL IV PRN (14:31)
[2022-07-31] MEDS: ALPRAZolam 0.5 MG TABLET PO PRN (16:20)
[2022-07-31] MEDS: QUEtiapine FUMARATE 300 MG TABLET PO SCH (21:42)
[2022-07-31 23:22] LABS: Hematocrit (blood only) 39.9 % (40.1-51.0); Hemoglobin 13.5 g/dl (14.0-18.0)
[2022-07-31] MEDS: HYDROmorphone INJ 0.5 MG/0.5 ML SYR IV PRN (23:49)
[2022-08-01] MEDS: metroNIDAZOLE 500 MG/100 ML BAG IV SCH (02:34)
[2022-08-01] MEDS: ACETAMINOPHEN 1,000 MG/100 ML VIAL IV SCH ×3 (03:42→22:17)
[2022-08-01] MEDS: HYDROmorphone INJ 0.5 MG/0.5 ML SYR IV PRN ×4 (04:37→17:25)
[2022-08-01] MEDS: SODIUM CHLORIDE 0.9% 1000ML 1,000 ML IV SCH ×2 (05:06→17:24)
[2022-08-01] MEDS: oxyCODONE/ACETAMINOPHEN 5mg/325mg TAB PO PRN ×3 (06:19→21:12)
[2022-08-01] MEDS ORDERED: SILVER NITR/POTASSIUM NITRATE APPLICATOR ONE (07:22)
[2022-08-01] MEDS ORDERED: MoRPHine SULFATE 2 MG/ML CARP ONE (07:29)
[2022-08-01 07:58] LABS: Basophils # (auto) 0.03 K/uL (0-0.2); Basophils % (auto) 0.3 %; Eosinophils # (auto) 0.22 K/uL (0-0.50); Eosinophils % (auto) 2.5 %; Hematocrit (blood only) 40.7 % (40.1-51.0); Hemoglobin 13.6 g/dl (14.0-18.0); Immature Granulocytes # (auto) 0.12 K/uL (0.00-0.02); Immature Granulocytes % (auto) 1.3 %; Lymphocytes # (auto) 2.27 K/uL (1.2-3.4); Lymphocytes % (auto) 25.5 %; Mean Corpuscular Hemoglobin 31.6 pg (25.0-34.0); Mean Corpuscular Hgb Conc 33.4 g/dL (32.0-36.0); Mean Corpuscular Volume 94.7 fL (80.0-100.0); Mean Platelet Volume 11.2 fL (9.4-12.4); Monocytes # (auto) 1.23 K/uL (0.24-0.82); Monocytes % (auto) 13.8 %; Neutrophils # (auto) 5.03 K/uL (1.4-6.5); Neutrophils % (auto) 56.6 %; Platelet Count 154 K/uL (130-400); RDW Coefficient of Variation 13.8 % (11.5-14.5)
[2022-08-01] MEDS ORDERED: MoRPHine SULFATE 2 MG/ML CARP IV STA (08:01)
--- NOTE | 2022-08-01 08:10 | Surgery Progress Note ---
Date of Service August 01, 2022 Assessment & Plan (1) Perineal abscess: Plan: The bruising situation and bleeding was discussed with the patient obviously was very anxious given his past history of anxiety at this point I held pressure directly on the wound and it continued to ooze therefore I asked for silver nitrate sticks I remove the suture that was holding the packing in place and gently the skin and can actually see a bleeding area the patient was given 2 mg of morphine IV and silver nitrate 2 applications were placed in the skin bleeder when we were finished and apparently no active bleeding was appreciated therefore we redressed it with 4 x 4 gauze and ABDs in place protective underwear the procedure was tolerated well by the patient although anytime we placed some pressure in the operative site the patient was quite anxious and moans with pain The operative procedure of been explained to the patient also explained to the patient that if the bleeding continues in any fashion that we would take him to the operating room We will keep him n.p.o. for now Admission and Anticipated Discharge Date Admission Date: July 25, 2022 Subjective Main issue is that after surgery yesterday he sat up on the side of the bed and apparently noted some bleeding that persisted during the day yesterday the dressing was reinforced multiple times apparently during the night he was kept n.p.o. by the medical service I suspect in anticipation that he may need to go back to the operating room to control the bleeding According to the patient and nurses there was moderate amount of bleeding with clots on the ABDs and the area was reinforced the original dressing was never changed Physical Exam Physical Exam: Patient was asleep when I first came easily awakened not complaining of any pain in the perineal area but very anxious that the dressing had been changed multiple times The multiple ABDs which were held in place with tape extending from both thigh areas once we removed this can noticed there was a skin bleeder at the edge of the wound continuously oozing the area did not have any cellulitis or redness Results & Data ([facility]) Vital Signs (Past 12 Hours) Vital Signs Temp Pulse Pulse Resp BP Pulse Ox O2 Del Method 08/01/22 03:11 36.6 C 62 18 121/68 96 Room Air 08/01/22 03:04 80 18 96 08/01/22 01:21 85 17 95 07/31/22 22:55 78 FiO2 08/01/22 03:11 08/01/22 03:04 21 08/01/22 01:21 21 07/31/22 22:55 PG Care Time/CCT Total # of Minutes Spent Total Time Spent with Patient: Total time spent is greater than 50% in coordination of care (as documented) at patient's floor/unit and/or counseling patient: Coding Level of Care Code None Diagnoses Perineal abscess L02.215
[2022-08-01 08:15] LABS: Albumin Globulin Ratio 1.3 (0.9-2); Albumin Level 3.2 gm/dl (3.4-5.0); BUN Creatinine Ratio 29.8 (10-20); Bilirubin,Total 0.3 mg/dl (0.2-1.0); Calcium 7.7 mg/dl (8.5-10.1); Est GFR (Non-African American) 99.3 ml/min; Globulin 2.4 gm/dl (2.5-4.0); Phosphorus 3.8 mg/dl (2.5-4.9); Potassium 4.2 mmol/L (3.5-5.1); Total Protein 5.6 gm/dl (6.0-8.3)
[2022-08-01] MEDS: DIVALPROEX DELAY RELEASE 500 MG TAB PO SCH ×2 (08:59→22:17)
[2022-08-01] MEDS: ATORVASTATIN 20 MG TAB PO SCH (09:00)
[2022-08-01] MEDS: ISOSORBIDE MONO EXTENDED REL 30 MG TABCR PO SCH (09:00)
[2022-08-01] MEDS: lisinopril 40 MG TAB PO SCH (09:00)
[2022-08-01] MEDS: ESCITALOPRAM OXALATE 20 MG TAB PO SCH (09:00)
[2022-08-01] MEDS: ADVANCED PROBIOTIC 1250 MG CAPSULE PO SCH (09:01)
[2022-08-01] MEDS: METOPROLOL SUCC 25MG EXT REL TAB PO SCH (09:01)
[2022-08-01] MEDS: FUROSEMIDE 40 MG TAB PO SCH (09:02)
[2022-08-01] MEDS: UMECLIDINIUM BROMIDE 62.5MCG/BLISTER 7 PUFFS/INHALER INH SCH (09:04)
[2022-08-01] MEDS: FLUTICASONE/VILANTEROL 200/25MCG 14 PUFFS/INHALER INH SCH (09:04)
[2022-08-01] MEDS: NICOTINE 14 MG/24 HR PATCH TD SCH (09:07)
[2022-08-01] MEDS: POTASSIUM CHLORIDE CRTAB 20 MEQ TABCR PO SCH ×2 (10:29→17:25)
[2022-08-01] MEDS: ALPRAZolam 0.5 MG TABLET PO PRN (10:39)
[2022-08-01] MEDS: SULFAMETHOXAZOLE/TRIMETHOPRIM DS 800/160MG TAB PO SCH ×2 (10:43→22:16)
--- NOTE | 2022-08-01 12:01 | Hospitalist Progress Note ---
Date of Service August 01, 2022 Assessment & Plan (1) Decompensated heart failure: Plan: Perineal Abscess/Cellulitis --CT ABD:Cellulitis of the perineal/inferior gluteal tissues with 5.2 cm left perineal abscess. Iliac and inguinal chain lymphadenopathy is likely reactive. No bowel obstruction or bowel wall thickening. Normal appendix. --Blood Cultures:pending -- Started on cefepime, Flagyl Day - changed to Bactrim BID for 5 days -- Pain control Appreciate surgery input - s/p OR perineal abscess drainage 07/31/2022 - continue abx pending cultures from OR Pleuritic pain Likely due to recent resolving pneumonia Recently completed antibiotic course for pneumonia --CTA:Interval resolution of pneumonia. No evidence of pulmonary embolus is seen. Subcentimeter lymph nodes are seen which are likely reactive. --Rib X ray:No evidence of acute fracture or other acute abnormalities in the visualized portions of the chest. Pain control Antitussives as needed Minimize narcotics as able, has tendency to overuse Pain is controlled Continue incentive spirometry Chronic systolic heart failure H/O Nonischemic cardiomyopathy Last ECHO:EF 20 to 25% S/P ICD Valvular heart disease Medication noncompliance No signs of volume overload currently Continue Lasix, isosorbide, lisinopril, metoprolol Monitor volume status Cardiology on board Pacemaker interrogation--appropriately functioning as per cardiology Volume status stable NSVT Continue current medications Monitor and replete electrolytes as needed COPD Pulmonary Hypertension Ongoing tobacco use Continue nebs, home inhalers 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 Nicotine Patch Nebs PRN Respiratory status stable continue current medications HAFSA Continue CPAP HS Chronic Troponin elevation Less likely ACS Troponin Levels better when compared to prior Hyperlipidemia on statin Possible suicidality H/O Anxiety/mood disorder Schizoaffective disorder Continue home medications Suicidal precautions Seroquel decreased to 600 mg to minimize excess sedation Ativan decreased to 0.5 mg as needed to minimize excess sedation Psychiatry following Will need inpatient psychiatry admission once medically cleared - 302 dispo sitioned as patient agreeable to voluntary commitment Chronic Back pain Minimize narcotic use as able Avoid IV Narcotics as able to minimize excess sedation - ibuprofen prn added DVT Px: SCDs for now Re: Plan for I &D - can restart heparin SC after surgery Code Status Full code Admission and Anticipated Discharge Date Admission Date: July 25, 2022 Subjective Patient with HFpEF (EF 20% 2021) s/p ICD, HAFSA on CPAP, pHTN, HLD, anxiety/mood disorder/schizoaffective disorder, chronic back pain presented with chest pain, ICD interrogated which was unremarkable, ACS ruled out. Expressed SI and psych consulted, intiially 302'd but eventually agreed to voluntary confinement. Issues with placement due to CPAP for HAFSA. Found to have peroneal abscess, s/p OR I/D with surgery 07/31/2022, on abx. Patient complains of pain at abscess site in perineum and had bleeding overnight, seen by surgery this morning. Denies fevers or chills, chest pain, shortness of breath (although says gets it occasionally), n/v/d, abdominal pain, dysuria. Review of Systems Review of Systems: As per HPI, all other systems reviewed and negative Physical Exam Physical Exam: General Appearance:Moderately built and nourished, no apparent distress Head: normocephalic, Atraumatic Eyes: normal inspection, EOMI Neck: supple, Trachea midline Respiratory/Chest: Decreased breath sounds, no wheezes, +Pacemaker, No accessory muscle use Cardiovascular: S1, S2, No murmur Abdomen/GI:Soft, Non tender, Bowel sounds present : Perineal dressing with dried blood - no evidence of bleeding at time of exam, no drainage noted Extremities/Musculoskeletal:normal inspection, no edema Neurologic/Psych:AAOX3, grossly no focal neurological deficits Skin: normal color, warm Results & Data Results & Data ([facility]) Vital Signs (Past 12 Hours) Vital Signs Temp Pulse Pulse Resp BP Pulse Ox O2 Del Method 08/01/22 08:02 71 08/01/22 03:11 36.6 C 62 18 121/68 96 Room Air 08/01/22 03:04 80 18 96 08/01/22 01:21 85 17 95 FiO2 08/01/22 08:02 08/01/22 03:11 08/01/22 03:04 21 08/01/22 01:21 21 Diagnostic Findings Laboratory Results WBC 8.90 K/ul (4.8-10.8) 08/01/22 07:49 RBC 4.30 M/uL (4.63-6.08) L 08/01/22 07:49 Hgb 13.6 g/dl (14.0-18.0) L 08/01/22 07:49 Hct 40.7 % (40.1-51.0) 08/01/22 07:49 MCV 94.7 fL (80.0-100.0) 08/01/22 07:49 MCH 31.6 pg (25.0-34.0) 08/01/22 07:49 MCHC 33.4 g/dL (32.0-36.0) 08/01/22 07:49 RDW Std Deviation 48.0 fL (36.4-46.3) H 08/01/22 07:49 RDW Coeff of Seven 13.8 % (11.5-14.5) 08/01/22 07:49 Plt Count 154 K/uL (130-400) 08/01/22 07:49 MPV 11.2 fL (9.4-12.4) 08/01/22 07:49 Immature Gran % (Auto) 1.3 % 08/01/22 07:49 Neut % (Auto) 56.6 % 08/01/22 07:49 Lymph % (Auto) 25.5 % 08/01/22 07:49 [place] % (Auto) 13.8 % 08/01/22 07:49 Eos % (Auto) 2.5 % 08/01/22 07:49 Baso % (Auto) 0.3 % 08/01/22 07:49 Neut # (Auto) 5.03 K/uL (1.4-6.5) 08/01/22 07:49 Lymph # (Auto) 2.27 K/uL (1.2-3.4) 08/01/22 07:49 [place] # (Auto) 1.23 K/uL (0.24-0.82) H 08/01/22 07:49 Eos # (Auto) 0.22 K/uL (0-0.50) 08/01/22 07:49 Baso # (Auto) 0.03 K/uL (0-0.2) 08/01/22 07:49 Immature Gran # (Auto) 0.12 K/uL (0.00-0.02) H 08/01/22 07:49 APTT 28.1 Seconds (21.0-31.0) 07/24/22 23:49 PTT Ratio 1.0 07/24/22 23:49 Sodium 141 mmol/L (136-145) 08/01/22 07:49 Potassium 4.2 mmol/L (3.5-5.1) 08/01/22 07:49 Chloride 109 mmol/L (98-107) H 08/01/22 07:49 Carbon Dioxide 29 mmol/L (21-32) 08/01/22 07:49 Anion Gap 3 (3-11) 08/01/22 07:49 BUN 25 mg/dl (6-23) H 08/01/22 07:49 Creatinine 0.84 mg/dl (0.6-1.4) 08/01/22 07:49 Est Cr Clr Drug Dosing 111.0 ml/min 08/01/22 07:49 Est GFR ( Amer) 115.0 ml/min 08/01/22 07:49 Est GFR (Non-Af Amer) 99.3 ml/min 08/01/22 07:49 BUN/Creatinine Ratio 29.8 (10-20) H 08/01/22 07:49 Glucose 103 mg/dl (70-99(Fasting)) H 08/01/22 07:49 Calcium 7.7 mg/dl (8.5-10.1) L 08/01/22 07:49 Phosphorus 3.8 mg/dl (2.5-4.9) 08/01/22 07:49 Magnesium 2.0 mg/dl (1.7-2.4) 08/01/22 07:49 Total Bilirubin 0.3 mg/dl (0.2-1.0) 08/01/22 07:49 AST 8 U/L (13-39) L 08/01/22 07:49 ALT 7 U/L (7-52) 08/01/22 07:49 Alkaline Phosphatase 50 U/L (34-104) 08/01/22 07:49 Troponin I High Sens 39.2 pg/ml (0-20) H 07/24/22 23:49 B-Natriuretic Peptide 839 pg/ml (0-100) H 07/25/22 08:16 Total Protein 5.6 gm/dl (6.0-8.3) L 08/01/22 07:49 Albumin 3.2 gm/dl (3.4-5.0) L 08/01/22 07:49 Globulin 2.4 gm/dl (2.5-4.0) L 08/01/22 07:49 Albumin/Globulin Ratio 1.3 (0.9-2) 08/01/22 07:49 Procalcitonin 0.07 ng/ml (0-0.5) 07/30/22 10:36 TSH 0.645 uIu/ml (0.300-4.500) 07/24/22 23:49 Urine Color Yellow 07/25/22 01:25 Urine Appearance Clear (Clear) 07/25/22 01:25 Urine pH 7.0 (4.5-7.5) 07/25/22 01:25 Ur Specific [place] 1.006 (1.000-1.030) 07/25/22 01:25 Urine Protein Negative (Negative) 07/25/22 01:25 Urine Glucose (UA) Negative (Negative) 07/25/22 01:25 Urine Ketones Negative (Negative) 07/25/22 01:25 Urine Blood Negative (Negative) 07/25/22 01:25 Urine Nitrite Negative (Negative) 07/25/22 01:25 Urine Bilirubin Negative (Negative) 07/25/22 01:25 Urine Urobilinogen Negative (Negative) 07/25/22 01:25 Ur Leukocyte Esterase Negative (Negative) 07/25/22 01:25 Salicylates < 3.0 mg/dl (3.0-30) L 07/24/22 23:46 Urine Opiates Screen Neg (Neg) 07/25/22 01:25 Ur Methadone, Qual Neg (Neg) 07/25/22 01:25 Acetaminophen < 3 ug/ml (10-30) L 07/24/22 23:46 Urine Barbiturates Neg (Neg) 07/25/22 01:25 Valproic Acid 46 mcg/ml (50-100) L 07/25/22 08:16 Ur Phencyclidine (PCP) Neg (Neg) 07/25/22 01:25 U Amphetamin/Meth Scrn Neg (Neg) 07/25/22 01:25 MDMA (Ecstasy) Screen Neg (Neg) 07/25/22 01:25 U Benzodiazepines Scrn Neg (Neg) 07/25/22 01:25 Ur Cocaine Metabolite Neg (Neg) 07/25/22 01:25 U Marijuana (THC) Screen Neg (Neg) 07/25/22 01:25 Ethyl Alcohol mg/dL < 10.0 mg/dl (<10.0) 07/24/22 23:46 Lyme Disease IgG Ab Negative (Negative) 07/24/22 23:49 Lyme Disease IgM Ab Negative (Negative) 07/24/22 23:49 SARS-CoV-2, RNA, NAAT NEGATIVE (NEGATIVE) 07/24/22 23:19 Impressions Chest CTA 07/25/22 01:56 CT angio chest PE protocol CLINICAL HISTORY: r cp TECHNIQUE: Multidetector row helical CT of the chest was performed with angiogra [facility] protocol. Coronal and sagittal reformations were obtained. Coronal and sagittal MIPS were obtained from the axial data set and were submitted for review. Automated dose lowering techniques and/or adjustment according to patient size were utilized for this exam. CT DOSE: 565.73 mGy.cm Comparison: Comparison is made to CT chest 06/10/2022 FINDINGS: Lungs and pleura: Previously noted opacities is amorphous entirely resolved. Trace atelectasis versus airspace disease is noted in the right middle lobe. Heart and pericardium: Cardiomegaly is seen with biatrial enlargement. Vessels: No evidence of pulmonary embolism. Mediastinum and nitish: Subcentimeter lymph nodes are seen. Chest wall and lower neck: Subcentimeter axillary lymph nodes noted. Abdomen: Unremarkable. Bones: Mild degenerative changes are seen. IMPRESSION: 1. Interval resolution of pneumonia. No evidence of pulmonary embolus is seen. 2. Subcentimeter lymph nodes are seen which are likely reactive. ACT 112: Negative or not required by law. Electronically signed by: Solitario Castro M.D. 07/25/2022 8:25 AM Ribs X-Ray 07/25/22 09:36 XR ribs RT min 2V CLINICAL HISTORY: rib fractures? pna TECHNIQUE: 3 views of the right ribs were obtained. Single frontal view of the chest was obtained. Comparison: Comparison is made to chest radiograph 07/25/2022 FINDINGS: No fractures are seen. The chest wall and soft tissues are normal. Pacemaker defibrillator is seen. The lungs are clear. No evidence of pleural effusion or pneumothorax. IMPRESSION: No evidence of acute fracture or other acute abnormalities in the visualized portions of the chest. ACT 112: Negative or not required by law. Electronically signed by: Solitario Castro M.D. 07/25/2022 10:31 AM KUB X-Ray 07/26/22 09:49 KUB CLINICAL HISTORY: Nausea and vomiting. FINDINGS: 2 AP, portable, supine abdominal radiographs are compared to study dated 11/25/2015 and correlated with abdominal CT dated 10/16/2015. There is a nonobstructed abdominal bowel gas pattern. No evidence of intraperitoneal free air is seen on these supine images. There are no abnormal abdominal calcifications. The bony structures appear intact. IMPRESSION: No acute abnormality is identified. Electronically signed by: Anthony Bates M.D. 07/26/2022 10:34 AM Chest X-Ray 07/30/22 08:47 XR chest 1V portable CLINICAL HISTORY: Dyspnea COMPARISON STUDY: Chest CT July 25, 2022. FINDINGS: Left subclavian biventricular pacer/AICD is in place. Cardiomegaly is unchanged. No evidence for pulmonary edema. No pneumothorax or pleural effusion. There is no consolidation. There is been no significant change in appearance of the chest. IMPRESSION: No acute cardiopulmonary findings. Cardiomegaly. ACT 112: Negative or not required by law. Electronically signed by: Brain Garcia M.D. 07/30/2022 9:56 AM Abdomen/Pelvis CT 07/30/22 10:[address] WITH IV CONTRAST CT DOSE: 923.16 mGy.cm HISTORY: Patient presents with palpable abnormality of the inguinal tissues. groin abscess TECHNIQUE: Multiaxial CT images of the abdomen and pelvis were performed following the IV administration of 91 cc of Optiray, A dose lowering technique was utilized adhering to the principles of ALARA. COMPARISON STUDY: CT abdomen and pelvis 10/16/2015 FINDINGS: Cardiomegaly with partially imaged pacer/AICD leads. Trace pleural effusions. Mild dependent subsegmental bibasilar atelectasis. There is no pneumatosis or pneumoperitoneum. Unremarkable spleen, pancreas and adrenal glands. Contracted gallbladder. The liver is mildly enlarged. Patency of the hepatic and portal veins. 1.7 cm cyst of the superior pole left kidney. There is no hydronephrosis. Mild prostamegaly. Circumferential urinary bladder wall thickening with partial distention. Retroaortic left renal vein. No abdominal aortic aneurysm. Enlarged iliac and inguinal chain lymph nodes are noted bilaterally measuring up to 1.3 and 1.5 cm respectively. No bowel obstruction or bowel wall thickening. There is moderate colonic fecal retention. Normal appendix. There is cellulitis of the perineal tissues and inferior gluteal folds. There is a peripherally enhancing 5.2 x 3.0 x 3.6 cm fluid collection within the left peroneal tissues. Subcutaneous edema extends into the scrotum. No subcutaneous or deep tissue emphysema identified. No supralevator extension. Degenerative changes of the spine, pelvis and hips. IMPRESSION: 1. Cellulitis of the perineal/inferior gluteal tissues with 5.2 cm left perineal abscess. 2. Iliac and inguinal chain lymphadenopathy is likely reactive. 3. Trace pleural effusions with mild bibasilar atelectasis. 4. No bowel obstruction or bowel wall thickening. Normal appendix. 5. Additional findings as above. ACT 112: Negative or not required by law. The above report was generated using voice recognition software. It may contain grammatical, syntax or spelling errors. Electronically signed by: Kevin Alonso M.D. 07/30/2022 12:21 PM Medications Administered Current Inpatient Medications Acetaminophen (Acetaminophen 325 Mg Tab) 650 mg PO Q4H PRN PRN Reason: Pain or Fever Stop: 08/24/22 03:24 Last Admin: 07/30/22 15:54 Dose: 650 mg Albuterol (Albut/Ipratrop 3mg/0.5mg Neb 3 Ml Vial) 3 ml NEB Q2H PRN; Protocol PRN Reason: Wheezing Stop: 08/25/22 21:37 Last Admin: 07/29/22 12:01 Dose: 3 ml Alprazolam (Alprazolam 0.5 Mg Tablet) 0.5 mg PO QID PRN PRN Reason: Anxiety Stop: 08/24/22 03:24 Last Admin: 08/01/22 10:39 Dose: 0.5 mg Atorvastatin Calcium (Atorvastatin 20 Mg Tab) 20 mg PO DAILY [facility] Stop: 08/24/22 08:59 Last Admin: 08/01/22 09:00 Dose: 20 mg Dextromethorphan Polymer Complex (Dextromethorphan Polymr Complx 30 Mg/5 Ml Udp) 30 mg PO Q8H PRN PRN Reason: Cough Stop: 08/24/22 12:24 Divalproex Sodium (Divalproex Delay Release 500 Mg Tab) 500 mg PO BID [facility] Stop: 08/24/22 08:59 Last Admin: 08/01/22 08:59 Dose: 500 mg Escitalopram Oxalate (Escitalopram Oxalate 20 Mg Tab) 20 mg PO QAM [facility] Stop: 08/24/22 08:59 Last Admin: 08/01/22 09:00 Dose: 20 mg Fluticasone Propionate (Fluticasone Propionate Na Spr 16 Gm Btl) 2 sprays ADAM D AILY PRN PRN Reason: Allergy Symptoms Stop: 08/24/22 03:54 Fluticasone/Vilanterol (Fluticasone/Vilanterol 200/25mcg 14 Puffs/Inhaler) 1 puffs INH DAILY [facility] Stop: 08/24/22 08:59 Last Admin: 08/01/22 09:04 Dose: 1 puffs Furosemide (Furosemide 40 Mg Tab) 40 mg PO DAILY [facility] Stop: 08/27/22 08:59 Last Admin: 08/01/22 09:02 Dose: 40 mg Hydromorphone HCl (Hydromorphone Inj 0.5 Mg/0.5 Ml Syr) 0.5 mg IV Q4H PRN PRN Reason: Pain 6, 7, 8, 9, 10 Stop: 08/14/22 11:30 Last Admin: 08/01/22 09:15 Dose: 0.5 mg Promethazine HCl 12.5 mg/ (Sodium Chloride) 50.5 mls @ 202 mls/hr IV Q6H PRN PRN Reason: Nausea And Vomiting Stop: 08/24/22 02:11 Last Infusion: 07/26/22 08:19 Dose: Infused Acetaminophen (Ofirmev) 1,000 mg in 100 mls @ 400 mls/hr IV Q8H [facility] Stop: 08/03/22 11:59 Last Infusion: 08/01/22 03:59 Dose: Infused Sodium Chloride (Nss 1000ml) 1,000 mls @ 80 mls/hr IV .[id number] [facility] Stop: 08/31/22 04:59 Last Admin: 08/01/22 05:06 Dose: 80 mls/hr Isosorbide Mononitrate (Isosorbide [place] Extended Rel 30 Mg Tabcr) 30 mg PO DAILY [facility] Stop: 08/24/22 08:59 Last Admin: 08/01/22 09:00 Dose: 30 mg Lactobacillus Acidophilus (Advanced Probiotic 1250 Mg Capsule) 2 cap PO DAILY [facility] Stop: 08/25/22 10:59 Last Admin: 08/01/22 09:01 Dose: 2 cap Lisinopril (Lisinopril 40 Mg Tab) 40 mg PO DAILY [facility] Stop: 08/24/22 08:59 Last Admin: 08/01/22 09:00 Dose: 40 mg Metoprolol Succinate (Metoprolol Succ 25mg Ext Rel Tab) 25 mg PO QAM [facility] Stop: 08/24/22 06:59 Last Admin: 08/01/22 09:01 Dose: 25 mg Miscellaneous (Remove Nicoderm Patch) 1 each N/A DAILY@0859 [facility] Stop: 08/24/22 08:58 Last Admin: 08/01/22 10:32 Dose: 1 each Nicotine (Nicotine 14 Mg/24 Hr Patch) [facility] Stop: 08/24/22 02:14 Last Admin: 08/01/22 09:07 Dose: 14 mg Olanzapine (Olanzapine 10 Mg/2.1 Ml Sdv) 2.5 mg IM Q4H PRN PRN Reason: Anxiety/Agitation Stop: 08/24/22 03:55 Oxycodone/Acetaminophen (Oxycodone/Acetaminophen 5mg/325mg Tab) 1 tab PO Q6H PRN PRN Reason: Pain Stop: 08/11/22 03:38 Last Admin: 08/01/22 06:19 Dose: 1 tab Potassium Chloride (Potassium Chloride Crtab 20 Meq Tabcr) 20 meq PO BID17 [facility] Stop: 08/24/22 08:59 Last Admin: 08/01/22 10:29 Dose: 20 meq Quetiapine Fumarate (Quetiapine Fumarate 300 Mg Tablet) 600 mg PO HS [facility] Stop: 08/25/22 20:59 Last Admin: 07/31/22 21:42 Dose: 600 mg Trimethoprim/Sulfamethoxazole (Sulfamethoxazole/Trimethoprim Ds 800/160mg Tab) 1 tab PO Q12 [facility] Stop: 08/06/22 08:59 Last Admin: 08/01/22 10:43 Dose: 1 tab Umeclidinium [place] (Umeclidinium [place] 62.5mcg/Blister 7 Puffs/Inhaler) 1 puffs INH DAILY [facility] Stop: 01/17/23 08:59 Last Admin: 08/01/22 09:04 Dose: 1 puffs
--- NOTE | 2022-08-01 20:14 | Communication Note ---
Date of Service: August 01, 2022 I was asked to check on this patient by Dr. Ervin. The patient underwent an incision and drainage of peritoneal abscess on 07/31/2022. Dr. Ervin noted that there was some skin bleeding when he removed packing on postop day #1 which he cauterized with silver nitrate. Nurse notify Dr. Ervin that the patient had some drainage on his dressing. I visited with the patient at the bedside and did not appear to be any active bleeding there is just some serous drainage at the time of my exam. The wound was redressed.
[2022-08-01] MEDS: QUEtiapine FUMARATE 300 MG TABLET PO SCH (22:16)
[2022-08-02] MEDS: HYDROmorphone INJ 0.5 MG/0.5 ML SYR IV PRN (03:10)
[2022-08-02] MEDS: ACETAMINOPHEN 1,000 MG/100 ML VIAL IV SCH ×3 (03:18→20:49)
[2022-08-02] MEDS: oxyCODONE/ACETAMINOPHEN 5mg/325mg TAB PO PRN ×4 (05:24→22:33)
[2022-08-02] MEDS: SODIUM CHLORIDE 0.9% 1000ML 1,000 ML IV SCH ×2 (05:59→18:43)
[2022-08-02] MEDS ORDERED: HYDROmorphone INJ 1 MG/ML SYRINGE IV STA (08:02)
[2022-08-02] MEDS: UMECLIDINIUM BROMIDE 62.5MCG/BLISTER 7 PUFFS/INHALER INH SCH (08:27)
[2022-08-02] MEDS: FLUTICASONE/VILANTEROL 200/25MCG 14 PUFFS/INHALER INH SCH (08:27)
[2022-08-02] MEDS: SULFAMETHOXAZOLE/TRIMETHOPRIM DS 800/160MG TAB PO SCH ×2 (08:28→22:33)
[2022-08-02] MEDS: ATORVASTATIN 20 MG TAB PO SCH (08:28)
[2022-08-02] MEDS: METOPROLOL SUCC 25MG EXT REL TAB PO SCH (08:28)
[2022-08-02] MEDS: DIVALPROEX DELAY RELEASE 500 MG TAB PO SCH ×2 (08:28→22:33)
[2022-08-02] MEDS: ISOSORBIDE MONO EXTENDED REL 30 MG TABCR PO SCH (08:29)
[2022-08-02] MEDS: lisinopril 40 MG TAB PO SCH (08:29)
[2022-08-02] MEDS: ADVANCED PROBIOTIC 1250 MG CAPSULE PO SCH (08:29)
[2022-08-02] MEDS: FUROSEMIDE 40 MG TAB PO SCH (08:29)
[2022-08-02] MEDS: ESCITALOPRAM OXALATE 20 MG TAB PO SCH (08:29)
[2022-08-02] MEDS: NICOTINE 14 MG/24 HR PATCH TD SCH (08:30)
[2022-08-02] MEDS: POTASSIUM CHLORIDE CRTAB 20 MEQ TABCR PO SCH ×2 (08:35→16:40)
[2022-08-02] MEDS: ALPRAZolam 0.5 MG TABLET PO PRN (08:41)
--- NOTE | 2022-08-02 09:05 | Surgery Progress Note ---
Date of Service August 02, 2022 Assessment & Plan (1) Perineal abscess: Plan: s/p I&D of perineal abscess packing removed today at bedside, no obvious bleeding noted. expected drainage on dressing no need to replace packing. can dress wound w/ dry gauze/ ABD/ and adhere with tape our mesh undergarments recommended patient shower daily No need for further abx from our standpoint okay for dispo from our point of view. can f/u in clinic pt seen/examined with Dr. Ervin Admission and Anticipated Discharge Date Admission Date: July 25, 2022 Supervising Physician Co-Signing Physician Notes As per Kimberly Stephenson physician activities assistant I discussed this the postoperative care in detail with Ruddy including no need for antibiotics to shower daily (does not have a bathtub to do sitz bath) We will see the patient in office in approximately 1 week Subjective Patient is doing well. Reports some soreness of incision. Otherwise no active bleeding Physical Exam Physical Exam: awake/alert Skin: perineal packing in place, small amount of bloody drainage noted on outer dressing, packing place Results & Data ([facility]) Vital Signs (Past 12 Hours) Vital Signs Temp Pulse Pulse Resp BP BP Pulse Ox 08/02/22 08:18 36.8 C 54 L 18 144/62 H 98 08/02/22 07:18 71 08/01/22 22:00 78 08/02/22 03:26 36.6 C 74 18 112/75 99 08/02/22 02:46 75 16 97 08/01/22 23:15 74 16 98 08/01/22 23:12 37.8 C H 69 18 134/83 97 O2 Del Method FiO2 08/02/22 08:18 Room Air 08/02/22 07:18 08/01/22 22:00 08/02/22 03:26 CPAP 08/02/22 02:46 21 08/01/22 23:15 21 08/01/22 23:12 Room Air PG Care Time/CCT Total # of Minutes Spent Total Time Spent with Patient: Total time spent is greater than 50% in coordination of care (as documented) at patient's floor/unit and/or counseling patient: Coding Level of Care Code None Diagnoses Perineal abscess L02.215
--- NOTE | 2022-08-02 10:40 | Psychiatric Progress Note ---
Date of Service August 02, 2022 Impression / Recommendations Impression 52 yo male with a history of mood related psychosis, unclear primary dx, mixed reports re: recent providers and medications, frequent ED visits for refills. Continues to have SI/hopelessness even with improvement of his medical conditions and feels inpatient psychiatry admission would be helpful and is requesting voluntary treatment. 08/02/22: Near medical stability, ensure no further drainage from abscess o vernight, and then start referrals for inpatient psychiatry for major depression and possible component of depression 2/2 medical conditions. (1) Suicide ideation: (2) Depression: (3) Decompensated heart failure: Plan -Begin inpt vol psych bed search tomorrow if he remains medically stable and improved -Cannot leave AMA -Continue leaxpro 20mg qd, Depakote ER 500mg BID and seroquel 600mg qhs, using Xanax 0.5mg daily prn for anxiety Interval History Identifying Information 52 yo male, mixed reports on his current housing situation, seen on consult service last month, hx of ED visits seeking Xanax 2 mg QID for which there is no evidence in PDMP. Consult is by hospitalist service for SI. Chief Complaint "Yeah I still have those thoughts". Review of Systems Notes sleeping, eating Subjective Subjective Patient was seen & assessed and interval progress reviewed. Required drainage of perineal abscess which is healing well. Feels his mood remains low and endorses ongoing SI without plan or intent for hospital but he feels he may develop a plan if he were to leave given his depression worsening. His ritikae Manuela joined via speakerphone with his permission and noted that he has been very depressed at home with lack of energy, low motivation, and anhedonia which is a significant change for him over the past few months but worsening in recent weeks. Feels his depression is driven by stress from his medical issues recently and financial strain. Is hopeful medication adjustments and inpatient admission would help. Was last inpt for psych about 15 years ago at [facility]. Feels safe on the medical floor and agrees to alert nursing if he developed in tent or plan related to SI or if he feels unable to remain safe. Procedures Performed Operation Date: 07/31/22 11:35 Actual Procedures p Incision and Drainage Perineal Abscess - Caden Ervin MD, FACS Physical Exam Psychiatric Orientation: alert and oriented x 3 Apperance: appropriately groomed Eye Contact: + fair eye contact Motor Behavior: no abnormal motor movements Speech: + abnormal rate/rhythm/volume of speech (slow, deliberate) Affect: + depressed affect Mood: + depressed mood Thought Process: + perseveration and + concrete thought process Thought Content: reality based without delusions Suicidal Thoughts: denies suicidal plan (for hospital, feels he would develop one outside hospital) and denies suicidal intent; + reports suicidal thoughts (unable to safety plan) Homicidal Thoughts: denies homicidal thoughts Hallucinations: no auditory hallucinations and no visual hallucinations Cognition: attention grossly intact and language grossly intact Estimated Intelligence: consistent with education level Insight: + limited insight Judgement: + limited judgement Vital Signs (Past 24 Hours) Last Vital Signs Temp 36.8 C 08/02/22 08:18 Pulse 54 L 08/02/22 08:18 Resp 18 08/02/22 08:18 BP 144/62 H 08/02/22 08:18 Pulse Ox 98 08/02/22 08:18 O2 Del Method 08/02/22 08:18 O2 Flow Rate 11 07/31/22 11:50 FiO2 21 08/02/22 02:46 Results & Data ([facility]) Current Inpatient Medications Current Inpatient Medications: Current Inpatient Medications Acetaminophen (Acetaminophen 325 Mg Tab) 650 mg PO Q4H PRN PRN Reason: Pain or Fever Stop: 08/24/22 03:24 Last Admin: 07/30/22 15:54 Dose: 650 mg Albuterol (Albut/Ipratrop 3mg/0.5mg Neb 3 Ml Vial) 3 ml NEB Q2H PRN; Protocol PRN Reason: Wheezing Stop: 08/25/22 21:37 Last Admin: 07/29/22 12:01 Dose: 3 ml Alprazolam (Alprazolam 0.5 Mg Tablet) 0.5 mg PO QID PRN PRN Reason: Anxiety Stop: 08/24/22 03:24 Last Admin: 08/02/22 08:41 Dose: 0.5 mg Atorvastatin Calcium (Atorvastatin 20 Mg Tab) 20 mg PO DAILY ILIA Stop: 08/24/22 08:59 Last Admin: 08/02/22 08:28 Dose: 20 mg Dextromethorphan Polymer Complex (Dextromethorphan Polymr Complx 30 Mg/5 Ml Udp) 30 mg PO Q8H PRN PRN Reason: Cough Stop: 08/24/22 12:24 Divalproex Sodium (Divalproex Delay Release 500 Mg Tab) 500 mg PO BID [facility] Stop: 08/24/22 08:59 Last Admin: 08/02/22 08:28 Dose: 500 mg Escitalopram Oxalate (Escitalopram Oxalate 20 Mg Tab) 20 mg PO QAM [facility] Stop: 08/24/22 08:59 Last Admin: 08/02/22 08:29 Dose: 20 mg Fluticasone Propionate (Fluticasone Propionate Na Spr 16 Gm Btl) 2 sprays ADAM DAILY PRN PRN Reason: Allergy Symptoms Stop: 08/24/22 03:54 Fluticasone/Vilanterol (Fluticasone/Vilanterol 200/25mcg 14 Puffs/Inhaler) 1 puffs INH DAILY [facility] Stop: 08/24/22 08:59 Last Admin: 08/02/22 08:27 Dose: 1 puffs Furosemide (Furosemide 40 Mg Tab) 40 mg PO DAILY [facility] Stop: 08/27/22 08:59 Last Admin: 08/02/22 08:29 Dose: 40 mg Promethazine HCl 12.5 mg/ (Sodium Chloride) 50.5 mls @ 202 mls/hr IV Q6H PRN PRN Reason: Nausea And Vomiting Stop: 08/24/22 02:11 Last Infusion: 07/26/22 08:19 Dose: Infused Acetaminophen (Ofirmev) 1,000 mg in 100 mls @ 400 mls/hr IV Q8H [facility] Stop: 08/03/22 11:59 Last Infusion: 08/02/22 03:42 Dose: Infused Sodium Chloride (Nss 1000ml) 1,000 mls @ 80 mls/hr IV .[id number] [facility] Stop: 08/31/22 04:59 Last Admin: 08/02/22 05:59 Dose: 80 mls/hr Isosorbide Mononitrate (Isosorbide Mcdonald Extended Rel 30 Mg Tabcr) 30 mg PO DAILY [facility] Stop: 08/24/22 08:59 Last Admin: 08/02/22 08:29 Dose: 30 mg Lactobacillus Acidophilus (Advanced Probiotic 1250 Mg Capsule) 2 cap PO DAILY [facility] Stop: 08/25/22 10:59 Last Admin: 08/02/22 08:29 Dose: 2 cap Lisinopril (Lisinopril 40 Mg Tab) 40 mg PO DAILY [facility] Stop: 08/24/22 08:59 Last Admin: 08/02/22 08:29 Dose: 40 mg Metoprolol Succinate (Metoprolol Succ 25mg Ext Rel Tab) 25 mg PO QAM [facility] Stop: 08/24/22 06:59 Last Admin: 08/02/22 08:28 Dose: 25 mg Miscellaneous (Remove Nicoderm Patch) 1 each N/A DAILY@0859 [facility] Stop: 08/24/22 08:58 Last Admin: 08/02/22 08:26 Dose: 1 each Nicotine (Nicotine 14 Mg/24 Hr Patch) 14 mg TD QAM [facility] Stop: 08/24/22 02:14 Last Admin: 08/02/22 08:30 Dose: 14 mg Olanzapine (Olanzapine 10 Mg/2.1 Ml Sdv) 2.5 mg IM Q4H PRN PRN Reason: Anxiety/Agitation Stop: 08/24/22 03:55 Oxycodone/Acetaminophen (Oxycodone/Acetaminophen 5mg/325mg Tab) 1 tab PO Q6H PRN PRN Reason: Pain Stop: 08/11/22 03:38 Last Admin: 08/02/22 05:24 Dose: 1 tab Potassium Chloride (Potassium Chloride Crtab 20 Meq Tabcr) 20 meq PO BID17 [facility] Stop: 08/24/22 08:59 Last Admin: 08/02/22 08:35 Dose: 20 meq Quetiapine Fumarate (Quetiapine Fumarate 300 Mg Tablet) 600 mg PO HS [facility] Stop: 08/25/22 20:59 Last Admin: 08/01/22 22:16 Dose: 600 mg Trimethoprim/Sulfamethoxazole (Sulfamethoxazole/Trimethoprim Ds 800/160mg Tab) 1 tab PO Q12 [facility] Stop: 08/06/22 08:59 Last Admin: 08/02/22 08:28 Dose: 1 tab Umeclidinium Floyd (Umeclidinium Floyd 62.5mcg/Blister 7 Puffs/Inhaler) 1 puffs INH DAILY [facility] Stop: 08/24/22 08:59 Last Admin: 08/02/22 08:27 Dose: 1 puffs (1) Depression Active/Remission status: currently active Depression Type: major depressive disorder Major depression episode severity: severe Major depression recurrence: recurrent Psychotic features: without psychotic features Qualified Code(s): F33.2 - Major depressive disorder, recurrent severe without psychotic features
--- NOTE | 2022-08-02 11:25 | Hospitalist Progress Note ---
Date of Service August 02, 2022 Assessment & Plan (1) Decompensated heart failure: Plan: Perineal Abscess/Cellulitis --CT ABD:Cellulitis of the perineal/inferior gluteal tissues with 5.2 cm left perineal abscess. Iliac and inguinal chain lymphadenopathy is likely reactive. No bowel obstruction or bowel wall thickening. Normal appendix. --Blood Cultures:pending -- Started on cefepime, Flagyl Day - changed to Bactrim BID for 5 days -- Pain control Appreciate surgery input - s/p OR perineal abscess drainage 07/31/2022 - continue abx for 5 days Chronic systolic heart failure H/O Nonischemic cardiomyopathy Last ECHO:EF 20 to 25% S/P ICD Valvular heart disease Medication noncompliance No signs of volume overload currently Continue Lasix, isosorbide, lisinopril, metoprolol Monitor volume status Cardiology on board Pacemaker interrogation--appropriately functioning as per cardiology Volume status stable NSVT Continue current medications Monitor and replete electrolytes as needed COPD Pulmonary Hypertension Ongoing tobacco use Continue nebs, home inhalers Continuous Wave Operator to quit smoking Nicotine Patch Nebs PRN Respiratory status stable continue current medications HAFSA Continue CPAP HS Chronic Troponin elevation Less likely ACS Troponin Levels better when compared to prior Hyperlipidemia on statin Possible suicidality H/O Anxiety/mood disorder Schizoaffective disorder Continue home medications Suicidal precautions Seroquel decreased to 600 mg to minimize excess sedation Ativan decreased to 0.5 mg as needed to minimize excess sedation Psychiatry following Will need inpatient psychiatry admission once medically cleared - 302 dispositioned as patient agreeable to voluntary commitment - pending psych inpatient placement - medically and surgically cleared Chronic Back pain Minimize narcotic use as able Avoid IV Narcotics as able to minimize excess sedation - ibuprofen prn added DVT Px: SCDs for now Re: Plan for I &D - can restart heparin SC after surgery Code Status Full code Admission and Anticipated Discharge Date Admission Date: July 25, 2022 Subjective Patient with HFpEF (EF 20% 2021) s/p ICD, HAFSA on CPAP, pHTN, HLD, anxiety/mood disorder/schizoaffective disorder, chronic back pain presented with chest pain, ICD interrogated which was unremarkable, ACS ruled out. Expressed SI and psych consulted, initially 302'd but eventually agreed to voluntary confinement. Issues with placement due to CPAP for HAFSA. Found to have peroneal abscess, s/p O R I/D with surgery 07/31/2022, on abx, recovering well. Patient is cleared from surgery standpoint and medical standpoint, pending inpatient psych placement, psych following. Patient feeling down today, expressing SI and that he is planning something for when he gets out of here but did not share his plans. Just not feeling well today, he says. Denies fevers or chills, chest pain, shortness of breath (although says gets it occasionally), n/v/d, abdominal pain, dysuria. Review of Systems Review of Systems: As per HPI, all other systems reviewed and negative Physical Exam Physical Exam: General Appearance:Moderately built and nourished, no apparent distress Head: normocephalic, Atraumatic Eyes: normal inspection, EOMI Neck: supple, Trachea midline Respiratory/Chest: Decreased breath sounds, no wheezes, +Pacemaker, No accessory muscle use Cardiovascular: S1, S2, No murmur Abdomen/GI:Soft, Non tender, Bowel sounds present : deferred as was just examined and dressing changed by surgery Extremities/Musculoskeletal:normal inspection, no edema Neurologic/Psych:AAOX3, grossly no focal neurological deficits Skin: normal color, warm Results & Data Results & Data ([facility]) Vital Signs (Past 12 Hours) Vital Signs Temp Pulse Pulse Resp BP BP Pulse Ox 08/02/22 08:18 36.8 C 54 L 18 144/62 H 98 08/02/22 07:18 71 08/02/22 03:26 36.6 C 74 18 112/75 99 08/02/22 02:46 75 16 97 O2 Del Method FiO2 08/02/22 08:18 Room Air 08/02/22 07:18 08/02/22 03:26 CPAP 08/02/22 02:46 21 Diagnostic Findings Laboratory Results WBC 8.90 K/ul (4.8-10.8) 08/01/22 07:49 RBC 4.30 M/uL (4.63-6.08) L 08/01/22 07:49 Hgb 13.6 g/dl (14.0-18.0) L 08/01/22 07:49 Hct 40.7 % (40.1-51.0) 08/01/22 07:49 MCV 94.7 fL (80.0-100.0) 08/01/22 07:49 MCH 31.6 pg (25.0-34.0) 08/01/22 07:49 MCHC 33.4 g/dL (32.0-36.0) 08/01/22 07:49 RDW Std Deviation 48.0 fL (36.4-46.3) H 08/01/22 07:49 RDW Coeff of Seven 13.8 % (11.5-14.5) 08/01/22 07:49 Plt Count 154 K/uL (130-400) 08/01/22 07:49 MPV 11.2 fL (9.4-12.4) 08/01/22 07:49 Immature Gran % (Auto) 1.3 % 08/01/22 07:49 Neut % (Auto) 56.6 % 08/01/22 07:49 Lymph % (Auto) 25.5 % 08/01/22 07:49 [place] % (Auto) 13.8 % 08/01/22 07:49 Eos % (Auto) 2.5 % 08/01/22 07:49 Baso % (Auto) 0.3 % 08/01/22 07:49 Neut # (Auto) 5.03 K/uL (1.4-6.5) 08/01/22 07:49 Lymph # (Auto) 2.27 K/uL (1.2-3.4) 08/01/22 07:49 [place] # (Auto) 1.23 K/uL (0.24-0.82) H 08/01/22 07:49 Eos # (Auto) 0.22 K/uL (0-0.50) 08/01/22 07:49 Baso # (Auto) 0.03 K/uL (0-0.2) 08/01/22 07:49 Immature Gran # (Auto) 0.12 K/uL (0.00-0.02) H 08/01/22 07:49 APTT 28.1 Seconds (21.0-31.0) 07/24/22 23:49 PTT Ratio 1.0 07/24/22 23:49 Sodium 141 mmol/L (136-145) 08/01/22 07:49 Potassium 4.2 mmol/L (3.5-5.1) 08/01/22 07:49 Chloride 109 mmol/L (98-107) H 08/01/22 07:49 Carbon Dioxide 29 mmol/L (21-32) 08/01/22 07:49 Anion Gap 3 (3-11) 08/01/22 07:49 BUN 25 mg/dl (6-23) H 08/01/22 07:49 Creatinine 0.84 mg/dl (0.6-1.4) 08/01/22 07:49 Est Cr Clr Drug Dosing 111.0 ml/min 08/01/22 07:49 Est GFR ( Amer) 115.0 ml/min 08/01/22 07:49 Est GFR (Non-Af Amer) 99.3 ml/min 08/01/22 07:49 BUN/Creatinine Ratio 29.8 (10-20) H 08/01/22 07:49 Glucose 103 mg/dl (70-99(Fasting)) H 08/01/22 07:49 Calcium 7.7 mg/dl (8.5-10.1) L 08/01/22 07:49 Phosphorus 3.8 mg/dl (2.5-4.9) 08/01/22 07:49 Magnesium 2.0 mg/dl (1.7-2.4) 08/01/22 07:49 Total Bilirubin 0.3 mg/dl (0.2-1.0) 08/01/22 07:49 AST 8 U/L (13-39) L 08/01/22 07:49 ALT 7 U/L (7-52) 08/01/22 07:49 Alkaline Phosphatase 50 U/L (34-104) 08/01/22 07:49 Troponin I High Sens 39.2 pg/ml (0-20) H 07/24/22 23:49 B-Natriuretic Peptide 839 pg/ml (0-100) H 07/25/22 08:16 Total Protein 5.6 gm/dl (6.0-8.3) L 08/01/22 07:49 Albumin 3.2 gm/dl (3.4-5.0) L 08/01/22 07:49 Globulin 2.4 gm/dl (2.5-4.0) L 08/01/22 07:49 Albumin/Globulin Ratio 1.3 (0.9-2) 08/01/22 07:49 Procalcitonin 0.07 ng/ml (0-0.5) 07/30/22 10:36 TSH 0.645 uIu/ml (0.300-4.500) 07/24/22 23:49 Urine Color Yellow 07/25/22 01:25 Urine Appearance Clear (Clear) 07/25/22 01:25 Urine pH 7.0 (4.5-7.5) 07/25/22 01:25 Ur Specific [place] 1.006 (1.000-1.030) 07/25/22 01:25 Urine Protein Negative (Negative) 07/25/22 01:25 Urine Glucose (UA) Negative (Negative) 07/25/22 01:25 Urine Ketones Negative (Negative) 07/25/22 01:25 Urine Blood Negative (Negative) 07/25/22 01:25 Urine Nitrite Negative (Negative) 07/25/22 01:25 Urine Bilirubin Negative (Negative) 07/25/22 01:25 Urine Urobilinogen Negative (Negative) 07/25/22 01:25 Ur Leukocyte Esterase Negative (Negative) 07/25/22 01:25 Salicylates < 3.0 mg/dl (3.0-30) L 07/24/22 23:46 Urine Opiates Screen Neg (Neg) 07/25/22 01:25 Ur Methadone, Qual Neg (Neg) 07/25/22 01:25 Acetaminophen < 3 ug/ml (10-30) L 07/24/22 23:46 Urine Barbiturates Neg (Neg) 07/25/22 01:25 Valproic Acid 46 mcg/ml (50-100) L 07/25/22 08:16 Ur Phencyclidine (PCP) Neg (Neg) 07/25/22 01:25 U Amphetamin/Meth Scrn Neg (Neg) 07/25/22 01:25 MDMA (Ecstasy) Screen Neg (Neg) 07/25/22 01:25 U Benzodiazepines Scrn Neg (Neg) 07/25/22 01:25 Ur Cocaine Metabolite Neg (Neg) 07/25/22 01:25 U Marijuana (THC) Screen Neg (Neg) 07/25/22 01:25 Ethyl Alcohol mg/dL < 10.0 mg/dl (<10.0) 07/24/22 23:46 Lyme Disease IgG Ab Negative (Negative) 07/24/22 23:49 Lyme Disease IgM Ab Negative (Negative) 07/24/22 23:49 SARS-CoV-2, RNA, NAAT NEGATIVE (NEGATIVE) 07/24/22 23:19 Impressions Chest CTA 07/25/22 01:56 CT angio chest PE protocol CLINICAL HISTORY: r cp TECHNIQUE: Multidetector row helical CT of the chest was performed with angiographic protocol. Coronal and sagittal reformations were obtained. Coronal and sagittal MIPS were obtained from the axial data set and were submitted for review. Automated dose lowering techniques and/or adjustment according to patient size were utilized for this exam. CT DOSE: 565.73 mGy.cm Comparison: Comparison is made to CT chest 06/10/2022 FINDINGS: Lungs and pleura: Previously noted opacities is amorphous entirely resolved. Trace atelectasis versus airspace disease is noted in the right middle lobe. Heart and pericardium: Cardiomegaly is seen with biatrial enlargement. Vessels: No evidence of pulmonary embolism. Mediastinum and nitish: Subcentimeter lymph nodes are seen. Chest wall and lower neck: Subcentimeter axillary lymph nodes noted. Abdomen: Unremarkable. Bones: Mild degenerative changes are seen. IMPRESSION: 1. Interval resolution of pneumonia. No evidence of pulmonary embolus is seen. 2. Subcentimeter lymph nodes are seen which are likely reactive. ACT 112: Negative or not required by law. Electronically signed by: Solitario Castro M.D. 07/25/2022 8:25 AM Ribs X-Ray 07/25/22 09:36 XR ribs RT min 2V CLINICAL HISTORY: rib fractures? pna TECHNIQUE: 3 views of the right ribs were obtained. Single frontal view of the c hest was obtained. Comparison: Comparison is made to chest radiograph 07/25/2022 FINDINGS: No fractures are seen. The chest wall and soft tissues are normal. Pacemaker defibrillator is seen. The lungs are clear. No evidence of pleural effusion or pneumothorax. IMPRESSION: No evidence of acute fracture or other acute abnormalities in the visualized portions of the chest. ACT 112: Negative or not required by law. Electronically signed by: Solitario Castro M.D. 07/25/2022 10:31 AM KUB X-Ray 07/26/22 09:49 KUB CLINICAL HISTORY: Nausea and vomiting. FINDINGS: 2 AP, portable, supine abdominal radiographs are compared to study dated 11/25/2015 and correlated with abdominal CT dated 10/16/2015. There is a nonobstructed abdominal bowel gas pattern. No evidence of intraperitoneal free air is seen on these supine images. There are no abnormal abdominal calcifications. The bony structures appear intact. IMPRESSION: No acute abnormality is identified. Electronically signed by: Anthony Bates M.D. 07/26/2022 10:34 AM Chest X-Ray 07/30/22 08:47 XR chest 1V portable CLINICAL HISTORY: Dyspnea COMPARISON STUDY: Chest CT July 25, 2022. FINDINGS: Left subclavian biventricular pacer/AICD is in place. Cardiomegaly is unchanged. No evidence for pulmonary edema. No pneumothorax or pleural effusion. There is no consolidation. There is been no significant change in appearance of the chest. IMPRESSION: No acute cardiopulmonary findings. Cardiomegaly. ACT 112: Negative or not required by law. Electronically signed by: Brain Garcia M.D. 07/30/2022 9:56 AM Abdomen/Pelvis CT 07/30/22 10:[address] WITH IV CONTRAST CT DOSE: 923.16 mGy.cm HISTORY: Patient presents with palpable abnormality of the inguinal tissues. groin abscess TECHNIQUE: Multiaxial CT images of the abdomen and pelvis were performed following the IV administration of 91 cc of Optiray, A dose lowering technique was utilized adhering to the principles of ALARA. COMPARISON STUDY: CT abdomen and pelvis 10/16/2015 FINDINGS: Cardiomegaly with partially imaged pacer/AICD leads. Trace pleural effusions. Mild dependent subsegmental bibasilar atelectasis. There is no pneumatosis or pneumoperitoneum. Unremarkable spleen, pancreas and adrenal glands. Contracted gallbladder. The liver is mildly enlarged. Patency of the hepatic and portal veins. 1.7 cm cyst of the superior pole left kidney. There is no hydronephrosis. Mild prostamegaly. Circumferential urinary bladder wall thickening with partial distention. Retroaortic left renal vein. No abdominal aortic aneurysm. Enlarged iliac and inguinal chain lymph nodes are noted bilaterally measuring up to 1.3 and 1.5 cm respectively. No bowel obstruction or bowel wall thickening. There is moderate colonic fecal retention. Normal appendix. There is cellulitis of the perineal tissues and inferior gluteal folds. There is a peripherally enhancing 5.2 x 3.0 x 3.6 cm fluid collection within the left peroneal tissues. Subcutaneous edema extends into the scrotum. No subcutaneous or deep tissue emphysema identified. No supralevator extension. Degenerative changes of the spine, pelvis and hips. IMPRESSION: 1. Cellulitis of the perineal/inferior gluteal tissues with 5.2 cm left perineal abscess. 2. Iliac and inguinal chain lymphadenopathy is likely reactive. 3. Trace pleural effusions with mild bibasilar atelectasis. 4. No bowel obstruction or bowel wall thickening. Normal appendix. 5. Additional findings as above. ACT 112: Negative or not required by law. The above report was generated using voice recognition software. It may contain grammatical, syntax or spelling errors. Electronically signed by: Kevin Alonso M.D. 07/30/2022 12:21 PM Medications Administered Current Inpatient Medications Acetaminophen (Acetaminophen 325 Mg Tab) 650 mg PO Q4H PRN PRN Reason: Pain or Fever Stop: 08/24/22 03:24 Last Admin: 07/30/22 15:54 Dose: 650 mg Albuterol (Albut/Ipratrop 3mg/0.5mg Neb 3 Ml Vial) 3 ml NEB Q2H PRN; Protocol PRN Reason: Wheezing Stop: 08/25/22 21:37 Last Admin: 07/29/22 12:01 Dose: 3 ml Alprazolam (Alprazolam 0.5 Mg Tablet) 0.5 mg PO QID PRN PRN Reason: Anxiety Stop: 08/24/22 03:24 Last Admin: 08/02/22 08:41 Dose: 0.5 mg Atorvastatin Calcium (Atorvastatin 20 Mg Tab) 20 mg PO DAILY [facility] Stop: 08/24/22 08:59 Last Admin: 08/02/22 08:28 Dose: 20 mg Dextromethorphan Polymer Complex (Dextromethorphan Polymr Complx 30 Mg/5 Ml Udp) 30 mg PO Q8H PRN PRN Reason: Cough Stop: 08/24/22 12:24 Divalproex Sodium (Divalproex Delay Release 500 Mg Tab) 500 mg PO BID [facility] Stop: 08/24/22 08:59 Last Admin: 08/02/22 08:28 Dose: 500 mg Escitalopram Oxalate (Escitalopram Oxalate 20 Mg Tab) 20 mg PO QAM [facility] Stop: 08/24/22 08:59 Last Admin: 08/02/22 08:29 Dose: 20 mg Fluticasone Propionate (Fluticasone Propionate Na Spr 16 Gm Btl) 2 sprays ADAM DAILY PRN PRN Reason: Allergy Symptoms Stop: 08/24/22 03:54 Fluticasone/Vilanterol (Fluticasone/Vilanterol 200/25mcg 14 Puffs/Inhaler) 1 puffs INH DAILY [facility] Stop: 08/24/22 08:59 Last Admin: 08/02/22 08:27 Dose: 1 puffs Furosemide (Furosemide 40 Mg Tab) 40 mg PO DAILY [facility] Stop: 08/27/22 08:59 Last Admin: 08/02/22 08:29 Dose: 40 mg Promethazine HCl 12.5 mg/ (Sodium Chloride) 50.5 mls @ 202 mls/hr IV Q6H PRN PRN Reason: Nausea And Vomiting Stop: 08/24/22 02:11 Last Infusion: 07/26/22 08:19 Dose: Infused Acetaminophen (Ofirmev) 1,000 mg in 100 mls @ 400 mls/hr IV Q8H [facility] Stop: 08/03/22 11:59 Last Infusion: 08/02/22 03:42 Dose: Infused Sodium Chloride (Nss 1000ml) 1,000 mls @ 80 mls/hr IV .[id number] [facility] Stop: 08/31/22 04:59 Last Admin: 08/02/22 05:59 Dose: 80 mls/hr Isosorbide Mononitrate (Isosorbide [place] Extended Rel 30 Mg Tabcr) 30 mg PO DAILY [facility] Stop: 08/24/22 08:59 Last Admin: 08/02/22 08:29 Dose: 30 mg Lactobacillus Acidophilus (Advanced Probiotic 1250 Mg Capsule) 2 cap PO DAILY [facility] Stop: 08/25/22 10:59 Last Admin: 08/02/22 08:29 Dose: 2 cap Lisinopril (Lisinopril 40 Mg Tab) 40 mg PO DAILY [facility] Stop: 08/24/22 08:59 Last Admin: 08/02/22 08:29 Dose: 40 mg Metoprolol Succinate (Metoprolol Succ 25mg Ext Rel Tab) 25 mg PO QAM [facility] Stop: 08/24/22 06:59 Last Admin: 08/02/22 08:28 Dose: 25 mg Miscellaneous (Remove Nicoderm Patch) 1 each N/A DAILY@0859 [facility] Stop: 08/24/22 08:58 Last Admin: 08/02/22 08:26 Dose: 1 each Nicotine (Nicotine 14 Mg/24 Hr Patch) 14 mg TD QAM [facility] Stop: 08/24/22 02:14 Last Admin: 08/02/22 08:30 Dose: 14 mg Olanzapine (Olanzapine 10 Mg/2.1 Ml Sdv) 2.5 mg IM Q4H PRN PRN Reason: Anxiety/Agitation Stop: 08/24/22 03:55 Oxycodone/Acetaminophen (Oxycodone/Acetaminophen 5mg/325mg Tab) 1 tab PO Q6H PRN PRN Reason: Pain Stop: 08/11/22 03:38 Last Admin: 08/02/22 11:07 Dose: 1 tab Potassium Chloride (Potassium Chloride Crtab 20 Meq Tabcr) 20 meq PO BID17 [facility] Stop: 08/24/22 08:59 Last Admin: 08/02/22 08:35 Dose: 20 meq Quetiapine Fumarate (Quetiapine Fumarate 300 Mg Tablet) 600 mg PO HS [facility] Stop: 08/25/22 20:59 Last Admin: 08/01/22 22:16 Dose: 600 mg Trimethoprim/Sulfamethoxazole (Sulfamethoxazole/Trimethoprim Ds 800/160mg Tab) 1 tab PO Q12 [facility] Stop: 08/06/22 08:59 Last Admin: 08/02/22 08:28 Dose: 1 tab Umeclidinium [place] (Umeclidinium [place] 62.5mcg/Blister 7 Puffs/Inhaler) 1 puffs INH DAILY [facility] Stop: 08/24/22 08:59 Last Admin: 08/02/22 08:27 Dose: 1 puffs
[2022-08-02] MEDS: QUEtiapine FUMARATE 300 MG TABLET PO SCH (22:33)
[2022-08-03] MEDS: oxyCODONE/ACETAMINOPHEN 5mg/325mg TAB PO PRN ×2 (04:32→10:27)
[2022-08-03] MEDS: SODIUM CHLORIDE 0.9% 1000ML 1,000 ML IV SCH ×2 (06:30→19:02)
--- NOTE | 2022-08-03 08:59 | Surgery Progress Note ---
Date of Service August 03, 2022 Assessment & Plan (1) Perineal abscess: Plan: 08/03/22 POD #2 status post incision and drainage of perineal abscess The packing was removed yesterday today had minimal serosanguineous drainage no tenderness The patient can be discharged from our point of view return to our office a week or 2 as needed as needed No antibiotics needed I instructed him that he should shower at least once a day and let water and soap around the area and reapply dressing to collect some serosanguineous drainage that he may have He does not need anything for pain and no antibiotics needed No restriction on activity All question answered s/p I&D of perineal abscess packing removed today at bedside, no obvious bleeding noted. expected drainage on dressing no need to replace packing. can dress wound w/ dry gauze/ ABD/ and adhere with tape our mesh undergarments recommended patient shower daily No need for further abx from our standpoint okay for dispo from our point of view. can f/u in clinic pt seen/examined with Dr. Ervin Admission and Anticipated Discharge Date Admission Date: July 25, 2022 Subjective Feels fine has no further discomfort in the perineal area virtually no drainage appreciated Physical Exam Physical Exam: Up and around without any restrictions He was standing the ABD gauze was removed there was minimal serosanguineous drainage on the gauze and patient had no tenderness in the operative area Results & Data ([facility]) Vital Signs (Past 12 Hours) Vital Signs Temp Pulse Pulse Resp BP Pulse Ox O2 Del Method 08/03/22 07:30 74 08/03/22 04:30 36.5 C 66 20 144/80 H 97 Room Air 08/03/22 03:18 17 08/02/22 21:45 77 08/03/22 00:15 76 17 95 08/02/22 22:45 37.0 C 65 20 147/59 H 98 Room Air FiO2 08/03/22 07:30 08/03/22 04:30 08/03/22 03:18 21 08/02/22 21:45 08/03/22 00:15 08/02/22 22:45 PG Care Time/CCT Total # of Minutes Spent Total Time Spent with Patient: Total time spent is greater than 50% in coordination of care (as documented) at patient's floor/unit and/or counseling patient: Coding Level of Care Code None Diagnoses Perineal abscess L02.215
[2022-08-03] MEDS: lisinopril 40 MG TAB PO SCH (09:17)
[2022-08-03] MEDS: DIVALPROEX DELAY RELEASE 500 MG TAB PO SCH ×2 (09:17→21:17)
[2022-08-03] MEDS: FUROSEMIDE 40 MG TAB PO SCH (09:17)
[2022-08-03] MEDS: ATORVASTATIN 20 MG TAB PO SCH (09:17)
[2022-08-03] MEDS: NICOTINE 14 MG/24 HR PATCH TD SCH (09:18)
[2022-08-03] MEDS: METOPROLOL SUCC 25MG EXT REL TAB PO SCH (09:18)
[2022-08-03] MEDS: ISOSORBIDE MONO EXTENDED REL 30 MG TABCR PO SCH (09:18)
[2022-08-03] MEDS: ADVANCED PROBIOTIC 1250 MG CAPSULE PO SCH (09:18)
[2022-08-03] MEDS: ESCITALOPRAM OXALATE 20 MG TAB PO SCH (09:18)
[2022-08-03] MEDS: SULFAMETHOXAZOLE/TRIMETHOPRIM DS 800/160MG TAB PO SCH ×2 (09:20→21:16)
[2022-08-03] MEDS: POTASSIUM CHLORIDE CRTAB 20 MEQ TABCR PO SCH ×2 (09:22→17:11)
[2022-08-03] MEDS: FLUTICASONE/VILANTEROL 200/25MCG 14 PUFFS/INHALER INH SCH (09:25)
--- NOTE | 2022-08-03 10:11 | Psychiatric Progress Note ---
Date of Service August 03, 2022 Impression / Recommendations Impression 52 yo male with a history of mood related psychosis, unclear primary dx, mixed reports re: recent providers and medications, frequent ED visits for refills. Continues to have SI/hopelessness even with improvement of his medical conditions and feels inpatient psychiatry admission would be helpful and is requesting voluntary treatment. 08/03/22: Now medical stability, still with depression and some increased p aranoia today and unable to safety plan so inpatient psychiatric admission appropriate. Will start bed search as needs facility that can accommodate his CPAP. If paranoid worsens could consider increase in seroquel but higher doses had previously caused excessive sedation. (1) Suicide ideation: (2) Depression: (3) Decompensated heart failure: Plan -Begin inpt vol psych bed search -Cannot leave AMA as unable to safety plan -Continue leaxpro 20mg qd, Depakote ER 500mg BID and seroquel 600mg qhs, using Xanax 0.5mg daily prn for anxiety Interval History Identifying Information 52 yo male, mixed reports on his current housing situation, seen on consult service last month, hx of ED visits seeking Xanax 2 mg QID for which there is no evidence in PDMP. Consult is by hospitalist service for SI. Chief Complaint "What are you doing in here?". Review of Systems Notes sleeping and eating Subjective Subjective Patient was seen & assessed and interval progress reviewed. Ruddy is now medically stable and discussed options for inpatient psych hospitalization versus attempt to safety plan to home with establishment of outpatient psych providers. He feels his SI is less today but still feels he needs inpatient treatment to help with his mood and coping skills. His andrés Roy joined via [employer] and supports this plan. Procedures Performed Operation Date: 07/31/22 11:35 Actual Procedures p Incision and Drainage Perineal Abscess - Caden Ervin MD, FACS Physical Exam Psychiatric Orientation: alert and oriented x 3 Apperance: appropriately groomed Eye Contact: + fair eye contact Motor Behavior: no abnormal motor movements Speech: + abnormal rate/rhythm/volume of speech (slow, deliberate) Affect: + depressed affect Mood: + depressed mood Thought Process: + perseveration and + concrete thought process Thought Content: + paranoid (slightly suspicious of nurse and I at times) and reality based without delusions Suicidal Thoughts: denies suicidal plan (for hospital, feels he may develop one outside hospital) and denies suicidal intent; + reports suicidal thoughts (unable to safety plan) Homicidal Thoughts: denies homicidal thoughts Hallucinations: no auditory hallucinations and no visual hallucinations Cognition: attention grossly intact and language grossly intact Estimated Intelligence: consistent with education level Insight: + limited insight Judgement: + limited judgement Vital Signs (Past 24 Hours) Last Vital Signs Temp 36.5 C 08/03/22 04:30 Pulse 74 08/03/22 07:30 Resp 20 08/03/22 04:30 BP 144/80 H 08/03/22 04:30 Pulse Ox 97 08/03/22 04:30 O2 Del Method 08/03/22 04:30 O2 Flow Rate 11 07/31/22 11:50 FiO2 21 08/03/22 03:18 Results & Data ([facility]) Current Inpatient Medications Current Inpatient Medications: Current Inpatient Medications Acetaminophen (Acetaminophen 325 Mg Tab) 650 mg PO Q4H PRN PRN Reason: Pain or Fever Stop: 08/24/22 03:24 Last Admin: 07/30/22 15:54 Dose: 650 mg Albuterol (Albut/Ipratrop 3mg/0.5mg Neb 3 Ml Vial) 3 ml NEB Q2H PRN; Protocol PRN Reason: Wheezing Stop: 08/25/22 21:37 Last Admin: 07/29/22 12:01 Dose: 3 ml Alprazolam (Alprazolam 0.5 Mg Tablet) 0.5 mg PO DAILY PRN PRN Reason: Anxiety Stop: 08/25/22 11:09 Atorvastatin Calcium (Atorvastatin 20 Mg Tab) 20 mg PO DAILY [facility] Stop: 08/24/22 08:59 Last Admin: 08/03/22 09:17 Dose: 20 mg Dextromethorphan Polymer Complex (Dextromethorphan Polymr Complx 30 Mg/5 Ml Udp) 30 mg PO Q8H PRN PRN Reason: Cough Stop: 08/24/22 12:24 Divalproex Sodium (Divalproex Delay Release 500 Mg Tab) 500 mg PO BID [facility] Stop: 08/24/22 08:59 Last Admin: 08/03/22 09:17 Dose: 500 mg Escitalopram Oxalate (Escitalopram Oxalate 20 Mg Tab) 20 mg PO QAM [facility] Stop: 08/24/22 08:59 Last Admin: 08/03/22 09:18 Dose: 20 mg Fluticasone Propionate (Fluticasone Propionate Na Spr 16 Gm Btl) 2 sprays ADAM DAILY PRN PRN Reason: Allergy Symptoms Stop: 08/24/22 03:54 Fluticasone/Vilanterol (Fluticasone/Vilanterol 200/25mcg 14 Puffs/Inhaler) 1 puffs INH DAILY [facility] Stop: 08/24/22 08:59 Last Admin: 08/03/22 09:25 Dose: 1 puffs Furosemide (Furosemide 40 Mg Tab) 40 mg PO DAILY [facility] Stop: 08/27/22 08:59 Last Admin: 08/03/22 09:17 Dose: 40 mg Promethazine HCl 12.5 mg/ (Sodium Chloride) 50.5 mls @ 202 mls/hr IV Q6H PRN PRN Reason: Nausea And Vomiting Stop: 08/24/22 02:11 Last Infusion: 07/26/22 08:19 Dose: Infused Sodium Chloride (Nss 1000ml) 1,000 mls @ 80 mls/hr IV .[id number] [facility] Stop: 08/31/22 04:59 Last Admin: 08/03/22 06:30 Dose: 80 mls/hr Isosorbide Mononitrate (Isosorbide [place] Extended Rel 30 Mg Tabcr) 30 mg PO DAILY [facility] Stop: 08/24/22 08:59 Last Admin: 08/03/22 09:18 Dose: 30 mg Lactobacillus Acidophilus (Advanced Probiotic 1250 Mg Capsule) 2 cap PO DAILY [facility] Stop: 08/25/22 10:59 Last Admin: 08/03/22 09:18 Dose: 2 cap Lisinopril (Lisinopril 40 Mg Tab) 40 mg PO DAILY [facility] Stop: 08/24/22 08:59 Last Admin: 08/03/22 09:17 Dose: 40 mg Metoprolol Succinate (Metoprolol Succ 25mg Ext Rel Tab) 25 mg PO QAM [facility] Stop: 08/24/22 06:59 Last Admin: 08/03/22 09:18 Dose: 25 mg Miscellaneous (Remove Nicoderm Patch) 1 each N/A DAILY@0859 [facility] Stop: 08/24/22 08:58 Last Admin: 08/03/22 09:17 Dose: 1 each Nicotine (Nicotine 14 Mg/24 Hr Patch) 14 mg TD QAM [facility] Stop: 08/24/22 02:14 Last Admin: 08/03/22 09:18 Dose: 14 mg Olanzapine (Olanzapine 10 Mg/2.1 Ml Sdv) 2.5 mg IM Q4H PRN PRN Reason: Anxiety/Agitation Stop: 08/24/22 03:55 Oxycodone/Acetaminophen (Oxycodone/Acetaminophen 5mg/325mg Tab) 1 tab PO Q6H PRN PRN Reason: Pain Stop: 08/11/22 03:38 Last Admin: 08/03/22 04:32 Dose: 1 tab Potassium Chloride (Potassium Chloride Crtab 20 Meq Tabcr) 20 meq PO BID17 [facility] Stop: 08/24/22 08:59 Last Admin: 08/03/22 09:22 Dose: 20 meq Quetiapine Fumarate (Quetiapine Fumarate 300 Mg Tablet) 600 mg PO HS [facility] Stop: 08/25/22 20:59 Last Admin: 08/02/22 22:33 Dose: 600 mg Trimethoprim/Sulfamethoxazole (Sulfamethoxazole/Trimethoprim Ds 800/160mg Tab) 1 tab PO Q12 [facility] Stop: 08/06/22 08:59 Last Admin: 08/03/22 09:20 Dose: 1 tab Umeclidinium [place] (Umeclidinium [place] 62.5mcg/Blister 7 Puffs/Inhaler) 1 puffs INH DAILY [facility] Stop: 08/24/22 08:59 Last Admin: 08/02/22 08:27 Dose: 1 puffs (1) Depression Active/Remission status: currently active Depression Type: major depressive disorder Major depression episode severity: severe Major depression recurrence: recurrent Psychotic features: without psychotic features Qualified Code(s): F33.2 - Major depressive disorder, recurrent severe without psychotic features
[2022-08-03] MEDS: UMECLIDINIUM BROMIDE 62.5MCG/BLISTER 7 PUFFS/INHALER INH SCH (10:27)
[2022-08-03] MEDS: ALPRAZolam 0.5 MG TABLET PO PRN ×2 (12:06→22:27)
--- NOTE | 2022-08-03 12:17 | Hospitalist Progress Note ---
Date of Service August 03, 2022 Assessment & Plan (1) Decompensated heart failure: Plan: Possible suicidality H/O Anxiety/mood disorder Schizoaffective disorder Continue home medications Suicidal precautions Seroquel decreased to 600 mg to minimize excess sedation Ativan decreased to 0.5 mg as needed to minimize excess sedation Psychiatry following Will need inpatient psychiatry admission once medically cleared - 302 disposition as patient agreeable to voluntary commitment - pending psych inpatient placement - medically and surgically cleared Perineal Abscess/Cellulitis --CT ABD:Cellulitis of the perineal/inferior gluteal tissues with 5.2 cm left perineal abscess. Iliac and inguinal chain lymphadenopathy is likely reactive. No bowel obstruction or bowel wall thickening. Normal appendix. --Blood Cultures:pending -- Started on cefepime, Flagyl Day - changed to Bactrim BID for 5 days -- Pain control Appreciate surgery input - s/p OR perineal abscess drainage 07/31/2022 - continue abx for 5 days Chronic systolic heart failure H/O Nonischemic cardiomyopathy Last ECHO:EF 20 to 25% S/P ICD Valvular heart disease Medication noncompliance No signs of volume overload currently Continue Lasix, isosorbide, lisinopril, metoprolol Monitor volume status Cardiology on board Pacemaker interrogation--appropriately functioning as per cardiology Volume status stable NSVT Continue current medications Monitor and replete electrolytes as needed COPD Pulmonary Hypertension Ongoing tobacco use Continue nebs, home inhalers [employer] to quit smoking Nicotine Patch Nebs PRN Respiratory status stable continue current medications HAFSA Continue CPAP HS Chronic Troponin elevation Less likely ACS Troponin Levels better when compared to prior Hyperlipidemia on statin Chronic Back pain Minimize narcotic use as able Avoid IV Narcotics as able to minimize excess sedation - ibuprofen prn added DVT Px: SCDs for now Re: Plan for I &D - can restart heparin SC after surgery Code Status Full code Admission and Anticipated Discharge Date Admission Date: July 25, 2022 Subjective Patient with HFpEF (EF 20% 2021) s/p ICD, HAFSA on CPAP, pHTN, HLD, anxiety/mood disorder/schizoaffective disorder, chronic back pain presented with chest pain, ICD interrogated which was unremarkable, ACS ruled out. Expressed SI and psych consulted, initially 302'd but eventually agreed to voluntary confinement. Issues with placement due to CPAP for HAFSA. Found to have peroneal abscess, s/p OR I/D with surgery 07/31/2022, on abx, recovering well. Patient is cleared from surgery standpoint and medical standpoint, pending inpatient psych placement, psych following. Denies fevers or chills, chest pain, shortness of breath (although says gets it occasionally), n/v/d, abdominal pain, dysuria. Still having some pain in surgical site from abscess drainage. Review of Systems Review of Systems: As per HPI, all other systems reviewed and negative Physical Exam Physical Exam: General Appearance:Moderately built and nourished, no apparent distress Head: normocephalic, Atraumatic Eyes: normal inspection, EOMI Neck: supple, Trachea midline Respiratory/Chest: Decreased breath sounds, no wheezes, +Pacemaker, No accessory muscle use Cardiovascular: S1, S2, No murmur Abdomen/GI:Soft, Non tender, Bowel sounds present : deferred as was just examined and dressing changed by surgery Extremities/Musculoskeletal:normal inspection, no edema Neurologic/Psych:AAOX3, grossly no focal neurological deficits Skin: normal color, warm Results & Data Results & Data ([facility]) Vital Signs (Past 12 Hours) Vital Signs Temp Pulse Pulse Resp BP Pulse Ox O2 Del Method 08/03/22 11:26 CPAP 08/03/22 07:30 74 08/03/22 04:30 36.5 C 66 20 144/80 H 97 Room Air 08/03/22 03:18 17 FiO2 08/03/22 11:26 08/03/22 07:30 08/03/22 04:30 08/03/22 03:18 21 Diagnostic Findings Laboratory Results WBC 8.90 K/ul (4.8-10.8) 08/01/22 07:49 RBC 4.30 M/uL (4.63-6.08) L 08/01/22 07:49 Hgb 13.6 g/dl (14.0-18.0) L 08/01/22 07:49 Hct 40.7 % (40.1-51.0) 08/01/22 07:49 MCV 94.7 fL (80.0-100.0) 08/01/22 07:49 MCH 31.6 pg (25.0-34.0) 08/01/22 07:49 MCHC 33.4 g/dL (32.0-36.0) 08/01/22 07:49 RDW Std Deviation 48.0 fL (36.4-46.3) H 08/01/22 07:49 RDW Coeff of Seven 13.8 % (11.5-14.5) 08/01/22 07:49 Plt Count 154 K/uL (130-400) 08/01/22 07:49 MPV 11.2 fL (9.4-12.4) 08/01/22 07:49 Immature Gran % (Auto) 1.3 % 08/01/22 07:49 Neut % (Auto) 56.6 % 08/01/22 07:49 Lymph % (Auto) 25.5 % 08/01/22 07:49 Keith % (Auto) 13.8 % 08/01/22 07:49 Eos % (Auto) 2.5 % 08/01/22 07:49 Baso % (Auto) 0.3 % 08/01/22 07:49 Neut # (Auto) 5.03 K/uL (1.4-6.5) 08/01/22 07:49 Lymph # (Auto) 2.27 K/uL (1.2-3.4) 08/01/22 07:49 Keith # (Auto) 1.23 K/uL (0.24-0.82) H 08/01/22 07:49 Eos # (Auto) 0.22 K/uL (0-0.50) 08/01/22 07:49 Baso # (Auto) 0.03 K/uL (0-0.2) 08/01/22 07:49 Immature Gran # (Auto) 0.12 K/uL (0.00-0.02) H 08/01/22 07:49 APTT 28.1 Seconds (21.0-31.0) 07/24/22 23:49 PTT Ratio 1.0 07/24/22 23:49 Sodium 141 mmol/L (136-145) 08/01/22 07:49 Potassium 4.2 mmol/L (3.5-5.1) 08/01/22 07:49 Chloride 109 mmol/L (98-107) H 08/01/22 07:49 Carbon Dioxide 29 mmol/L (21-32) 08/01/22 07:49 Anion Gap 3 (3-11) 08/01/22 07:49 BUN 25 mg/dl (6-23) H 08/01/22 07:49 Creatinine 0.84 mg/dl (0.6-1.4) 08/01/22 07:49 Est Cr Clr Drug Dosing 111.0 ml/min 12 07:49 Est GFR ( Amer) 115.0 ml/min 12 07:49 Est GFR (Non-Af Amer) 99.3 ml/min 08/01/22 07:49 BUN/Creatinine Ratio 29.8 (10-20) H 08/01/22 07:49 Glucose 103 mg/dl (70-99(Fasting)) H 08/01/22 07:49 Calcium 7.7 mg/dl (8.5-10.1) L 08/01/22 07:49 Phosphorus 3.8 mg/dl (2.5-4.9) 08/01/22 07:49 Magnesium 2.0 mg/dl (1.7-2.4) 08/01/22 07:49 Total Bilirubin 0.3 mg/dl (0.2-1.0) 08/01/22 07:49 AST 8 U/L (13-39) L 08/01/22 07:49 ALT 7 U/L (7-52) 08/01/22 07:49 Alkaline Phosphatase 50 U/L (34-104) 08/01/22 07:49 Troponin I High Sens 39.2 pg/ml (0-20) H 07/24/22 23:49 B-Natriuretic Peptide 839 pg/ml (0-100) H 07/25/22 08:16 Total Protein 5.6 gm/dl (6.0-8.3) L 08/01/22 07:49 Albumin 3.2 gm/dl (3.4-5.0) L 08/01/22 07:49 Globulin 2.4 gm/dl (2.5-4.0) L 08/01/22 07:49 Albumin/Globulin Ratio 1.3 (0.9-2) 08/01/22 07:49 Procalcitonin 0.07 ng/ml (0-0.5) 07/30/22 10:36 TSH 0.645 uIu/ml (0.300-4.500) 07/24/22 23:49 Urine Color Yellow 07/25/22 01:25 Urine Appearance Clear (Clear) 07/25/22 01:25 Urine pH 7.0 (4.5-7.5) 07/25/22 01:25 Ur Specific [place] 1.006 (1.000-1.030) 07/25/22 01:25 Urine Protein Negative (Negative) 07/25/22 01:25 Urine Glucose (UA) Negative (Negative) 07/25/22 01:25 Urine Ketones Negative (Negative) 07/25/22 01:25 Urine Blood Negative (Negative) 07/25/22 01:25 Urine Nitrite Negative (Negative) 07/25/22 01:25 Urine Bilirubin Negative (Negative) 07/25/22 01:25 Urine Urobilinogen Negative (Negative) 07/25/22 01:25 Ur Leukocyte Esterase Negative (Negative) 07/25/22 01:25 Salicylates < 3.0 mg/dl (3.0-30) L 07/24/22 23:46 Urine Opiates Screen Neg (Neg) 07/25/22 01:25 Ur Methadone, Qual Neg (Neg) 07/25/22 01:25 Acetaminophen < 3 ug/ml (10-30) L 07/24/22 23:46 Urine Barbiturates Neg (Neg) 07/25/22 01:25 Valproic Acid 46 mcg/ml (50-100) L 07/25/22 08:16 Ur Phencyclidine (PCP) Neg (Neg) 07/25/22 01:25 U Amphetamin/Meth Scrn Neg (Neg) 07/25/22 01:25 MDMA (Ecstasy) Screen Neg (Neg) 07/25/22 01:25 U Benzodiazepines Scrn Neg (Neg) 07/25/22 01:25 Ur Cocaine Metabolite Neg (Neg) 07/25/22 01:25 U Marijuana (THC) Screen Neg (Neg) 07/25/22 01:25 Ethyl Alcohol mg/dL < 10.0 mg/dl (<10.0) 07/24/22 23:46 Lyme Disease IgG Ab Negative (Negative) 07/24/22 23:49 Lyme Disease IgM Ab Negative (Negative) 07/24/22 23:49 SARS-CoV-2, RNA, NAAT NEGATIVE (NEGATIVE) 07/24/22 23:19 Impressions Chest CTA 07/25/22 01:56 CT angio chest PE protocol CLINICAL HISTORY: r cp TECHNIQUE: Multidetector row helical CT of the chest was performed with angiographic protocol. Coronal and sagittal reformations were obtained. Coronal and sagittal MIPS were obtained from the axial data set and were submitted for review. Automated dose lowering techniques and/or adjustment according to patient size were utilized for this exam. CT DOSE: 565.73 mGy.cm Comparison: Comparison is made to CT chest 06/10/2022 FINDINGS: Lungs and pleura: Previously noted opacities is amorphous entirely resolved. Trace atelectasis versus airspace disease is noted in the right middle lobe. Heart and pericardium: Cardiomegaly is seen with biatrial enlargement. Vessels: No evidence of pulmonary embolism. Mediastinum and nitish: Subcentimeter lymph nodes are seen. Chest wall and lower neck: Subcentimeter axillary lymph nodes noted. Abdomen: Unremarkable. Bones: Mild degenerative changes are seen. IMPRESSION: 1. Interval resolution of pneumonia. No evidence of pulmonary embolus is seen. 2. Subcentimeter lymph nodes are seen which are likely reactive. ACT 112: Negative or not required by law. Electronically signed by: Solitario Castro M.D. 07/25/2022 8:25 AM Ribs X-Ray 07/25/22 09:36 XR ribs RT min 2V CLINICAL HISTORY: rib fractures? pna TECHNIQUE: 3 views of the right ribs were obtained. Single frontal view of the chest was obtained. Comparison: Comparison is made to chest radiograph 07/25/2022 FINDINGS: No fractures are seen. The chest wall and soft tissues are normal. Pacemaker defibrillator is seen. The lungs are clear. No evidence of pleural effusion or pneumothorax. IMPRESSION: No evidence of acute fracture or other acute abnormalities in the visualized portions of the chest. ACT 112: Negative or not required by law. Electronically signed by: Solitario Castro M.D. 07/25/2022 10:31 AM KUB X-Ray 07/26/22 09:49 KUB CLINICAL HISTORY: Nausea and vomiting. FINDINGS: 2 AP, portable, supine abdominal radiographs are compared to study dated 11/25/2015 and correlated with abdominal CT dated 10/16/2015. There is a nonobstructed abdominal bowel gas pattern. No evidence of intraperitoneal free air is seen on these supine images. There are no abnormal abdominal calcifications. The bony structures appear intact. IMPRESSION: No acute abnormality is identified. Electronically signed by: Anthony Bates M.D. 07/26/2022 10:34 AM Chest X-Ray 07/30/22 08:47 XR chest 1V portable CLINICAL HISTORY: Dyspnea COMPARISON STUDY: Chest CT July 25, 2022. FINDINGS: Left subclavian biventricular pacer/AICD is in place. Cardiomegaly is unchanged. No evidence for pulmonary edema. No pneumothorax or pleural effusion. There is no consolidation. There is been no significant change in appearance of the chest. IMPRESSION: No acute cardiopulmonary findings. Cardiomegaly. ACT 112: Negative or not required by law. Electronically signed by: Brain Garcia M.D. 07/30/2022 9:56 AM Abdomen/Pelvis CT 07/30/22 10:[address] WITH IV CONTRAST CT DOSE: 923.16 mGy.cm HISTORY: Patient presents with palpable abnormality of the inguinal tissues. groin abscess TECHNIQUE: Multiaxial CT images of the abdomen and pelvis were performed following the IV administration of 91 cc of Optiray, A dose lowering technique was utilized adhering to the principles of ALARA. COMPARISON STUDY: CT abdomen and pelvis 10/16/2015 FINDINGS: Cardiomegaly with partially imaged pacer/AICD leads. Trace pleural effusions. Mild dependent subsegmental bibasilar atelectasis. There is no pneumatosis or pneumoperitoneum. Unremarkable spleen, pancreas and adrenal glands. Contracted gallbladder. The liver is mildly enlarged. Patency of the hepatic and portal veins. 1.7 cm cyst of the superior pole left kidney. There is no hydronephrosis. Mild prostamegaly. Circumferential urinary bladder wall thickening with partial distention. Retroaortic left renal vein. No abdominal aortic aneurysm. Enlarged iliac and inguinal chain lymph nodes are noted bilaterally measuring up to 1.3 and 1.5 cm respectively. No bowel obstruction or bowel wall thickening. There is moderate colonic fecal retention. Normal appendix. There is cellulitis of the perineal tissues and inferior gluteal folds. There is a peripherally enhancing 5.2 x 3.0 x 3.6 cm fluid collection within the left peroneal tissues. Subcutaneous edema extends into the scrotum. No subcutaneous or deep tissue emphysema identified. No supralevator extension. Degenerative changes of the spine, pelvis and hips. IMPRESSION: 1. Cellulitis of the perineal/inferior gluteal tissues with 5.2 cm left perineal abscess. 2. Iliac and inguinal chain lymphadenopathy is likely reactive. 3. Trace pleural effusions with mild bibasilar atelectasis. 4. No bowel obstruction or bowel wall thickening. Normal appendix. 5. Additional findings as above. ACT 112: Negative or not required by law. The above report was generated using voice recognition software. It may contain grammatical, syntax or spelling errors. Electronically signed by: Kevin Alonso M.D. 07/30/2022 12:21 PM Medications Administered Current Inpatient Medications Acetaminophen (Acetaminophen 325 Mg Tab) 650 mg PO Q4H PRN PRN Reason: Pain or Fever Stop: 08/24/22 03:24 Last Admin: 07/30/22 15:54 Dose: 650 mg Albuterol (Albut/Ipratrop 3mg/0.5mg Neb 3 Ml Vial) 3 ml NEB Q2H PRN; Protocol PRN Reason: Wheezing Stop: 08/25/22 21:37 Last Admin: 07/29/22 12:01 Dose: 3 ml Alprazolam (Alprazolam 0.5 Mg Tablet) 0.5 mg PO DAILY PRN PRN Reason: Anxiety Stop: 08/25/22 11:09 Last Admin: 08/03/22 12:06 Dose: 0.5 mg Atorvastatin Calcium (Atorvastatin 20 Mg Tab) 20 mg PO DAILY [facility] Stop: 08/24/22 08:59 Last Admin: 08/03/22 09:17 Dose: 20 mg Dextromethorphan Polymer Complex (Dextromethorphan Polymr Complx 30 Mg/5 Ml Udp) 30 mg PO Q8H PRN PRN Reason: Cough Stop: 08/24/22 12:24 Divalproex Sodium (Divalproex Delay Release 500 Mg Tab) 500 mg PO BID [facility] Stop: 08/24/22 08:59 Last Admin: 08/03/22 09:17 Dose: 500 mg Escitalopram Oxalate (Escitalopram Oxalate 20 Mg Tab) 20 mg PO QAM [facility] Stop: 08/24/22 08:59 Last Admin: 08/03/22 09:18 Dose: 20 mg Fluticasone Propionate (Fluticasone Propionate Na Spr 16 Gm Btl) 2 sprays ADAM DAILY PRN PRN Reason: Allergy Symptoms Stop: 08/24/22 03:54 Fluticasone/Vilanterol (Fluticasone/Vilanterol 200/25mcg 14 Puffs/Inhaler) 1 puffs INH DAILY [facility] Stop: 08/24/22 08:59 Last Admin: 08/03/22 09:25 Dose: 1 puffs Furosemide (Furosemide 40 Mg Tab) 40 mg PO DAILY [facility] Stop: 08/27/22 08:59 Last Admin: 08/03/22 09:17 Dose: 40 mg Promethazine HCl 12.5 mg/ (Sodium Chloride) 50.5 mls @ 202 mls/hr IV Q6H PRN PRN Reason: Nausea And Vomiting Stop: 08/24/22 02:11 Last Infusion: 07/26/22 08:19 Dose: Infused Sodium Chloride (Nss 1000ml) 1,000 mls @ 80 mls/hr IV .[id number] [facility] Stop: 08/31/22 04:59 Last Admin: 08/03/22 06:30 Dose: 80 mls/hr Isosorbide Mononitrate (Isosorbide [place] Extended Rel 30 Mg Tabcr) 30 mg PO DAILY [facility] Stop: 08/24/22 08:59 Last Admin: 08/03/22 09:18 Dose: 30 mg Lactobacillus Acidophilus (Advanced Probiotic 1250 Mg Capsule) 2 cap PO DAILY [facility] Stop: 08/25/22 10:59 Last Admin: 08/03/22 09:18 Dose: 2 cap Lisinopril (Lisinopril 40 Mg Tab) 40 mg PO DAILY [facility] Stop: 08/24/22 08:59 Last Admin: 08/03/22 09:17 Dose: 40 mg Metoprolol Succinate (Metoprolol Succ 25mg Ext Rel Tab) 25 mg PO QAM [facility] Stop: 08/24/22 06:59 Last Admin: 08/03/22 09:18 Dose: 25 mg Miscellaneous (Remove Nicoderm Patch) 1 each N/A DAILY@0859 [facility] Stop: 08/24/22 08:58 Last Admin: 08/03/22 09:17 Dose: 1 each Nicotine (Nicotine 14 Mg/24 Hr Patch) 14 mg TD QAM [facility] Stop: 08/24/22 02:14 Last Admin: 08/03/22 09:18 Dose: 14 mg Olanzapine (Olanzapine 10 Mg/2.1 Ml Sdv) 2.5 mg IM Q4H PRN PRN Reason: Anxiety/Agitation Stop: 08/24/22 03:55 Oxycodone/Acetaminophen (Oxycodone/Acetaminophen 5mg/325mg Tab) 1 tab PO Q6H PRN PRN Reason: Pain Stop: 08/11/22 03:38 Last Admin: 08/03/22 10:27 Dose: 1 tab Potassium Chloride (Potassium Chloride Crtab 20 Meq Tabcr) 20 meq PO BID17 [facility] Stop: 08/24/22 08:59 Last Admin: 08/03/22 09:22 Dose: 20 meq Quetiapine Fumarate (Quetiapine Fumarate 300 Mg Tablet) 600 mg PO HS [facility] Stop: 08/25/22 20:59 Last Admin: 08/02/22 22:33 Dose: 600 mg Trimethoprim/Sulfamethoxazole (Sulfamethoxazole/Trimethoprim Ds 800/160mg Tab) 1 tab PO Q12 [facility] Stop: 08/06/22 08:59 Last Admin: 08/03/22 09:20 Dose: 1 tab Umeclidinium [place] (Umeclidinium [place] 62.5mcg/Blister 7 Puffs/Inhaler) 1 puffs INH DAILY [facility] Stop: 08/24/22 08:59 Last Admin: 08/03/22 10:27 Dose: 1 puffs
[2022-08-03] MEDS: oxyCODONE/ACETAMINOPHEN 10-325 TAB PO PRN ×2 (15:23→21:17)
[2022-08-03] MEDS ORDERED: oxyCODONE/ACETAMINOPHEN 5mg/325mg TAB PO PRN (21:28)
[2022-08-03] MEDS: QUEtiapine FUMARATE 300 MG TABLET PO SCH (22:26)
[2022-08-04] MEDS: oxyCODONE/ACETAMINOPHEN 5mg/325mg TAB PO PRN ×4 (04:21→22:02)
[2022-08-04] MEDS: SODIUM CHLORIDE 0.9% 1000ML 1,000 ML IV SCH (07:37)
[2022-08-04] MEDS: lisinopril 40 MG TAB PO SCH (08:52)
[2022-08-04] MEDS: ESCITALOPRAM OXALATE 20 MG TAB PO SCH (08:52)
[2022-08-04] MEDS: POTASSIUM CHLORIDE CRTAB 20 MEQ TABCR PO SCH ×2 (08:52→16:30)
[2022-08-04] MEDS: ISOSORBIDE MONO EXTENDED REL 30 MG TABCR PO SCH (08:52)
[2022-08-04] MEDS: FUROSEMIDE 40 MG TAB PO SCH (08:53)
[2022-08-04] MEDS: METOPROLOL SUCC 25MG EXT REL TAB PO SCH (08:53)
[2022-08-04] MEDS: ADVANCED PROBIOTIC 1250 MG CAPSULE PO SCH (08:53)
[2022-08-04] MEDS: ATORVASTATIN 20 MG TAB PO SCH (08:53)
[2022-08-04] MEDS: DIVALPROEX DELAY RELEASE 500 MG TAB PO SCH ×2 (08:53→22:00)
[2022-08-04] MEDS: SULFAMETHOXAZOLE/TRIMETHOPRIM DS 800/160MG TAB PO SCH ×2 (08:54→22:00)
[2022-08-04] MEDS: FLUTICASONE/VILANTEROL 200/25MCG 14 PUFFS/INHALER INH SCH (08:54)
[2022-08-04] MEDS: UMECLIDINIUM BROMIDE 62.5MCG/BLISTER 7 PUFFS/INHALER INH SCH (08:54)
[2022-08-04] MEDS ORDERED: NICOTINE 14 MG/24 HR PATCH TD SCH (09:00)
[2022-08-04] MEDS: NICOTINE 21 MG/24 HR TDSY TD SCH (09:46)
--- NOTE | 2022-08-04 10:10 | Psychiatric Progress Note ---
Date of Service August 04, 2022 Impression / Recommendations Impression 52 yo male with a history of mood related psychosis, unclear primary dx, mixed reports re: recent providers and medications, frequent ED visits for refills. Continues to have SI/hopelessness even with improvement of his medical conditions and feels inpatient psychiatry admission would be helpful and is requesting voluntary treatment. 08/04/22: ongoing depression with SI and unable to safety plan, not interested in any medication adjustments, continue bed search (1) Suicide ideation: (2) Depression: (3) Decompensated heart failure: Plan -ongoing inpt vol psych bed search -Cannot leave AMA as unable to safety plan -Continue leaxpro 20mg qd, Depakote ER 500mg BID and seroquel 600mg qhs, using Xanax 0.5mg daily prn for anxiety Interval History Identifying Information 52 yo male, mixed reports on his current housing situation, seen on consult service last month, hx of ED visits seeking Xanax 2 mg QID for which there is no evidence in PDMP. Consult is by hospitalist service for SI. Chief Complaint "I don't feel safe going home, I need help with these negative thoughts". Review of Systems Notes sleeping and eating well Subjective Subjective Patient was seen & assessed and interval progress reviewed. Ongoing inpatient bed search. he continues to feel unable to safety plan, ongoing intermittent SI. Doesn't want to make any medication changes as he feels the current medications "work good". He feels previously he wasn't taking his medications but now plans to take them daily and has a pill container for each day to help with this once at home. Wants inpatient to help with coping skills. Denies any medication side effects. Procedures Performed Operation Date: 07/31/22 11:35 Actual Procedures p Incision and Drainage Perineal Abscess - Caden Ervin MD, FACS Physical Exam Psychiatric Orientation: alert and oriented x 3 Apperance: appropriately groomed Eye Contact: + fair eye contact Motor Behavior: no abnormal motor movements Speech: normal rate/rhythm/volume of speech Affect: + depressed affect Mood: + depressed mood Thought Process: + circumstantial thought process and + concrete thought process Thought Content: reality based without delusions Suicidal Thoughts: denies suicidal plan (for hospital, feels he may develop one outside hospital) and denies suicidal intent; + reports suicidal thoughts (unable to safety plan) Homicidal Thoughts: denies homicidal thoughts Hallucinations: no auditory hallucinations and no visual hallucinations Cognition: attention grossly intact and language grossly intact Estimated Intelligence: consistent with education level Insight: + limited insight Judgement: + limited judgement Vital Signs (Past 24 Hours) Last Vital Signs Temp 37.2 C 08/03/22 22:32 Pulse 71 08/04/22 08:00 Resp 20 08/04/22 08:00 BP 126/74 08/04/22 08:00 Pulse Ox 96 08/04/22 08:00 O2 Del Method 08/04/22 08:00 O2 Flow Rate 11 07/31/22 11:50 FiO2 21 08/03/22 03:18 Results & Data ([facility]) Current Inpatient Medications Current Inpatient Medications: Current Inpatient Medications Acetaminophen (Acetaminophen 325 Mg Tab) 650 mg PO Q4H PRN PRN Reason: Pain or Fever Stop: 08/24/22 03:24 Last Admin: 07/30/22 15:54 Dose: 650 mg Albuterol (Albut/Ipratrop 3mg/0.5mg Neb 3 Ml Vial) 3 ml NEB Q2H PRN; Protocol PRN Reason: Wheezing Stop: 08/25/22 21:37 Last Admin: 07/29/22 12:01 Dose: 3 ml Alprazolam (Alprazolam 0.5 Mg Tablet) 0.5 mg PO DAILY PRN PRN Reason: Anxiety Stop: 08/25/22 11:09 Last Admin: 08/03/22 22:27 Dose: 0.5 mg Atorvastatin Calcium (Atorvastatin 20 Mg Tab) 20 mg PO DAILY [facility] Stop: 08/24/22 08:59 Last Admin: 08/04/22 08:53 Dose: 20 mg Dextromethorphan Polymer Complex (Dextromethorphan Polymr Complx 30 Mg/5 Ml Udp) 30 mg PO Q8H PRN PRN Reason: Cough Stop: 08/24/22 12:24 Divalproex Sodium (Divalproex Delay Release 500 Mg Tab) 500 mg PO BID [facility] Stop: 08/24/22 08:59 Last Admin: 08/04/22 08:53 Dose: 500 mg Escitalopram Oxalate (Escitalopram Oxalate 20 Mg Tab) 20 mg PO QAM [facility] Stop: 08/24/22 08:59 Last Admin: 08/04/22 08:52 Dose: 20 mg Fluticasone Propionate (Fluticasone Propionate Na Spr 16 Gm Btl) 2 sprays ADAM DAILY PRN PRN Reason: Allergy Symptoms Stop: 08/24/22 03:54 Fluticasone/Vilanterol (Fluticasone/Vilanterol 200/25mcg 14 Puffs/Inhaler) 1 puffs INH DAILY [facility] Stop: 08/24/22 08:59 Last Admin: 08/04/22 08:54 Dose: 1 puffs Furosemide (Furosemide 40 Mg Tab) 40 mg PO DAILY [facility] Stop: 08/27/22 08:59 Last Admin: 08/04/22 08:53 Dose: 40 mg Promethazine HCl 12.5 mg/ (Sodium Chloride) 50.5 mls @ 202 mls/hr IV Q6H PRN PRN Reason: Nausea And Vomiting Stop: 08/24/22 02:11 Last Infusion: 07/26/22 08:19 Dose: Infused Sodium Chloride (Nss 1000ml) 1,000 mls @ 80 mls/hr IV .[id number] [facility] Stop: 08/31/22 04:59 Last Admin: 08/04/22 07:37 Dose: 80 mls/hr Isosorbide Mononitrate (Isosorbide [place] Extended Rel 30 Mg Tabcr) 30 mg PO DAILY [facility] Stop: 08/24/22 08:59 Last Admin: 08/04/22 08:52 Dose: 30 mg Lactobacillus Acidophilus (Advanced Probiotic 1250 Mg Capsule) 2 cap PO DAILY [facility] Stop: 08/25/22 10:59 Last Admin: 08/04/22 08:53 Dose: 2 cap Lisinopril (Lisinopril 40 Mg Tab) 40 mg PO DAILY [facility] Stop: 08/24/22 08:59 Last Admin: 08/04/22 08:52 Dose: 40 mg Metoprolol Succinate (Metoprolol Succ 25mg Ext Rel Tab) 25 mg PO QAM [facility] Stop: 08/24/22 06:59 Last Admin: 08/04/22 08:53 Dose: 25 mg Miscellaneous (Remove Nicoderm Patch) 1 each N/A DAILY@0859 [facility] Stop: 08/24/22 08:58 Last Admin: 08/04/22 08:54 Dose: 1 each Nicotine (Nicotine 21 Mg/24 Hr Tdsy) 21 mg TD QAM [facility] Stop: 09/03/22 08:59 Last Admin: 08/04/22 09:46 Dose: 21 mg Olanzapine (Olanzapine 10 Mg/2.1 Ml Sdv) 2.5 mg IM Q4H PRN PRN Reason: Anxiety/Agitation Stop: 08/24/22 03:55 Oxycodone/Acetaminophen (Oxycodone/Acetaminophen 5mg/325mg Tab) 2 tab PO Q6H PRN PRN Reason: Moderate Pain Stop: 08/17/22 21:27 Last Admin: 08/04/22 04:21 Dose: 2 tab Potassium Chloride (Potassium Chloride Crtab 20 Meq Tabcr) 20 meq PO BID17 [facility] Stop: 08/24/22 08:59 Last Admin: 08/04/22 08:52 Dose: 20 meq Quetiapine Fumarate (Quetiapine Fumarate 300 Mg Tablet) 600 mg PO HS [facility] Stop: 08/25/22 20:59 Last Admin: 08/03/22 22:26 Dose: 600 mg Trimethoprim/Sulfamethoxazole (Sulfamethoxazole/Trimethoprim Ds 800/160mg Tab) 1 tab PO Q12 [facility] Stop: 08/06/22 08:59 Last Admin: 08/04/22 08:54 Dose: 1 tab Umeclidinium [place] (Umeclidinium [place] 62.5mcg/Blister 7 Puffs/Inhaler) 1 puffs INH DAILY [facility] Stop: 08/24/22 08:59 Last Admin: 08/04/22 08:54 Dose: 1 puffs (1) Depression Active/Remission status: currently active Depression Type: major depressive disorder Major depression episode severity: severe Major depression recurrence: recurrent Psychotic features: without psychotic features Qualified Code(s): F33.2 - Major depressive disorder, recurrent severe without psychotic features
[2022-08-04 12:20] LABS: GC (Neis gonorrhoeae) RNA Not Detected (NotDetected)
--- NOTE | 2022-08-04 13:08 | Hospitalist Progress Note ---
Date of Service August 04, 2022 Assessment & Plan (1) Decompensated heart failure: Plan: per Dr. Warren's notes with addendum: Possible suicidality H/O Anxiety/mood disorder Schizoaffective disorder Continue home medications Suicidal precautions Seroquel decreased to 600 mg to minimize excess sedation Ativan decreased to 0.5 mg as needed to minimize excess sedation Psychiatry following Will need inpatient psychiatry admission once medically cleared - 302 di sposition as patient agreeable to voluntary commitment 08/04 Psych on board continue Psych meds transition to [facility] facility when bed available Perineal Abscess/Cellulitis --CT ABD:Cellulitis of the perineal/inferior gluteal tissues with 5.2 cm left perineal abscess. Iliac and inguinal chain lymphadenopathy is likely reactive. No bowel obstruction or bowel wall thickening. Normal appendix. --Blood Cultures:pending -- Started on cefepime, Flagyl Day - changed to Bactrim BID for 5 days -- Pain control Appreciate surgery input - s/p OR perineal abscess drainage 07/31/202208/04 on Bactrim BID - continue abx for 5 days Chronic systolic heart failure H/O Nonischemic cardiomyopathy Last ECHO:EF 20 to 25% S/P ICD Valvular heart disease Medication noncompliance - Pacemaker interrogation--appropriately functioning as per cardiology - euvolemic Continue Lasix, isosorbide, lisinopril, metoprolol NSVT Continue current medications Monitor and replete electrolytes as needed COPD Pulmonary Hypertension Ongoing tobacco use Continue nebs, home inhalers [facility] Specialist to quit smoking Nicotine Patch Nebs PRN Respiratory status stable continue current medications HAFSA Continue CPAP HS Chronic Troponin elevation Less likely ACS Troponin Levels better when compared to prior Hyperlipidemia on statin Chronic Back pain Minimize narcotic use as able Avoid IV Narcotics as able to minimize excess sedation - ibuprofen prn added DVT Px: will resume heparin SC q8h Code Status Full code Admission and Anticipated Discharge Date Admission Date: July 25, 2022 Subjective ff up for suicidal ideation, perineal abscess, etc seen resting in bed, sitting up comfortable, calm, cooperative states he feels so-so reports intermittent dyspnea, inhaler PRN relieving no chest pain, palpitations, dizziness denies pain over perineal area reports mood is ok, no suicidal ideation no other symptoms Review of Systems Review of Systems: all noted and negative except for above Physical Exam Physical Exam: General- oriented x 3, not in distress, speaks in sentences with no effort or accessory muscle use Eyes- anicteric Neck- no JVD Lungs- clear breath sounds bilaterally, no crackles/wheezing Heart- normal rate, regular rhythm; no murmurs Abdomen- normal bowel sounds, nondistended, soft, nontender Perineum- no edema/hematoma/drainage Extremities- no pretibial edema, no calf tenderness Neuro- alert, oriented x 3; no gross focal neurologic deficits Skin- warm & dry Results & Data Results & Data ([facility]) Vital Signs (Past 12 Hours) Vital Signs Pulse Pulse Resp BP Pulse Ox O2 Del Method 08/04/22 08:00 71 20 126/74 96 Room Air 08/04/22 07:12 75 all noted and reviewed including below
[2022-08-04] MEDS: HEPARIN SOD 5,000 UNIT/0.5 ML VIAL SQ SCH ×2 (14:09→22:02)
[2022-08-04] MEDS: ALPRAZolam 0.5 MG TABLET PO PRN ×2 (14:11→22:02)
[2022-08-04] MEDS: QUEtiapine FUMARATE 300 MG TABLET PO SCH (22:00)
[2022-08-05] MEDS: HEPARIN SOD 5,000 UNIT/0.5 ML VIAL SQ SCH ×3 (05:15→21:02)
[2022-08-05] MEDS: ATORVASTATIN 20 MG TAB PO SCH (08:31)
[2022-08-05] MEDS: lisinopril 40 MG TAB PO SCH (08:31)
[2022-08-05] MEDS: METOPROLOL SUCC 25MG EXT REL TAB PO SCH (08:31)
[2022-08-05] MEDS: DIVALPROEX DELAY RELEASE 500 MG TAB PO SCH ×2 (08:31→21:06)
[2022-08-05] MEDS: ESCITALOPRAM OXALATE 20 MG TAB PO SCH (08:31)
[2022-08-05] MEDS: SULFAMETHOXAZOLE/TRIMETHOPRIM DS 800/160MG TAB PO SCH ×2 (08:31→21:07)
[2022-08-05] MEDS: UMECLIDINIUM BROMIDE 62.5MCG/BLISTER 7 PUFFS/INHALER INH SCH (08:31)
[2022-08-05] MEDS: FUROSEMIDE 40 MG TAB PO SCH (08:31)
[2022-08-05] MEDS: NICOTINE 21 MG/24 HR TDSY TD SCH (08:32)
[2022-08-05] MEDS: ADVANCED PROBIOTIC 1250 MG CAPSULE PO SCH (08:32)
[2022-08-05] MEDS: ISOSORBIDE MONO EXTENDED REL 30 MG TABCR PO SCH (08:32)
[2022-08-05] MEDS: FLUTICASONE/VILANTEROL 200/25MCG 14 PUFFS/INHALER INH SCH (08:32)
[2022-08-05] MEDS: oxyCODONE/ACETAMINOPHEN 5mg/325mg TAB PO PRN ×3 (08:38→21:08)
[2022-08-05] MEDS: POTASSIUM CHLORIDE CRTAB 20 MEQ TABCR PO SCH ×2 (08:38→16:06)
[2022-08-05] MEDS ORDERED: HYDROmorphone INJ 0.5 MG/0.5 ML SYR IV STA (10:11)
[2022-08-05] MEDS ORDERED: HYDROmorphone INJ 0.5 MG/0.5 ML SYR IV PRN (10:11)
[2022-08-05] MEDS: ALPRAZolam 0.5 MG TABLET PO PRN (13:55)
--- NOTE | 2022-08-05 18:00 | Hospitalist Progress Note ---
Date of Service August 05, 2022 delayed entry date of service noted above Assessment & Plan (1) Decompensated heart failure: Plan: per Dr. Warren's notes with addendum: Possible suicidality H/O Anxiety/mood disorder Schizoaffective disorder Continue home medications Suicidal precautions Seroquel decreased to 600 mg to minimize excess sedation Ativan decreased to 0.5 mg as needed to minimize excess sedation Psychiatry following Will need inpatient psychiatry admission once medically cleared - 302 disposition as patient agreeable to voluntary commitment 08/05 Psych on board continue Psych meds transition to [facility] facility when bed available Perineal Abscess/Cellulitis --CT ABD:Cellulitis of the perineal/inferior gluteal tissues with 5.2 cm left perineal abscess. Iliac and inguinal chain lymphadenopathy is likely reactive. No bowel obstruction or bowel wall thickening. Normal appendix. --Blood Cultures:pending -- Started on cefepime, Flagyl Day - changed to Bactrim BID for 5 days -- Pain control Appreciate surgery input - s/p OR perineal abscess drainage 07/31/202208/04 on Bactrim BID - continue abx for 5 days 08/05 Stable overall Denies significant pain over the incision site Continue Bactrim Chronic systolic heart failure H/O Nonischemic cardiomyopathy Last ECHO:EF 20 to 25% S/P ICD Valvular heart disease Medication noncompliance - Pacemaker interrogation--appropriately functioning as per cardiology - euvolemic Continue Lasix, isosorbide, lisinopril, metoprolol NSVT Continue current medications Monitor and replete electrolytes as needed COPD Pulmonary Hypertension Ongoing tobacco use Continue nebs, home inhalers [employer] to quit smoking Nicotine Patch Nebs PRN Respiratory status stable continue current medications HAFSA Continue CPAP HS Chronic Troponin elevation Less likely ACS Troponin Levels better when compared to prior Hyperlipidemia on statin Chronic Back pain -Requesting IV Dilaudid for intermittent flareup of chronic back pain Discussed at length with patient, will provide 1 dose of IV Dilaudid per day for breakthrough pain Patient verbalized understanding and agreement DVT Px: heparin SC q8h Code Status Full code Admission and Anticipated Discharge Date Admission Date: July 25, 2022 Subjective Follow-up for perineal abscess, suicidal ideations, etc. Seen resting bed, comfortable, not in distress States he feels okay overall Reports intermittent flareup of his chronic low back pain Pain over incision site is okay State his mood is fine, denies suicidal ideations no chest pain, dyspnea, palpitations, dizziness No other symptoms Review of Systems Review of Systems: all noted and negative except for above Physical Exam Physical Exam: General- oriented x 3, not in distress, speaks in sentences with no effort or accessory muscle use Eyes- anicteric Neck- no JVD Lungs- clear BS bilaterally, no rales/wheezes Heart- normal rate, regular rhythm; no murmurs Abdomen- normal bowel sounds, nondistended, soft, no tenderness Extremities- no pretibial edema, no calf tenderness Neuro- alert, oriented x 3; no gross focal neurologic deficits Skin- warm & dry Results & Data Results & Data ([facility]) Vital Signs (Past 12 Hours) Vital Signs Temp Pulse Pulse Resp BP Pulse Ox O2 Del Method 08/05/22 15:39 37.1 C 80 16 139/95 96 Room Air 08/05/22 15:26 78 08/05/22 11:26 36.7 C 60 16 109/65 96 Room Air 08/05/22 08:03 69 08/05/22 07:50 36.4 C L 70 16 127/80 96 BiPAP all noted and reviewed including below
[2022-08-05] MEDS: QUEtiapine FUMARATE 300 MG TABLET PO SCH (21:07)
[2022-08-06] MEDS: oxyCODONE/ACETAMINOPHEN 5mg/325mg TAB PO PRN ×2 (03:01→09:00)
[2022-08-06] MEDS: HEPARIN SOD 5,000 UNIT/0.5 ML VIAL SQ SCH (05:03)
[2022-08-06] MEDS: METOPROLOL SUCC 25MG EXT REL TAB PO SCH (07:43)
[2022-08-06] MEDS: DIVALPROEX DELAY RELEASE 500 MG TAB PO SCH (07:43)
[2022-08-06] MEDS: NICOTINE 21 MG/24 HR TDSY TD SCH (07:43)
[2022-08-06] MEDS: ADVANCED PROBIOTIC 1250 MG CAPSULE PO SCH (07:43)
[2022-08-06] MEDS: ISOSORBIDE MONO EXTENDED REL 30 MG TABCR PO SCH (07:43)
[2022-08-06] MEDS: ESCITALOPRAM OXALATE 20 MG TAB PO SCH (07:43)
[2022-08-06] MEDS: FUROSEMIDE 40 MG TAB PO SCH (07:44)
[2022-08-06] MEDS: FLUTICASONE/VILANTEROL 200/25MCG 14 PUFFS/INHALER INH SCH (07:44)
[2022-08-06] MEDS: ATORVASTATIN 20 MG TAB PO SCH (07:44)
[2022-08-06] MEDS: POTASSIUM CHLORIDE CRTAB 20 MEQ TABCR PO SCH (07:44)
[2022-08-06] MEDS: lisinopril 40 MG TAB PO SCH (07:44)
[2022-08-06] MEDS: UMECLIDINIUM BROMIDE 62.5MCG/BLISTER 7 PUFFS/INHALER INH SCH (07:45)
[2022-08-06] MEDS ORDERED: LIDOCAINE 5% 1 PATCH TD SCH (09:30)
--- NOTE | 2022-08-06 10:42 | Psychiatric Progress Note ---
Date of Service August 06, 2022 Impression / Recommendations Impression 52 yo male with a history of mood related psychosis, unclear primary dx, mixed reports re: recent providers and medications, frequent ED visits for refills. His mood has improved since restarting his psychiatric medications and suspect many of his depressive symptoms (low energy, anhedonia) may have been due to the worsening of his chronic medical conditions and now that his medical status has improved he is feeling much better. 08/06/22: depression has resolved, he has been consistently denying SI for the last 2 days and is eager to discharge home. He was able to participate in safety planning, is agreeable to setting up outpatient psychiatric follow-up (though prefers to do this independently) and denies any symptoms of depression nor SI. He does not meet 302 criteria due to denial of SI, HI, no evidence of psychosis nor ezequiel and able to attend to his self-care needs. Acute risk of self-harm is low given denial of SI, improvement of mood, future-oriented and back on his psychiatric medications. Chronic risk is low to moderate given no history of prior attempts, does well when on medication and with supportive fiancee but does have financial stressors, history of trauma and co-morbid psychiatric conditions. Counseled on ways to reduce acute and chronic risk including establishing with outpatient providers, using crisis resources if needed, utilizing supports, taking medication, and using coping skills including listening to gospel sermons. Modifiable risk factors of SI, anxiety and depression have improved since restarting his medications and improvement of his other medical conditions. (1) Schizoaffective disorder: (2) Decompensated heart failure: Plan -Safe for discharge from psychiatric standpoint as no longer desires voluntary inpatient psychiatric treatment and does not meet 302 criteria -Participated in verbal safety planning -Continue psychiatric medications-Seroquel 600mg hs, Depakote ER 500mg BID, Lexapro 20mg qd and Xanax 0.5mg daily prn for panic attacks (discussed attempting to avoid use while requiring opioids/pain medication) -Discussed with Dr. Brooke Interval History Identifying Information 52 yo male, mixed reports on his current housing situation, seen on consult service last month, hx of ED visits seeking Xanax 2 mg QID for which there is no evidence in PDMP. Consult is by hospitalist service for SI. Chief Complaint "I'm done stressing about those things, I want to go". Review of Systems Notes sleep and appetite stable Subjective Subjective Patient was seen & assessed and interval progress reviewed. Denied suicidal thoughts all day yesterday and today continues to deny any SI and reports improved mood. He feels his mood improved and SI resolved as "I'm done stressing" noting that he's not going to let financial stress of bills impact his mood. He continues to feel his psychiatric medications are helpful. Tells me he has scripts for his seroquel, Depakote, Xanax and escitalopram at home as he wasn't taking his medications prior to admission and restarting them has helped his mood significantly. Reviewed that the seroquel dose has been decreased which he understands but would not prefer a new script noting he can cut his 400mg tablet in half to get 200mg to combine with another 400mg tablet to get his new dose of 600mg. Reviewed risks of benzodiazepine/Xanax combination with opioids and potential for fatal respiratory suppression and therefore only using Xanax up to once a day and only for severe panic attacks and to avoid concurrent use with any opioids. He states understanding of this and agrees with this. He declined to complete a paper safety plan but actively engaged with verbal safety planning and understands he can contact [phone] or [phone] for any psychiatric crises or return to the ED if he feels unsafe. He also has a resource book with local community crisis information and agrees that he and Manuela will reach out to schedule outpatient psychiatric followup. Offered to help with this but he declines and he prefers to look into different psychiatric options and call himself. Reviewed that we will list information for some local psychiatric providers on his discharge summary as well. He is future-oriented and notes that Manuela and yazidism are strong reasons for living. Confirmed no access to guns at home. He denies any current symptoms of depression. He feels his thoughts are now positive and he's been listening to a Mccle[employer] gospel sermons on his phone when he feels stressed which he finds very helpful. He is eager to discharge today. Procedures Performed Operation Date: 07/31/22 11:35 Actual Procedures p Incision and Drainage Perineal Abscess - Caden Ervin MD, FACS Physical Exam Psychiatric Orientation: alert and oriented x 3 Apperance: appropriately dressed and appropriately groomed Eye Contact: good eye contact Motor Behavior: no abnormal motor movements Speech: normal rate/rhythm/volume of speech Affect: euthymic affect Mood: no depressed mood and no anxious mood Thought Process: linear/logical thought process Thought Content: reality based without delusions Suicidal Thoughts: denies suicidal thoughts Homicidal Thoughts: denies homicidal thoughts Hallucinations: no auditory hallucinations and no visual hallucinations Cognition: recent memory grossly intact (at times forgetful but overall good recall ), remote memory grossly intact, attention grossly intact and language grossly intact Estimated Intelligence: consistent with education level Insight: + fair insight Judgement: + fair judgement Vital Signs (Past 24 Hours) Last Vital Signs Temp 37.2 C 08/06/22 07:40 Pulse 70 08/06/22 07:40 Resp 18 08/06/22 07:40 BP 133/75 08/06/22 07:40 Pulse Ox 97 08/06/22 07:40 O2 Del Method 08/06/22 07:40 O2 Flow Rate 11 07/31/22 11:50 FiO2 21 08/03/22 03:18 Results & Data ([facility]) Current Inpatient Medications Current Inpatient Medications: Current Inpatient Medications Acetaminophen (Acetaminophen 325 Mg Tab) 650 mg PO Q4H PRN PRN Reason: Pain or Fever Stop: 08/24/22 03:24 Last Admin: 07/30/22 15:54 Dose: 650 mg Albuterol (Albut/Ipratrop 3mg/0.5mg Neb 3 Ml Vial) 3 ml NEB Q2H PRN; Protocol PRN Reason: Wheezing Stop: 08/25/22 21:37 Last Admin: 07/29/22 12:01 Dose: 3 ml Alprazolam (Alprazolam 0.5 Mg Tablet) 0.5 mg PO DAILY PRN PRN Reason: Anxiety Stop: 08/25/22 11:09 Last Admin: 08/05/22 13:55 Dose: 0.5 mg Atorvastatin Calcium (Atorvastatin 20 Mg Tab) 20 mg PO DAILY [facility] Stop: 08/24/22 08:59 Last Admin: 08/06/22 07:44 Dose: 20 mg Dextromethorphan Polymer Complex (Dextromethorphan Polymr Complx 30 Mg/5 Ml Udp) 30 mg PO Q8H PRN PRN Reason: Cough Stop: 08/24/22 12:24 Divalproex Sodium (Divalproex Delay Release 500 Mg Tab) 500 mg PO BID [facility] Stop: 08/24/22 08:59 Last Admin: 08/06/22 07:43 Dose: 500 mg Escitalopram Oxalate (Escitalopram Oxalate 20 Mg Tab) 20 mg PO QAM [facility] Stop: 08/24/22 08:59 Last Admin: 08/06/22 07:43 Dose: 20 mg Fluticasone Propionate (Fluticasone Propionate Na Spr 16 Gm Btl) 2 sprays ADAM DAILY PRN PRN Reason: Allergy Symptoms Stop: 08/24/22 03:54 Fluticasone/Vilanterol (Fluticasone/Vilanterol 200/25mcg 14 Puffs/Inhaler) 1 puffs INH DAILY [facility] Stop: 08/24/22 08:59 Last Admin: 08/06/22 07:44 Dose: 1 puffs Furosemide (Furosemide 40 Mg Tab) 40 mg PO DAILY [facility] Stop: 08/27/22 08:59 Last Admin: 08/06/22 07:44 Dose: 40 mg Heparin Sodium (Porcine) (Heparin Sod 5,000 Unit/0.5 Ml Vial) 5,000 units SQ Q8 [facility] Stop: 09/03/22 13:59 Last Admin: 08/06/22 05:03 Dose: Not Given Hydromorphone HCl (Hydromorphone Inj 0.5 Mg/0.5 Ml Syr) 0.5 mg IV QAM PRN PRN Reason: Severe Pain Stop: 08/19/22 10:10 Last Admin: 08/06/22 02:01 Dose: 0.5 mg Promethazine HCl 12.5 mg/ (Sodium Chloride) 50.5 mls @ 202 mls/hr IV Q6H PRN PRN Reason: Nausea And Vomiting Stop: 08/24/22 02:11 Last Infusion: 07/26/22 08:19 Dose: Infused Isosorbide Mononitrate (Isosorbide [place] Extended Rel 30 Mg Tabcr) 30 mg PO DAILY [facility] Stop: 08/24/22 08:59 Last Admin: 08/06/22 07:43 Dose: 30 mg Lactobacillus Acidophilus (Advanced Probiotic 1250 Mg Capsule) 2 cap PO DAILY [facility] Stop: 08/25/22 10:59 Last Admin: 08/06/22 07:43 Dose: 2 cap Lidocaine (Lidocaine 5% 1 Patch) 1 patch TD QAM [facility] Stop: 09/05/22 09:29 Last Admin: 08/06/22 10:24 Dose: 1 patch Lisinopril (Lisinopril 40 Mg Tab) 40 mg PO DAILY [facility] Stop: 08/24/22 08:59 Last Admin: 08/06/22 07:44 Dose: 40 mg Metoprolol Succinate (Metoprolol Succ 25mg Ext Rel Tab) 25 mg PO QAM [facility] Stop: 08/24/22 06:59 Last Admin: 08/06/22 07:43 Dose: 25 mg Miscellaneous (Remove Nicoderm Patch) 1 each N/A DAILY@0859 [facility] Stop: 08/24/22 08:58 Last Admin: 08/06/22 07:42 Dose: 1 each Miscellaneous (Remove Lidoderm Patch) 1 each N/A DAILY@2100 [facility] Stop: 09/05/22 20:59 Nicotine (Nicotine 21 Mg/24 Hr Tdsy) 21 mg TD QAM [facility] Stop: 09/03/22 08:59 Last Admin: 08/06/22 07:43 Dose: 21 mg Olanzapine (Olanzapine 10 Mg/2.1 Ml Sdv) 2.5 mg IM Q4H PRN PRN Reason: Anxiety/Agitation Stop: 08/24/22 03:55 Oxycodone/Acetaminophen (Oxycodone/Acetaminophen 5mg/325mg Tab) 2 tab PO Q6H PRN PRN Reason: Moderate Pain Stop: 08/17/22 21:27 Last Admin: 08/06/22 09:00 Dose: 2 tab Potassium Chloride (Potassium Chloride Crtab 20 Meq Tabcr) 20 meq PO BID17 [facility] Stop: 08/24/22 08:59 Last Admin: 08/06/22 07:44 Dose: 20 meq Quetiapine Fumarate (Quetiapine Fumarate 300 Mg Tablet) 600 mg PO HS [facility] Stop: 08/25/22 20:59 Last Admin: 08/05/22 21:07 Dose: 600 mg Umeclidinium [place] (Umeclidinium [place] 62.5mcg/Blister 7 Puffs/Inhaler) 1 puffs INH DAILY [facility] Stop: 08/24/22 08:59 Last Admin: 08/06/22 07:45 Dose: 1 puffs
[2022-08-06] MEDS ORDERED: oxyCODONE/ACETAMINOPHEN 5mg/325mg TAB PO STA (12:19)
--- NOTE | 2022-08-06 16:04 | Hospitalist Progress Note ---
Date of Service August 06, 2022 delayed entry date of service noted above Assessment & Plan (1) Decompensated heart failure: Plan: per Dr. Warren's notes with addendum: Possible suicidality H/O Anxiety/mood disorder Schizoaffective disorder Continue home medications Suicidal precautions Seroquel decreased to 600 mg to minimize excess sedation Ativan decreased to 0.5 mg as needed to minimize excess sedation Psychiatry following Will need inpatient psychiatry admission once medically cleared - 302 disposition as patient agreeable to voluntary commitment 08/05 Psychiatrist on board- Dr. Denia Coffey, recommendations as follows: -Safe for discharge from psychiatric standpoint as no longer desires voluntary inpatient psychiatric treatment and does not meet 302 criteria -Participated in verbal safety planning -Continue psychiatric medications-Seroquel 600mg hs, Depakote ER 500mg BID, Lexapro 20mg qd and Xanax 0.5mg daily prn for panic attacks (discussed attempting to avoid use while requiring opioids/pain medication) -Discussed with Dr. Brooke Perineal Abscess/Cellulitis --CT ABD:Cellulitis of the perineal/inferior gluteal tissues with 5.2 cm left perineal abscess. Iliac and inguinal chain lymphadenopathy is likely reactive. No bowel obstruction or bowel wall thickening. Normal appendix. --Blood Cultures: negative -- Started on cefepime, Flagyl Day - changed to Bactrim BID for 5 days -- Pain control - s/p OR perineal abscess drainage 07/31/202208/06 completed course of Bactrim BID Denies significant pain over the incision site ff up with General Surgeon Dr. 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 Ervin in 1-2 weeks plan of care discussed with patient in detail and at length all questions answered she is understanding, agreeable, comfortable with the plan of care Admission and Anticipated Discharge Date Admission Date: July 25, 2022 Subjective Follow-up for perineal abscess, etc. seen resting in bed, comfortable states he feels fine overall no discomfort over the perineal/buttock area no chest pain, dyspnea, palpitations, dizziness states his mood is much better denies depression, anxiety, suicidal ideation no other symptoms states he is ready for discharge Review of Systems Review of Systems: all noted and negative except for above Physical Exam Physical Exam: General- oriented x 3, not in distress, speaks in sentences with no effort or accessory muscle use Eyes- anicteric Neck- no JVD Lungs- clear BS BL Heart- normal rate, regular rhythm; no murmurs Abdomen- normal bowel sounds, nondistended, soft, nontender Extremities- no pretibial edema, no calf tenderness Neuro- alert, oriented x 3; no gross focal neurologic deficits Skin- warm & dry Results & Data Results & Data ([facility]) Vital Signs (Past 12 Hours) Vital Signs Temp Pulse Pulse Pulse Resp BP BP 08/06/22 12:21 37.2 C 79 69 70 18 139/95 133/75 08/06/22 07:40 37.2 C 70 18 133/75 Pulse Ox O2 Del Method 08/06/22 12:21 97 08/06/22 07:40 97 Room Air all noted and reviewed including below
--- NOTE | 2022-08-16 15:37 | Discharge Summary ---
Discharge Summary Date of Service August 16, 2022 Notes For Next Care Provider Close outpatient ff up with: Psychiatrist General Surgeon- Dr. Trivedi Medication Changes From Visit None Admission HPI Per Admitting Provider History obtained from patient, ED staff, and records. Patient is a fair historian. Medical history significant for chronic systolic heart failure secondary to nonischemic cardiomyopathy (20 to 25%, TTE 2021) status post ICD, mild to moderate TR, HAFSA on CPAP, pulmonary hypertension, hyperlipidemia, anxiety/mood disorder, schizoaffective disorder, chronic pain, ongoing tobacco abuse. Last [facility] confinement last month for respiratory failure secondary to CHF and COPD exacerbation. Patient patient claims to still be short of breath upon discharge from hospital. 2 weeks ago, patient confined at [facility] for pneumonia. Discharge 5 days ago on antibiotics. Cough not worse. Patient complaining of pleuritic right-sided chest pain with shortness of breath. Patient stressed out with some financial issues. Patient thinks his weight is a little up after discharge from [facility]. Claims to be compliant with home medications although this is disputed by patient's partner as per ED staff. Patient was sleeping face down yesterday afternoon when he got jolted by left- sided chest pain. Patient not sure if his device shocked him again or he had a bad dream. Patient seen at the ER last night but subsequently discharged. Patient returned to the ER on his girlfriend's prodding since patient does not feel well. Suicidal thoughts as per ED staff's account which patient currently denies. Medical History as above Surgical History : ICD/PPM placement, knee surgery Family History : Alcoholism, heart disease Personal/Social history : Half pack daily, no EtOH intake, disabled Admission Exam Per Admitting Provider GENERAL: Slightly uncomfortable, anxious, obese, no respiratory distress SKIN: Normal color, warm HEENT: [place] palpebral conjunctivae, no ptosis, dry buccal mucosa NECK : Supple, no tenderness CHEST : CTA, right lateral chest wall tenderness HEART : Bradycardic, no obvious murmurs ABDOMEN: Some distention, nontender EXTREMITIES : Minimal LE swelling, no LE tenderness, no other conspicuous deformities noted NEUROLOGIC : Coherent, no facial asymmetry, no other gross focality Principal Dx & Hospital Course #1 = Principal Diagnosis (1) Decompensated heart failure: per Dr. Warren's notes with addendum: Possible suicidality H/O Anxiety/mood disorder Schizoaffective disorder Continue home medications Suicidal precautions Psychiatry following Will need inpatient psychiatry admission once medically cleared - 302 disposition as patient agreeable to voluntary commitment 08/05 Psychiatrist on board- Dr. Denia Coffey, recommendations as follows: -Safe for discharge from psychiatric standpoint as no longer desires voluntary inpatient psychiatric treatment and does not meet 302 criteria -Participated in verbal safety planning -Continue psychiatric medications-Seroquel 600mg hs, Depakote ER 500mg BID, [place] pro 20mg qd and Xanax 0.5mg daily prn for panic attacks (discussed attempting to avoid use while requiring opioids/pain medication) -Discussed with Dr. Brooke Perineal Abscess/Cellulitis --CT ABD:Cellulitis of the perineal/inferior gluteal tissues with 5.2 cm left perineal abscess. Iliac and inguinal chain lymphadenopathy is likely reactive. No bowel obstruction or bowel wall thickening. Normal appendix. --Blood Cultures: negative -- Started on cefepime, Flagyl Day - changed to Bactrim BID for 5 days -- Pain control - s/p OR perineal abscess drainage 07/31/202208/06 completed course of Bactrim BID Denies significant pain over the incision site ff up with General Surgeon Dr. 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 Abdi in 1-2 weeks plan of care discussed with patient in detail and at length all questions answered she is understanding, agreeable, comfortable with the plan of care Discharge Exam General- oriented x 3, not in distress, speaks in sentences with no effort or accessory muscle use Eyes- anicteric Neck- no JVD Lungs- clear BS BL Heart- normal rate, regular rhythm; no murmurs Abdomen- normal bowel sounds, nondistended, soft, nontender Extremities- no pretibial edema, no calf tenderness Neuro- alert, oriented x 3; no gross focal neurologic deficits Skin- warm & dry Updated Medication List Medication Instructions Recorded Confirmed Type ATORVASTATIN (LIPITOR) 20 mg PO DAILY ##0 10/25/11 07/25/22 History Fluticasone Propionate (Nasal) 2 spry ADAM DAILY PRN Allergy 09/06/15 07/25/22 History (Flonase Allergy Relief) Symptoms ##0 Lisinopril (Zestril) 40 mg PO DAILY #0 tabs 09/06/15 07/25/22 History dicyclomine 10 mg capsule 10 mg PO QID PRN .ABD PAIN 06/20/22 07/24/22 History divalproex 500 mg tablet,delayed 500 mg PO BID 06/20/22 07/24/22 History release escitalopram oxalate 20 mg tablet 20 mg PO QAM 06/20/22 07/24/22 History isosorbide mononitrate 30 mg 30 mg PO DAILY 06/20/22 07/24/22 History tablet,extended release 24 hr ondansetron 4 mg disintegrating 4 mg PO Q8H PRN Nausea 06/20/22 07/24/22 History tablet oxycodone-acetaminophen 10 mg-325 1 tab PO Q4H PRN Pain 06/20/22 07/24/22 History mg tablet (Percocet) albuterol sulfate 2.5 mg/3 mL 2.5 mg (3 mL) inhalation QID PRN 06/28/22 07/24/22 Rx (0.083 %) solution for nebulization shortness of breath or wheezing #90 mL alprazolam 2 mg tablet 1 mg PO QID PRN Anxiety #1 tab 06/28/22 07/24/22 Rx fluticasone furoate 200 1 ea inhalation DAILY #60 ea 06/28/22 07/25/22 Rx mcg-vilanterol 25 mcg/dose inhalation powder (Breo Ellipta) furosemide 40 mg tablet (Lasix) 40 mg PO DAILYBD #30 tabs 06/28/22 07/24/22 Rx metoprolol succinate 50 mg 50 mg PO QAM #30 tabs 06/28/22 07/24/22 Rx tablet,extended release 24 hr potassium chloride 20 mEq 20 meq PO BID #1 tab 06/28/22 07/24/22 Rx tablet,extended release prednisone 10 mg tablet 10 mg PO UD #12 tabs 06/28/22 07/24/22 Rx umeclidinium 62.5 mcg/actuation 1 inh inhalation DAILY #30 ea 06/28/22 07/24/22 Rx blister powder for inhalation (Incruse Ellipta) quetiapine 400 mg tablet 600 mg PO HS 07/24/22 07/26/22 History Hospital Stay Data Consultations 07/25/22 00:53 ED Decision to Admit Stat 07/25/22 02:10 Consult Psychiatry Routine 07/25/22 03:25 Consult Cardiology Routine 07/30/22 10:50 Consult General Surgery Routine Procedures Performed Operation Date: 07/31/22 11:35 Actual Procedures p Incision and Drainage Perineal Abscess - Caden Abdi MD, FACS Diagnostic Imagining Performed 07/25/22 01:56 CT angio chest PE protocol Urgent CT DOSE: 565.73 mGy.cm Comparison: Comparison is made to CT chest 06/10/2022 FINDINGS: Lungs and pleura: Previously noted opacities is amorphous entirely resolved. Trace atelectasis versus airspace disease is noted in the right middle lobe. Heart and pericardium: Cardiomegaly is seen with biatrial enlargement. Vessels: No evidence of pulmonary embolism. Mediastinum and nitish: Subcentimeter lymph nodes are seen. Chest wall and lower neck: Subcentimeter axillary lymph nodes noted. Abdomen: Unremarkable. Bones: Mild degenerative changes are seen. IMPRESSION: 1. Interval resolution of pneumonia. No evidence of pulmonary embolus is seen. 2. Subcentimeter lymph nodes are seen which are likely reactive. ACT 112: Negative or not required by law. Electronically signed by: Solitario Castro M.D. 07/25/2022 8:25 AM 07/30/22 10:53 CT abd pelvis IV con only Urgent CT DOSE: 923.16 mGy.cm HISTORY: Patient presents with palpable abnormality of the inguinal tissues. groin abscess TECHNIQUE: Multiaxial CT images of the abdomen and pelvis were performed following the IV administration of 91 cc of Optiray, A dose lowering technique was utilized adhering to the principles of ALARA. COMPARISON STUDY: CT abdomen and pelvis 10/16/2015 FINDINGS: Cardiomegaly with partially imaged pacer/AICD leads. Trace pleural effusions. Mild dependent subsegmental bibasilar atelectasis. There is no pneumatosis or pneumoperitoneum. Unremarkable spleen, pancreas and adrenal glands. Contracted gallbladder. The liver is mildly enlarged. Patency of the hepatic and portal veins. 1.7 cm cyst of the superior pole left kidney. There is no hydronephrosis. Mild prostamegaly. Circumferential urinary bladder wall thickening with partial distention. Retroaortic left renal vein. No abdominal aortic aneurysm. Enlarged iliac and inguinal chain lymph nodes are noted bilaterally measuring up to 1.3 and 1.5 cm respectively. No bowel obstruction or bowel wall thickening. There is moderate colonic fecal retention. Normal appendix. There is cellulitis of the perineal tissues and inferior gluteal folds. There is a peripherally enhancing 5.2 x 3.0 x 3.6 cm fluid collection within the left peroneal tissues. Subcutaneous edema extends into the scrotum. No subcutaneous or deep tissue emphysema identified. No s upralevator extension. Degenerative changes of the spine, pelvis and hips. IMPRESSION: 1. Cellulitis of the perineal/inferior gluteal tissues with 5.2 cm left perineal abscess. 2. Iliac and inguinal chain lymphadenopathy is likely reactive. 3. Trace pleural effusions with mild bibasilar atelectasis. 4. No bowel obstruction or bowel wall thickening. Normal appendix. 5. Additional findings as above. ACT 112: Negative or not required by law. The above report was generated using voice recognition software. It may contain grammatical, syntax or spelling errors. Pending Results Patient Have Any Pending Studies at Discharge: No Discharge Instructions Given to Patient (Per Discharging Provider) Change your dressing daily and as needed with dry 4x4 gauze/ ABD pad, and tape vs. mesh undergarments Please shower daily Please continue your usual medication regimen. Taking medications for mood regularly. PLEASE CALL YOUR PRIMARY CARE PHYSICIAN OR RETURN TO THE ER IF WITH WORSENING OF SYMPTOMS, INCLUDING Worsening of pain, swelling, bleeding, discharge on incision site, Worsening of depression, anxiety, etc. FOLLOW UP WITH PRIMARY CARE PHYSICIAN in 1 week. FOLLOW-UP WITH SURGEON DR. ABDI OUTLINED ABOVE. FOLLOW-UP WITH PSYCHIATRIST IN 1 TO 2 WEEKS. It is very important to follow-up with your primary care physician, surgeon, psychiatrist to ensure appropriate care of your conditions. Total Time Total Time Spent Total Time Spent (In Minutes): >30 minutes
== END 2022-08-06 12:52 | disposition home or self-care (01) | DRG 292 ==
LOC: ED 22:26 → 2S 07-25 02:07 → SUATTDRO 07-25 02:07 → 2S 07-25 02:47 → 2N 07-28 19:25

== ENCOUNTER 2022-08-22 18:55 | Inpatient (IN) ==
[2022-08-22] MEDS ORDERED: ASPIRIN CHEW 324 MG PO STA (19:22)
[2022-08-22 19:55] LABS: Hematocrit (blood only) 46.3 % (40.1-51.0); Hemoglobin 15.9 g/dl (14.0-18.0); Mean Corpuscular Hemoglobin 31.9 pg (25.0-34.0); Mean Corpuscular Hgb Conc 34.3 g/dL (32.0-36.0); Mean Platelet Volume 11.2 fL (9.4-12.4); Platelet Count 131 K/uL (130-400); RDW Coefficient of Variation 14.3 % (11.5-14.5); Red Blood Count 4.98 M/uL (4.63-6.08); White Blood Count 7.48 K/ul (4.8-10.8)
[2022-08-22 20:04] LABS: INR 1.1 (0.9-1.1); Partial Thromboplastin Ratio 0.9; Partial Thromboplastin Time 24.8 Seconds (21.0-31.0); Prothrombin Time 11.4 Seconds (9.0-12.0)
--- NOTE | 2022-08-22 20:05 | XRay Report ---
SINGLE VIEW CHEST CLINICAL HISTORY: Atypical chest pain FINDINGS: An AP, portable, upright chest radiograph is compared to study dated 07/30/2022. A 3-lead c ardiac AICD is unchanged in position and partially obscures the left lower chest. The heart is enlarg ed. There is pulmonary vascular congestion. No airspace consolidation or large pleural effusion is id entified. No pneumothorax is seen. The skeletal structures are osteopenic. The bony thorax is grossly intact. IMPRESSION: Cardiomegaly and AICD with evidence of congestive failure. ACT 112: Negative or not required by law. Electronically signed by: Anthony Bates M.D. 08/22/2022 8:04 PM
[2022-08-22 20:16] LABS: BUN Creatinine Ratio 15.3 (10-20); Bilirubin Direct 0.1 mg/dl (0-0.2); Bilirubin,Total 0.4 mg/dl (0.2-1.0); Calcium 8.7 mg/dl (8.5-10.1); Creatinine Clr Calc Pharmacy 108.9 ml/min; Est GFR (African American) 114.5 ml/min; Est GFR (Non-African American) 98.8 ml/min; Magnesium 1.8 mg/dl (1.7-2.4); Potassium 3.8 mmol/L (3.5-5.1); Total Protein 6.9 gm/dl (6.0-8.3)
[2022-08-22 20:18] LABS: Troponin I High Sensitivity 46.4 pg/ml (0-20)
[2022-08-22] MEDS ORDERED: FUROSEMIDE 40 MG/4 ML VIAL IV ONE (20:26)
[2022-08-22 20:28] LABS: ALC (manual) 3.81 K/uL (1.2-3.4); ANC (manual) 2.92 K/uL (1.4-6.5); Eosinophils # (manual) 0.07 K/uL (0-0.50); Eosinophils % (manual) 1 %; Lymphocytes # (manual) 2.92 K/uL (1.2-3.4); Lymphocytes % (manual) 39 %; Monocytes # (manual) 0.67 K/uL (0.24-0.82); Monocytes % (manual) 9 %; Neutrophils # (manual) 2.92 K/uL (1.4-6.5); Neutrophils % (manual) 39 %; Polychromasia 1+; Reactive Lymphocytes % (manual) 12 %; Toxic Granulation 1+
[2022-08-22] MEDS ORDERED: ALBUT/IPRATROP 3MG/0.5MG NEB 3 ML VIAL NEB STA (20:35)
[2022-08-22 20:38] LABS: Acetaminophen < 3 ug/ml (10-30); Salicylate < 3.0 mg/dl (3.0-30)
[2022-08-22] MEDS ORDERED: MAGNESIUM SULFATE / D5W 1 GM/100 ML BAG IV ONE (20:45)
[2022-08-22] MEDS ORDERED: MoRPHine SULFATE 4 MG/ML 1 ML CARP\\VIAL IV STA (20:56)
--- NOTE | 2022-08-22 20:56 | Emergency Department Note ---
History of Present Illness General Chief complaint: Chest Pain Stated complaint: SOB, TIRED OF LIFE, DOESN'T WANT TO LIVE ANYMORE Time Seen by Provider: 08/22/22 19:03 History of Present Illness Provider complaint: Shortness of breath chest pain suicidal ideation Onset (ago): day(s) 1 Location: chest Maximum Pain Intensity: 9 Associated symptoms: + chest pain and + shortness of breath 52-year-old male presents emergency department for shortness of breath and chest pain. Patient reports his doctor wanted him to come into the hospital because he thought he was in congestive heart failure. Patient reports increased weight gain and some leg swelling. He reports some orthopnea. He reports his defibrillator went off a few days ago. Patient also makes note to me and nursing at bedside that he has been having thoughts of wanting to kill himself by attempting to jump into traffic. He states he has nothing to live for and wants to . Home Medications Medication Instructions Recorded Confirmed Type ATORVASTATIN (LIPITOR) 20 mg PO DAILY ##0 10/25/11 07/25/22 History Fluticasone Propionate (Nasal) 2 spry ADAM DAILY PRN Allergy 09/06/15 07/25/22 History (Flonase Allergy Relief) Symptoms ##0 Lisinopril (Zestril) 40 mg PO DAILY #0 tabs 09/06/15 07/25/22 History dicyclomine 10 mg capsule 10 mg PO QID PRN .ABD PAIN 06/20/22 07/24/22 History divalproex 500 mg tablet,delayed 500 mg PO BID 06/20/22 07/24/22 History release escitalopram oxalate 20 mg tablet 20 mg PO QAM 06/20/22 07/24/22 History isosorbide mononitrate 30 mg 30 mg PO DAILY 06/20/22 07/24/22 History tablet,extended release 24 hr ondansetron 4 mg disintegrating 4 mg PO Q8H PRN Nausea 06/20/22 07/24/22 History tablet oxycodone-acetaminophen 10 mg-325 1 tab PO Q4H PRN Pain 06/20/22 07/24/22 History mg tablet (Percocet) albuterol sulfate 2.5 mg/3 mL 2.5 mg (3 mL) inhalation QID PRN 06/28/22 07/24/22 Rx (0.083 %) solution for nebulization shortness of breath or wheezing #90 mL alprazolam 2 mg tablet 1 mg PO QID PRN Anxiety #1 tab 06/28/22 07/24/22 Rx fluticasone furoate 200 1 ea inhalation DAILY #60 ea 06/28/22 07/25/22 Rx mcg-vilanterol 25 mcg/dose inhalation powder (Breo Ellipta) furosemide 40 mg tablet (Lasix) 40 mg PO DAILYBD #30 tabs 06/28/22 07/24/22 Rx metoprolol succinate 50 mg 50 mg PO QAM #30 tabs 06/28/22 07/24/22 Rx tablet,extended release 24 hr potassium chloride 20 mEq 20 meq PO BID #1 tab 06/28/22 07/24/22 Rx tablet,extended release prednisone 10 mg tablet 10 mg PO UD #12 tabs 06/28/22 07/24/22 Rx umeclidinium 62.5 mcg/actuation 1 inh inhalation DAILY #30 ea 06/28/22 07/24/22 Rx blister powder for inhalation (Incruse Ellipta) quetiapine 400 mg tablet 600 mg PO HS 07/24/22 07/26/22 History Allergies Allergy/AdvReac Type Severity Reaction Status Date / Time hydrocodone Allergy Unknown PT ABLE TO Unverified 06/21/22 09:28 TAKE TYLENOL tramadol Allergy Hives Verified 06/21/22 09:28 amoxicillin AdvReac SOB Verified 06/21/22 09:28 Past Med/Surg History Medical History Acute bronchiolitis due to other infectious organisms Acute systolic CHF (congestive heart failure) Hypoxia Medical non-compliance Pacemaker Schizoaffective disorder Suicide ideation Surgical History History of cardiac defibrillator placement History of incision and drainage (07/31/22) Incision and Drainage Perineal Abscess - Caden Ervin MD, FACS History of permanent cardiac pacemaker placement Social History Smoking Status: Former smoker Second Hand Exposure: No; Hx Alcohol Use: No Hx Substance Use: No Preferred Language: Maltese Communication Ability: Effective 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 Beliefs That Will Affect Care: None marital status: Unknown Current Living Situation: Alone Current Living Situation Comment: lives alone in apartment Feels Safe at Home: Yes Assistive Devices: None Physical Exam Vital Signs Vital Signs - 24 hr 08/22/22 18:57 08/22/22 19:22 08/22/22 19:21 Temperature 36.9 C Temperature Source Temporal Artery Scan Pulse Rate 86 88 77 Pulse Rate from SpO2 Sensor 85 Pulse Rhythm Regular Pulse Strength Normal Respiratory Rate 20 20 14 Respiratory Effort / Characteristics Non-Labored Spontaneous Respiratory Depth Normal Respiratory Pattern Regular Blood Pressure 173/99 H Blood Pressure Mean 123 Blood Pressure Position Sitting Pulse Oximetry 100 100 97 Oxygen Delivery Method Room Air Room Air Sepsis Recent Fever Within 48 Hours No Sepsis New/Unexplained Change in Mental Status N/A Sepsis Action Taken by Nursing No Action Required 08/22/22 19:30 08/22/22 19:40 08/22/22 19:52 Temperature Temperature Source Pulse Rate 83 80 86 Pulse Rate from SpO2 Sensor Pulse Rhythm Pulse Strength Respiratory Rate 22 20 24 Respiratory Effort / Characteristics Respiratory Depth Respiratory Pattern Blood Pressure Blood Pressure Mean Blood Pressure Position Pulse Oximetry Oxygen Delivery Method Sepsis Recent Fever Within 48 Hours Sepsis New/Unexplained Change in Mental Status Sepsis Action Taken by Nursing 08/22/22 20:00 08/22/22 20:10 08/22/22 20:20 Temperature Temperature Source Pulse Rate 84 82 87 Pulse Rate from SpO2 Sensor 60 Pulse Rhythm Pulse Strength Respiratory Rate 26 H 29 H 15 Respiratory Effort / Characteristics Respiratory Depth Respiratory Pattern Blood Pressure Blood Pressure Mean Blood Pressure Position Pulse Oximetry 100 Oxygen Delivery Method Sepsis Recent Fever Within 48 Hours Sepsis New/Unexplained Change in Mental Status Sepsis Action Taken by Nursing 08/22/22 20:30 08/22/22 20:40 08/22/22 20:50 Temperature Temperature Source Pulse Rate 84 86 84 Pulse Rate from SpO2 Sensor 74 134 H Pulse Rhythm Pulse Strength Respiratory Rate 26 H 22 24 Respiratory Effort / Characteristics Respiratory Depth Respiratory Pattern Blood Pressure Blood Pressure Mean Blood Pressure Position Pulse Oximetry 82 L 80 L Oxygen Delivery Method Sepsis Recent Fever Within 48 Hours Sepsis New/Unexplained Change in Mental Status Sepsis Action Taken by Nursing 08/22/22 21:00 08/22/22 21:30 08/22/22 21:40 Temperature Temperature Source Pulse Rate 86 67 80 Pulse Rate from SpO2 Sensor Pulse Rhythm Pulse Strength Respiratory Rate 23 20 15 Respiratory Effort / Characteristics Respiratory Depth Respiratory Pattern Blood Pressure Blood Pressure Mean Blood Pressure Position Pulse Oximetry Oxygen Delivery Method Sepsis Recent Fever Within 48 Hours Sepsis New/Unexplained Change in Mental Status Sepsis Action Taken by Nursing Physical Exam GENERAL: He is oriented to person, place, and time. He appears well-developed and well-nourished. He does not appear distressed. HENT: Exam performed. - Head: Normocephalic and atraumatic. - Right Ear: External ear normal. No mastoid tenderness. - Left Ear: External ear normal. No mastoid tenderness. - Mouth/Throat: The oropharynx is clear and moist. No trismus in the jaw. No dental abscesses or uvula swelling. No oropharyngeal exudate or tonsillar abscesses. EYES: Conjunctivae and EOM are normal. Pupils are equal, round, and reactive to light. Right eye exhibits no discharge. Left eye exhibits no discharge. No scleral icterus. NECK: Normal range of motion. Neck supple. No JVD present. No spinous process tenderness present. No carotid bruit present. No rigidity. No tracheal deviation and normal range of motion present. No Brudzinski's sign and no Kernig's sign noted. CV: Normal rate, regular rhythm, normal heart sounds and intact distal pulses. There is no peripheral edema. Palpable radial pulses bue. PULM/CHEST: Effort normal and breath sounds normal. No respiratory distress. No stridor. He has no wheezes. He has no rales. - Chest Wall: He exhibits no tenderness. ABD: The abdomen is soft. Bowel sounds are normal. He has no distension. No mass is present. There is no tenderness. There is no rebound, no guarding, no Colindres's sign and no tenderness at McBurney's point. Rovsig negative. MUSC/SKEL: Normal range of motion. There is no peripheral edema, tenderness or deformity. LYMPH: No cervical adenopathy. NEURO: He is alert and oriented to person, place, and time. He has normal strength. No cranial nerve deficit or sensory deficit. Coordination and gait normal. GCS eye subscore is 4. GCS verbal subscore is 5. GCS motor subscore is 6. Cerebellar tests wnl. SKIN: Skin is warm and dry. He is not diaphoretic. PSYCH: He has a normal mood and affect. Behavior is normal. Judgment and thought content normal. Course Course 1902: The patient was evaluated in room A4. A complete history and physical exam was performed Administered Medications Magnesium Sulfate/Dextrose (Magnesium Sulfate / D5w) 1 gm in 100 mls @ 50 mls/hr IV ONE ONE Stop: 08/22/22 22:44 Last Admin: 08/22/22 21:26 Dose: 50 mls/hr Documented By: QGV Discontinued Medications Albuterol (Albut/Ipratrop 3mg/0.5mg Neb 3 Ml Vial) 3 ml NEB NOW STA; Protocol Stop: 08/22/22 20:36 Last Admin: 08/22/22 21:26 Dose: 3 ml Documented By: QGV Aspirin (Aspirin Chew 324 Mg) 324 mg PO NOW STA Stop: 08/22/22 19:23 Last Admin: 08/22/22 20:12 Dose: 324 mg Documented By: QGV Furosemide (Furosemide 40 Mg/4 Ml Vial) 40 mg IV ONE ONE Stop: 08/22/22 20:27 Last Admin: 08/22/22 20:38 Dose: 40 mg Documented By: QGV Morphine Sulfate (Morphine Sulfate 4 Mg/Ml 1 Ml Carp\Vial) 4 mg IV NOW STA Stop: 08/22/22 20:57 Last Admin: 08/22/22 21:19 Dose: 4 mg Documented By: QGV Critical Care Time Critical Care Time: Yes Total Critical Care Time: 45 I have personally spent greater than 45 minutes of critical care time in the direct management of this patient. This includes bedside care, interpretation of diagnostic studies, and testing, discussion with consultants, patient, and family members, and other required patient management activities. This 45 minutes is in excess of all separately billable procedures. Medical Decision Making Laboratory Data Attestation: I reviewed the patient's lab results. 08/22/22 19:40 08/22/22 19:40 Lab Results 08/22/22 08/22/22 08/22/22 Range/Units 19:40 19:40 19:40 WBC 7.48 (4.8-10.8) K/ul RBC 4.98 (4.63-6.08) M/uL Hgb 15.9 (14.0-18.0) g/dl Hct 46.3 (40.1-51.0) % MCV 93.0 (80.0-100.0) fL MCH 31.9 (25.0-34.0) pg MCHC 34.3 (32.0-36.0) g/dL RDW Std Deviation 49.0 H (36.4-46.3) fL RDW Coeff of Seven 14.3 (11.5-14.5) % Plt Count 131 (130-400) K/uL MPV 11.2 (9.4-12.4) fL Neutrophils % (Manual) 39 % Lymphocytes % (Manual) 39 % Reactive Lymphs % (Man) 12 % Monocytes % (Manual) 9 % Eosinophils % (Manual) 1 % Neutrophils # (Manual) 2.92 (1.4-6.5) K/uL Total Absolute Neuts 2.92 (1.4-6.5) K/uL Lymphocytes # (Manual) 2.92 (1.2-3.4) K/uL Reactive Lymphs # 0.90 K/uL Total Abs Lymphocytes 3.81 H (1.2-3.4) K/uL Monocytes # (Manual) 0.67 (0.24-0.82) K/uL Eosinophils # (Manual) 0.07 (0-0.50) K/uL Toxic Granulation 1+ Polychromasia 1+ PT 11.4 (9.0-12.0) Seconds INR 1.1 (0.9-1.1) APTT 24.8 (21.0-31.0) Seconds PTT Ratio 0.9 ABG pH (7.35-7.45) ABG pCO2 (35-46) mmHg ABG pO2 (80-95) mmHg ABG HCO3 (19-24) mmol/L ABG O2 Saturation (90-95) % ABG Base Excess (-9-1.8) mEq/L Andres Test (Pos) Oxygen Given Sodium 141 (136-145) mmol/L Potassium 3.8 (3.5-5.1) mmol/L Chloride 106 (98-107) mmol/L Carbon Dioxide 27 (21-32) mmol/L Anion Gap 8 (3-11) BUN 13 (6-23) mg/dl Creatinine 0.85 (0.6-1.4) mg/dl Est Cr Clr Drug Dosing 108.9 ml/min Est GFR ( Amer) 114.5 ml/min Est GFR (Non-Af Amer) 98.8 ml/min BUN/Creatinine Ratio 15.3 (10-20) Glucose 85 (70-99(Fasting)) mg/dl Calcium 8.7 (8.5-10.1) mg/dl Magnesium 1.8 (1.7-2.4) mg/dl Total Bilirubin 0.4 (0.2-1.0) mg/dl Direct Bilirubin 0.1 (0-0.2) mg/dl AST 16 (13-39) U/L ALT 11 (7-52) U/L Alkaline Phosphatase 67 (34-104) U/L Troponin I High Sens 46.4 H (0-20) pg/ml B-Natriuretic Peptide (0-100) pg/ml Total Protein 6.9 (6.0-8.3) gm/dl Albumin 4.0 (3.4-5.0) gm/dl Lipase 47 (11-82) U/L TSH (0.300-4.500) uIu/ml Urine Color Urine Appearance (Clear) Urine pH (4.5-7.5) Ur Specific [place] (1.000-1.030) Urine Protein (Negative) Urine Glucose (UA) (Negative) Urine Ketones (Negative) Urine Blood (Negative) Urine Nitrite (Negative) Urine Bilirubin (Negative) Urine Urobilinogen (Negative) Ur Leukocyte Esterase (Negative) Salicylates (3.0-30) mg/dl Urine Opiates Screen (Neg) Ur Methadone, Qual (Neg) Acetaminophen (10-30) ug/ml Urine Barbiturates (Neg) Valproic Acid (50-100) mcg/ml Ur Phencyclidine (PCP) (Neg) U Amphetamin/Meth Scrn (Neg) MDMA (Ecstasy) Screen (Neg) U Benzodiazepines Scrn (Neg) Ur Cocaine Metabolite (Neg) U Marijuana (THC) Screen (Neg) Ethyl Alcohol mg/dL (<10.0) mg/dl SARS-CoV-2, RNA, NAAT (NEGATIVE) 08/22/22 08/22/22 08/22/22 Range/Units 19:40 19:40 19:40 WBC (4.8-10.8) K/ul RBC (4.63-6.08) M/uL Hgb (14.0-18.0) g/dl Hct (40.1-51.0) % MCV (80.0-100.0) fL MCH (25.0-34.0) pg MCHC (32.0-36.0) g/dL RDW Std Deviation (36.4-46.3) fL RDW Coeff of Seven (11.5-14.5) % Plt Count (130-400) K/uL MPV (9.4-12.4) fL Neutrophils % (Manual) % Lymphocytes % (Manual) % Reactive Lymphs % (Man) % Monocytes % (Manual) % Eosinophils % (Manual) % Neutrophils # (Manual) (1.4-6.5) K/uL Total Absolute Neuts (1.4-6.5) K/uL Lymphocytes # (Manual) (1.2-3.4) K/uL Reactive Lymphs # K/uL Total Abs Lymphocytes (1.2-3.4) K/uL Monocytes # (Manual) (0.24-0.82) K/uL Eosinophils # (Manual) (0-0.50) K/uL Toxic Granulation Polychromasia PT (9.0-12.0) Seconds INR (0.9-1.1) APTT (21.0-31.0) Seconds PTT Ratio ABG pH (7.35-7.45) ABG pCO2 (35-46) mmHg ABG pO2 (80-95) mmHg ABG HCO3 (19-24) mmol/L ABG O2 Saturation (90-95) % ABG Base Excess (-9-1.8) mEq/L Andres Test (Pos) Oxygen Given Sodium (136-145) mmol/L Potassium (3.5-5.1) mmol/L Chloride (98-107) mmol/L Carbon Dioxide (21-32) mmol/L Anion Gap (3-11) BUN (6-23) mg/dl Creatinine (0.6-1.4) mg/dl Est Cr Clr Drug Dosing ml/min Est GFR ( Amer) ml/min Est GFR (Non-Af Amer) ml/min BUN/Creatinine Ratio (10-20) Glucose (70-99(Fasting)) mg/dl Calcium (8.5-10.1) mg/dl Magnesium (1.7-2.4) mg/dl Total Bilirubin (0.2-1.0) mg/dl Direct Bilirubin (0-0.2) mg/dl AST (13-39) U/L ALT (7-52) U/L Alkaline Phosphatase (34-104) U/L Troponin I High Sens (0-20) pg/ml B-Natriuretic Peptide 624 H (0-100) pg/ml Total Protein (6.0-8.3) gm/dl Albumin (3.4-5.0) gm/dl Lipase (11-82) U/L TSH (0.300-4.500) uIu/ml Urine Color Urine Appearance (Clear) Urine pH (4.5-7.5) Ur Specific [place] (1.000-1.030) Urine Protein (Negative) Urine Glucose (UA) (Negative) Urine Ketones (Negative) Urine Blood (Negative) Urine Nitrite (Negative) Urine Bilirubin (Negative) Urine Urobilinogen (Negative) Ur Leukocyte Esterase (Negative) Salicylates < 3.0 L (3.0-30) mg/dl Urine Opiates Screen (Neg) Ur Methadone, Qual (Neg) Acetaminophen < 3 L (10-30) ug/ml Urine Barbiturates (Neg) Valproic Acid (50-100) mcg/ml Ur Phencyclidine (PCP) (Neg) U Amphetamin/Meth Scrn (Neg) MDMA (Ecstasy) Screen (Neg) U Benzodiazepines Scrn (Neg) Ur Cocaine Metabolite (Neg) U Marijuana (THC) Screen (Neg) Ethyl Alcohol mg/dL 14.7 H (<10.0) mg/dl SARS-CoV-2, RNA, NAAT (NEGATIVE) 08/22/22 08/22/22 08/22/22 Range/Units 19:40 19:40 20:09 WBC (4.8-10.8) K/ul RBC (4.63-6.08) M/uL Hgb (14.0-18.0) g/dl Hct (40.1-51.0) % MCV (80.0-100.0) fL MCH (25.0-34.0) pg MCHC (32.0-36.0) g/dL RDW Std Deviation (36.4-46.3) fL RDW Coeff of Seven (11.5-14.5) % Plt Count (130-400) K/uL MPV (9.4-12.4) fL Neutrophils % (Manual) % Lymphocytes % (Manual) % Reactive Lymphs % (Man) % Monocytes % (Manual) % Eosinophils % (Manual) % Neutrophils # (Manual) (1.4-6.5) K/uL Total Absolute Neuts (1.4-6.5) K/uL Lymphocytes # (Manual) (1.2-3.4) K/uL Reactive Lymphs # K/uL Total Abs Lymphocytes (1.2-3.4) K/uL Monocytes # (Manual) (0.24-0.82) K/uL Eosinophils # (Manual) (0-0.50) K/uL Toxic Granulation Polychromasia PT (9.0-12.0) Seconds INR (0.9-1.1) APTT (21.0-31.0) Seconds PTT Ratio ABG pH (7.35-7.45) ABG pCO2 (35-46) mmHg ABG pO2 (80-95) mmHg ABG HCO3 (19-24) mmol/L ABG O2 Saturation (90-95) % ABG Base Excess (-9-1.8) mEq/L Andres Test (Pos) Oxygen Given Sodium (136-145) mmol/L Potassium (3.5-5.1) mmol/L Chloride (98-107) mmol/L Carbon Dioxide (21-32) mmol/L Anion Gap (3-11) BUN (6-23) mg/dl Creatinine (0.6-1.4) mg/dl Est Cr Clr Drug Dosing ml/min Est GFR ( Amer) ml/min Est GFR (Non-Af Amer) ml/min BUN/Creatinine Ratio (10-20) Glucose (70-99(Fasting)) mg/dl Calcium (8.5-10.1) mg/dl Magnesium (1.7-2.4) mg/dl Total Bilirubin (0.2-1.0) mg/dl Direct Bilirubin (0-0.2) mg/dl AST (13-39) U/L ALT (7-52) U/L Alkaline Phosphatase (34-104) U/L Troponin I High Sens (0-20) pg/ml B-Natriuretic Peptide (0-100) pg/ml Total Protein (6.0-8.3) gm/dl Albumin (3.4-5.0) gm/dl Lipase (11-82) U/L TSH 0.674 (0.300-4.500) uIu/ml Urine Color Urine Appearance (Clear) Urine pH (4.5-7.5) Ur Specific [place] (1.000-1.030) Urine Protein (Negative) Urine Glucose (UA) (Negative) Urine Ketones (Negative) Urine Blood (Negative) Urine Nitrite (Negative) Urine Bilirubin (Negative) Urine Urobilinogen (Negative) Ur Leukocyte Esterase (Negative) Salicylates (3.0-30) mg/dl Urine Opiates Screen (Neg) Ur Methadone, Qual (Neg) Acetaminophen (10-30) ug/ml Urine Barbiturates (Neg) Valproic Acid 40 L (50-100) mcg/ml Ur Phencyclidine (PCP) (Neg) U Amphetamin/Meth Scrn (Neg) MDMA (Ecstasy) Screen (Neg) U Benzodiazepines Scrn (Neg) Ur Cocaine Metabolite (Neg) U Marijuana (THC) Screen (Neg) Ethyl Alcohol mg/dL (<10.0) mg/dl SARS-CoV-2, RNA, NAAT NEGATIVE (NEGATIVE) 08/22/22 08/22/22 08/22/22 Range/Units 20:55 20:55 21:20 WBC (4.8-10.8) K/ul RBC (4.63-6.08) M/uL Hgb (14.0-18.0) g/dl Hct (40.1-51.0) % MCV (80.0-100.0) fL MCH (25.0-34.0) pg MCHC (32.0-36.0) g/dL RDW Std Deviation (36.4-46.3) fL RDW Coeff of Seven (11.5-14.5) % Plt Count (130-400) K/uL MPV (9.4-12.4) fL Neutrophils % (Manual) % Lymphocytes % (Manual) % Reactive Lymphs % (Man) % Monocytes % (Manual) % Eosinophils % (Manual) % Neutrophils # (Manual) (1.4-6.5) K/uL Total Absolute Neuts (1.4-6.5) K/uL Lymphocytes # (Manual) (1.2-3.4) K/uL Reactive Lymphs # K/uL Total Abs Lymphocytes (1.2-3.4) K/uL Monocytes # (Manual) (0.24-0.82) K/uL Eosinophils # (Manual) (0-0.50) K/uL Toxic Granulation Polychromasia PT (9.0-12.0) Seconds INR (0.9-1.1) APTT (21.0-31.0) Seconds PTT Ratio ABG pH 7.49 H (7.35-7.45) ABG pCO2 36 (35-46) mmHg ABG pO2 89 (80-95) mmHg ABG HCO3 27 H (19-24) mmol/L ABG O2 Saturation 99.4 H (90-95) % ABG Base Excess 4.1 H (-9-1.8) mEq/L Andres Test Pos (Pos) Oxygen Given ROOM AIR Sodium (136-145) mmol/L Potassium (3.5-5.1) mmol/L Chloride (98-107) mmol/L Carbon Dioxide (21-32) mmol/L Anion Gap (3-11) BUN (6-23) mg/dl Creatinine (0.6-1.4) mg/dl Est Cr Clr Drug Dosing ml/min Est GFR ( Amer) ml/min Est GFR (Non-Af Amer) ml/min BUN/Creatinine Ratio (10-20) Glucose (70-99(Fasting)) mg/dl Calcium (8.5-10.1) mg/dl Magnesium (1.7-2.4) mg/dl Total Bilirubin (0.2-1.0) mg/dl Direct Bilirubin (0-0.2) mg/dl AST (13-39) U/L ALT (7-52) U/L Alkaline Phosphatase (34-104) U/L Troponin I High Sens (0-20) pg/ml B-Natriuretic Peptide (0-100) pg/ml Total Protein (6.0-8.3) gm/dl Albumin (3.4-5.0) gm/dl Lipase (11-82) U/L TSH (0.300-4.500) uIu/ml Urine Color Yellow Urine Appearance Clear (Clear) Urine pH 7.0 (4.5-7.5) Ur Specific [place] 1.009 (1.000-1.030) Urine Protein Negative (Negative) Urine Glucose (UA) Negative (Negative) Urine Ketones Negative (Negative) Urine Blood Negative (Negative) Urine Nitrite Negative (Negative) Urine Bilirubin Negative (Negative) Urine Urobilinogen Negative (Negative) Ur Leukocyte Esterase Negative (Negative) Salicylates (3.0-30) mg/dl Urine Opiates Screen Neg (Neg) Ur Methadone, Qual Neg (Neg) Acetaminophen (10-30) ug/ml Urine Barbiturates Neg (Neg) Valproic Acid (50-100) mcg/ml Ur Phencyclidine (PCP) Neg (Neg) U Amphetamin/Meth Scrn Neg (Neg) MDMA (Ecstasy) Screen Neg (Neg) U Benzodiazepines Scrn Neg (Neg) Ur Cocaine Metabolite Neg (Neg) U Marijuana (THC) Screen Neg (Neg) Ethyl Alcohol mg/dL (<10.0) mg/dl SARS-CoV-2, RNA, NAAT (NEGATIVE) 08/22/22 Range/Units 21:21 WBC (4.8-10.8) K/ul RBC (4.63-6.08) M/uL Hgb (14.0-18.0) g/dl Hct (40.1-51.0) % MCV (80.0-100.0) fL MCH (25.0-34.0) pg MCHC (32.0-36.0) g/dL RDW Std Deviation (36.4-46.3) fL RDW Coeff of Seven (11.5-14.5) % Plt Count (130-400) K/uL MPV (9.4-12.4) fL Neutrophils % (Manual) % Lymphocytes % (Manual) % Reactive Lymphs % (Man) % Monocytes % (Manual) % Eosinophils % (Manual) % Neutrophils # (Manual) (1.4-6.5) K/uL Total Absolute Neuts (1.4-6.5) K/uL Lymphocytes # (Manual) (1.2-3.4) K/uL Reactive Lymphs # K/uL Total Abs Lymphocytes (1.2-3.4) K/uL Monocytes # (Manual) (0.24-0.82) K/uL Eosinophils # (Manual) (0-0.50) K/uL Toxic Granulation Polychromasia PT (9.0-12.0) Seconds INR (0.9-1.1) APTT (21.0-31.0) Seconds PTT Ratio ABG pH (7.35-7.45) ABG pCO2 (35-46) mmHg ABG pO2 (80-95) mmHg ABG HCO3 (19-24) mmol/L ABG O2 Saturation (90-95) % ABG Base Excess (-9-1.8) mEq/L Andres Test (Pos) Oxygen Given Sodium (136-145) mmol/L Potassium (3.5-5.1) mmol/L Chloride (98-107) mmol/L Carbon Dioxide (21-32) mmol/L Anion Gap (3-11) BUN (6-23) mg/dl Creatinine (0.6-1.4) mg/dl Est Cr Clr Drug Dosing ml/min Est GFR ( Amer) ml/min Est GFR (Non-Af Amer) ml/min BUN/Creatinine Ratio (10-20) Glucose (70-99(Fasting)) mg/dl Calcium (8.5-10.1) mg/dl Magnesium (1.7-2.4) mg/dl Total Bilirubin (0.2-1.0) mg/dl Direct Bilirubin (0-0.2) mg/dl AST (13-39) U/L ALT (7-52) U/L Alkaline Phosphatase (34-104) U/L Troponin I High Sens Cancelled (0-20) pg/ml B-Natriuretic Peptide (0-100) pg/ml Total Protein (6.0-8.3) gm/dl Albumin (3.4-5.0) gm/dl Lipase (11-82) U/L TSH (0.300-4.500) uIu/ml Urine Color Urine Appearance (Clear) Urine pH (4.5-7.5) Ur Specific [place] (1.000-1.030) Urine Protein (Negative) Urine Glucose (UA) (Negative) Urine Ketones (Negative) Urine Blood (Negative) Urine Nitrite (Negative) Urine Bilirubin (Negative) Urine Urobilinogen (Negative) Ur Leukocyte Esterase (Negative) Salicylates (3.0-30) mg/dl Urine Opiates Screen (Neg) Ur Methadone, Qual (Neg) Acetaminophen (10-30) ug/ml Urine Barbiturates (Neg) Valproic Acid (50-100) mcg/ml Ur Phencyclidine (PCP) (Neg) U Amphetamin/Meth Scrn (Neg) MDMA (Ecstasy) Screen (Neg) U Benzodiazepines Scrn (Neg) Ur Cocaine Metabolite (Neg) U Marijuana (THC) Screen (Neg) Ethyl Alcohol mg/dL (<10.0) mg/dl SARS-CoV-2, RNA, NAAT (NEGATIVE) Imaging Data Attestation: I personally reviewed and interpreted this imaging study as follows: Radiologist's Impression: Chest X-Ray 08/22/22 19:22 SINGLE VIEW CHEST CLINICAL HISTORY: Atypical chest pain FINDINGS: An AP, portable, upright chest radiograph is compared to study dated 07/30/2022. A 3-lead cardiac AICD is unchanged in position and partially obscures the left lower chest. The heart is enlarged. There is pulmonary vascular congestion. No airspace consolidation or large pleural effusion is i dentified. No pneumothorax is seen. The skeletal structures are osteopenic. The bony thorax is grossly intact. IMPRESSION: Cardiomegaly and AICD with evidence of congestive failure. ACT 112: Negative or not required by law. Electronically signed by: Anthony Bates M.D. 08/22/2022 8:04 PM ECG Data Indication: + chest pain Rate (beats per minute): 78 Rhythm: + sinus with SA ECG Intervals/blocks: + Normal QRS, + Normal NH and + Normal QT-c ECG ST segments: + Normal ST segments ECG Findings: + PVCs MDM Narrative Cardiac monitoring: An order was placed for continuous cardiac monitoring. The monitor shows a rate of 80 with sinus rhythm Labs show troponin of 46.4 and BNP of 624. Chest x-ray shows pulmonary congestion. Patient was given Lasix 40 mg IV push. Patient did become hypoxic placed on 2 L nasal cannula and did improve his oxygen saturation. 302 was signed and delegate came to present to warrant to the patient. Patient will be admitted medically to Dr. Schulte service and will have a psychiatric consult while inpatient. Impression & Plan Hypoxia, Schizophrenia, Elevated troponin, Acute systolic CHF (congestive heart failure), Frequent PVCs, Suicide ideation Discharge Plan Visit Data Chief Complaint: Chest Pain Stated Complaint: SOB, TIRED OF LIFE, DOESN'T WANT TO LIVE ANYMORE ED Provider: Rogerio Fatima Discharge Problem: Hypoxia, Schizophrenia, Elevated troponin, Acute systolic CHF (congestive heart failure), Frequent PVCs, Suicide ideation Patient Disposition: Admitted As Inpatient Forms Stand Alone Forms: My [facility], Suicide Prevention Resources Prescriptions Prescriptions: No Action ATORVASTATIN (LIPITOR) 20 MG tablet 20 mg PO DAILY Qty: 0 Lisinopril (Zestril) 40 MG tablet 40 mg PO DAILY Qty: 0 Fluticasone Propionate (Nasal) (Flonase Allergy Relief) 50 MCG/ACT SPR 2 spry ADAM DAILY PRN (Reason: Allergy Symptoms) Qty: 0 oxycodone-acetaminophen [Percocet] 10-325 mg Tablet 1 tab PO Q4H PRN (Reason: Pain) ondansetron 4 mg Tablet,Disintegrating 4 mg PO Q8H PRN (Reason: Nausea) dicyclomine 10 mg Capsule 10 mg PO QID PRN (Reason: .ABD PAIN) escitalopram oxalate 20 mg Tablet 20 mg PO QAM isosorbide mononitrate 30 mg Tablet Extended Release 24 Hr 30 mg PO DAILY divalproex 500 mg Tablet,Delayed Release (Dr/Ec) 500 mg PO BID Incruse Ellipta 62.5 mcg/actuation Blister With Device 1 inh inhalation DAILY Qty: 30 0RF metoprolol succinate 50 mg Tablet Extended Release 24 Hr 50 mg PO QAM Qty: 30 0RF fluticasone furoate-vilanterol [Breo Ellipta] 200-25 mcg/dose Blister With Device 1 ea inhalation DAILY Qty: 60 0RF furosemide [Lasix] 40 mg Tablet 40 mg PO DAILYBD Qty: 30 0RF albuterol sulfate 2.5 mg /3 mL (0.083 %) Solution For Nebulization 2.5 mg INHALATION QID PRN (Reason: shortness of breath or wheezing) Qty: 90 0RF alprazolam 2 mg Tablet 1 mg PO QID PRN (Reason: Anxiety) Qty: 1 0RF prednisone 10 mg tablet 10 mg PO UD Qty: 12 0RF Rx Instructions: Start taking prednisone 20mg daily for 4 days and ten 10mg daily for 4 days. potassium chloride 20 mEq Tablet Extended Release 20 meq PO BID Qty: 1 0RF quetiapine 400 mg tablet 600 mg PO HS Referrals Referrals: PCP,NO [Primary Care Provider] -
[2022-08-22 21:05] LABS: Appearance Urine Clear (Clear); Bilirubin Urine Negative (Negative); Blood Urine Negative (Negative); Color Urine Yellow; Glucose Urine UA Negative (Negative); Ketones Urine Negative (Negative); Leukocyte Esterase Urine Negative (Negative); Nitrite Urine Negative (Negative); Protein Urine Negative (Negative); Specific Gravity Urine 1.009 (1.000-1.030); Urobilinogen Urine Negative (Negative)
[2022-08-22 21:34] LABS: Amphetamines+Metham, Urine Neg (Neg); Barbiturates, Urine Neg (Neg); Benzodiazepine, Urine Neg (Neg); Cocaine, Urine Neg (Neg); MDMA (Ecstacy), Urine Neg (Neg); Methadone, Urine Neg (Neg); Opiate, Urine Neg (Neg); Phencyclidine, Urine Neg (Neg)
[2022-08-22 21:36] LABS: Base Excess ABG 4.1 mEq/L (-9-1.8); HCO3 ABG 27 mmol/L (19-24); Oxygen Saturation ABG 99.4 % (90-95); PCO2 ABG 36 mmHg (35-46); PO2 ABG 89 mmHg (80-95); pH ABG 7.49 (7.35-7.45)
[2022-08-22 21:40] LABS: Allen Test Pos (Pos)
--- NOTE | 2022-08-22 22:03 | History & Physical Report ---
Date of Service August 22, 2022 Assessment & Plan (1) Acute hypoxemic respiratory failure: Plan: Secondary to decompensated heart failure, recurrent admission chronic systolic heart failure secondary to nonischemic cardiomyopathy tatus post ICD Underlying pulmonary HTN, history HAFSA CPAP secondary to medication noncompliance Left-sided chest pain with troponin elevation Possible NSTEMI Possible ICD shock HTN,, elevated secondary to illness hx mild to moderate TR hyperlipidemia on statin Rx suicidality hx anxiety/mood disorder/schizoaffective disorder chronic pain ongoing tobacco abuse PCU Supplemental O2 Stat nebs Diuretic Rx Strict I/Os, daily weights, CHF education, fluid restriction Aspirin, beta-yuri, IV heparin for possible NSTEMI Follow troponin TTE, Cardiology consult Re: Decompensated heart failure, NSTEMI N.p.o. until patient seen by cardiology in anticipation of ischemic work-up ICD interrogation Psych consult re: possible suicidality Suicide precautions until patient seen by psychiatry Nicotine patch DVT prophylaxis. IV heparin Full code Total critical care time was 40 minutes. Text document was generated using [employer] voice recognition software. It may contain grammatical or spelling errors. Kindly contact undersigned for clarification of any documentation item in question. History of Present Illness Chief Complaint: Mind is not okay as per patient Primary Care Provider: Dr. Springer History obtained from patient and records. Medical history significant for chronic systolic heart failure secondary to nonischemic cardiomyopathy (20 to 25%, TTE 2021) status post ICD, mild to moderate TR, HAFSA on CPAP, pulmonary hypertension, HTN, hyperlipidemia, anxiety/mood disorder, schizoaffective disorder, chronic pain,ongoing tobacco abuse. Recent confinement July 25, 2022 due to August 16, 2022 for decompensated heart failure. Patient also found to have a perineal abscess status post drainage. Some diuretic changes made by PCP last week. Days ago, patient had transient left-sided achy chest pain going to to his left shoulder. Thinks his ICD may have shocked him again. Some shortness of breath and weight gain noted for the last week. Patient only taking twice daily Lasix prescription from PCP once daily. Skipping p.m. dose due to inconvenience of having to pee at night. Patient with suicidal thoughts. Mind is not okay. Patient consulted ER for evaluation. Patient complaining of left-sided chest pain at the ER. Refusing nitroglycerin due to headache for medication. Transient O2 sats of 80s at the ER. Aspirin and Lasix administered at the ER. Medical Historyas above Surgical History : ICD/PPM placement, knee surgery, perineal abscess drainage Family History : Alcoholism, heart disease Personal/Social history : Half pack daily, no EtOH intake, disabled Allergies Allergy/AdvReac Type Severity Reaction Status Date / Time hydrocodone Allergy Unknown PT ABLE TO Unverified 06/21/22 09:28 TAKE TYLENOL tramadol Allergy Hives Verified 06/21/22 09:28 amoxicillin AdvReac SOB Verified 06/21/22 09:28 Home Medications Medication Instructions Recorded Confirmed Type Lisinopril (Zestril) 40 mg PO DAILY #0 tabs 09/06/15 07/25/22 History dicyclomine 10 mg capsule 10 mg PO QID PRN .ABD PAIN 06/20/22 07/24/22 History divalproex 500 mg tablet,delayed 500 mg PO BID 06/20/22 07/24/22 History release escitalopram oxalate 20 mg tablet 20 mg PO QAM 06/20/22 07/24/22 History isosorbide mononitrate 30 mg 30 mg PO DAILY 06/20/22 07/24/22 History tablet,extended release 24 hr ondansetron 4 mg disintegrating 4 mg PO Q8H PRN Nausea 06/20/22 07/24/22 History tablet oxycodone-acetaminophen 10 mg-325 1 tab PO Q4H PRN Pain 06/20/22 07/24/22 History mg tablet (Percocet) albuterol sulfate 2.5 mg/3 mL 2.5 mg (3 mL) inhalation QID PRN 06/28/22 07/24/22 Rx (0.083 %) solution for nebulization shortness of breath or wheezing #90 mL alprazolam 2 mg tablet 1 mg PO QID PRN Anxiety #1 tab 06/28/22 07/24/22 Rx fluticasone furoate 200 1 ea inhalation DAILY #60 ea 06/28/22 07/25/22 Rx mcg-vilanterol 25 mcg/dose inhalation powder (Breo Ellipta) metoprolol succinate 50 mg 50 mg PO QAM #30 tabs 06/28/22 07/24/22 Rx tablet,extended release 24 hr potassium chloride 20 mEq 20 meq PO BID #1 tab 06/28/22 07/24/22 Rx tablet,extended release umeclidinium 62.5 mcg/actuation 1 inh inhalation DAILY #30 ea 06/28/22 07/24/22 Rx blister powder for inhalation (Incruse Ellipta) quetiapine 400 mg tablet 400 mg PO HS 07/24/22 07/26/22 History furosemide 80 mg PO DAILY 08/22/22 08/22/22 History furosemide 40 mg tablet (Lasix) 40 mg PO HS 08/22/22 History Past Med/Surg History Medical History Acute bronchiolitis due to other infectious organisms Acute systolic CHF (congestive heart failure) Hypoxia Medical non-compliance Pacemaker Schizoaffective disorder Suicide ideation Surgical History History of cardiac defibrillator placement History of incision and drainage (07/31/22) Incision and Drainage Perineal Abscess - Caden Ervin MD, FACS History of permanent cardiac pacemaker placement Social History Smoking Status: Current every day smoker Second Hand Exposure: No; Do You Dip or Chew Tobacco: No; Tobacco Cessation Education Requested by Patient: No Hx Alcohol Use: No Hx Substance Use: No Preferred Language: Qatari Communication Ability: Effective Associate Professor Of Management Required: No Beliefs That Will Affect Care: None marital status: Unknown Current Living Situation: Alone Current Living Situation Comment: lives alone in apartment Other Information That Helps Us Care for You: No Feels Safe at Home: Yes Safety Concerns: Feels Safe At This Time Assistive Devices: None Review of Systems Review of Systems: As per HPI, all other systems reviewed and negative Physical Exam Physical Exam: GENERAL: Slightly anxious, obese, no respiratory distress SKIN: Normal color, warm HEENT: [place] palpebral conjunctivae, no ptosis, moist buccal mucosa NECK : Supple, no tenderness CHEST : Decreased breath sounds, no chest wall tenderness HEART :RRR, no obvious murmurs ABDOMEN: Some distention, nontender EXTREMITIES : Minimal LE swelling, no LE tenderness, no other conspicuous deformities noted NEUROLOGIC : Coherent, no facial asymmetry, no other gross focality Results & Data Results & Data ([facility]) Vital Signs (Past 12 Hours) Vital Signs Temp Pulse Resp BP Pulse Ox O2 Del Method 01/15/23 21:40 80 15 08/22/22 21:30 67 20 08/22/22 21:00 86 23 08/22/22 20:50 84 24 08/22/22 20:40 86 22 80 L 08/22/22 20:30 84 26 H 82 L 08/22/22 20:20 87 15 08/22/22 20:10 82 29 H 08/22/22 20:00 84 26 H 100 08/22/22 19:52 86 24 08/22/22 19:40 80 20 08/22/22 19:30 83 22 08/22/22 19:21 77 14 97 08/22/22 19:22 88 20 100 Room Air 08/22/22 18:57 36.9 C 86 20 173/99 H 100 Room Air Laboratory Results Laboratory Results WBC 7.48 K/ul (4.8-10.8) 08/22/22 19:40 RBC 4.98 M/uL (4.63-6.08) 08/22/22 19:40 Hgb 15.9 g/dl (14.0-18.0) 08/22/22 19:40 Hct 46.3 % (40.1-51.0) 08/22/22 19:40 MCV 93.0 fL (80.0-100.0) 08/22/22 19:40 MCH 31.9 pg (25.0-34.0) 08/22/22 19:40 MCHC 34.3 g/dL (32.0-36.0) 08/22/22 19:40 RDW Std Deviation 49.0 fL (36.4-46.3) H 08/22/22 19:40 RDW Coeff of Seven 14.3 % (11.5-14.5) 08/22/22 19:40 Plt Count 131 K/uL (130-400) 08/22/22 19:40 MPV 11.2 fL (9.4-12.4) 08/22/22 19:40 Neutrophils % (Manual) 39 % 08/22/22 19:40 Lymphocytes % (Manual) 39 % 08/22/22 19:40 Reactive Lymphs % (Man) 12 % 08/22/22 19:40 Monocytes % (Manual) 9 % 08/22/22 19:40 Eosinophils % (Manual) 1 % 08/22/22 19:40 Neutrophils # (Manual) 2.92 K/uL (1.4-6.5) 08/22/22 19:40 Total Absolute Neuts 2.92 K/uL (1.4-6.5) 08/22/22 19:40 Lymphocytes # (Manual) 2.92 K/uL (1.2-3.4) 08/22/22 19:40 Reactive Lymphs # 0.90 K/uL 08/22/22 19:40 Total Abs Lymphocytes 3.81 K/uL (1.2-3.4) H 08/22/22 19:40 Monocytes # (Manual) 0.67 K/uL (0.24-0.82) 08/22/22 19:40 Eosinophils # (Manual) 0.07 K/uL (0-0.50) 08/22/22 19:40 Toxic Granulation 1+ 08/22/22 19:40 Polychromasia 1+ 08/22/22 19:40 PT 11.4 Seconds (9.0-12.0) 08/22/22 19:40 INR 1.1 (0.9-1.1) 08/22/22 19:40 APTT 24.8 Seconds (21.0-31.0) 08/22/22 19:40 PTT Ratio 0.9 08/22/22 19:40 ABG pH 7.49 (7.35-7.45) H 08/22/22 21:20 ABG pCO2 36 mmHg (35-46) 08/22/22 21:20 ABG pO2 89 mmHg (80-95) 08/22/22 21:20 ABG HCO3 27 mmol/L (19-24) H 08/22/22 21:20 ABG O2 Saturation 99.4 % (90-95) H 08/22/22 21:20 ABG Base Excess 4.1 mEq/L (-9-1.8) H 08/22/22 21:20 Andres Test Pos (Pos) 08/22/22 21:20 Oxygen Given ROOM AIR 08/22/22 21:20 Sodium 141 mmol/L (136-145) 08/22/22 19:40 Potassium 3.8 mmol/L (3.5-5.1) 08/22/22 19:40 Chloride 106 mmol/L (98-107) 08/22/22 19:40 Carbon Dioxide 27 mmol/L (21-32) 08/22/22 19:40 Anion Gap 8 (3-11) 08/22/22 19:40 BUN 13 mg/dl (6-23) 08/22/22 19:40 Creatinine 0.85 mg/dl (0.6-1.4) 08/22/22 19:40 Est Cr Clr Drug Dosing 108.9 ml/min 08/22/22 19:40 Est GFR ( Amer) 114.5 ml/min 08/22/22 19:40 Est GFR (Non-Af Amer) 98.8 ml/min 08/22/22 19:40 BUN/Creatinine Ratio 15.3 (10-20) 08/22/22 19:40 Glucose 85 mg/dl (70-99(Fasting)) 08/22/22 19:40 Calcium 8.7 mg/dl (8.5-10.1) 08/22/22 19:40 Magnesium 1.8 mg/dl (1.7-2.4) 08/22/22 19:40 Total Bilirubin 0.4 mg/dl (0.2-1.0) 08/22/22 19:40 Direct Bilirubin 0.1 mg/dl (0-0.2) 08/22/22 19:40 AST 16 U/L (13-39) 08/22/22 19:40 ALT 11 U/L (7-52) 08/22/22 19:40 Alkaline Phosphatase 67 U/L (34-104) 08/22/22 19:40 Troponin I High Sens Cancelled 08/22/22 21:21 B-Natriuretic Peptide 624 pg/ml (0-100) H 08/22/22 19:40 Total Protein 6.9 gm/dl (6.0-8.3) 08/22/22 19:40 Albumin 4.0 gm/dl (3.4-5.0) 08/22/22 19:40 Lipase 47 U/L (11-82) 08/22/22 19:40 TSH 0.674 uIu/ml (0.300-4.500) 08/22/22 19:40 Urine Color Yellow 08/22/22 20:55 Urine Appearance Clear (Clear) 08/22/22 20:55 Urine pH 7.0 (4.5-7.5) 08/22/22 20:55 Ur Specific [place] 1.009 (1.000-1.030) 08/22/22 20:55 Urine Protein Negative (Negative) 08/22/22 20:55 Urine Glucose (UA) Negative (Negative) 08/22/22 20:55 Urine Ketones Negative (Negative) 08/22/22 20:55 Urine Blood Negative (Negative) 08/22/22 20:55 Urine Nitrite Negative (Negative) 08/22/22 20:55 Urine Bilirubin Negative (Negative) 08/22/22 20:55 Urine Urobilinogen Negative (Negative) 08/22/22 20:55 Ur Leukocyte Esterase Negative (Negative) 08/22/22 20:55 Salicylates < 3.0 mg/dl (3.0-30) L 08/22/22 19:40 Urine Opiates Screen Neg (Neg) 08/22/22 20:55 Ur Methadone, Qual Neg (Neg) 08/22/22 20:55 Acetaminophen < 3 ug/ml (10-30) L 08/22/22 19:40 Urine Barbiturates Neg (Neg) 08/22/22 20:55 Valproic Acid 40 mcg/ml (50-100) L 08/22/22 19:40 Ur Phencyclidine (PCP) Neg (Neg) 08/22/22 20:55 U Amphetamin/Meth Scrn Neg (Neg) 08/22/22 20:55 MDMA (Ecstasy) Screen Neg (Neg) 08/22/22 20:55 U Benzodiazepines Scrn Neg (Neg) 08/22/22 20:55 Ur Cocaine Metabolite Neg (Neg) 08/22/22 20:55 U Marijuana (THC) Screen Neg (Neg) 08/22/22 20:55 Ethyl Alcohol mg/dL 14.7 mg/dl (<10.0) H 08/22/22 19:40 SARS-CoV-2, RNA, NAAT NEGATIVE (NEGATIVE) 08/22/22 20:09 Impressions Chest X-Ray 08/22/22 19:22 SINGLE VIEW CHEST CLINICAL HISTORY: Atypical chest pain FINDINGS: An AP, portable, upright chest radiograph is compared to study dated 07/30/2022. A 3-lead cardiac AICD is unchanged in position and partially obscures the left lower chest. The heart is enlarged. There is pulmonary vascular congestion. No airspace consolidation or large pleural effusion is identified. No pneumothorax is seen. The skeletal structures are osteopenic. The bony thorax is grossly intact. IMPRESSION: Cardiomegaly and AICD with evidence of congestive failure. ACT 112: Negative or not required by law. Electronically signed by: Anthony Bates M.D. 08/22/2022 8:04 PM Diagnostic Findings EKG as per my interpretation :Rate 80, LAD, LAFB, LVH, diffuse T wave abnormalities, PVCs
[2022-08-22] MEDS ORDERED: ACETAMINOPHEN 325 MG TAB PO PRN (22:10)
[2022-08-22] MEDS ORDERED: ALPRAZolam 0.5 MG TABLET PO PRN (22:10)
[2022-08-22] MEDS ORDERED: NICOTINE 7 MG/24 HR TDSY TD STA (22:17)
[2022-08-22] MEDS ORDERED: HYDROmorphone INJ 0.5 MG/0.5 ML SYR IV STA (22:53)
[2022-08-22] MEDS ORDERED: NITROGLYCERIN SL 0.4 MG/TAB TAB SL PRN (22:54)
[2022-08-22] MEDS ORDERED: DIVALPROEX DELAY RELEASE 500 MG TAB PO STA (23:43)
[2022-08-23] MEDS ORDERED: PROMETHAZINE HCL 12.5 MG in SODIUM CHLORIDE 0.9% 50 ML IV PRN
[2022-08-23] MEDS ORDERED: ACETAMINOPHEN 325 MG TAB PO PRN
[2022-08-23] MEDS: oxyCODONE/ACETAMINOPHEN 5mg/325mg TAB PO PRN ×5 (00:13→21:05)
[2022-08-23] MEDS: HYDROmorphone INJ 0.5 MG/0.5 ML SYR IV PRN ×3 (00:14→14:18)
[2022-08-23] MEDS ORDERED: Heparin IV Adult Wt-Based Standard *NO* Bolus Protocol IV ONE (00:14)
[2022-08-23] MEDS ORDERED: QUEtiapine FUMARATE 200 MG TAB PO STA (00:26)
[2022-08-23] MEDS: HEPARIN SODIUM/DEXTROSE 25,000 UNITS/500 ML BAG IV SCH ×2 (01:13→19:05)
[2022-08-23] MEDS ORDERED: POTASSIUM CHLORIDE CRTAB 20 MEQ TABCR PO STA (06:45)
[2022-08-23 07:20] LABS: Basophils # (auto) 0.03 K/uL (0-0.2); Basophils % (auto) 0.4 %; Eosinophils # (auto) 0.22 K/uL (0-0.50); Hemoglobin 15.5 g/dl (14.0-18.0); Immature Granulocytes # (auto) 0.03 K/uL (0.00-0.02); Immature Granulocytes % (auto) 0.4 %; Lymphocytes # (auto) 3.19 K/uL (1.2-3.4); Lymphocytes % (auto) 43.3 %; Mean Corpuscular Hemoglobin 31.2 pg (25.0-34.0); Mean Corpuscular Hgb Conc 33.7 g/dL (32.0-36.0); Mean Corpuscular Volume 92.6 fL (80.0-100.0); Mean Platelet Volume 10.4 fL (9.4-12.4); Monocytes # (auto) 1.02 K/uL (0.24-0.82); Monocytes % (auto) 13.9 %; Neutrophils # (auto) 2.87 K/uL (1.4-6.5); Platelet Count 162 K/uL (130-400); RDW Coefficient of Variation 14.3 % (11.5-14.5); RDW Standard Deviation 48.8 fL (36.4-46.3); Red Blood Count 4.97 M/uL (4.63-6.08); White Blood Count 7.36 K/ul (4.8-10.8)
[2022-08-23 07:39] LABS: Calcium 8.2 mg/dl (8.5-10.1); Creatinine Clr Calc Pharmacy 103.2 ml/min; Est GFR (African American) 111.8 ml/min; Est GFR (Non-African American) 96.5 ml/min; Potassium 3.3 mmol/L (3.5-5.1)
[2022-08-23 07:46] LABS: Troponin I High Sensitivity 43.5 pg/ml (0-20)
[2022-08-23 08:20] LABS: Partial Thromboplastin Time 54.7 Seconds (21.0-31.0)
[2022-08-23] MEDS: ASPIRIN 81 MG ECTAB PO SCH (08:36)
[2022-08-23] MEDS: ISOSORBIDE MONO EXTENDED REL 30 MG TABCR PO SCH (08:36)
[2022-08-23] MEDS: lisinopril 40 MG TAB PO SCH (08:36)
[2022-08-23] MEDS: ESCITALOPRAM OXALATE 20 MG TAB PO SCH (08:36)
[2022-08-23] MEDS: DIVALPROEX DELAY RELEASE 500 MG TAB PO SCH ×2 (08:36→20:10)
[2022-08-23] MEDS: FLUTICASONE/VILANTEROL 200/25MCG 14 PUFFS/INHALER INH SCH (08:37)
--- NOTE | 2022-08-23 08:51 | Cardiology Consultation ---
Date of Consultation August 23, 2022 Assessment & Plan (1) History of cardiac defibrillator placement: (2) Schizoaffective disorder: (3) Decompensated heart failure: (4) Medical non-compliance: Plan The patient's principle detriment to his health is his ongoing mental illness and lack of treatment after discharge. Psychiatry consult pending. Currently I think the patient is out of heart failure and I switched him to oral Lasix. Patient was also a little bradycardic this morning so I decreased his metoprolol from 50 mg to 25 mg daily History of Present Illness Attending Physician: Brooks Brooke MD History of Present Illness This is a 38 male patient history nonischemic with the severe ventricular systolic dysfunction with an estimated 20 to 25%, primary ICD, ongoing smoking, schizophrenia, medical noncompliance who read presents with describes as ongoing shortness of breath. He is a poor historian. He does not elicit to me any chest pain. Cardiac troponins are chronically elevated have not changed appreciably since his last admission which was several weeks ago. His ICD interrogated pending results. Awaiting psychiatry consult. Allergies Allergy/AdvReac Type Severity Reaction Status Date / Time hydrocodone Allergy Unknown PT ABLE TO Unverified 06/21/22 09:28 TAKE TYLENOL tramadol Allergy Hives Verified 06/21/22 09:28 amoxicillin AdvReac SOB Verified 06/21/22 09:28 Home Medications Medication Instructions Recorded Confirmed Type Lisinopril (Zestril) 40 mg PO DAILY #0 tabs 09/06/15 07/25/22 History dicyclomine 10 mg capsule 10 mg PO QID PRN .ABD PAIN 06/20/22 07/24/22 History divalproex 500 mg tablet,delayed 500 mg PO BID 06/20/22 07/24/22 History release escitalopram oxalate 20 mg tablet 20 mg PO QAM 06/20/22 07/24/22 History isosorbide mononitrate 30 mg 30 mg PO DAILY 06/20/22 07/24/22 History tablet,extended release 24 hr ondansetron 4 mg disintegrating 4 mg PO Q8H PRN Nausea 06/20/22 07/24/22 History tablet oxycodone-acetaminophen 10 mg-325 1 tab PO Q4H PRN Pain 06/20/22 07/24/22 History mg tablet (Percocet) albuterol sulfate 2.5 mg/3 mL 2.5 mg (3 mL) inhalation QID PRN 06/28/22 07/24/22 Rx (0.083 %) solution for nebulization shortness of breath or wheezing #90 mL alprazolam 2 mg tablet 1 mg PO QID PRN Anxiety #1 tab 06/28/22 07/24/22 Rx fluticasone furoate 200 1 ea inhalation DAILY #60 ea 06/28/22 07/25/22 Rx mcg-vilanterol 25 mcg/dose inhalation powder (Breo Ellipta) metoprolol succinate 50 mg 50 mg PO QAM #30 tabs 06/28/22 07/24/22 Rx tablet,extended release 24 hr potassium chloride 20 mEq 20 meq PO BID #1 tab 06/28/22 07/24/22 Rx tablet,extended release umeclidinium 62.5 mcg/actuation 1 inh inhalation DAILY #30 ea 06/28/22 07/24/22 Rx blister powder for inhalation (Incruse Ellipta) quetiapine 400 mg tablet 400 mg PO HS 07/24/22 07/26/22 History furosemide 80 mg PO DAILY 08/22/22 08/22/22 History furosemide 40 mg tablet (Lasix) 40 mg PO HS 08/22/22 History Patient History Medical History Acute bronchiolitis due to other infectious organisms Acute systolic CHF (congestive heart failure) Hypoxia Medical non-compliance Pacemaker Schizoaffective disorder Suicide ideation Surgical History History of cardiac defibrillator placement History of incision and drainage (07/31/22) Incision and Drainage Perineal Abscess - Caden Ervin MD, FACS History of permanent cardiac pacemaker placement Social History Smoking Status: Current every day smoker Second Hand Exposure: No; Do You Dip or Chew Tobacco: No; Tobacco Cessation Education Requested by Patient: No Hx Alcohol Use: No Hx Substance Use: No Preferred Language: Tristanian Communication Ability: Effective Manager Fitness Required: No Beliefs That Will Affect Care: None marital status: Unknown Current Living Situation: Alone Current Living Situation Comment: lives alone in apartment Other Information That Helps Us Care for You: No Feels Safe at Home: Yes Safety Concerns: Feels Safe At This Time Assistive Devices: None Review of Systems Review of Systems: Not obtainable Physical Exam Physical Exam: General: no acute distress and stated age Head: normocephalic, no masses, lesions, tenderness or abnormalities Eyes: conjunctiva are pink and non-injected, sclera clear Neck: supple, no adenopathy, no bruits, normal jugular venous pulse, no hepatojugular reflux Chest: normal shape and normal respiratory effort Lungs: clear to auscultation and percussion Cardiac Exam: - regular rate & rhythm, no murmurs gallops or rubs - normal S1, normal S2 Pulses: 2(+) throughout Abdomen: abdomen soft, non-tender, no abnormal masses and no hepatosplenomegaly Musculoskeletal: no gait disturbance, no joint inflammation, no deforming arthritis Extremities: no edema and no cyanosis Neuro: grossly normal exam Results & Data ([facility]) Vital Signs (Past 12 Hours) Vital Signs Temp Pulse Pulse Resp BP BP BP 08/23/22 08:21 36.6 C 52 L 14 123/62 08/23/22 03:22 36.4 C L 59 L 16 113/56 L 08/23/22 00:18 75 08/23/22 00:50 36.9 C 77 16 158/72 H 08/23/22 00:05 37.0 C 58 L 14 171/92 H 08/22/22 22:50 82 20 164/74 H 08/22/22 22:51 08/22/22 22:50 85 22 164/74 H 08/22/22 22:49 83 22 08/22/22 22:40 78 24 08/22/22 22:30 75 22 08/22/22 22:20 80 26 H 08/22/22 22:10 86 25 H 08/22/22 22:00 85 18 08/22/22 21:50 81 19 08/22/22 21:40 80 15 08/22/22 21:30 67 20 08/22/22 21:00 86 23 08/22/22 20:50 84 24 Pulse Ox O2 Del Method O2 Flow Rate 08/23/22 08:21 99 Room Air 08/23/22 03:22 98 Room Air 08/23/22 00:18 08/23/22 00:50 98 Room Air 08/23/22 00:05 93 Nasal Cannula 2 08/22/22 22:50 97 Nasal Cannula 2 08/22/22 22:51 Nasal Cannula 2 08/22/22 22:50 99 Nasal Cannula 2 08/22/22 22:49 99 Nasal Cannula 2 08/22/22 22:40 08/22/22 22:30 08/22/22 22:20 08/22/22 22:10 08/22/22 22:00 08/22/22 21:50 08/22/22 21:40 08/22/22 21:30 08/22/22 21:00 08/22/22 20:50 Laboratory Results Laboratory Results - last 24 hr 08/22/22 08/22/22 08/22/22 19:40 19:40 19:40 WBC 7.48 RBC 4.98 Hgb 15.9 Hct 46.3 MCV 93.0 MCH 31.9 MCHC 34.3 RDW Std Deviation 49.0 H RDW Coeff of Seven 14.3 Plt Count 131 MPV 11.2 Immature Gran % (Auto) Neut % (Auto) Lymph % (Auto) [place] % (Auto) Eos % (Auto) Baso % (Auto) Neut # (Auto) Lymph # (Auto) [place] # (Auto) Eos # (Auto) Baso # (Auto) Immature Gran # (Auto) Neutrophils % (Manual) 39 Lymphocytes % (Manual) 39 Reactive Lymphs % (Man) 12 Monocytes % (Manual) 9 Eosinophils % (Manual) 1 Neutrophils # (Manual) 2.92 Total Absolute Neuts 2.92 Lymphocytes # (Manual) 2.92 Reactive Lymphs # 0.90 Total Abs Lymphocytes 3.81 H Monocytes # (Manual) 0.67 Eosinophils # (Manual) 0.07 Toxic Granulation 1+ Polychromasia 1+ PT 11.4 INR 1.1 APTT 24.8 PTT Ratio 0.9 ABG pH ABG pCO2 ABG pO2 ABG HCO3 ABG O2 Saturation ABG Base Excess Andres Test Oxygen Given Sodium 141 Potassium 3.8 Chloride 106 Carbon Dioxide 27 Anion Gap 8 BUN 13 Creatinine 0.85 Est Cr Clr Drug Dosing 108.9 Est GFR ( Amer) 114.5 Est GFR (Non-Af Amer) 98.8 BUN/Creatinine Ratio 15.3 Glucose 85 Calcium 8.7 Magnesium 1.8 Total Bilirubin 0.4 Direct Bilirubin 0.1 AST 16 ALT 11 Alkaline Phosphatase 67 Troponin I High Sens 46.4 H B-Natriuretic Peptide Total Protein 6.9 Albumin 4.0 Triglycerides Cholesterol LDL Cholesterol, Calc VLDL Cholesterol, Calc HDL Cholesterol Cholesterol/HDL Ratio Lipase 47 TSH Urine Color Urine Appearance Urine pH Ur Specific [place] Urine Protein Urine Glucose (UA) Urine Ketones Urine Blood Urine Nitrite Urine Bilirubin Urine Urobilinogen Ur Leukocyte Esterase Salicylates Urine Opiates Screen Ur Methadone, Qual Acetaminophen Urine Barbiturates Valproic Acid Ur Phencyclidine (PCP) U Amphetamin/Meth Scrn MDMA (Ecstasy) Screen U Benzodiazepines Scrn Ur Cocaine Metabolite U Marijuana (THC) Screen Ethyl Alcohol mg/dL SARS-CoV-2, RNA, NAAT 08/22/22 08/22/22 08/22/22 19:40 19:40 19:40 WBC RBC Hgb Hct MCV MCH MCHC RDW Std Deviation RDW Coeff of Seven Plt Count MPV Immature Gran % (Auto) Neut % (Auto) Lymph % (Auto) [place] % (Auto) Eos % (Auto) Baso % (Auto) Neut # (Auto) Lymph # (Auto) [place] # (Auto) Eos # (Auto) Baso # (Auto) Immature Gran # (Auto) Neutrophils % (Manual) Lymphocytes % (Manual) Reactive Lymphs % (Man) Monocytes % (Manual) Eosinophils % (Manual) Neutrophils # (Manual) Total Absolute Neuts Lymphocytes # (Manual) Reactive Lymphs # Total Abs Lymphocytes Monocytes # (Manual) Eosinophils # (Manual) Toxic Granulation Polychromasia PT INR APTT PTT Ratio ABG pH ABG pCO2 ABG pO2 ABG HCO3 ABG O2 Saturation ABG Base Excess Andres Test Oxygen Given Sodium Potassium Chloride Carbon Dioxide Anion Gap BUN Creatinine Est Cr Clr Drug Dosing Est GFR ( Amer) Est GFR (Non-Af Amer) BUN/Creatinine Ratio Glucose Calcium Magnesium Total Bilirubin Direct Bilirubin AST ALT Alkaline Phosphatase Troponin I High Sens B-Natriuretic Peptide 624 H Total Protein Albumin Triglycerides Cholesterol LDL Cholesterol, Calc VLDL Cholesterol, Calc HDL Cholesterol Cholesterol/HDL Ratio Lipase TSH Urine Color Urine Appearance Urine pH Ur Specific [place] Urine Protein Urine Glucose (UA) Urine Ketones Urine Blood Urine Nitrite Urine Bilirubin Urine Urobilinogen Ur Leukocyte Esterase Salicylates < 3.0 L Urine Opiates Screen Ur Methadone, Qual Acetaminophen < 3 L Urine Barbiturates Valproic Acid Ur Phencyclidine (PCP) U Amphetamin/Meth Scrn MDMA (Ecstasy) Screen U Benzodiazepines Scrn Ur Cocaine Metabolite U Marijuana (THC) Screen Ethyl Alcohol mg/dL 14.7 H SARS-CoV-2, RNA, NAAT 08/22/22 08/22/22 08/22/22 19:40 19:40 20:09 WBC RBC Hgb Hct MCV MCH MCHC RDW Std Deviation RDW Coeff of Seven Plt Count MPV Immature Gran % (Auto) Neut % (Auto) Lymph % (Auto) [place] % (Auto) Eos % (Auto) Baso % (Auto) Neut # (Auto) Lymph # (Auto) [place] # (Auto) Eos # (Auto) Baso # (Auto) Immature Gran # (Auto) Neutrophils % (Manual) Lymphocytes % (Manual) Reactive Lymphs % (Man) Monocytes % (Manual) Eosinophils % (Manual) Neutrophils # (Manual) Total Absolute Neuts Lymphocytes # (Manual) Reactive Lymphs # Total Abs Lymphocytes Monocytes # (Manual) Eosinophils # (Manual) Toxic Granulation Polychromasia PT INR APTT PTT Ratio ABG pH ABG pCO2 ABG pO2 ABG HCO3 ABG O2 Saturation ABG Base Excess Andres Test Oxygen Given Sodium Potassium Chloride Carbon Dioxide Anion Gap BUN Creatinine Est Cr Clr Drug Dosing Est GFR ( Amer) Est GFR (Non-Af Amer) BUN/Creatinine Ratio Glucose Calcium Magnesium Total Bilirubin Direct Bilirubin AST ALT Alkaline Phosphatase Troponin I High Sens B-Natriuretic Peptide Total Protein Albumin Triglycerides Cholesterol LDL Cholesterol, Calc VLDL Cholesterol, Calc HDL Cholesterol Cholesterol/HDL Ratio Lipase TSH 0.674 Urine Color Urine Appearance Urine pH Ur Specific [place] Urine Protein Urine Glucose (UA) Urine Ketones Urine Blood Urine Nitrite Urine Bilirubin Urine Urobilinogen Ur Leukocyte Esterase Salicylates Urine Opiates Screen Ur Methadone, Qual Acetaminophen Urine Barbiturates Valproic Acid 40 L Ur Phencyclidine (PCP) U Amphetamin/Meth Scrn MDMA (Ecstasy) Screen U Benzodiazepines Scrn Ur Cocaine Metabolite U Marijuana (THC) Screen Ethyl Alcohol mg/dL SARS-CoV-2, RNA, NAAT NEGATIVE 08/22/22 08/22/22 08/22/22 20:55 20:55 21:20 WBC RBC Hgb Hct MCV MCH MCHC RDW Std Deviation RDW Coeff of Seven Plt Count MPV Immature Gran % (Auto) Neut % (Auto) Lymph % (Auto) [place] % (Auto) Eos % (Auto) Baso % (Auto) Neut # (Auto) Lymph # (Auto) [place] # (Auto) Eos # (Auto) Baso # (Auto) Immature Gran # (Auto) Neutrophils % (Manual) Lymphocytes % (Manual) Reactive Lymphs % (Man) Monocytes % (Manual) Eosinophils % (Manual) Neutrophils # (Manual) Total Absolute Neuts Lymphocytes # (Manual) Reactive Lymphs # Total Abs Lymphocytes Monocytes # (Manual) Eosinophils # (Manual) Toxic Granulation Polychromasia PT INR APTT PTT Ratio ABG pH 7.49 H ABG pCO2 36 ABG pO2 89 ABG HCO3 27 H ABG O2 Saturation 99.4 H ABG Base Excess 4.1 H Andres Test Pos Oxygen Given ROOM AIR Sodium Potassium Chloride Carbon Dioxide Anion Gap BUN Creatinine Est Cr Clr Drug Dosing Est GFR ( Amer) Est GFR (Non-Af Amer) BUN/Creatinine Ratio Glucose Calcium Magnesium Total Bilirubin Direct Bilirubin AST ALT Alkaline Phosphatase Troponin I High Sens B-Natriuretic Peptide Total Protein Albumin Triglycerides Cholesterol LDL Cholesterol, Calc VLDL Cholesterol, Calc HDL Cholesterol Cholesterol/HDL Ratio Lipase TSH Urine Color Yellow Urine Appearance Clear Urine pH 7.0 Ur Specific [place] 1.009 Urine Protein Negative Urine Glucose (UA) Negative Urine Ketones Negative Urine Blood Negative Urine Nitrite Negative Urine Bilirubin Negative Urine Urobilinogen Negative Ur Leukocyte Esterase Negative Salicylates Urine Opiates Screen Neg Ur Methadone, Qual Neg Acetaminophen Urine Barbiturates Neg Valproic Acid Ur Phencyclidine (PCP) Neg U Amphetamin/Meth Scrn Neg MDMA (Ecstasy) Screen Neg U Benzodiazepines Scrn Neg Ur Cocaine Metabolite Neg U Marijuana (THC) Screen Neg Ethyl Alcohol mg/dL SARS-CoV-2, RNA, NAAT 08/22/22 08/22/22 08/23/22 21:21 23:02 07:04 WBC 7.36 RBC 4.97 Hgb 15.5 Hct 46.0 MCV 92.6 MCH 31.2 MCHC 33.7 RDW Std Deviation 48.8 H RDW Coeff of Seven 14.3 Plt Count 162 MPV 10.4 Immature Gran % (Auto) 0.4 Neut % (Auto) 39.0 Lymph % (Auto) 43.3 [place] % (Auto) 13.9 Eos % (Auto) 3.0 Baso % (Auto) 0.4 Neut # (Auto) 2.87 Lymph # (Auto) 3.19 [place] # (Auto) 1.02 H Eos # (Auto) 0.22 Baso # (Auto) 0.03 Immature Gran # (Auto) 0.03 H Neutrophils % (Manual) Lymphocytes % (Manual) Reactive Lymphs % (Man) Monocytes % (Manual) Eosinophils % (Manual) Neutrophils # (Manual) Total Absolute Neuts Lymphocytes # (Manual) Reactive Lymphs # Total Abs Lymphocytes Monocytes # (Manual) Eosinophils # (Manual) Toxic Granulation Polychromasia PT INR APTT PTT Ratio ABG pH ABG pCO2 ABG pO2 ABG HCO3 ABG O2 Saturation ABG Base Excess Andres Test Oxygen Given Sodium Potassium Chloride Carbon Dioxide Anion Gap BUN Creatinine Est Cr Clr Drug Dosing Est GFR ( Amer) Est GFR (Non-Af Amer) BUN/Creatinine Ratio Glucose Calcium Magnesium Total Bilirubin Direct Bilirubin AST ALT Alkaline Phosphatase Troponin I High Sens Cancelled 51.6 H* B-Natriuretic Peptide Total Protein Albumin Triglycerides Cholesterol LDL Cholesterol, Calc VLDL Cholesterol, Calc HDL Cholesterol Cholesterol/HDL Ratio Lipase TSH Urine Color Urine Appearance Urine pH Ur Specific [place] Urine Protein Urine Glucose (UA) Urine Ketones Urine Blood Urine Nitrite Urine Bilirubin Urine Urobilinogen Ur Leukocyte Esterase Salicylates Urine Opiates Screen Ur Methadone, Qual Acetaminophen Urine Barbiturates Valproic Acid Ur Phencyclidine (PCP) U Amphetamin/Meth Scrn MDMA (Ecstasy) Screen U Benzodiazepines Scrn Ur Cocaine Metabolite U Marijuana (THC) Screen Ethyl Alcohol mg/dL SARS-CoV-2, RNA, NAAT 08/23/22 08/23/22 07:04 07:04 WBC RBC Hgb Hct MCV MCH MCHC RDW Std Deviation RDW Coeff of Seven Plt Count MPV Immature Gran % (Auto) Neut % (Auto) Lymph % (Auto) [place] % (Auto) Eos % (Auto) Baso % (Auto) Neut # (Auto) Lymph # (Auto) [place] # (Auto) Eos # (Auto) Baso # (Auto) Immature Gran # (Auto) Neutrophils % (Manual) Lymphocytes % (Manual) Reactive Lymphs % (Man) Monocytes % (Manual) Eosinophils % (Manual) Neutrophils # (Manual) Total Absolute Neuts Lymphocytes # (Manual) Reactive Lymphs # Total Abs Lymphocytes Monocytes # (Manual) Eosinophils # (Manual) Toxic Granulation Polychromasia PT INR APTT 54.7 H* PTT Ratio 2.0 ABG pH ABG pCO2 ABG pO2 ABG HCO3 ABG O2 Saturation ABG Base Excess Andres Test Oxygen Given Sodium 141 Potassium 3.3 L Chloride 107 Carbon Dioxide 29 Anion Gap 5 BUN 18 Creatinine 0.90 Est Cr Clr Drug Dosing 103.2 Est GFR ( Amer) 111.8 Est GFR (Non-Af Amer) 96.5 BUN/Creatinine Ratio 20.0 Glucose 97 Calcium 8.2 L Magnesium Total Bilirubin Direct Bilirubin AST ALT Alkaline Phosphatase Troponin I High Sens 43.5 H B-Natriuretic Peptide Total Protein Albumin Triglycerides 67 Cholesterol 100 LDL Cholesterol, Calc 38 VLDL Cholesterol, Calc 13 HDL Cholesterol 49 Cholesterol/HDL Ratio 2.0 Lipase TSH Urine Color Urine Appearance Urine pH Ur Specific [place] Urine Protein Urine Glucose (UA) Urine Ketones Urine Blood Urine Nitrite Urine Bilirubin Urine Urobilinogen Ur Leukocyte Esterase Salicylates Urine Opiates Screen Ur Methadone, Qual Acetaminophen Urine Barbiturates Valproic Acid Ur Phencyclidine (PCP) U Amphetamin/Meth Scrn MDMA (Ecstasy) Screen U Benzodiazepines Scrn Ur Cocaine Metabolite U Marijuana (THC) Screen Ethyl Alcohol mg/dL SARS-CoV-2, RNA, NAAT Medications Administered Current Inpatient Medications Acetaminophen (Acetaminophen 325 Mg Tab) 325 mg PO Q6H PRN PRN Reason: Mild Pain Stop: 09/21/22 22:09 Acetaminophen (Acetaminophen 325 Mg Tab) 325 mg PO Q6H PRN PRN Reason: Mild Pain Stop: 09/22/22 00:00 Alprazolam (Alprazolam 0.5 Mg Tablet) 1 mg PO QID PRN PRN Reason: Anxiety Stop: 09/21/22 22:09 Last Admin: 08/23/22 01:06 Dose: 1 mg Aspirin (Aspirin 81 Mg Ectab) 81 mg PO QAM [facility] Stop: 09/22/22 08:59 Last Admin: 08/23/22 08:36 Dose: 81 mg Divalproex Sodium (Divalproex Delay Release 500 Mg Tab) 500 mg PO BID [facility] Stop: 09/22/22 08:59 Last Admin: 08/23/22 08:36 Dose: 500 mg Escitalopram Oxalate (Escitalopram Oxalate 20 Mg Tab) 20 mg PO QAM [facility] Stop: 09/22/22 08:59 Last Admin: 08/23/22 08:36 Dose: 20 mg Fluticasone/Vilanterol (Fluticasone/Vilanterol 200/25mcg 14 Puffs/Inhaler) 1 puffs INH DAILY [facility] Stop: 09/22/22 08:59 Last Admin: 08/23/22 08:37 Dose: 1 puffs Furosemide (Furosemide 40 Mg Tab) 40 mg PO [id number] [facility] Stop: 09/22/22 08:59 Hydromorphone HCl (Hydromorphone Inj 0.5 Mg/0.5 Ml Syr) 0.25 mg IV Q6H PRN PRN Reason: Pain Stop: 09/05/22 22:52 Last Admin: 08/23/22 06:31 Dose: 0.25 mg Promethazine HCl 12.5 mg/ (Sodium Chloride) 50.5 mls @ 202 mls/hr IV Q6H PRN PRN Reason: Nausea And Vomiting Stop: 09/22/22 00:00 Heparin Sodium/Dextrose (Heparin Sodium/Dextrose) 25,000 units in 500 mls @ 28 mls/hr IV .[id number] [facility]; Protocol Stop: 09/22/22 00:29 Last Titration: 08/23/22 07:03 Dose: 1,400 units/hr, 28 mls/hr Isosorbide Mononitrate (Isosorbide [place] Extended Rel 30 Mg Tabcr) 30 mg PO DAILY [facility] Stop: 09/22/22 08:59 Last Admin: 08/23/22 08:36 Dose: 30 mg Lisinopril (Lisinopril 40 Mg Tab) 40 mg PO DAILY [facility] Stop: 09/22/22 08:59 Last Admin: 08/23/22 08:36 Dose: 40 mg Metoprolol Succinate (Metoprolol Succ 25mg Ext Rel Tab) 25 mg PO QAM [facility] Stop: 09/22/22 08:59 Miscellaneous (Remove Nicoderm Patch) 1 each N/A DAILY@0859 [facility] Stop: 09/22/22 08:58 Nicotine (Nicotine 7 Mg/24 Hr Tdsy) 7 mg TD QAM [facility] Stop: 09/22/22 08:59 Nitroglycerin (Nitroglycerin Sl 0.4 Mg/Tab Tab) 0.4 mg SL PRN PRN PRN Reason: cp Stop: 09/21/22 22:53 Oxycodone/Acetaminophen (Oxycodone/Acetaminophen 5mg/325mg Tab) 1 - 2 tab PO Q4H PRN PRN Reason: Pain Stop: 09/05/22 22:09 Last Admin: 08/23/22 06:24 Dose: 2 tab Potassium Chloride (Potassium Chloride Crtab 20 Meq Tabcr) 20 meq PO [id number] [facility] Stop: 09/22/22 20:59
[2022-08-23] MEDS ORDERED: FUROSEMIDE 40 MG/4 ML VIAL IV SCH ×2 (09:00)
[2022-08-23] MEDS ORDERED: POTASSIUM CHLORIDE CRTAB 20 MEQ TABCR PO SCH (09:00)
[2022-08-23] MEDS ORDERED: METOPROLOL SUCC 50MG EXT REL TAB PO SCH (09:00)
[2022-08-23] MEDS: METOPROLOL SUCC 25MG EXT REL TAB PO SCH (10:01)
[2022-08-23] MEDS: NICOTINE 7 MG/24 HR TDSY TD SCH (10:04)
--- NOTE | 2022-08-23 12:14 | Psychiatric Consultation ---
Date of Consultation August 23, 2022 Impression / Recommendations Impression 52 yo man with history of schizoaffective disorder, possible vascular induced cognitive deficits vs benzodiazepine side effects vs delirium from CHF, congestive heart failure and chronic non-adherence with outpatient psychiatric medications presenting with SI with rehearsal behaviors vs self-interrupted attempt yesterday on 302 warrant in the context of decompensated CHF, alcohol use and non-adherence with psychiatric medications. Today he is denying SI and feels safe in the hospital and able to safety contract to alert nursing. Typical recent course has been improvement of his mood, mental status, cognitive functioning as his CHF status improves and then resolution of his SI. Given recent similar presentation ideally this time he will allow us to at minimum help him get established with an outpatient psychiatric provider (will have psych liason confirm with his girlfriend that this is not in place). Will check valproic level. QTc is slightly elevated but still <500ms. He reports not using his Xanax on a daily basis (and it continues to not show any recent scripts on PDMP though does show in external med rec scripts) so would decrease use here and monitor to ensure no benzo withdrawal signs. Will continue 302 warrant given intensity of SI with behaviors vs interrupted attempt yesterday. AT this time he is not felt to be an elopement risk. (1) Medical non-compliance: (2) Schizoaffective disorder: (3) Suicide ideation: (4) Decompensated heart failure: (5) Depression: Active/Remission status: currently active Depression Type: major depressive disorder Major depression episode severity: severe Major depression recurrence: recurrent Psychotic features: without psychotic features Qualified Code(s): F33.2 - Major depressive disorder, recurrent severe without psychotic features (6) HAFSA on CPAP: Plan -Continue with prior to admission Depakote ER 500mg BID, Lexapro 20mg qd -Given cardiac instability will defer to hospitalist on when to safely restart Seroquel (would restart at 200mg HS and then titrate to 400mg HS after 2-3 days if tolerated well and then can increase back to 600mg HS in another 2-3 days) -Would reduce Xanax to 0.5mg daily prn for panic attacks (and attempt to avoid use while requiring opioids/pain medication) -Consider passive AWSS given unclear recent use of Xanax and alcohol (though no current signs of withdrawal and he insists only limited Xanax use) -Valproic acid level ordered -Consider d/c of 1-on-1 as not having SI today; CANNOT leave AMA as remains on 302 warrant but no history of attempting to elope and he's in agreement with receiving medical treatment -Psych liason to attempt to contact his andrés Roy if he agrees to [facility] Psych History Identifying Data 52 yo man with history of likely schizoaffective disorder, chronic Xanax use, and decompensated heart failure admitted medically for worsening of CHF. Psychiatry consulted for safety risk assessment. Chief Complaint "I remember, you're a nice lady". History of Present Illness Ruddy is well known to the psychiatry consult service and this provider from his multiple prior hospitalizations including last month for very similar presentation of decompensated heart failure and initially SI and depression which all improved as his medical status improved and with adherence with his psychiatric medications. He is not fully oriented thinks this is the [facility] when asked about the city says "[place]" and gets frustrated when attempts are made to ask again thinks the month is "July or August" and knows the year is 2022. Ruddy cannot describe if his mood worsened and that lead to more difficulty managing his CHF versus worsening of CHF and then with depressed mood. Continues to feel that his psychiatric medications works well but notes that he has forgotten to take his medications as he does not put them in the pill box on days that his girlfriend Manuela is working. He states he thinks this would all be fixed if "Manuela stop working and was home with me". He notes that when he is alone he forgets to take his psychiatric medication and that "I get messed up when I do not do that". He denies any other recent stressors or reasons why his mood changed except that "they changed my Lasix things got worse and now I have to be back here". Also states that his mood got "bad" because he had a dream that "someone was messing with me and I had to beat them up". Confirms that this was only a dream and that he did not get into any type of physical altercations recently. He denies any side effects from his psychiatric medications or reasons why he would intentionally skip any dosages. He continues to feel that his psychiatric medications work well and is not interested in making any changes though does clarify that at home he only takes alprazolam half a milligram daily sometimes. States he feels tired today because he got too high a dose of alprazolam stating frustration with this. Says that yesterday he had thoughts of suicide and that "I walked in front of a car yesterday" stating his intent was to "get hurt real bad or ". He is glad to be alive today and denies any current thoughts of suicide though struggles to know what is change since that time. He does feel safe in the hospital and says he would let the nurses know if he had thoughts of suicide again. He has not established with any outpatient psychiatric providers as we discussed during his last admission. Last psychiatric inpatient hospitalization was approximately 10 years ago at [facility] in [place]. No history of prior suicide attempts. Denies any access to guns. Living with Manuela and he continues to feel this is a supportive relationship and that they have been getting along well. UDS positive for alcohol on arrival to ED yesterday. Allergies Allergy/AdvReac Type Severity Reaction Status Date / Time hydrocodone Allergy Unknown PT ABLE TO Unverified 06/21/22 09:28 TAKE TYLENOL tramadol Allergy Hives Verified 06/21/22 09:28 amoxicillin AdvReac SOB Verified 06/21/22 09:28 Home Medications Medication Instructions Recorded Confirmed Type Lisinopril (Zestril) 40 mg PO DAILY #0 tabs 09/06/15 07/25/22 History dicyclomine 10 mg capsule 10 mg PO QID PRN .ABD PAIN 06/20/22 07/24/22 History divalproex 500 mg tablet,delayed 500 mg PO BID 06/20/22 07/24/22 History release escitalopram oxalate 20 mg tablet 20 mg PO QAM 06/20/22 07/24/22 History isosorbide mononitrate 30 mg 30 mg PO DAILY 06/20/22 07/24/22 History tablet,extended release 24 hr ondansetron 4 mg disintegrating 4 mg PO Q8H PRN Nausea 06/20/22 07/24/22 History tablet oxycodone-acetaminophen 10 mg-325 1 tab PO Q4H PRN Pain 06/20/22 07/24/22 History mg tablet (Percocet) albuterol sulfate 2.5 mg/3 mL 2.5 mg (3 mL) inhalation QID PRN 06/28/22 07/24/22 Rx (0.083 %) solution for nebulization shortness of breath or wheezing #90 mL alprazolam 2 mg tablet 1 mg PO QID PRN Anxiety #1 tab 06/28/22 07/24/22 Rx fluticasone furoate 200 1 ea inhalation DAILY #60 ea 06/28/22 07/25/22 Rx mcg-vilanterol 25 mcg/dose inhalation powder (Breo Ellipta) metoprolol succinate 50 mg 50 mg PO QAM #30 tabs 06/28/22 07/24/22 Rx tablet,extended release 24 hr potassium chloride 20 mEq 20 meq PO BID #1 tab 06/28/22 07/24/22 Rx tablet,extended release umeclidinium 62.5 mcg/actuation 1 inh inhalation DAILY #30 ea 06/28/22 07/24/22 Rx blister powder for inhalation (Incruse Ellipta) quetiapine 400 mg tablet 400 mg PO HS 07/24/22 07/26/22 History furosemide 80 mg PO DAILY 08/22/22 08/22/22 History furosemide 40 mg tablet (Lasix) 40 mg PO HS 08/22/22 History Personal History Beliefs That Will Affect Care: None Patient History Medical History Acute bronchiolitis due to other infectious organisms Acute systolic CHF (congestive heart failure) Hypoxia Medical non-compliance Pacemaker Schizoaffective disorder Suicide ideation Surgical History History of cardiac defibrillator placement History of incision and drainage (07/31/22) Incision and Drainage Perineal Abscess - Caden Ervin MD, FACS History of permanent cardiac pacemaker placement Social History Smoking Status: Current every day smoker Second Hand Exposure: No; Do You Dip or Chew Tobacco: No; Tobacco Cessation Education Requested by Patient: No Hx Alcohol Use: No Hx Substance Use: No Preferred Language: Persian Communication Ability: Effective Stenciler Required: No Beliefs That Will Affect Care: None marital status: Unknown Current Living Situation: Alone Current Living Situation Comment: lives alone in apartment Other Information That Helps Us Care for You: No Feels Safe at Home: Yes Safety Concerns: Feels Safe At This Time Assistive Devices: None Physical Exam Psychiatric: Orientation: alert and oriented to person; + not oriented to place and + not oriented to time Apperance: appropriately dressed and + disheveled Eye Contact: + fair eye contact Motor Behavior: no abnormal motor movements Speech: normal rate/rhythm/volume of speech Affect: + irritable affect Mood: + depressed mood and + irritable mood; no anxious mood Thought Process: clear/coherent thought process and + concrete thought process Thought Content: reality based without delusions Suicidal Thoughts: denies suicidal thoughts (but reports interupted attempt yesterday via walking into traffic ) Homicidal Thoughts: denies homicidal thoughts Hallucinations: no auditory hallucinations and no visual hallucinations Cognition: recent memory grossly intact (at times forgetful but overall good recall ), remote memory grossly intact, attention grossly intact and language grossly intact Estimated Intelligence: consistent with education level Insight: + limited insight Judgement: + limited judgement Vital Signs (Past 24 Hours): Last Vital Signs Temp 36.9 C 08/23/22 11:30 Pulse 75 08/23/22 11:30 Resp 20 08/23/22 11:30 BP 153/95 H 08/23/22 11:30 Pulse Ox 93 08/23/22 11:30 O2 Del Method 08/23/22 11:30 O2 Flow Rate 2 08/23/22 00:05 Review of Systems All systems reviewed & are unremarkable except as noted in HPI & below Results & Data (PSY) Laboratory Results Na+ normal, LFTs normal Diagnostic Findings EKG QTc 458ms Medications Administered Alprazolam (Alprazolam 0.5 Mg Tablet) 1 mg PO QID PRN PRN Reason: Anxiety Stop: 09/21/22 22:09 Last Admin: 08/23/22 01:06 Dose: 1 mg Documented By: ZE Aspirin (Aspirin 81 Mg Ectab) 81 mg PO QAM [facility] Stop: 09/22/22 08:59 Last Admin: 08/23/22 08:36 Dose: 81 mg Documented By: GILDARDO Divalproex Sodium (Divalproex Delay Release 500 Mg Tab) 500 mg PO BID [facility] Stop: 09/22/22 08:59 Last Admin: 08/23/22 08:36 Dose: 500 mg Documented By: GILDARDO Escitalopram Oxalate (Escitalopram Oxalate 20 Mg Tab) 20 mg PO QAM [facility] Stop: 09/22/22 08:59 Last Admin: 08/23/22 08:36 Dose: 20 mg Documented By: GILDARDO Fluticasone/Vilanterol (Fluticasone/Vilanterol 200/25mcg 14 Puffs/Inhaler) 1 puffs INH DAILY [facility] Stop: 09/22/22 08:59 Last Admin: 08/23/22 08:37 Dose: 1 puffs Documented By: GILDARDO Hydromorphone HCl (Hydromorphone Inj 0.5 Mg/0.5 Ml Syr) 0.25 mg IV Q6H PRN PRN Reason: Pain Stop: 09/05/22 22:52 Last Admin: 08/23/22 06:31 Dose: 0.25 mg Documented By: MACHINE GREASER Admin: 08/23/22 00:14 Dose: 0.25 mg Documented By: ZE Promethazine HCl 12.5 mg/ (Sodium Chloride) 50.5 mls @ 202 mls/hr IV Q6H PRN PRN Reason: Nausea And Vomiting Stop: 09/22/22 00:00 Last Infusion: 08/23/22 10:52 Dose: 0 mls/hr Documented By: Admin: 08/23/22 10:29 Dose: 202 mls/hr Documented By: GILDARDO Heparin Sodium/Dextrose (Heparin Sodium/Dextrose) 25,000 units in 500 mls @ 28 mls/hr IV .[id number] [facility]; Protocol Stop: 09/22/22 00:29 Last Titration: 08/23/22 07:03 Dose: 1,400 units/hr, 28 mls/hr Documented By: GILDARDO Co-signed By: MACHINE GREASER Admin: 08/23/22 01:13 Dose: 1,400 units/hr, 28 mls/hr Documented By: ZE Co-signed By: MAMTA Isosorbide Mononitrate (Isosorbide [place] Extended Rel 30 Mg Tabcr) 30 mg PO DAILY [facility] Stop: 09/22/22 08:59 Last Admin: 08/23/22 08:36 Dose: 30 mg Documented By: GILDARDO Lisinopril (Lisinopril 40 Mg Tab) 40 mg PO DAILY [facility] Stop: 09/22/22 08:59 Last Admin: 08/23/22 08:36 Dose: 40 mg Documented By: GILDARDO Metoprolol Succinate (Metoprolol Succ 25mg Ext Rel Tab) 25 mg PO QAM [facility] Stop: 09/22/22 08:59 Last Admin: 08/23/22 10:01 Dose: 25 mg Documented By: GILDARDO Miscellaneous (Remove Nicoderm Patch) 1 each N/A DAILY@0859 [facility] Stop: 09/22/22 08:58 Last Admin: 08/23/22 10:04 Dose: Not Given Documented By: GILDARDO Nicotine (Nicotine 7 Mg/24 Hr Tdsy) 7 mg TD QAM [facility] Stop: 09/22/22 08:59 Last Admin: 08/23/22 10:04 Dose: Not Given Documented By: GILDARDO Oxycodone/Acetaminophen (Oxycodone/Acetaminophen 5mg/325mg Tab) 1 - 2 tab PO Q4H PRN PRN Reason: Pain Stop: 09/05/22 22:09 Last Admin: 08/23/22 10:33 Dose: 2 tab Documented By: Admin: 08/23/22 06:24 Dose: 2 tab Documented By: MACHINE GREASER Admin: 08/23/22 00:13 Dose: 2 tab Documented By: MACHINE GREASER Coding Level of Care Code INP/OBS CONSULT LVL 4, 60 MIN Diagnoses Medical non-compliance Z91.199 Schizoaffective disorder F25.9 Suicide ideation R45.851 Decompensated heart failure I50.9 Depression F33.2 Active/Remission status: currently active Depression Type: major depressive disorder Major depression episode severity: severe Major depression recurrence: recurrent Psychotic features: without psychotic features HAFSA on CPAP G47.33; Z99.89 Time Spent (min) 65
[2022-08-23] MEDS: FUROSEMIDE 40 MG TAB PO SCH (16:42)
--- NOTE | 2022-08-23 18:19 | Hospitalist Progress Note ---
Date of Service August 23, 2022 Assessment & Plan (1) Acute hypoxemic respiratory failure: Plan: Per admitting service notes with addendum: Acute hypoxic respiratory failure Secondary to decompensated heart failure, recurrent admission chronic systolic heart failure secondary to nonischemic cardiomyopathy status post ICD Underlying pulmonary HTN, history HAFSA CPAP secondary to medication noncompliance -- On Lasix IV 40 mg twice daily Monitor I's and O's --Cardiology service consulted Left-sided chest pain with troponin elevation Possible NSTEMI Possible ICD shock -- Troponin 46, 51, 43 --No signs of acute ischemia or infarct on EKG --Discontinue heparin --Metoprolol reduced from 50 to 25 mg due to bradycardia HTN -- Improving hx mild to moderate TR hyperlipidemia on statin Rx suicidality hx anxiety/mood disorder/schizoaffective disorder --Psychiatry service consulted --Patient under 302, cannot sign out AMA -- One-to-one observation chronic pain --Low back pain --Continue Percocet, IV Dilaudid Informed patient to avoid IV Dilaudid is much as possible, and should only be used for a few days at most Patient verbalized understanding and agreement ongoing tobacco abuse Nicotine patch DVT prophylaxis. IV heparin Full code Disposition Pending plan of care discussed with patient in detail and at length all questions answered he is understanding, agreeable, comfortable with the plan of care Admission and Anticipated Discharge Date Admission Date: August 22, 2022 Subjective Follow-up for acute CHF exacerbation, etc. Seen resting in bed, with one-to-one sitter at the bedside Patient not in distress, comfortable, somewhat irritable Confirms he is having dyspnea on exertion at home Chief complaint today is low back pain, requesting for IV Dilaudid No active chest pain, shortness of breath, palpitations, dizziness, fevers or chills, abdominal pain, nausea vomiting When asked how his mood is patient answers so so When inquired regarding suicidal ideations, patient answers I do not know No other symptoms Review of Systems Review of Systems: all noted and negative except for above Physical Exam Physical Exam: General- oriented x 3, not in distress, speaks in sentences with no effort or accessory muscle use Eyes- anicteric Neck-mild JVD Lungs-mild rales bilateral bases Heart- normal rate, regular rhythm; no murmurs Abdomen- normal bowel sounds, nondistended, soft, nontender Extremities- no pretibial edema, no calf tenderness Neuro- alert, oriented x 3; no gross focal neurologic deficits Skin- warm & dry Results & Data Results & Data ([facility]) Vital Signs (Past 12 Hours) Vital Signs Temp Pulse Pulse Resp BP BP Pulse Ox 08/23/22 16:23 42 L 20 120/58 L 98 08/23/22 15:16 75 08/23/22 13:44 36.8 C 48 L 14 124/64 98 08/23/22 11:30 36.9 C 75 20 153/95 H 93 08/23/22 08:15 74 08/23/22 08:21 36.6 C 52 L 14 123/62 99 O2 Del Method 08/23/22 16:23 Room Air 08/23/22 15:16 08/23/22 13:44 Room Air 08/23/22 11:30 Room Air 08/23/22 08:15 08/23/22 08:21 Room Air all noted and reviewed including below
[2022-08-23] MEDS: POTASSIUM CHLORIDE CRTAB 20 MEQ TABCR PO SCH (20:10)
--- NOTE | 2022-08-23 21:46 | Electrocardiogram Report ---
Test Reason : Blood Pressure : / mmHG Vent. Rate : 078 BPM Atrial Rate : 078 BPM P-R Int : 136 ms QRS Dur : 104 ms QT Int : 402 ms P-R-T Axes : 027 -35 211 degrees QTc Int : 458 ms Sinus rhythm with frequent Premature ventricular complexes Left axis deviation Minimal voltage criteria for LVH, may be normal variant Anterior infarct , age undetermined T wave abnormality, consider lateral ischemia Abnormal ECG When compared with ECG of 24-JUL-2022 23:40, No significant change was found Confirmed by Jose Sher ([id number]) on 08/23/2022 9:46:00 PM Referred By: REFERRED SELF Confirmed By:Jose Sher
--- NOTE | 2022-08-23 22:09 | Electrocardiogram Report ---
Test Reason : Blood Pressure : / mmHG Vent. Rate : 083 BPM Atrial Rate : 083 BPM P-R Int : 138 ms QRS Dur : 104 ms QT Int : 398 ms P-R-T Axes : 027 -11 216 degrees QTc Int : 467 ms Sinus rhythm with frequent Premature ventricular complexes T wave abnormality, consider lateral ischemia Poor R wave progression, consider anterior ME vs. lead placement vs. LVH Abnormal ECG When compared with ECG of 22-AUG-2022 19:15, No significant change was found Confirmed by Jose Sher ([id number]) on 08/23/2022 10:09:13 PM Referred By: REFERRED SELF Confirmed By:Jose Sher
[2022-08-24] MEDS: ALPRAZolam 0.5 MG TABLET PO PRN ×2 (00:27→19:34)
[2022-08-24] MEDS: HYDROmorphone INJ 0.5 MG/0.5 ML SYR IV PRN ×3 (00:34→19:34)
[2022-08-24] MEDS: oxyCODONE/ACETAMINOPHEN 5mg/325mg TAB PO PRN ×3 (05:42→17:25)
--- NOTE | 2022-08-24 06:15 | Electrocardiogram Report ---
Test Reason : Blood Pressure : / mmHG Vent. Rate : 078 BPM Atrial Rate : 078 BPM P-R Int : 150 ms QRS Dur : 102 ms QT Int : 464 ms P-R-T Axes : 063 -06 -73 degrees QTc Int : 528 ms Sinus rhythm with frequent Premature ventricular complexes T wave abnormality, consider inferolateral ischemia Prolonged QT Abnormal ECG When compared with ECG of 22-AUG-2022 23:08, Inverted T waves have replaced nonspecific T wave abnormality in Inferior leads QT has lengthened Confirmed by Jose Sher ([id number]) on 08/24/2022 6:15:07 AM Referred By: REFERRED SELF Confirmed By:Jose Sher
[2022-08-24 08:08] LABS: Partial Thromboplastin Ratio 2.6
[2022-08-24] MEDS: lisinopril 40 MG TAB PO SCH (08:52)
[2022-08-24] MEDS: POTASSIUM CHLORIDE CRTAB 20 MEQ TABCR PO SCH ×2 (08:52→17:23)
[2022-08-24] MEDS: FUROSEMIDE 40 MG TAB PO SCH ×2 (08:52→17:23)
[2022-08-24] MEDS: ISOSORBIDE MONO EXTENDED REL 30 MG TABCR PO SCH (08:52)
[2022-08-24] MEDS: ESCITALOPRAM OXALATE 20 MG TAB PO SCH (08:52)
[2022-08-24] MEDS: ASPIRIN 81 MG ECTAB PO SCH (08:53)
[2022-08-24] MEDS: METOPROLOL SUCC 25MG EXT REL TAB PO SCH (08:53)
[2022-08-24] MEDS: DIVALPROEX DELAY RELEASE 500 MG TAB PO SCH ×2 (08:53→20:06)
[2022-08-24] MEDS: FLUTICASONE/VILANTEROL 200/25MCG 14 PUFFS/INHALER INH SCH (08:53)
[2022-08-24] MEDS: NICOTINE 7 MG/24 HR TDSY TD SCH (08:55)
[2022-08-24 09:12] LABS: Partial Thromboplastin Time 71.1 Seconds (21.0-31.0)
[2022-08-24 09:28] LABS: BUN Creatinine Ratio 22.9 (10-20); Calcium 8.3 mg/dl (8.5-10.1); Creatinine Clr Calc Pharmacy 96.7 ml/min; Est GFR (African American) 103.4 ml/min; Est GFR (Non-African American) 89.3 ml/min; Magnesium 1.8 mg/dl (1.7-2.4); Potassium 3.6 mmol/L (3.5-5.1)
--- NOTE | 2022-08-24 09:32 | Cardiology Progress Note ---
Date of Service August 24, 2022 Assessment & Plan (1) History of cardiac defibrillator placement: (2) Schizoaffective disorder: (3) Decompensated heart failure: (4) Medical non-compliance: Plan From my interpretation of the ICD interrogation it would not appear that the patient has received any recent therapies. He is currently clinically stable. Psychiatry consult is appreciated. Admission and Anticipated Discharge Date Admission Date: August 22, 2022 Subjective The patient is status quo. No new cardiac complaints. Review of Systems Review of Systems: Not obtainable Physical Exam Physical Exam: General: no acute distress and stated age Head: normocephalic, no masses, lesions, tenderness or abnormalities Eyes: conjunctiva are pink and non-injected, sclera clear Neck: supple, no adenopathy, no bruits, normal jugular venous pulse, no hepatojugular reflux Chest: normal shape and normal respiratory effort Lungs: clear to auscultation and percussion Cardiac Exam: - regular rate & rhythm, no murmurs gallops or rubs - normal S1, normal S2 Pulses: 2(+) throughout Abdomen: abdomen soft, non-tender, no abnormal masses and no hepatosplenomegaly Musculoskeletal: no gait disturbance, no joint inflammation, no deforming arthritis Extremities: no edema and no cyanosis Neuro: grossly normal exam Results & Data ([facility]) Vital Signs (Past 12 Hours) Vital Signs Temp Pulse Pulse Resp BP BP Pulse Ox 08/24/22 07:26 36.4 C L 51 L 18 111/66 98 08/23/22 22:50 78 08/24/22 03:40 56 L 14 98 08/24/22 03:36 36.8 C 56 L 18 142/85 H 98 08/23/22 22:35 52 L 20 147/77 H 98 O2 Del Method FiO2 08/24/22 07:26 Room Air 08/23/22 22:50 08/24/22 03:40 21 08/24/22 03:36 Room Air 08/23/22 22:35 Room Air Laboratory Results Laboratory Results - last 24 hr 08/23/22 08/24/22 08/24/22 20:43 06:35 08:24 APTT 71.1 H* PTT Ratio 2.6 Sodium 141 Potassium 3.6 Chloride 106 Carbon Dioxide 29 Anion Gap 6 BUN 22 Creatinine 0.96 Est Cr Clr Drug Dosing 96.7 Est GFR ( Amer) 103.4 Est GFR (Non-Af Amer) 89.3 BUN/Creatinine Ratio 22.9 H Glucose 112 H Calcium 8.3 L Magnesium 1.8 Valproic Acid 51 Medications Administered Current Inpatient Medications Acetaminophen (Acetaminophen 325 Mg Tab) 325 mg PO Q6H PRN PRN Reason: Mild Pain Stop: 09/21/22 22:09 Acetaminophen (Acetaminophen 325 Mg Tab) 325 mg PO Q6H PRN PRN Reason: Mild Pain Stop: 09/22/22 00:00 Alprazolam (Alprazolam 0.5 Mg Tablet) 0.5 mg PO QID PRN PRN Reason: Anxiety Stop: 09/21/22 22:09 Last Admin: 08/24/22 00:27 Dose: 0.5 mg Aspirin (Aspirin 81 Mg [facility]ab) [facility] 09/22/22 08:59 Last Admin: 08/24/22 08:53 Dose: 81 mg Divalproex Sodium (Divalproex Delay Release 500 Mg Tab) 500 mg PO BID [facility] Stop: 09/22/22 08:59 Last Admin: 08/24/22 08:53 Dose: 500 mg Escitalopram Oxalate (Escitalopram Oxalate 20 Mg Tab) [facility] Stop: 09/22/22 08:59 Last Admin: 08/24/22 08:52 Dose: 20 mg Fluticasone/Vilanterol (Fluticasone/Vilanterol 200/25mcg 14 Puffs/Inhaler) 1 puffs INH DAILY [facility] Stop: 09/22/22 08:59 Last Admin: 08/24/22 08:53 Dose: 1 puffs Furosemide (Furosemide 40 Mg Tab) 40 mg PO BID17 [facility] Stop: 09/22/22 16:59 Last Admin: 08/24/22 08:52 Dose: 40 mg Hydromorphone HCl (Hydromorphone Inj 0.5 Mg/0.5 Ml Syr) 0.25 mg IV Q6H PRN PRN Reason: Pain Stop: 09/05/22 22:52 Last Admin: 08/24/22 09:01 Dose: 0.25 mg Promethazine HCl 12.5 mg/ (Sodium Chloride) 50.5 mls @ 202 mls/hr IV Q6H PRN PRN Reason: Nausea And Vomiting Stop: 09/22/22 00:00 Last Infusion: 08/23/22 10:52 Dose: Infused Isosorbide Mononitrate (Isosorbide [place] Extended Rel 30 Mg Tabcr) 30 mg PO DAILY [facility] Stop: 09/22/22 08:59 Last Admin: 08/24/22 08:52 Dose: 30 mg Lisinopril (Lisinopril 40 Mg Tab) 40 mg PO DAILY [facility] Stop: 09/22/22 08:59 Last Admin: 08/24/22 08:52 Dose: 40 mg Metoprolol Succinate (Metoprolol Succ 25mg Ext Rel Tab) 25 mg PO QAM [facility] Stop: 09/22/22 08:59 Last Admin: 08/24/22 08:53 Dose: Not Given Miscellaneous (Remove Nicoderm Patch) 1 each N/A DAILY@0859 [facility] Stop: 09/22/22 08:58 Last Admin: 08/24/22 08:55 Dose: 1 each Nicotine (Nicotine 7 Mg/24 Hr Tdsy) 7 mg TD QAM [facility] Stop: 09/22/22 08:59 Last Admin: 08/24/22 08:55 Dose: 7 mg Nitroglycerin (Nitroglycerin Sl 0.4 Mg/Tab Tab) 0.4 mg SL PRN PRN PRN Reason: cp Stop: 09/21/22 22:53 Oxycodone/Acetaminophen (Oxycodone/Acetaminophen 5mg/325mg Tab) 1 - 2 tab PO Q4H PRN PRN Reason: Pain Stop: 09/05/22 22:09 Last Admin: 08/24/22 05:42 Dose: 2 tab Potassium Chloride (Potassium Chloride Crtab 20 Meq Tabcr) 20 meq PO BID17 [facility] Stop: 09/22/22 20:59 Last Admin: 08/24/22 08:52 Dose: 20 meq
--- NOTE | 2022-08-24 11:36 | Hospitalist Progress Note ---
Date of Service August 24, 2022 Assessment & Plan (1) Acute hypoxemic respiratory failure: Plan: Acute hypoxic respiratory failure Secondary to decompensated heart failure, recurrent admission chronic systolic heart failure secondary to nonischemic cardiomyopathy status post ICD Underlying pulmonary HTN, history HAFSA CPAP secondary to medication noncompliance -- now on room air clinically improving -- On Lasix IV 40 mg twice daily discussed with patient and RN re: strict I and Os repeat CXR tomorrow --Cardiology service on board Metoprolol XL decreased from 50mg to 25mg daily due to bradycardia HR improving Left-sided chest pain with mild troponin elevation NSTEMI unlikely -- Troponin 46, 51, 43 --No signs of acute ischemia or infarct on EKG --Discontinued heparin --Metoprolol reduced from 50 to 25 mg due to bradycardia -- ICD interrogation: unrevealing HTN -- Improving hx mild to moderate TR hyperlipidemia on statin Rx suicidality hx anxiety/mood disorder/schizoaffective disorder --Psychiatry service consulted --Patient under 302, cannot sign out AMA -- d/c One-to-one observation per Psych as patient has no SI today other psych recommendations: -Continue with prior to admission Depakote ER 500mg BID, Lexapro 20mg qd -Given cardiac instability will defer to hospitalist on when to safely restart Seroquel (would restart at 200mg HS and then titrate to 400mg HS after 2-3 days if tolerated well and then can increase back to 600mg HS in another 2-3 days) (will start today) -Continue Xanax to 0.5mg daily prn for panic attacks (and attempt to avoid use while requiring opioids/pain medication and if any concerns for misuse would discontinue) -Consider passive AWSS given unclear recent use of Xanax and alcohol (though no current signs of withdrawal and he insists only limited Xanax use) -Valproic acid level therapeutic -Consider d/c of 1-on-1 as not having SI today; CANNOT leave AMA as remains on 302 warrant but no history of attempting to elope and he's in agreement with receiving medical treatment -Psych liason to attempt to contact his andrés Manuela if he agrees to HARRY (has not yet been willing to sign this) chronic pain --Low back pain --Continue Percocet, IV Dilaudid Informed patient to avoid IV Dilaudid is much as possible, and should only be used for a few days at most Patient verbalized understanding and agreement -- patient declines referral to pain management states he follows with Spine Surgeon [place] ongoing tobacco abuse --Nicotine patch DVT prophylaxis. Heparin SC Full code Disposition anticipate d/c home when medically stable plan of care discussed with patient in detail and at length all questions answered he is understanding, agreeable, comfortable with the plan of care Admission and Anticipated Discharge Date Admission Date: August 22, 2022 Subjective ff up for acute on chronic systolic CHF, etc seen resting in bed, comfortable somewhat irritable not in distress states he still has some dyspnea no chest pain, palpitations, dizziness still has chronic low back pain no fever/chills, cough no other symptoms Review of Systems Review of Systems: all noted and negative except for above Physical Exam Physical Exam: General- oriented x 3, not in distress, speaks in sentences with no effort or accessory muscle use Eyes- anicteric Neck- no JVD Lungs- mild rales at the bases, no wheezing Heart- normal rate, regular rhythm; no murmurs Abdomen- normal bowel sounds, nondistended, soft, nontender Extremities- no pretibial edema, no calf tenderness Neuro- alert, oriented x 3; no gross focal neurologic deficits Skin- warm & dry Results & Data Results & Data ([facility]) Vital Signs (Past 12 Hours) Vital Signs Temp Pulse Pulse Resp BP Pulse Ox O2 Del Method 08/24/22 10:20 64 08/24/22 07:26 36.4 C L 51 L 18 111/66 98 Room Air 08/24/22 03:40 56 L 14 98 08/24/22 03:36 36.8 C 56 L 18 142/85 H 98 Room Air FiO2 08/24/22 10:20 08/24/22 07:26 08/24/22 03:40 21 08/24/22 03:36 all noted and reviewed including below
--- NOTE | 2022-08-24 12:49 | Psychiatric Progress Note ---
Date of Service August 24, 2022 Impression / Recommendations Impression 52 yo man with history of schizoaffective disorder, possible vascular induced cognitive deficits vs benzodiazepine side effects vs delirium from CHF, congestive heart failure and chronic non-adherence with outpatient psychiatric medications presenting with SI with rehearsal behaviors vs self-interrupted attempt yesterday on 302 warrant in the context of decompensated CHF, alcohol use and non-adherence with psychiatric medications. Today he is denying SI and feels safe in the hospital and able to safety contract to alert nursing. Typical recent course has been improvement of his mood, mental status, cognitive functioning as his CHF status improves and then resolution of his SI. Given recent similar presentation ideally this time he will allow us to at minimum help him get established with an outpatient psychiatric provider (will have psych liason confirm with his girlfriend that this is not in place). Will check valproic level. QTc is slightly elevated but still <500ms. He reports not using his Xanax on a daily basis (and it continues to not show any recent scripts on PDMP though does show in external med rec scripts) so would decrease use here and monitor to ensure no benzo withdrawal signs. Will continue 302 warrant given intensity of SI with behaviors vs interrupted attempt on 08/22/2022. At this time he is not felt to be an elopement risk. 08/24/2022: mood improving and SI lessening, more future-oriented and with reasons to live. Still with some periods of paranoia, including last night regarding concerns about his belongings. Engaged in safety planning and downloaded [employer] to his phone and we examined how he can use this to help himself when he develops negative thoughts. Not agreeable to switching to an antipsychotic option that would allow for long acting injectable option such as haldol, paliperidone or abilify to help with adherence as this is the biggest precipitant of mood changes and emergence of SI. Wants to continue with his current medications and tolerating these well. Valproic acid level was 51 and within therapeutic range but given on low end suggests he likely was missing doses consistent with his report of intermittent adherence. Confirmed he is now established with a PCP and Ruddy said the PCP made him a referral for outpatient psychiatry though he cannot confirm for me who this new provider will be. If there is any further concern for medication misuse or mishandling would discontinue Xanax. (1) Medical non-compliance: (2) Schizoaffective disorder: (3) Suicide ideation: (4) Decompensated heart failure: (5) Depression: (6) HAFSA on CPAP: Plan -Continue with prior to admission Depakote ER 500mg BID, Lexapro 20mg qd -Given cardiac instability will defer to hospitalist on when to safely restart Seroquel (would restart at 200mg HS and then titrate to 400mg HS after 2-3 days if tolerated well and then can increase back to 600mg HS in another 2-3 days) -Continue Xanax to 0.5mg daily prn for panic attacks (and attempt to avoid use while requiring opioids/pain medication and if any concerns for misuse would discontinue) -Consider passive AWSS given unclear recent use of Xanax and alcohol (though no current signs of withdrawal and he insists only limited Xanax use) -Valproic acid level therapeutic -Consider d/c of 1-on-1 as not having SI today; CANNOT leave AMA as remains on 302 warrant but no history of attempting to elope and he's in agreement with receiving medical treatment -Psych liason to attempt to contact his andrés Roy if he agrees to HARRY (has not yet been willing to sign this) Interval History Identifying Information 52 yo man with history of likely schizoaffective disorder, chronic Xanax use, and decompensated heart failure admitted medically for worsening of CHF. Psychiatry consulted for safety risk assessment. Chief Complaint "I won't ever do nothing to hurt myself, it's not like that, sometimes I just have these thoughts". Review of Systems Notes sleeping and eating well Subjective Subjective Patient was seen & assessed and interval progress reviewed. More alert and engaged with interview today. Security requested to his room last night as he had concerns about people moving his stuff and wanted to ensure his belongings were safe and they reviewed this with him. Apparently may have tried to crush up and snort one his perocet pain pills. Ruddy adamantly denies this stating "I wouldn't do that, especially with someone watching me that would be stupid" and expands that "I have a bad heart that could kill me". Reviewed that he at times has thoughts of not wanting to be alive and thoughts of suicide but that he has no intent and "I don't want to ". Can state reasons for living of his grandkids and "too much to lose". Reviewed that when he has more negative thoughts sometimes it's harder for him to remember his reasons for living. Also finds that his mind can change "from one minute to the next". Today states his mood is "I don't feel good in the brain" but noting some negative thoughts with intermittent SI but denies any plans or intent. Discussed [employer] and he downloaded this and we reviewed it as a potential resource for reminders of reasons to live, distraction tools and mindfulness practices. He doesn't feel he will need inpatient psychiatric treatment noting "the negative thoughts will get better, I go through this sometimes when I miss my medications". Says he mostly misses evening doses since that's when Manuela is often gone. Feels that if he uses his pill box that will work and declines all BERNARD options discussed. Says he sometimes "swallows a little bit" of [place] after he brushes his teeth but denies using it to get drunk or feel any alcohol-type effects but so that his burps don't taste "sour". Denies any other concerns or questions. Physical Exam Psychiatric Orientation: alert, oriented to person, oriented to place and + guarded; + not oriented to time Apperance: appropriately dressed and + disheveled Eye Contact: good eye contact Motor Behavior: no abnormal motor movements Speech: normal rate/rhythm/volume of speech Affect: + irritable affect Mood: + irritable mood; no anxious mood Thought Process: clear/coherent thought process and + concrete thought process Thought Content: + paranoid (intermittently) and reality based without delusions Suicidal Thoughts: denies suicidal thoughts (but intermittent SI), denies suicidal plan (none in the hospital but considering walk into traffic prior to admission ) and denies suicidal intent Homicidal Thoughts: denies homicidal thoughts Hallucinations: no auditory hallucinations and no visual hallucinations Cognition: recent memory grossly intact (at times forgetful but overall fair recall ), remote memory grossly intact and language grossly intact; + attention not intact Insight: + limited insight Judgement: + limited judgement Vital Signs (Past 24 Hours) Last Vital Signs Temp 36.8 C 08/24/22 11:41 Pulse 77 08/24/22 11:41 Resp 17 08/24/22 11:41 BP 142/64 H 08/24/22 11:41 Pulse Ox 98 08/24/22 11:41 O2 Del Method 08/24/22 11:41 O2 Flow Rate 2 08/23/22 00:05 FiO2 21 08/24/22 03:40 Results & Data ([facility]) Laboratory Results Laboratory Results - last 24 hr 08/23/22 08/24/22 08/24/22 20:43 06:35 08:24 APTT 71.1 H* PTT Ratio 2.6 Sodium 141 Potassium 3.6 Chloride 106 Carbon Dioxide 29 Anion Gap 6 BUN 22 Creatinine 0.96 Est Cr Clr Drug Dosing 96.7 Est GFR ( Amer) 103.4 Est GFR (Non-Af Amer) 89.3 BUN/Creatinine Ratio 22.9 H Glucose 112 H Calcium 8.3 L Magnesium 1.8 Valproic Acid 51 Current Inpatient Medications Current Inpatient Medications: Current Inpatient Medications Acetaminophen (Acetaminophen 325 Mg Tab) 325 mg PO Q6H PRN PRN Reason: Mild Pain Stop: 09/21/22 22:09 Acetaminophen (Acetaminophen 325 Mg Tab) 325 mg PO Q6H PRN PRN Reason: Mild Pain Stop: 09/22/22 00:00 Alprazolam (Alprazolam 0.5 Mg Tablet) 0.5 mg PO QID PRN PRN Reason: Anxiety Stop: 09/21/22 22:09 Last Admin: 08/24/22 00:27 Dose: 0.5 mg Aspirin (Aspirin 81 Mg Ectab) 81 mg PO QAM [facility] Stop: 09/22/22 08:59 Last Admin: 08/24/22 08:53 Dose: 81 mg Divalproex Sodium (Divalproex Delay Release 500 Mg Tab) 500 mg PO BID ILIA Stop: 09/22/22 08:59 Last Admin: 08/24/22 08:53 Dose: 500 mg Escitalopram Oxalate (Escitalopram Oxalate 20 Mg Tab) 20 mg PO QAM [facility] Stop: 09/22/22 08:59 Last Admin: 08/24/22 08:52 Dose: 20 mg Fluticasone/Vilanterol (Fluticasone/Vilanterol 200/25mcg 14 Puffs/Inhaler) 1 puffs INH DAILY ILIA Stop: 09/22/22 08:59 Last Admin: 08/24/22 08:53 Dose: 1 puffs Furosemide (Furosemide 40 Mg Tab) 40 mg PO BID17 [facility] Stop: 09/22/22 16:59 Last Admin: 08/24/22 08:52 Dose: 40 mg Hydromorphone HCl (Hydromorphone Inj 0.5 Mg/0.5 Ml Syr) 0.25 mg IV Q6H PRN PRN Reason: Pain Stop: 09/05/22 22:52 Last Admin: 08/24/22 09:01 Dose: 0.25 mg Promethazine HCl 12.5 mg/ (Sodium Chloride) 50.5 mls @ 202 mls/hr IV Q6H PRN PRN Reason: Nausea And Vomiting Stop: 09/22/22 00:00 Last Infusion: 08/23/22 10:52 Dose: Infused Isosorbide Mononitrate (Isosorbide [place] Extended Rel 30 Mg Tabcr) 30 mg PO DAILY [facility] Stop: 09/22/22 08:59 Last Admin: 08/24/22 08:52 Dose: 30 mg Lisinopril (Lisinopril 40 Mg Tab) 40 mg PO DAILY [facility] Stop: 09/22/22 08:59 Last Admin: 08/24/22 08:52 Dose: 40 mg Metoprolol Succinate (Metoprolol Succ 25mg Ext Rel Tab) 25 mg PO QAM [facility] Stop: 09/22/22 08:59 Last Admin: 08/24/22 08:53 Dose: Not Given Miscellaneous (Remove Nicoderm Patch) 1 each N/A DAILY@0859 [facility] Stop: 09/22/22 08:58 Last Admin: 08/24/22 08:55 Dose: 1 each Nicotine (Nicotine 7 Mg/24 Hr Tdsy) 7 mg TD QAM [facility] Stop: 09/22/22 08:59 Last Admin: 08/24/22 08:55 Dose: 7 mg Nitroglycerin (Nitroglycerin Sl 0.4 Mg/Tab Tab) 0.4 mg SL PRN PRN PRN Reason: cp Stop: 09/21/22 22:53 Oxycodone/Acetaminophen (Oxycodone/Acetaminophen 5mg/325mg Tab) 1 - 2 tab PO Q4H PRN PRN Reason: Pain Stop: 09/05/22 22:09 Last Admin: 08/24/22 10:28 Dose: 2 tab Potassium Chloride (Potassium Chloride Crtab 20 Meq Tabcr) 20 meq PO BID17 [facility] Stop: 09/22/22 20:59 Last Admin: 08/24/22 08:52 Dose: 20 meq (1) Depression Active/Remission status: currently active Depression Type: major depressive disorder Major depression episode severity: severe Major depression recurrence: recurrent Psychotic features: without psychotic features Qualified Code(s): F33.2 - Major depressive disorder, recurrent severe without psychotic features
[2022-08-24] MEDS: QUEtiapine FUMARATE 200 MG TAB PO SCH (20:06)
[2022-08-24] MEDS: HEPARIN SOD 5,000 UNIT/0.5 ML VIAL SQ SCH (20:06)
[2022-08-25] MEDS: HYDROmorphone INJ 0.5 MG/0.5 ML SYR IV PRN (01:18)
[2022-08-25] MEDS: oxyCODONE/ACETAMINOPHEN 5mg/325mg TAB PO PRN ×4 (05:11→19:59)
[2022-08-25] MEDS: HEPARIN SOD 5,000 UNIT/0.5 ML VIAL SQ SCH ×3 (06:12→19:56)
[2022-08-25 06:50] LABS: Calcium 8.3 mg/dl (8.5-10.1); Magnesium 1.9 mg/dl (1.7-2.4)
[2022-08-25 06:56] LABS: Creatinine Clr Calc Pharmacy 106.8 ml/min; Est GFR (African American) 113.4 ml/min; Est GFR (Non-African American) 97.8 ml/min
--- NOTE | 2022-08-25 07:29 | Pre Anesthesia Assessment ---
Date of Service August 25, 2022 Pre Sedation Assessment Vital Signs Temp Pulse Pulse Resp BP Pulse Ox O2 Del Method 08/25/22 04:21 36.4 C L 65 18 147/69 H 96 Room Air 08/25/22 00:48 77 08/24/22 20:10 Room Air 08/24/22 22:00 36.8 C 51 L 18 168/86 H 92 Room Air 08/24/22 18:59 37.0 C 50 L 18 172/74 H 98 Room Air 08/24/22 16:24 37.0 C 52 L 18 138/77 98 Room Air 08/24/22 11:41 36.8 C 77 17 142/64 H 98 Room Air 08/24/22 10:20 64 Pre-Sedation Airway Assessment Smoking Status: Current every day smoker Notes The planned sedation has been discussed with the patient. Informed Consent was obtained. I have identified the patient, determined the appropriateness of sedation and have assessed the patient immediately prior to the procedure. All medicine(s) and interventions are by my order.
--- NOTE | 2022-08-25 07:30 | History & Physical Bridge Note ---
Date of Service August 25, 2022 History & Physical Bridge Note I have examined the patient, reviewed the History & Physical and in the interval since the performance of the History & Physical I have noted the following changes of clinical significance: no changes noted I have explained the risk benefit and intent of the heart cath to the patient and he is willing to proceed.
--- NOTE | 2022-08-25 08:50 | XRay Report ---
XR chest 1V portable CLINICAL HISTORY: ff up CHF TECHNIQUE: Single frontal radiograph of the chest was obtained. Comparison: Comparison is made to chest radiograph 08/22/2022 FINDINGS: Pacemaker defibrillator is seen. Cardiomegaly is noted. The lungs are clear. No evidence of pleural e ffusion or pneumothorax. IMPRESSION: Cardiomegaly with with interval resolution of previously noted pulmonary edema. ACT 112: Negative or not required by law. Electronically signed by: Solitario Castro M.D. 08/25/2022 8:48 AM
[2022-08-25] MEDS ORDERED: ALPRAZolam 0.5 MG TABLET PO PRN (08:58)
[2022-08-25] MEDS ORDERED: SODIUM CHLORIDE 0.9% 1000ML 1,000 ML IV SCH (09:15)
--- NOTE | 2022-08-25 10:21 | Cardiology Progress Note ---
Date of Service August 25, 2022 Assessment & Plan (1) History of cardiac defibrillator placement: (2) Schizoaffective disorder: (3) Decompensated heart failure: (4) Medical non-compliance: Plan No additional suggestions at this time. See as needed. Admission and Anticipated Discharge Date Admission Date: August 22, 2022 Subjective The patient is resting comfortably. Review of Systems Review of Systems: Not obtainable Physical Exam Physical Exam: General: no acute distress and stated age Head: normocephalic, no masses, lesions, tenderness or abnormalities Eyes: conjunctiva are pink and non-injected, sclera clear Neck: supple, no adenopathy, no bruits, normal jugular venous pulse, no hepatojugular reflux Chest: normal shape and normal respiratory effort Lungs: clear to auscultation and percussion Cardiac Exam: - regular rate & rhythm, no murmurs gallops or rubs - normal S1, normal S2 Pulses: 2(+) throughout Abdomen: abdomen soft, non-tender, no abnormal masses and no hepatosplenomegaly Musculoskeletal: no gait disturbance, no joint inflammation, no deforming arthritis Extremities: no edema and no cyanosis Neuro: grossly normal exam Results & Data ([facility]) Vital Signs (Past 12 Hours) Vital Signs Temp Pulse Pulse Resp BP Pulse Ox O2 Del Method 08/25/22 07:00 16 97 08/25/22 07:34 36.7 C 53 L 18 131/71 97 Room Air 08/25/22 04:21 36.4 C L 65 18 147/69 H 96 Room Air 08/25/22 00:48 77 FiO2 08/25/22 07:00 21 08/25/22 07:34 08/25/22 04:21 08/25/22 00:48 Laboratory Results Laboratory Results - last 24 hr 08/25/22 06:12 Sodium 140 Potassium 4.0 Chloride 110 H Carbon Dioxide 29 Anion Gap 1 L BUN 20 Creatinine 0.87 Est Cr Clr Drug Dosing 106.8 Est GFR ( Amer) 113.4 Est GFR (Non-Af Amer) 97.8 BUN/Creatinine Ratio 23.0 H Glucose 89 Calcium 8.3 L Magnesium 1.9 Medications Administered Current Inpatient Medications Acetaminophen (Acetaminophen 325 Mg Tab) 325 mg PO Q6H PRN PRN Reason: Mild Pain Stop: 09/21/22 22:09 Alprazolam (Alprazolam 0.5 Mg Tablet) 0.5 mg PO DAILY PRN PRN Reason: panic attacks/anxiety Stop: 09/24/22 08:57 Aspirin (Aspirin 81 Mg Ectab) [facility] Stop: 09/22/22 08:59 Last Admin: 08/24/22 08:53 Dose: 81 mg Divalproex Sodium (Divalproex Delay Release 500 Mg Tab) 500 mg PO BID [facility] Stop: 09/22/22 08:59 Last Admin: 08/24/22 20:06 Dose: 500 mg Escitalopram Oxalate (Escitalopram Oxalate 20 Mg Tab) [facility] Stop: 09/22/22 08:59 Last Admin: 08/24/22 08:52 Dose: 20 mg Fluticasone/Vilanterol (Fluticasone/Vilanterol 200/25mcg 14 Puffs/Inhaler) 1 puffs INH DAILY [facility] Stop: 09/22/22 08:59 Last Admin: 08/24/22 08:53 Dose: 1 puffs Furosemide (Furosemide 40 Mg Tab) 40 mg PO BID17 [facility] Stop: 09/22/22 16:59 Last Admin: 08/24/22 17:23 Dose: 40 mg Heparin Sodium (Porcine) (Heparin Sod 5,000 Unit/0.5 Ml Vial) 5,000 units SQ Q8 [facility] Stop: 09/23/22 21:59 Last Admin: 08/25/22 06:12 Dose: Not Given Promethazine HCl 12.5 mg/ (Sodium Chloride) 50.5 mls @ 202 mls/hr IV Q6H PRN PRN Reason: Nausea And Vomiting Stop: 09/22/22 00:00 Last Infusion: 08/23/22 10:52 Dose: Infused Isosorbide Mononitrate (Isosorbide [place] Extended Rel 30 Mg Tabcr) 30 mg PO DAILY [facility] Stop: 09/22/22 08:59 Last Admin: 08/24/22 08:52 Dose: 30 mg Lisinopril (Lisinopril 40 Mg Tab) 40 mg PO DAILY [facility] Stop: 09/22/22 08:59 Last Admin: 08/24/22 08:52 Dose: 40 mg Metoprolol Succinate (Metoprolol Succ 25mg Ext Rel Tab) 25 mg PO [facility] Stop: 09/22/22 08:59 Last Admin: 08/24/22 08:53 Dose: Not Given Miscellaneous (Remove Nicoderm Patch) 1 each N/A DAILY@0859 [facility] Stop: 09/22/22 08:58 Last Admin: 08/24/22 08:55 Dose: 1 each Nicotine (Nicotine 7 Mg/24 Hr Tdsy) 7 mg TD QAM [facility] Stop: 09/22/22 08:59 Last Admin: 08/24/22 08:55 Dose: 7 mg Nitroglycerin (Nitroglycerin Sl 0.4 Mg/Tab Tab) 0.4 mg SL PRN PRN PRN Reason: cp Stop: 09/21/22 22:53 Oxycodone/Acetaminophen (Oxycodone/Acetaminophen 5mg/325mg Tab) 1 - 2 tab PO Q4H PRN PRN Reason: Pain Stop: 09/05/22 22:09 Last Admin: 08/25/22 05:11 Dose: 2 tab Potassium Chloride (Potassium Chloride Crtab 20 Meq Tabcr) 20 meq PO BID17 [facility] Stop: 09/22/22 20:59 Last Admin: 08/24/22 17:23 Dose: 20 meq Quetiapine Fumarate (Quetiapine Fumarate 200 Mg Tab) 200 mg PO HS [facility] Stop: 09/23/22 20:59 Last Admin: 08/24/22 20:06 Dose: 200 mg
[2022-08-25] MEDS: ISOSORBIDE MONO EXTENDED REL 30 MG TABCR PO SCH (10:28)
[2022-08-25] MEDS: METOPROLOL SUCC 25MG EXT REL TAB PO SCH (10:28)
[2022-08-25] MEDS: DIVALPROEX DELAY RELEASE 500 MG TAB PO SCH ×2 (10:28→19:59)
[2022-08-25] MEDS: lisinopril 40 MG TAB PO SCH (10:29)
[2022-08-25] MEDS: FUROSEMIDE 40 MG TAB PO SCH ×2 (10:29→17:10)
[2022-08-25] MEDS: ASPIRIN 81 MG ECTAB PO SCH (10:29)
[2022-08-25] MEDS: ESCITALOPRAM OXALATE 20 MG TAB PO SCH (10:29)
[2022-08-25] MEDS: NICOTINE 7 MG/24 HR TDSY TD SCH (10:29)
[2022-08-25] MEDS: FLUTICASONE/VILANTEROL 200/25MCG 14 PUFFS/INHALER INH SCH (10:29)
[2022-08-25] MEDS: POTASSIUM CHLORIDE CRTAB 20 MEQ TABCR PO SCH ×2 (10:31→17:10)
--- NOTE | 2022-08-25 12:54 | Hospitalist Progress Note ---
Date of Service August 25, 2022 Assessment & Plan (1) Acute hypoxemic respiratory failure: Plan: Acute hypoxic respiratory failure Secondary to decompensated heart failure, recurrent admission Chronic systolic heart failure secondary to nonischemic cardiomyopathy status post ICD Underlying pulmonary HTN History of HAFSA CPAP Medication noncompliance Acknowledged he had not been taking his meds as prescribed Currently on room air CXR on presentation noted cardiomegaly with signs of heart failure Got IV lasix Cardiology on board Now on po lasix CXR today interval resolution of previously noted pulm edema Metoprolol XL decreased from 50mg to 25mg daily due to bradycardia Left-sided chest pain with mild troponin elevation NSTEMI unlikely Troponin trend 46, 51, 43 No signs of acute ischemia or infarct on EKG Was briefly on heparin which has been discontinued Per Chart review, ICD interrogation was unrevealing Echo noted some improvement in EF to 35-40% History of mild to moderate TR hyperlipidemia on statin Rx History anxiety/mood disorder/schizoaffective disorder Reported suicidal thoughts on presentation Psych on board Recommendation noted On 302, cannot sign out AMA at this time pending psych recs Currently on one to one. RN reports concerns of patient had had situations where he was not taking his chronic opioid as prescribed and other behaviors. Will keep one on one for now Continue with prior to admission Depakote ER 500mg BID, Lexapro 20mg qd Given cardiac instability, seroquel was restarted at 200mg HS. Per chart review, Consider titrating to 400mg HS after 2-3 days if tolerated well and then can increase back to 600mg HS in another 2-3 days Reduce Xanax to 0.5mg daily prn for panic attacks (and attempt to avoid use while requiring opioids/pain medication and if any concerns for misuse would discontinue) Patient had a lady on the phone he introduced as his . I updated her as well per his request Chronic back pain PDMP reviewed Continue home Percocet Stop IV Dilaudid Patient to follow up with his Spine Surgeon in [place] Ongoing tobacco abuse Nicotine patch DVT prophylaxis. Heparin SC Full code Disposition anticipate d/c home once cleared from psych's perspective Admission and Anticipated Discharge Date Admission Date: August 22, 2022 Subjective Patient seen and examined Has no new complaints Reports shortness of breath is improved. No chest pain at this time States he feels his 'mind is getting better' Currently denied suicidal thoughts/ideation Denied all other symptoms on review of system Physical Exam Constitutional: + well hydrated; no acute distress Eyes: PERRL, conjunctivae normal, anicteric sclerae ENMT: external ear and nose normal, oropharynx normal Respiratory: normal respiratory effort, lungs clear to auscultation Cardiovascular: Rate/Rhythm: regular rhythm and + bradycardic S1 S2 Gastrointestinal (Abdomen): normal bowel sounds, soft, nontender, no hepatosplenomegaly Musculoskeletal: no cyanosis or clubbing, extremities motor strength 5/5 Neurologic: PERRL, EOMI, accommodation nl, no face palsy, no dysarthria Results & Data Results & [facility] Vital Signs (Past 12 Hours) Vital Signs Temp Pulse Pulse Resp BP Pulse Ox O2 Del Method 08/25/22 07:00 16 97 08/25/22 07:34 36.7 C 53 L 18 131/71 97 Room Air 08/25/22 04:21 36.4 C L 65 18 147/69 H 96 Room Air 08/25/22 00:48 77 FiO2 08/25/22 07:00 21 08/25/22 07:34 08/25/22 04:21 08/25/22 00:48 Laboratory Results Abnormal lab results 08/25/22 Range/Units 06:12 Chloride 110 H (98-107) mmol/L Anion Gap 1 L (3-11) BUN/Creatinine Ratio 23.0 H (10-20) Calcium 8.3 L (8.5-10.1) mg/dl
[2022-08-25] MEDS: ALPRAZolam 0.5 MG TABLET PO PRN (17:30)
[2022-08-25] MEDS: QUEtiapine FUMARATE 200 MG TAB PO SCH (19:59)
[2022-08-26] MEDS: oxyCODONE/ACETAMINOPHEN 5mg/325mg TAB PO PRN ×5 (00:01→22:08)
[2022-08-26] MEDS: HEPARIN SOD 5,000 UNIT/0.5 ML VIAL SQ SCH ×3 (00:41→20:30)
[2022-08-26] MEDS: METOPROLOL SUCC 25MG EXT REL TAB PO SCH (09:03)
[2022-08-26] MEDS: FUROSEMIDE 40 MG TAB PO SCH ×2 (09:03→18:06)
[2022-08-26] MEDS: lisinopril 40 MG TAB PO SCH (09:03)
[2022-08-26] MEDS: POTASSIUM CHLORIDE CRTAB 20 MEQ TABCR PO SCH ×2 (09:03→18:06)
[2022-08-26] MEDS: ISOSORBIDE MONO EXTENDED REL 30 MG TABCR PO SCH (09:03)
[2022-08-26] MEDS: FLUTICASONE/VILANTEROL 200/25MCG 14 PUFFS/INHALER INH SCH (09:04)
[2022-08-26] MEDS: ASPIRIN 81 MG ECTAB PO SCH (09:04)
[2022-08-26] MEDS: NICOTINE 7 MG/24 HR TDSY TD SCH (09:04)
[2022-08-26] MEDS: ESCITALOPRAM OXALATE 20 MG TAB PO SCH (09:04)
[2022-08-26] MEDS: DIVALPROEX DELAY RELEASE 500 MG TAB PO SCH ×2 (09:05→20:27)
[2022-08-26 09:46] LABS: Hemoglobin 16.6 g/dl (14.0-18.0); Mean Corpuscular Hemoglobin 31.2 pg (25.0-34.0); Mean Corpuscular Hgb Conc 33.9 g/dL (32.0-36.0); Mean Corpuscular Volume 92.1 fL (80.0-100.0); Platelet Count 167 K/uL (130-400); RDW Coefficient of Variation 13.8 % (11.5-14.5); RDW Standard Deviation 46.8 fL (36.4-46.3); Red Blood Count 5.32 M/uL (4.63-6.08); White Blood Count 8.73 K/ul (4.8-10.8)
[2022-08-26 09:56] LABS: BUN Creatinine Ratio 22.3 (10-20); Calcium 8.4 mg/dl (8.5-10.1); Est GFR (African American) 106.1 ml/min; Est GFR (Non-African American) 91.6 ml/min; Phosphorus 2.9 mg/dl (2.5-4.9); Potassium 4.1 mmol/L (3.5-5.1)
--- NOTE | 2022-08-26 10:20 | Cardiology Progress Note ---
Date of Service August 26, 2022 Assessment & Plan (1) History of cardiac defibrillator placement: (2) Schizoaffective disorder: (3) Decompensated heart failure: (4) Medical non-compliance: Plan From a cardiac standpoint the patient is clinically stable and has improved. Of note is that the patient does have an ICD in place which is functioning appropriately. If he needs his Seroquel increased to better treat his schizoaffective disorder than I feel it would be reasonable for psych to increase this medication. Admission and Anticipated Discharge Date Admission Date: August 22, 2022 Subjective The patient is alert with no new cardiac complaints Review of Systems Review of Systems: Not obtainable Physical Exam Physical Exam: General: no acute distress and stated age Head: normocephalic, no masses, lesions, tenderness or abnormalities Eyes: conjunctiva are pink and non-injected, sclera clear Neck: supple, no adenopathy, no bruits, normal jugular venous pulse, no hepatojugular reflux Chest: normal shape and normal respiratory effort Lungs: clear to auscultation and percussion Cardiac Exam: - regular rate & rhythm, no murmurs gallops or rubs - normal S1, normal S2 Pulses: 2(+) throughout Abdomen: abdomen soft, non-tender, no abnormal masses and no hepatosplenomegaly Musculoskeletal: no gait disturbance, no joint inflammation, no deforming a rthritis Extremities: no edema and no cyanosis Neuro: grossly normal exam Results & Data ([facility]) Vital Signs (Past 12 Hours) Vital Signs Temp Pulse Pulse Resp BP Pulse Ox O2 Del Method 08/26/22 08:23 36.8 C 52 L 18 129/78 99 Room Air 08/26/22 03:30 CPAP 08/26/22 03:15 36.5 C 70 18 126/59 L 96 CPAP 08/26/22 02:34 78 16 97 08/25/22 23:08 76 Laboratory Results Laboratory Results - last 24 hr 08/26/22 08/26/22 09:13 09:13 WBC 8.73 RBC 5.32 Hgb 16.6 Hct 49.0 MCV 92.1 MCH 31.2 MCHC 33.9 RDW Std Deviation 46.8 H RDW Coeff of Seven 13.8 Plt Count 167 MPV 11.0 Sodium 141 Potassium 4.1 Chloride 107 Carbon Dioxide 30 Anion Gap 4 BUN 21 Creatinine 0.94 Est Cr Clr Drug Dosing 99.0 Est GFR ( Amer) 106.1 Est GFR (Non-Af Amer) 91.6 BUN/Creatinine Ratio 22.3 H Glucose 135 H Calcium 8.4 L Phosphorus 2.9 Magnesium 2.0 Medications Administered Current Inpatient Medications Acetaminophen (Acetaminophen 325 Mg Tab) 325 mg PO Q6H PRN PRN Reason: Mild Pain Stop: 09/21/22 22:09 Alprazolam (Alprazolam 0.5 Mg Tablet) 0.5 mg PO DAILY PRN PRN Reason: panic attacks/anxiety Stop: 09/24/22 08:57 Last Admin: 08/25/22 17:30 Dose: 0.5 mg Aspirin (Aspirin 81 Mg Ectab) 81 mg PO [facility] Stop: 09/22/22 08:59 Last Admin: 08/26/22 09:04 Dose: 81 mg Divalproex Sodium (Divalproex Delay Release 500 Mg Tab) 500 mg PO BID [facility] Stop: 09/22/22 08:59 Last Admin: 08/26/22 09:05 Dose: 500 mg Escitalopram Oxalate (Escitalopram Oxalate 20 Mg Tab) 20 mg PO QAM [facility] Stop: 09/22/22 08:59 Last Admin: 08/26/22 09:04 Dose: 20 mg Fluticasone/Vilanterol (Fluticasone/Vilanterol 200/25mcg 14 Puffs/Inhaler) 1 puffs INH DAILY [facility] Stop: 09/22/22 08:59 Last Admin: 08/26/22 09:04 Dose: 1 puffs Furosemide (Furosemide 40 Mg Tab) 40 mg PO BID17 [facility] Stop: 09/22/22 16:59 Last Admin: 08/26/22 09:03 Dose: 40 mg Heparin Sodium (Porcine) (Heparin Sod 5,000 Unit/0.5 Ml Vial) 5,000 units SQ Q8 [facility] Stop: 09/23/22 21:59 Last Admin: 08/26/22 00:41 Dose: Not Given Promethazine HCl 12.5 mg/ (Sodium Chloride) 50.5 mls @ 202 mls/hr IV Q6H PRN PRN Reason: Nausea And Vomiting Stop: 09/22/22 00:00 Last Infusion: 08/23/22 10:52 Dose: Infused Isosorbide Mononitrate (Isosorbide [place] Extended Rel 30 Mg Tabcr) 30 mg PO DAILY [facility] Stop: 09/22/22 08:59 Last Admin: 08/26/22 09:03 Dose: 30 mg Lisinopril (Lisinopril 40 Mg Tab) 40 mg PO DAILY [facility] Stop: 09/22/22 08:59 Last Admin: 08/26/22 09:03 Dose: 40 mg Metoprolol Succinate (Metoprolol Succ 25mg Ext Rel Tab) 25 mg PO QAM [facility] Stop: 09/22/22 08:59 Last Admin: 08/26/22 09:03 Dose: Not Given Miscellaneous (Remove Nicoderm Patch) 1 each N/A DAILY@0859 [facility] Stop: 09/22/22 08:58 Last Admin: 08/26/22 09:04 Dose: 1 each Nicotine (Nicotine 7 Mg/24 Hr Tdsy) 7 mg TD QAM [facility] Stop: 09/22/22 08:59 Last Admin: 08/26/22 09:04 Dose: 7 mg Nitroglycerin (Nitroglycerin Sl 0.4 Mg/Tab Tab) 0.4 mg SL PRN PRN PRN Reason: cp Stop: 09/21/22 22:53 Oxycodone/Acetaminophen (Oxycodone/Acetaminophen 5mg/325mg Tab) 1 - 2 tab PO Q4H PRN PRN Reason: Pain Stop: 09/05/22 22:09 Last Admin: 08/26/22 09:06 Dose: 2 tab Potassium Chloride (Potassium Chloride Crtab 20 Meq Tabcr) 20 meq PO BID17 [facility] Stop: 09/22/22 20:59 Last Admin: 08/26/22 09:03 Dose: 20 meq Quetiapine Fumarate (Quetiapine Fumarate 200 Mg Tab) 400 mg PO HS [facility] Stop: 09/25/22 20:59
--- NOTE | 2022-08-26 10:55 | Hospitalist Progress Note ---
Date of Service August 26, 2022 Assessment & Plan (1) Acute hypoxemic respiratory failure: Plan: Acute hypoxic respiratory failure Secondary to decompensated heart failure, recurrent admission Chronic systolic heart failure secondary to nonischemic cardiomyopathy status post ICD Underlying pulmonary HTN History of HAFSA CPAP Medication noncompliance Acknowledged he had not been taking his meds as prescribed Currently on room air CXR on presentation noted cardiomegaly with signs of heart failure Got IV lasix Cardiology on board Now on po lasix CXR on 08/25/22 noted interval resolution of previously noted pulm edema Metoprolol XL decreased from 50mg to 25mg daily due to bradycardia Left-sided chest pain with mild troponin elevation NSTEMI unlikely Troponin trend 46, 51, 43 No signs of acute ischemia or infarct on EKG Was briefly on heparin which has been discontinued Per Chart review, ICD interrogation was unrevealing Echo noted some improvement in EF to 35-40% History of mild to moderate TR hyperlipidemia on statin Rx History anxiety/mood disorder/schizoaffective disorder Reported suicidal thoughts on presentation Psych on board Recommendation noted Currently on one to one. RN reports concerns of patient had had situations where he was not taking his chronic opioid as prescribed and other behaviors. Will keep one on one for now Continue with prior to admission Depakote ER 500mg BID, Lexapro 20mg qd Per psych recs, Seroquel increased to 400mg HS after 2-3 days if tolerated well and then can increase back to 600mg HS in another 2-3 days Reduce Xanax to 0.5mg daily prn for panic attacks (and attempt to avoid use while requiring opioids/pain medication and if any concerns for misuse would discontinue) Chronic back pain PDMP reviewed Continue home Percocet Stop IV Dilaudid Patient to follow up with his Spine Surgeon in [place] Ongoing tobacco abuse Nicotine patch DVT prophylaxis. Heparin SC Full code Disposition anticipate d/c home once cleared from psych's perspective Admission and Anticipated Discharge Date Admission Date: August 22, 2022 Subjective Patient seen and examined Reports feeling better Denied any shortness of breath today States cough is much improved No chest pain Currently denied suicidal thoughts/ideation Denied all other symptoms on review of system Physical Exam Constitutional: + well hydrated; no acute distress Eyes: PERRL, conjunctivae normal, anicteric sclerae ENMT: external ear and nose normal, oropharynx normal Respiratory: normal respiratory effort, lungs clear to auscultation Cardiovascular: Rate/Rhythm: regular rate and regular rhythm S1 S2 Gastrointestinal (Abdomen): normal bowel sounds, soft, nontender, no hepatosplenomegaly Musculoskeletal: no cyanosis or clubbing, extremities motor strength 5/5 Neurologic: PERRL, EOMI, accommodation nl, no face palsy, no dysarthria Psychiatric: Orientation: alert, oriented x 3 and cooperative Results & Data Results & Data ([facility]) Vital Signs (Past 12 Hours) Vital Signs Temp Pulse Pulse Resp BP Pulse Ox O2 Del Method 08/26/22 08:23 36.8 C 52 L 18 129/78 99 Room Air 08/26/22 03:30 CPAP 08/26/22 03:15 36.5 C 70 18 126/59 L 96 CPAP 08/26/22 02:34 78 16 97 08/25/22 23:08 76 Laboratory Results Abnormal lab results 08/26/22 08/26/22 Range/Units 09:13 09:13 RDW Std Deviation 46.8 H (36.4-46.3) fL BUN/Creatinine Ratio 22.3 H (10-20) Glucose 135 H (70-99(Fasting)) mg/dl Calcium 8.4 L (8.5-10.1) mg/dl
[2022-08-26] MEDS: ALPRAZolam 0.5 MG TABLET PO PRN (11:30)
--- NOTE | 2022-08-26 12:58 | Psychiatric Progress Note ---
Date of Service August 26, 2022 Impression / Recommendations Impression 52 yo man with history of schizoaffective disorder, possible vascular induced cognitive deficits vs benzodiazepine side effects vs delirium from CHF, congestive heart failure and chronic non-adherence with outpatient psychiatric medications presenting with SI with rehearsal behaviors vs self-interrupted attempt yesterday on 302 warrant in the context of decompensated CHF, alcohol use and non-adherence with psychiatric medications. Today he is denying SI and feels safe in the hospital and able to safety contract to alert nursing. Typical recent course has been improvement of his mood, mental status, cognitive functioning as his CHF status improves and then resolution of his SI. Given recent similar presentation ideally this time he will allow us to at minimum help him get established with an outpatient psychiatric provider (will have psych liason confirm with his girlfriend that this is not in place). as per Dr. Alexx hough--reviewed interim progress 08/26/2022--patient known to me from multiple contacts, I feel strongly at this point that patient misrepresents his SI on admission to gain access to services and med seeking, ie degree of malingering. Certainly historically poor coping skills when he is medically decompenstated. (1) Medical non-compliance: (2) Schizoaffective disorder: (3) Suicide ideation: (4) Decompensated heart failure: (5) Depression: (6) HAFSA on CPAP: Plan I do not believe that patient attempted suicide by walking into traffic and he currently denies doing so. He states he is feeling well and has repeatedly denied SI and is not seeking inpatient care. Multiple attempts have been made to engage his significant other in aftercare and safety planning and refuses ROIs, feigns paranoia at times to seek additional medication. He states that "my lady took care of all that" when discussed importance of taking meds as prescribed and aftercare with a psychiatric prescriber and declines any additional involvem ent from liaison nurse re: aftercare planning. There is no evidence of ezequiel or psychosis on exam and he does not meet criteria for involuntary psychiatric commitment. 302 warrant will be denied (dis positioned) as he is not in need of emergency medical care. I would discharge patient on his current doses of psychiatric medications (Depakote, Seroquel 400 mg) rather than titrate Seroquel as he has some sedation at total dose of 600 mg when taken consistently in house, though in retrospect may have been surreptitious use of substance. I would not provide prn Xanax outside of a hospital setting due to risk of misuse/respiratory depression with opiates. In future hospital stays benzos should be avoided. Interval History Identifying Information 52 yo man with history of likely schizoaffective disorder, chronic Xanax use, and decompensated heart failure admitted medically for worsening of CHF. Psychiatry consulted for safety risk assessment. Chief Complaint 302 warrant Review of Systems Notes states his mood is good, no SI/HI/no remy, no delusions Subjective Subjective Patient was seen & assessed and interval progress reviewed with nursing. Patient continues to report improved mood since admission and feeling well with his psychiatric medications. He is tolerating increase in Seroquel. Remains med seeking and Dr. Abdi plans to continue 1 on 1 when warrant dispositioned given risks of sereptitious use of opiods. anticipates will be stable for discharge tomorrow. Physical Exam Psychiatric Orientation: alert and oriented x 3 Eye Contact: good eye contact Motor Behavior: no abnormal motor movements Speech: normal rate/rhythm/volume of speech Affect: euthymic affect Mood: no depressed mood Thought Process: clear/coherent thought process Thought Content: reality based without delusions; not paranoid Suicidal Thoughts: denies suicidal thoughts Homicidal Thoughts: denies homicidal thoughts Hallucinations: no auditory hallucinations and no visual hallucinations Cognition: attention grossly intact and language grossly intact Estimated Intelligence: consistent with education level Insight: + limited insight Judgement: + limited judgement Vital Signs (Past 24 Hours) Last Vital Signs Temp 36.8 C 08/26/22 08:23 Pulse 52 L 08/26/22 08:23 Resp 18 08/26/22 08:23 BP 129/78 08/26/22 08:23 Pulse Ox 99 08/26/22 08:23 O2 Del Method 08/26/22 08:23 O2 Flow Rate 2 08/23/22 00:05 FiO2 21 08/25/22 07:00 Results & Data ([facility]) Laboratory Results Laboratory Results - last 24 hr 08/26/22 08/26/22 09:13 09:13 WBC 8.73 RBC 5.32 Hgb 16.6 Hct 49.0 MCV 92.1 MCH 31.2 MCHC 33.9 RDW Std Deviation 46.8 H RDW Coeff of Seven 13.8 Plt Count 167 MPV 11.0 Sodium 141 Potassium 4.1 Chloride 107 Carbon Dioxide 30 Anion Gap 4 BUN 21 Creatinine 0.94 Est Cr Clr Drug Dosing 99.0 Est GFR ( Amer) 106.1 Est GFR (Non-Af Amer) 91.6 BUN/Creatinine Ratio 22.3 H Glucose 135 H Calcium 8.4 L Phosphorus 2.9 Magnesium 2.0 Current Inpatient Medications Current Inpatient Medications: Current Inpatient Medications Acetaminophen (Acetaminophen 325 Mg Tab) 325 mg PO Q6H PRN PRN Reason: Mild Pain Stop: 09/21/22 22:09 Alprazolam (Alprazolam 0.5 Mg Tablet) 0.5 mg PO DAILY PRN PRN Reason: panic attacks/anxiety Stop: 09/24/22 08:57 Last Admin: 08/26/22 11:30 Dose: 0.5 mg Aspirin (Aspirin 81 Mg Ectab) [facility] Stop: 09/22/22 08:59 Last Admin: 08/26/22 09:04 Dose: 81 mg Divalproex Sodium (Divalproex Delay Release 500 Mg Tab) 500 mg PO BID [facility] Stop: 09/22/22 08:59 Last Admin: 08/26/22 09:05 Dose: 500 mg Escitalopram Oxalate (Escitalopram Oxalate 20 Mg Tab) [facility] [place] Stop: 09/22/22 08:59 Last Admin: 08/26/22 09:04 Dose: 20 mg Fluticasone/Vilanterol (Fluticasone/Vilanterol 200/25mcg 14 Puffs/Inhaler) 1 puffs INH DAILY [facility] Stop: 09/22/22 08:59 Last Admin: 08/26/22 09:04 Dose: 1 puffs Furosemide (Furosemide 40 Mg Tab) 40 mg PO BID17 [facility] Stop: 09/22/22 16:59 Last Admin: 08/26/22 09:03 Dose: 40 mg Heparin Sodium (Porcine) (Heparin Sod 5,000 Unit/0.5 Ml Vial) 5,000 units SQ Q8 [facility] Stop: 09/23/22 21:59 Last Admin: 08/26/22 00:41 Dose: Not Given Promethazine HCl 12.5 mg/ (Sodium Chloride) 50.5 mls @ 202 mls/hr IV Q6H PRN PRN Reason: Nausea And Vomiting Stop: 09/22/22 00:00 Last Infusion: 08/23/22 10:52 Dose: Infused Isosorbide Mononitrate (Isosorbide [place] Extended Rel 30 Mg Tabcr) 30 mg PO DAILY [facility] Stop: 09/22/22 08:59 Last Admin: 08/26/22 09:03 Dose: 30 mg Lisinopril (Lisinopril 40 Mg Tab) 40 mg PO DAILY [facility] Stop: 09/22/22 08:59 Last Admin: 08/26/22 09:03 Dose: 40 mg Metoprolol Succinate (Metoprolol Succ 25mg Ext Rel Tab) 25 mg PO QAM [facility] Stop: 09/22/22 08:59 Last Admin: 08/26/22 09:03 Dose: Not Given Miscellaneous (Remove Nicoderm Patch) 1 each N/A DAILY@0859 [facility] Stop: 09/22/22 08:58 Last Admin: 08/26/22 09:04 Dose: 1 each Nicotine (Nicotine 7 Mg/24 Hr Tdsy) 7 mg TD QAM [facility] Stop: 09/22/22 08:59 Last Admin: 08/26/22 09:04 Dose: 7 mg Nitroglycerin (Nitroglycerin Sl 0.4 Mg/Tab Tab) 0.4 mg SL PRN PRN PRN Reason: cp Stop: 09/21/22 22:53 Oxycodone/Acetaminophen (Oxycodone/Acetaminophen 5mg/325mg Tab) 1 - 2 tab PO Q4H PRN PRN Reason: Pain Stop: 09/05/22 22:09 Last Admin: 08/26/22 09:06 Dose: 2 tab Potassium Chloride (Potassium Chloride Crtab 20 Meq Tabcr) 20 meq PO BID17 [facility] Stop: 09/22/22 20:59 Last Admin: 08/26/22 09:03 Dose: 20 meq Quetiapine Fumarate (Quetiapine Fumarate 200 Mg Tab) 400 mg PO HS [facility] Stop: 09/25/22 20:59 (1) Depression Active/Remission status: currently active Depression Type: major depressive disorder Major depression episode severity: severe Major depression recurrence: recurrent Psychotic features: without psychotic features Qualified Code(s): F33.2 - Major depressive disorder, recurrent severe without psychotic features
[2022-08-26] MEDS ORDERED: QUEtiapine FUMARATE 200 MG TAB PO SCH (21:00)
[2022-08-27] MEDS: oxyCODONE/ACETAMINOPHEN 5mg/325mg TAB PO PRN ×2 (03:05→07:14)
[2022-08-27] MEDS: HEPARIN SOD 5,000 UNIT/0.5 ML VIAL SQ SCH (05:04)
[2022-08-27 06:40] LABS: Hematocrit (blood only) 47.2 % (40.1-51.0); Hemoglobin 16.2 g/dl (14.0-18.0); Mean Corpuscular Hemoglobin 32.1 pg (25.0-34.0); Mean Corpuscular Hgb Conc 34.3 g/dL (32.0-36.0); Mean Corpuscular Volume 93.5 fL (80.0-100.0); Mean Platelet Volume 11.1 fL (9.4-12.4); Platelet Count 153 K/uL (130-400); RDW Coefficient of Variation 13.9 % (11.5-14.5); RDW Standard Deviation 48.4 fL (36.4-46.3); Red Blood Count 5.05 M/uL (4.63-6.08); White Blood Count 10.49 K/ul (4.8-10.8)
[2022-08-27 07:25] LABS: Calcium 8.3 mg/dl (8.5-10.1); Potassium 4.1 mmol/L (3.5-5.1)
[2022-08-27 07:30] LABS: BUN Creatinine Ratio 23.4 (10-20); Est GFR (African American) 106.1 ml/min; Est GFR (Non-African American) 91.6 ml/min
[2022-08-27] MEDS: ESCITALOPRAM OXALATE 20 MG TAB PO SCH (08:40)
[2022-08-27] MEDS: DIVALPROEX DELAY RELEASE 500 MG TAB PO SCH (08:40)
[2022-08-27] MEDS: ASPIRIN 81 MG ECTAB PO SCH (08:40)
[2022-08-27] MEDS: NICOTINE 7 MG/24 HR TDSY TD SCH (08:40)
[2022-08-27] MEDS: ISOSORBIDE MONO EXTENDED REL 30 MG TABCR PO SCH (08:40)
[2022-08-27] MEDS: METOPROLOL SUCC 25MG EXT REL TAB PO SCH (08:40)
[2022-08-27] MEDS: POTASSIUM CHLORIDE CRTAB 20 MEQ TABCR PO SCH (08:40)
[2022-08-27] MEDS: lisinopril 40 MG TAB PO SCH (08:40)
[2022-08-27] MEDS: FLUTICASONE/VILANTEROL 200/25MCG 14 PUFFS/INHALER INH SCH (08:41)
--- NOTE | 2022-08-27 10:58 | Discharge Summary ---
Discharge Summary Date of Service August 27, 2022 Notes For Next Care Provider Wean off xanax over time Patient needs to follow up with a psychiatrist. Please encourage this Medication Changes From Visit Reduce xanax to 0.5mg daily as needed for anxiety. This will be weaned off overtime with your Primary Doctor Metoprolol succinate was reduced from 50mg to 25mg daily Lasix (furosemide) was changed to 40mg twice a day Quetiapine 400mg at bedtime only Admission HPI Per Admitting Provider History obtained from patient and records. Medical history significant for chronic systolic heart failure secondary to nonischemic cardiomyopathy (20 to 25%, TTE 2021) status post ICD, mild to moderate TR, HAFSA on CPAP, pulmonary hypertension, HTN, hyperlipidemia, anxiety/mood disorder, schizoaffective disorder, chronic pain,ongoing tobacco abuse. Recent confinement July 25, 2022 due to August 16, 2022 for decompensated heart failure. Patient also found to have a perineal abscess status post drainage. Some diuretic changes made by PCP last week. Days ago, patient had transient left-sided achy chest pain going to to his left shoulder. Thinks his ICD may have shocked him again. Some shortness of breath and weight gain noted for the last week. Patient only taking twice daily Lasix prescription from PCP once daily. Skipping p.m. dose due to inconvenience of having to pee at night. Patient with suicidal thoughts. Mind is not okay. Patient consulted ER for evaluation. Patient complaining of left-sided chest pain at the ER. Refusing nitroglycerin due to headache for medication. Transient O2 sats of 80s at the ER. Aspirin and Lasix administered at the ER. Medical Historyas above Surgical History : ICD/PPM placement, knee surgery, perineal abscess drainage Family History : Alcoholism, heart disease Personal/Social history : Half pack daily, no EtOH intake, disabled Admission Exam Per Admitting Provider GENERAL: Slightly anxious, obese, no respiratory distress SKIN: Normal color, warm HEENT: [place] palpebral conjunctivae, no ptosis, moist buccal mucosa NECK : Supple, no tenderness CHEST : Decreased breath sounds, no chest wall tenderness HEART :RRR, no obvious murmurs ABDOMEN: Some distention, nontender EXTREMITIES : Minimal LE swelling, no LE tenderness, no other conspicuous deformities noted NEUROLOGIC : Coherent, no facial asymmetry, no other gross focality Principal Dx & Hospital Course #1 = Principal Diagnosis (1) Acute hypoxemic respiratory failure: Acute hypoxic respiratory failure Secondary to decompensated heart failure, recurrent admission Chronic systolic heart failure secondary to nonischemic cardiomyopathy status post ICD Underlying pulmonary HTN History of HAFSA CPAP Medication noncompliance Acknowledged he had not been taking his meds as prescribed Required oxygen on presentation and was successfully weaned off CXR on presentation noted cardiomegaly with signs of heart failure Got IV lasix inpatient Was comanaged with [employer] [facility] [employer] Director CXR on 08/25/22 noted interval resolution of previously noted pulm edema Discharged on lasix 40mg BID Metoprolol XL decreased from 50mg to 25mg daily due to bradycardia Left-sided chest pain with mild troponin elevation NSTEMI unlikely Troponin trend 46, 51, 43 No signs of acute ischemia or infarct on EKG Was briefly on heparin until this was ruled out Per Chart review, ICD interrogation was unrevealing Echo noted some improvement in EF to 35-40% History of mild to moderate TR hyperlipidemia on statin Rx History anxiety/mood disorder/schizoaffective disorder Reported suicidal thoughts on presentation Now resolved Denied any suicidal thoughts over the past few days Was comanaged with psychiatrist I had concerns for patient's benzodiazepine and chronic opioids I discussed this with psychiatrist Dr Cosby who agrees with risk of misuse/resp effects with opioids PDMP was reviewed I called patient's PCP Dr Springer who has been refilling his meds. He expressed patient has been on chronic opioids and benzos prior to him taking over his care. He also shares similar concerns. I updated him on patient's stay and that he was doing fine on 0.5mg xanax prn daily inpatient. I suggested he should wean him off xanax over time and ensure patient follows with psychiatrist outpatient as patient had not followed up with psychiatrist and declines that. He usually comes to the hospital when his psych issues get worse Continue with prior to admission Depakote ER 500mg BID Continue Quetiapine at 400mg HS only Chronic back pain Continue home opioids. Other concerns as above Patient to follow up with his Spine Surgeon in [place] Patient counseled on need for medication adherence Discharge Exam Constitutional + well hydrated; no acute distress Eyes PERRL, conjunctivae normal, anicteric sclerae ENMT external ear and nose normal, oropharynx normal Respiratory normal respiratory effort, lungs clear to auscultation Cardiovascular Rate/Rhythm: regular rate and regular rhythm S1 S2 Gastrointestinal (Abdomen) normal bowel sounds, soft, nontender, no hepatosplenomegaly Musculoskeletal no cyanosis or clubbing, extremities motor strength 5/5 Neurologic PERRL, EOMI, accommodation nl, no face palsy, no dysarthria Psychiatric Orientation: alert, oriented x 3 and cooperative Updated Medication List Medication Instructions Recorded Confirmed Type dicyclomine 10 mg capsule 10 mg PO QID PRN .ABD PAIN 06/20/22 07/24/22 History divalproex 500 mg tablet,delayed 500 mg PO BID 06/20/22 07/24/22 History release escitalopram oxalate 20 mg tablet 20 mg PO QAM 06/20/22 07/24/22 History isosorbide mononitrate 30 mg 30 mg PO DAILY 06/20/22 07/24/22 History tablet,extended release 24 hr ondansetron 4 mg disintegrating 4 mg PO Q8H PRN Nausea 06/20/22 07/24/22 History tablet oxycodone-acetaminophen 10 mg-325 1 tab PO Q4H PRN Pain 06/20/22 07/24/22 History mg tablet (Percocet) albuterol sulfate 2.5 mg/3 mL 2.5 mg (3 mL) inhalation QID PRN 06/28/22 07/24/22 Rx (0.083 %) solution for nebulization shortness of breath or wheezing #90 mL fluticasone furoate 200 1 ea inhalation DAILY #60 ea 06/28/22 07/25/22 Rx mcg-vilanterol 25 mcg/dose inhalation powder (Breo Ellipta) umeclidinium 62.5 mcg/actuation 1 inh inhalation DAILY #30 ea 06/28/22 07/24/22 Rx blister powder for inhalation (Incruse Ellipta) quetiapine 400 mg tablet 400 mg PO HS 07/24/22 07/26/22 History alprazolam 2 mg tablet 0.5 mg PO DAILY PRN Anxiety #1 tab 08/27/22 07/24/22 Rx furosemide 40 mg tablet (Lasix) 40 mg PO BID #60 tabs 08/27/22 Rx lisinopril 40 mg tablet (Zestril) 40 mg PO DAILY #30 tabs 08/27/22 Rx metoprolol succinate 50 mg 25 mg PO QAM #30 tabs 08/27/22 Rx tablet,extended release 24 hr potassium chloride 20 mEq 20 meq PO BID #60 tabs 08/27/22 Rx tablet,extended release Hospital Stay Data Consultations 08/22/22 20:26 ED Decision to Admit Stat 08/22/22 22:10 Consult Psychiatry Routine 08/22/22 23:32 Consult Cardiology Routine Pending Results Patient Have Any Pending Studies at Discharge: No Discharge Instructions Given to Patient (Per Discharging Provider) Mr Singh You came to the hospital complaining of chest pain, shortness of breath and suicidal ideation. You were managed for the above listed diagnoses. Certain adjustments were made to your medication -Reduce xanax to 0.5mg daily as needed for anxiety. This will be weaned off overtime with your Primary Doctor -Metoprolol succinate was reduced from 50mg to 25mg daily -Your lasix (furosemide) was changed to 40mg twice a day -Please take quetiapine 400mg at bedtime only Continue your depakote Continue taking your lisinopril 40mg daily It is extremely important that you follow up with a Psychiatrist in the office. Please ensure follow up with your Primary Doctor and Cardiology It was a pleasure taking care of you. Total Time Total Time Spent Total Time Spent (In Minutes): 50 Total Time Includes: Examination of the Patient, Discharge Planning, Medication Reconciliation and Communication With Other Providers
== END 2022-08-27 11:18 | disposition home or self-care (01) | DRG 291 ==
LOC: ED 18:55 → 2S 22:05 → SUATTDRO 22:05 → 2S 23:17